=== PATIENT | male | born 1950 | race American Indian/Alaskan Native ===

== ENCOUNTER 2021-07-05 17:06 | Emergency (ER) | payer MEDICARE, OTHER ==
[2021-07-05] MEDS ORDERED: LORazepam 2 MG/ML VIAL ONE ×2 (17:32→19:45)
[2021-07-05] MEDS ORDERED: SODIUM CHLORIDE 0.9% 1000 ML 1,000 ML IV ONE (17:34)
[2021-07-05] MEDS ORDERED: LORazepam 2 MG/ML VIAL IV ONE (17:34)
--- NOTE | 2021-07-05 17:40 | Emergency Department Report ---
<YOLANDA BOUDREAUXFelipa - Last Filed: 07/05/21 23:12> ED Altered Mental Status HPI - General Chief Complaint: Altered Mental Status Stated Complaint: AMS Time Seen by Provider: 07/05/21 17:28 Source: EMS Mode of arrival: Stretcher Limitations: No Limitations - History of Present Illness Initial Comments: Patient is 70 years old male with history of alcohol and drug abuse. Patient brought to the emergency room via EMS from a local [place] [facility] area after patient was found to be confused and belligerent. EMS reported that patient was drinking alcohol. Upon arrival to the ER patient is confused agitated and refusing to cooperate. Patient physically restrained and given Ativan for chemical restraints. MD Complaint: altered mental status, confusion -: unknown Consistency of Symptoms: constant Context: alcohol abuse, drug abuse - Related Data Allergies Allergy/AdvReac Type Severity Reaction Status Date / Time No Known Allergies Allergy Verified 07/05/21 19:36 ED Review of Systems Comment: Unobtainable due to pts medical conditions ED Physical Exam - General Limitations: No Limitations General appearance: alert, in no apparent distress, appears intoxicated - Head Head exam: Present: atraumatic, normocephalic, normal inspection - Eye Eye exam: Present: normal appearance - ENT ENT exam: Present: normal exam, normal orophraynx, mucous membranes moist - Neck Neck exam: Present: normal inspection, full ROM. Absent: tenderness, meningismus - Respiratory Respiratory exam: Present: normal lung sounds bilaterally - Cardiovascular Cardiovascular Exam: Present: regular rate, normal rhythm, normal heart sounds - GI/Abdominal GI/Abdominal exam: Present: soft, normal bowel sounds. Absent: distended, tenderness, guarding, rebound, rigid, mass, bruit, pulsatile mass, hernia - Extremities Exam Extremities exam: Present: normal inspection, full ROM, normal capillary refill. Absent: tenderness - Back Exam Back exam: Present: normal inspection, full ROM. Absent: CVA tenderness (R), CVA tenderness (L) - Neurological Exam Neurological exam: Present: alert, altered, CN II-XII intact. Absent: motor sensory deficit - Psychiatric Psychiatric exam: Present: agitated - Skin Skin exam: Present: warm, intact, normal color - Lab Data Result diagrams: 07/05/21 18:05 07/05/21 18:05 - Radiology Data Radiology results: report reviewed - Medical Decision Making Patient is 70 years old male with history of alcohol and drug abuse. Patient brought to the emergency room via EMS from a local [place] [facility] area after patient was found to be confused and belligerent. EMS reported that patient was drinking alcohol. Upon arrival to the ER patient is confused agitated and ref using to cooperate. Patient physically restrained and given Ativan for chemical restraints. Patient agitation improved significantly after Ativan. Labs reviewed and is unremarkable except for slightly elevated lactic acid of 2.1. Alcohol level is 0.32. CT brain is negative for acute finding. Patient will be discharged home when patient is sober. ED Disposition Clinical Impression: Alcohol intoxication Qualifiers: Complication of substance-induced condition: with unspecified complication Qualified Code(s): F10.929 - Alcohol use, unspecified with intoxication, unspecified Disposition: 01 HOME / SELF CARE / HOMELESS Is pt being admited?: No Condition: Stable Instructions: Alcohol Intoxication Additional Instructions: Cut back on your alcohol drinking to help your overall health Increase your daily fluid to help your hydration Call and follow up with your doctor in the next 3-5 days for progress Please do not hesitate to call or return to ED if your symptoms worsen Referrals: IRAIS HELTON MD [Staff Physician] - 3-5 Days <AMARIS ORELLANA - Last Filed: 07/06/21 05:58> ED Review of Systems ROS: Stated complaint: AMS Other details as noted in HPI ED Course Vital Signs 07/05/21 07/05/21 07/05/21 17:16 17:30 17:46 Temperature 98 F Pulse Rate 90 Respiratory 18 Rate Blood Pressure 118/70 [Right] O2 Sat by Pulse 98 90 80 L Oximetry 07/05/21 07/05/21 07/05/21 18:02 18:17 18:32 Temperature Pulse Rate Respiratory Rate Blood Pressure [Right] O2 Sat by Pulse 86 81 L 82 L Oximetry 07/05/21 07/05/21 07/05/21 18:46 19:00 19:16 Temperature Pulse Rate Respiratory Rate Blood Pressure [Right] O2 Sat by Pulse 78 L 78 L 83 L Oximetry - Reevaluation(s) Reevaluation #1: 07/06/21 05:53 pt signed to me at shift change with alcohol intoxication. Pt woke up around 05:45 wanting something to eat and wanted to urinate. I help this patient with urinal and was able to urinate. He told me he was so drunk that he could not remember when they brought in here. He mentioned that he want to [facility] yesterday Monday and visit with his counselor. He blamed himself that he tried not to get drunk but he could not help it. He denies any other modifying or associated factors at this point. Pt will be fed and discharge to home. - Lab Data Result diagrams: 07/05/21 18:05 07/05/21 18:05 Lab Results 07/05/21 07/05/21 07/05/21 Range/Units 18:05 18:05 18:05 WBC 6.0 (4.5-11.0) K/mm3 RBC 3.94 (3.65-5.03) M/mm3 Hgb 13.3 (11.8-15.2) gm/dl Hct 40.5 (35.5-45.6) % MCV 103 H (84-94) fl MCH 34 H (28-32) pg MCHC 33 (32-34) % RDW 14.2 (13.2-15.2) % Plt Count 124 L (140-440) K/mm3 Lymph % (Auto) Automotive Artist Hartley % (Auto) Automotive Artist Eos % (Auto) Automotive Artist Baso % (Auto) Automotive Artist Lymph # (Auto) Automotive Artist Hartley # (Auto) Automotive Artist Eos # (Auto) Automotive Artist Baso # (Auto) Automotive Artist Seg Neutrophils % Automotive Artist Seg Neutrophils # Automotive Artist PT 20.3 H (12.2-14.9) Sec. INR 1.53 H (0.87-1.13) APTT 24.4 (24.2-36.6) Sec. Sodium 137 (137-145) mmol/L Potassium 4.1 (3.6-5.0) mmol/L Chloride 96.1 L (98-107) mmol/L Carbon Dioxide 26 (22-30) mmol/L Anion Gap 19 mmol/L BUN 19 (9-20) mg/dL Creatinine 0.9 (0.8-1.3) mg/dL Estimated GFR > 60 ml/min BUN/Creatinine Ratio 21 % Glucose 87 (75-100) mg/dL Lactic Acid (0.7-2.0) mmol/L Calcium 9.3 (8.4-10.2) mg/dL Total Bilirubin 0.60 (0.1-1.2) mg/dL Direct Bilirubin < 0.2 (0-0.2) mg/dL Indirect Bilirubin 0.4 mg/dL AST 42 H (5-40) units/L ALT 21 (7-56) units/L Alkaline Phosphatase 47 (35-129) units/L Ammonia (25-60) umol/L Total Creatine Kinase 83 (55-170) units/L Troponin T < 0.010 (0.00-0.029) ng/mL Total Protein 7.0 (6.3-8.2) g/dL Albumin 4.7 (3.9-5) g/dL Albumin/Globulin Ratio 2.0 % Salicylates (2.8-20.0) mg/dL Acetaminophen (10.0-30.0) ug/mL Plasma/Serum Alcohol (0-0.07) % 07/05/21 07/05/21 07/05/21 Range/Units 18:05 18:05 18:05 WBC (4.5-11.0) K/mm3 RBC (3.65-5.03) M/mm3 Hgb (11.8-15.2) gm/dl Hct (35.5-45.6) % MCV (84-94) fl MCH (28-32) pg MCHC (32-34) % RDW (13.2-15.2) % Plt Count (140-440) K/mm3 Lymph % (Auto) Hartley % (Auto) Eos % (Auto) Baso % (Auto) Lymph # (Auto) Hartley # (Auto) Eos # (Auto) Baso # (Auto) Seg Neutrophils % Seg Neutrophils # PT (12.2-14.9) Sec. INR (0.87-1.13) APTT (24.2-36.6) Sec. Sodium (137-145) mmol/L Potassium (3.6-5.0) mmol/L Chloride (98-107) mmol/L Carbon Dioxide (22-30) mmol/L Anion Gap mmol/L BUN (9-20) mg/dL Creatinine (0.8-1.3) mg/dL Estimated GFR ml/min BUN/Creatinine Ratio % Glucose (75-100) mg/dL Lactic Acid 2.40 H* (0.7-2.0) mmol/L Calcium (8.4-10.2) mg/dL Total Bilirubin (0.1-1.2) mg/dL Direct Bilirubin (0-0.2) mg/dL Indirect Bilirubin mg/dL AST (5-40) units/L ALT (7-56) units/L Alkaline Phosphatase (35-129) units/L Ammonia (25-60) umol/L Total Creatine Kinase (55-170) units/L Troponin T (0.00-0.029) ng/mL Total Protein (6.3-8.2) g/dL Albumin (3.9-5) g/dL Albumin/Globulin Ratio % Salicylates < 0.3 L (2.8-20.0) mg/dL Acetaminophen 5.0 L (10.0-30.0) ug/mL Plasma/Serum Alcohol (0-0.07) % 07/05/21 07/05/21 07/06/21 Range/Units 18:05 19:03 05:11 WBC (4.5-11.0) K/mm3 RBC (3.65-5.03) M/mm3 Hgb (11.8-15.2) gm/dl Hct (35.5-45.6) % MCV (84-94) fl MCH (28-32) pg MCHC (32-34) % RDW (13.2-15.2) % Plt Count (140-440) K/mm3 Lymph % (Auto) Hartley % (Auto) Eos % (Auto) Baso % (Auto) Lymph # (Auto) Hartley # (Auto) Eos # (Auto) Baso # (Auto) Seg Neutrophils % Seg Neutrophils # PT (12.2-14.9) Sec. INR (0.87-1.13) APTT (24.2-36.6) Sec. Sodium (137-145) mmol/L Potassium (3.6-5.0) mmol/L Chloride (98-107) mmol/L Carbon Dioxide (22-30) mmol/L Anion Gap mmol/L BUN (9-20) mg/dL Creatinine (0.8-1.3) mg/dL Estimated GFR ml/min BUN/Creatinine Ratio % Glucose (75-100) mg/dL Lactic Acid 2.60 H* (0.7-2.0) mmol/L Calcium (8.4-10.2) mg/dL Total Bilirubin (0.1-1.2) mg/dL Direct Bilirubin (0-0.2) mg/dL Indirect Bilirubin mg/dL AST (5-40) units/L ALT (7-56) units/L Alkaline Phosphatase (35-129) units/L Ammonia 26.0 (25-60) umol/L Total Creatine Kinase (55-170) units/L Troponin T (0.00-0.029) ng/mL Total Protein (6.3-8.2) g/dL Albumin (3.9-5) g/dL Albumin/Globulin Ratio % Salicylates (2.8-20.0) mg/dL Acetaminophen (10.0-30.0) ug/mL Plasma/Serum Alcohol 0.32 H (0-0.07) % 07/06/21 Range/Units 05:11 WBC (4.5-11.0) K/mm3 RBC (3.65-5.03) M/mm3 Hgb (11.8-15.2) gm/dl Hct (35.5-45.6) % MCV (84-94) fl MCH (28-32) pg MCHC (32-34) % RDW (13.2-15.2) % Plt Count (140-440) K/mm3 Lymph % (Auto) Hartley % (Auto) Eos % (Auto) Baso % (Auto) Lymph # (Auto) Hartley # (Auto) Eos # (Auto) Baso # (Auto) Seg Neutrophils % Seg Neutrophils # PT (12.2-14.9) Sec. INR (0.87-1.13) APTT (24.2-36.6) Sec. Sodium (137-145) mmol/L Potassium (3.6-5.0) mmol/L Chloride (98-107) mmol/L Carbon Dioxide (22-30) mmol/L Anion Gap mmol/L BUN (9-20) mg/dL Creatinine (0.8-1.3) mg/dL Estimated GFR ml/min BUN/Creatinine Ratio % Glucose (75-100) mg/dL Lactic Acid (0.7-2.0) mmol/L Calcium (8.4-10.2) mg/dL Total Bilirubin (0.1-1.2) mg/dL Direct Bilirubin (0-0.2) mg/dL Indirect Bilirubin mg/dL AST (5-40) units/L ALT (7-56) units/L Alkaline Phosphatase (35-129) units/L Ammonia (25-60) umol/L Total Creatine Kinase (55-170) units/L Troponin T (0.00-0.029) ng/mL Total Protein (6.3-8.2) g/dL Albumin (3.9-5) g/dL Albumin/Globulin Ratio % Salicylates (2.8-20.0) mg/dL Acetaminophen (10.0-30.0) ug/mL Plasma/Serum Alcohol 0.10 H (0-0.07) % Critical care attestation.: If time is entered above; I have spent that time in minutes in the direct care of this critically ill patient, excluding procedure time. ED Disposition Is pt being admited?: No Does the pt Need Aspirin: No Time of Disposition: 05:58
[2021-07-05 18:55] LABS: Alanine Aminotransferase 21 units/L (7-56); Albumin 4.7 g/dL (3.9-5); BUN/Creatinine Ratio 21; Blood Urea Nitrogen 19 mg/dL (9-20); Calcium 9.3 mg/dL (8.4-10.2); Hemolysis Index 45
[2021-07-05 18:57] LABS: Bilirubin,Direct < 0.2 mg/dL (0-0.2)
[2021-07-05 19:28] LABS: INR 1.53 (0.87-1.13)
[2021-07-05 19:29] LABS: Partial Thromboplastin Time 24.4 Sec. (24.2-36.6)
[2021-07-05 20:00] LABS: Hematocrit 40.5 % (35.5-45.6); Hemoglobin 13.3 gm/dl (11.8-15.2); Mean Corpuscular HGB Conc 33 % (32-34); Mean Corpuscular Volume 103 fl (84-94); Red Blood Count 3.94 M/mm3 (3.65-5.03); Red Cell Distribution Width 14.2 % (13.2-15.2)
[2021-07-05 20:02] LABS: Platelet Count 124 K/mm3 (140-440)
--- NOTE | 2021-07-05 22:20 | Cat Scan Report ---
CT HEAD WITHOUT CONTRAST INDICATION / CLINICAL INFORMATION: Altered Mental Status. TECHNIQUE: All CT scans at this location are performed using CT dose reduction for ALARA by means of automated exposure control. COMPARISON: None available. FINDINGS: BRAIN PARENCHYMA: No acute intracranial hemorrhage. No evidence of recent infarct. No mass effect or midline shift. There is generalized atrophy. Areas of decreased attenuation throughout the periventri cular white matter likely representing chronic microvascular ischemic changes. VENTRICULAR SYSTEM/EXTRA-AXIAL SPACES: There is mild enlargement of the ventricle secondary to atroph y. No acute ventricular abnormality. No extra-axial fluid collection. ORBITS: Normal as visualized. SKELETAL SYSTEM/SOFT TISSUES: Normal bones and soft tissues. PARANASAL SINUSES/MASTOID AIR CELLS: No significant abnormality. ADDITIONAL FINDINGS: Diffuse calcification is seen along the distal internal carotid arteries. IMPRESSION: 1. No acute intracranial abnormality. 2. Additional findings as above. Signer Name: Nik Shirley MD Signed: 07/05/2021 10:16 PM Workstation Name: [id number]
[2021-07-06 07:29] VITALS: BP 116/70
== END 2021-07-06 07:30 | disposition home or self-care (01) ==
LOC: ED 17:06
DX: F10.129 Alcohol abuse with intoxication, unspecified (principal)
CPT/HCPCS: 36415; 70450; 80048; 80076; 82140; 82550; 84484; 85025; 85610; 85730; 96374; 99284; J2060; 80320; G0480

== ENCOUNTER 2021-07-24 15:43 | Emergency (ER) | payer MEDICARE, OTHER ==
[2021-07-24 16:08] VITALS: BP 141/68
== END 2021-07-25 12:18 | disposition left against medical advice (07) ==
LOC: ED 15:43
DX: Z76.0 Encounter for issue of repeat prescription (principal); Z53.21 Procedure and treatment not carried out due to patient leaving prior to being seen by health care provider

== ENCOUNTER 2021-10-14 06:46 | Inpatient (IN) | payer OTHER ==
--- NOTE | 2021-10-14 07:49 | Emergency Department Report ---
ED Shortness of Breath HPI - General Chief Complaint: Dyspnea/Respdistress Stated Complaint: DIFFICULTY BREATHING Time Seen by Provider: 10/14/21 07:17 Source: EMS Mode of arrival: Stretcher Limitations: No Limitations - History of Present Illness Initial Comments: 71 yo M who present with sob that started this morning and progressively getting worse. Pt also told his bedside nurse that he took some cocaine this morning around 5:00 AM shortly before the symptoms started. He however denies any chest pain or palpitation. Blood pressure noted to be high as well. No other modifying or associated factors reported. MD Complaint: shortness of breath - Related Data Home Medications Medication Instructions Recorded Confirmed Last Taken No Known Home Medications [No 10/14/21 10/14/21 Unknown Reported Home Medications] Allergies Allergy/AdvReac Type Severity Reaction Status Date / Time No Known Allergies Allergy Verified 07/24/21 16:08 ED Review of Systems ROS: Stated complaint: DIFFICULTY BREATHING Other details as noted in HPI Comment: All other systems reviewed and negative Constitutional: weakness Respiratory: shortness of breath, SOB at rest ED Past Medical Hx - Past Medical History Previous Medical History?: Yes Additional medical history: HEROIN ABUSE - Surgical History Past Surgical History?: No - Social History Smoking Status: Never Smoker Substance Use Type: None - Medications Home Medications: Home Medications Medication Instructions Recorded Confirmed Last Taken Type No Known Home Medications [No 10/14/21 10/14/21 Unknown History Reported Home Medications] ED Physical Exam - General Limitations: No Limitations General appearance: alert, in no apparent distress - Head Head exam: Present: atraumatic, normal inspection - Eye Eye exam: Present: normal appearance Pupils: Present: normal accommodation - ENT ENT exam: Present: normal exam, normal orophraynx, mucous membranes dry - Neck Neck exam: Present: normal inspection, full ROM. Absent: tenderness - Respiratory Respiratory exam: Present: normal lung sounds bilaterally. Absent: respiratory distress, accessory muscle use - Cardiovascular Cardiovascular Exam: Present: regular rate, normal rhythm, normal heart sounds - GI/Abdominal GI/Abdominal exam: Present: soft, normal bowel sounds. Absent: distended, tenderness - Extremities Exam Extremities exam: Present: normal inspection, full ROM, normal capillary refill. Absent: tenderness, pedal edema - Back Exam Back exam: Absent: tenderness - Neurological Exam Neurological exam: Present: alert, oriented X3 - Psychiatric Psychiatric exam: Present: normal affect, normal mood - Skin Skin exam: Present: warm, normal color ED Course Vital Signs 10/14/21 10/14/21 10/14/21 07:23 07:30 07:45 Pulse Rate 83 81 Respiratory 17 27 H 26 H Rate Blood Pressure 207/111 193/104 Blood Pressure [Left] O2 Sat by Pulse 100 94 92 Oximetry 10/14/21 10/14/21 10/14/21 08:00 08:15 08:30 Pulse Rate 88 66 72 Respiratory 22 25 H 26 H Rate Blood Pressure 193/104 172/91 172/91 Blood Pressure [Left] O2 Sat by Pulse 89 94 92 Oximetry 10/14/21 10/14/21 10/14/21 08:45 09:00 09:15 Pulse Rate 70 69 69 Respiratory 24 25 H 22 Rate Blood Pressure 171/91 171/91 181/96 Blood Pressure [Left] O2 Sat by Pulse 88 95 94 Oximetry 10/14/21 10/14/21 10/14/21 09:30 10:35 10:45 Pulse Rate 78 77 93 H Respiratory 21 18 38 H Rate Blood Pressure 181/96 232/130 257/145 Blood Pressure 232/130 257/145 [Left] O2 Sat by Pulse 43 L 69 L Oximetry 10/14/21 10/14/21 10/14/21 10:54 11:08 11:10 Pulse Rate 76 82 89 Respiratory 18 16 Rate Blood Pressure 186/108 213/113 Blood Pressure 248/138 [Left] O2 Sat by Pulse 76 L 93 90 Oximetry 10/14/21 10/14/21 10/14/21 11:15 11:16 11:30 Pulse Rate 86 81 85 Respiratory 18 16 16 Rate Blood Pressure 188/108 215/126 Blood Pressure 218/128 [Left] O2 Sat by Pulse 88 97 100 Oximetry 10/14/21 10/14/21 10/14/21 11:46 11:50 12:00 Pulse Rate 89 81 90 Respiratory 18 20 Rate Blood Pressure 233/139 188/108 248/150 Blood Pressure [Left] O2 Sat by Pulse 100 100 99 Oximetry 10/14/21 10/14/21 10/14/21 12:16 12:30 12:46 Pulse Rate 82 82 80 Respiratory 21 28 H 20 Rate Blood Pressure 206/117 213/118 169/103 Blood Pressure [Left] O2 Sat by Pulse 99 99 100 Oximetry 10/14/21 10/14/21 10/14/21 13:00 13:16 13:30 Pulse Rate 80 78 67 Respiratory 18 20 21 Rate Blood Pressure 85/55 79/53 167/94 Blood Pressure [Left] O2 Sat by Pulse 100 100 100 Oximetry 10/14/21 10/14/21 10/14/21 13:46 14:00 14:16 Pulse Rate 64 66 66 Respiratory 19 19 19 Rate Blood Pressure 159/88 178/96 192/101 Blood Pressure [Left] O2 Sat by Pulse 100 97 93 Oximetry - Reevaluation(s) Reevaluation #1: 10/14/21 11:24 I was called to patient room that his shortness of breath in getting worse and needed reevaluation. I went in and noticed that patient have defecated by his be dside. His oxygen level was low 80% even though he was been given high flow oxygen at 10 ml/minutes. At this point decision made to go ahead and intubate this patient. Labs still pending at that time. Please see the procedure note for detail. - Consultations Consultation #1: 10/14/21 12:00 Dr Christianson consulted who agreed to admit patient for further evaluation and treatment. - Intubation Time Out Performed: Yes Sedative: Etomidate Mg Given: 20 Paralytic: Rocuronium Mg Given: 50 Laryngoscope: Yo Size: 4 Assist Device Used: other ET Tube Size: 7.5 Tube Secured Depth (cm): 22 Tube Secured Location: lips Tube Placement Confirmation: visualized tube passing t, equal breath sounds bilat, confirmation by capnometr Patient Tolerated Procedure: well Intubation Complications: none ED Medical Decision Making - Lab Data Result diagrams: 10/14/21 07:26 10/14/21 07:26 - EKG Data -: EKG Interpreted by Sc EKG shows normal: sinus rhythm Rate: normal - EKG Data 10/14/21 12:05 Noted with normal sinus rhythm at the rate of 67 bpm, with left ventricular hypertrophy and nonspecific T wave abnormality in this abnormal ECG. - Radiology Data FINDINGS: Support devices: None. Heart: Normal. Lungs/Pleura: There are diffuse bilateral pulmonary opacities. No significant effusion, no pneumothorax. Chronic posttraumatic deformity is seen at the left humerus. IMPRESSION: 1. Somewhat patchy diffuse bilateral pulmonary opacities. This could be seen in the setting of bilateral pneumonia or pulmonary edema. - Medical Decision Making Here with shortness of breath--even though this is likely as a result of cocaine that this patient is abusing but other differential diagnosis could not be limited to acute exacerbation of COPD, myocardiac infarction especially with cocaine abuse, pulmonary embolism, acute exacerbation of asthma, pneumothorax, pneumonia or Viral or Bacterial Upper/Lower respiratory tract infection or other systemic infection.--To rule out the above will go ahead and order EKG, cardiac enzyme including troponin, BNP, CKMB, chest x-ray, CBC, CMP, UA. Labs reviewed and noted with unremarkable wbc but the CXR noted with possible bilateral pneumonia -- will go ahead and add Cefeprime 2 g IVPB x 1 and consider admission. Also noted with hypoxemia with respiratory acidosis. --ABG shows pH 7.22 with Po2 71 and PCo2 64 and hCo3 26.2 with Ox 88.8 % on 100% FiO2-- Dr Christianson consulted for admission-- Critical Care Time: Yes (75) Critical care time in (mins) excluding proc time.: 75 Critical care attestation.: If time is entered above; I have spent that time in minutes in the direct care of this critically ill patient, excluding procedure time. Patient brought in with respiratory distress and diagnosed with possible bilateral pneumonia and intubated and due to high probability of clinically significant, life threatening deterioration, this patient required my highest level of preparedness to intervene emergently and I personally spent this critical care time directly and personally managing this patient. This critical care time included obtaining a history; examining this patient; pulse oximetry ; ordering and review of studies ; arranging urgent treatment with development of a management plan ; evaluation of patient's response to treatment ; frequent reassessment ; and, discussion with other providers. This critical care time was performed to assess and manage the high probability of imminent, life-threatening deterioration that could result in multiple organ damage if not done in a timely fashion. Critical Care Time: 75 ED Disposition Clinical Impression: Drug abuse, cocaine type, SOB (shortness of breath), Community acquired bilater al lower lobe pneumonia Disposition: ADMITTED INPATIENT Is pt being admited?: Yes Does the pt Need Aspirin: No Condition: Serious
--- NOTE | 2021-10-14 08:09 | XRay Report ---
CHEST 1 VIEW INDICATION: Dyspnea. COMPARISON: None. FINDINGS: Support devices: None. Heart: Normal. Lungs/Pleura: There are diffuse bilateral pulmonary opacities. No significant effusion, no pneumothor ax. Chronic posttraumatic deformity is seen at the left humerus. IMPRESSION: 1. Somewhat patchy diffuse bilateral pulmonary opacities. This could be seen in the setting of bilate ral pneumonia or pulmonary edema. Signer Name: Seth Sher MD Signed: 10/14/2021 8:05 AM Workstation Name: [email or web address]
[2021-10-14 08:13] LABS: Amphetamine Screen,Urine Negative; Benzodiazepines Screen,Urine Negative; Cannabinoid Screen,Urine Negative; Methadone Screen,Urine Negative; Opiate Screen,Urine Negative
[2021-10-14 08:19] LABS: Basophils % (Auto) 0.3 % (0.0-1.8); Eosinophils % (Auto) 0.7 % (0.0-4.3); Hematocrit 34.8 % (35.5-45.6); Hemoglobin 11.7 gm/dl (11.8-15.2); Lymphocytes # (Auto) 0.8 K/mm3 (1.2-5.4); Lymphocytes % (Auto) 13.1 % (13.4-35.0); Mean Corpuscular HGB Conc 34 % (32-34); Mean Corpuscular Volume 101 fl (84-94); Monocytes # (Auto) 0.4 K/mm3 (0.0-0.8); Monocytes % (Auto) 7.1 % (0.0-7.3); Platelet Count 160 K/mm3 (140-440); Red Blood Count 3.46 M/mm3 (3.65-5.03); Red Cell Distribution Width 14.1 % (13.2-15.2)
[2021-10-14 08:29] LABS: Cocaine Screen,Urine Positive
[2021-10-14 08:30] LABS: INR 0.99 (0.87-1.13)
[2021-10-14 08:36] LABS: Creatine Kinase MB 3.9 ng/mL (0.0-4.0)
[2021-10-14 08:38] LABS: Alanine Aminotransferase 11 units/L (7-56); Albumin 3.7 g/dL (3.9-5); BUN/Creatinine Ratio 22; Blood Urea Nitrogen 13 mg/dL (9-20); Hemolysis Index 9
[2021-10-14 08:48] LABS: Color,Urine Straw (Yellow)
[2021-10-14 09:21] LABS: WBC,Urine < 1.0 /HPF (0.0-6.0)
[2021-10-14] MEDS ORDERED: ETOMIDATE 20 MG/10 ML INJ IV ONE ×3 (10:28→11:18)
[2021-10-14] MEDS ORDERED: ROCURONIUM 50 MG/5 ML INJ IV ONE ×2 (10:29→11:17)
[2021-10-14 11:20] LABS: ABG Base Excess -2.7 mmol/L (-2.0-3.0); ABG HCO3 26.2 mmol/L (20.0-26.0); ABG Methemoglobin 0.5 % (0.0-1.5); ABG PCO2 64.3 mm Hg; ABG PH 7.227 pH Units (7.350-7.450); ABG PO2 71.3 mm Hg (80.0-90.0)
[2021-10-14] MEDS ORDERED: CEFEPIME/NS 2 GM/100 ML 2 GM/100 ML BAG IV ONE (11:35)
--- NOTE | 2021-10-14 11:49 | XRay Report ---
CHEST 1 VIEW 10/14/2021 10:39 AM INDICATION / CLINICAL INFORMATION: OG TUBE PLACEMENT. COMPARISON: Earlier today at 7:41 AM. FINDINGS: SUPPORT DEVICES: There is a new orogastric tube with the tip not seen, but the proximal sidehole is s everal centimeters below the gastroesophageal junction. HEART / MEDIASTINUM: Unchanged. LUNGS / PLEURA: Moderate, patchy parenchymal opacities in both mid to upper lung zones appear mildly increased. Patchy disease in the lower lung zones may be mildly improved on the right. No pleural eff usion. No pneumothorax. ADDITIONAL FINDINGS: No significant additional findings. IMPRESSION: 1. Orogastric tube coursing into the stomach with the tip not visualized, but the proximal sidehole i s below the gastroesophageal junction. 2. Changing appearance of moderate patchy parenchymal opacities in both lungs. Signer Name: Rick Aparicio MD Signed: 10/14/2021 11:44 AM Workstation Name: [id number]
[2021-10-14] MEDS ORDERED: IBUPROFEN 600 MG TAB PO PRN (12:01)
[2021-10-14] MEDS ORDERED: MORPHINE 2 MG/1 ML INJ IV PRN (12:01)
--- NOTE | 2021-10-14 12:31 | History and Physical Report ---
History of Present Illness Chief complaint: I cannot breathe History of present illness: 71 YO Male with Vascular Dementia, Cerebral Atherosclerosis, Cocaine Dependence presents to ED for evaluation. Patient is intubated and on ventilatory support at time of evaluation and is unable to write history. Patient history taken EMS staff, ED staff as well as the patient upon arrival. The patient was found to have shortness of breath shortly after cocaine ingestion at 0500 hrs. this morning. EMS was notified and upon arrival the patient was found to be in distress and subsequent transported to [facility] for further care and evaluation of the aforementioned symptoms. The patient was seen and evaluated in the emergency department. All lab and imaging studies reviewed. Patient found to have a pulse oximetry in the 70s which is consistent with acute hypoxemic respiratory failure. The patient was found to be unable to protect his airway and was intubated in the emergency department. The patient was also found to have a blood pressure of 218/128 mmHg which is consistent with hypertensive emergency. Patient initiated on Cardene drip. Chest x-ray revealed bilateral pneumonia. Patient admitted to ICU and initiated on pneumonia protocol. No further history is obtainable. No prior admission for review. No medication listed at time of admission for reconciliation. Advanced care planning conducted in ED. D-dimer ordered and is pending at time of admission. Past History Past Medical History: other (See HPI) Past Surgical History: No surgical history, Other (Reviewed) Social history: single, other (Cocaine dependence). denies: smoking, alcohol abuse Family history: no significant family history, other (Reviewed) Medications and Allergies Allergies Allergy/AdvReac Type Severity Reaction Status Date / Time No Known Allergies Allergy Verified 07/24/21 16:08 Active Meds: Active Medications Propofol (Diprivan 10 Mg/Ml) 1,000 mg in 100 mls @ 1.905 mls/hr IV TITR KATHY; Protocol Sodium Bicarbonate 50 meq/ (Sodium Chloride) 1,050 mls @ 100 mls/hr IV DIRECT KATHY Ibuprofen (Ibuprofen 600 Mg Tab) 600 mg PO Q6H PRN PRN Reason: Pain, Mild (1-3) Morphine Sulfate (Morphine 2 Mg/1 Ml Inj) 2 mg IV Q4H PRN PRN Reason: Pain, Moderate (4-6) Sodium Chloride (Sodium Chloride 0.9% 10 Ml Flush Syringe) 10 ml IV BID KATHY Sodium Chloride (Sodium Chloride 0.9% 10 Ml Flush Syringe) 10 ml IV PRN PRN PRN Reason: LINE FLUSH Review of Systems ROS unobtainable: due to endotracheal tube, due to mental status Exam - Constitutional Vitals: Temp Pulse Resp BP Pulse Ox 81 16 188/108 100 10/14/21 11:50 10/14/21 11:16 10/14/21 11:50 10/14/21 11:50 General appearance: Present: severe distress - EENT Eyes: Present: PERRL, miosis ENT: dentition normal - Neck Neck: Present: supple - Respiratory Respiratory effort: labored Respiratory: bilateral: diminished, rhonchi - Cardiovascular Rhythm: other (Tachycardia) Heart Sounds: Present: S1 & S2. Absent: rub, click - Extremities Extremities: pulses symmetrical, No edema Peripheral Pulses: within normal limits - Abdominal General gastrointestinal: Present: soft, non-tender, non-distended, normal bowel sounds Male genitourinary: Present: normal - Integumentary Integumentary: Present: dry, clammy, decreased turgor - Musculoskeletal Musculoskeletal: generalized weakness - Psychiatric Psychiatric: no appropriate mood/affect, no intact judgment & insight, no memory intact - Neurologic Neurologic: CNII-XII intact, no focal deficits, moves all extremities, no gait normal HEART Score - HEART Score Troponin: Troponin T < 0.010 ng/mL (0.00-0.029) 10/14/21 07:26 Results - Labs CBC & Chem 7: 10/14/21 07:26 10/14/21 07:26 Labs: Abnormal lab results 10/14/21 10/14/21 10/14/21 Range/Units 07:26 07:26 11:06 RBC 3.46 L (3.65-5.03) M/mm3 Hgb 11.7 L (11.8-15.2) gm/dl Hct 34.8 L (35.5-45.6) % MCV 101 H (84-94) fl MCH 34 H (28-32) pg Lymph % (Auto) 13.1 L (13.4-35.0) % Lymph # (Auto) 0.8 L (1.2-5.4) K/mm3 Seg Neutrophils % 78.8 H (40.0-70.0) % ABG pH 7.227 L (7.350-7.450) pH Units ABG pO2 71.3 L (80.0-90.0) mm Hg ABG HCO3 26.2 H (20.0-26.0) mmol/L ABG O2 Saturation 91.0 L (95.0-99.0) % ABG Base Excess -2.7 L (-2.0-3.0) mmol/L ABG Hemoglobin 13.3 L (14.0-18.0) gm/dl Oxyhemoglobin 88.8 L (95.0-99.0) % Sodium 136 L (137-145) mmol/L Creatinine 0.6 L (0.8-1.3) mg/dL CK-MB (CK-2) Rel Index 6.7 H (0-4) Albumin 3.7 L (3.9-5) g/dL Assessment and Plan - Patient Problems (1) Acute hypoxemic respiratory failure Current Visit: Yes Status: Acute Plan to address problem: Chest x-ray, supplemental oxygen, pulse oximetry, patient intubated and on ventilatory support. Wean vent as tolerated, sedation holiday, daily spontaneous breathing trial The high probability of a clinically significant, sudden or life threatening deterioration of the [cardiac, pulmonary, renal, neuro] system(s) required my full and direct attention, intervention and personal management. The aggregate critical care time was [95] minutes. This time is in addition to time spent performing reported procedures but includes the following: [x] Data Review and interpretation [x] Patient assessment and monitoring of vital signs [x] Documentation [x] Medication orders and management (2) Hypertensive emergency Current Visit: Yes Status: Acute Plan to address problem: Monitor blood pressure every shift, Cardene drip, titrate to maintain systolic blood pressure less than or equal to 155 mmHg. (3) Pneumonia Current Visit: Yes Status: Acute Plan to address problem: Chest x-ray, supplemental oxygen, pulse oximetry, nebulizer therapy, IV antibiotic therapy, blood culture. (4) Cocaine dependence Current Visit: Yes Status: Acute Qualifiers: Complication of substance-induced condition: with unspecified complication Plan to address problem: Supportive care, outpatient drug dependence follow-up, (5) DVT prophylaxis Current Visit: Yes Status: Acute Plan to address problem: SCD to bilateral lower extremities while in bed (6) Advance care planning Current Visit: Yes Status: Acute Plan to address problem: Disease education data, care plan discussed, diagnoses discussed, prognosis discussed, patient is full code, +30 minutes. (7) Preventative health care Current Visit: Yes Status: Acute Plan to address problem: Patient family counseled regarding abstinence from cocaine use, home safety precautions, outpatient follow-up with primary care physician for all age and risk factor appropriate screening test. +30 minutes.
--- NOTE | 2021-10-14 12:54 | Procedure Note ---
Date of procedure: 10/14/21 Pre-op diagnosis: Acute hypoxemic respiratory failure Post-op diagnosis: same Procedure: Right internal jugular vein triple-lumen catheter placed under ultrasound guidance After informed consent was obtained the patient was prepped and draped in the usual sterile fashion. A timeout was taken with the patient nurse at bedside to identify the correct patient, the correct procedure, and the correct operative site. Local anesthesia obtained with 1% lidocaine. The Seldinger technique was utilized to visualize the right internal jugular vein under ultrasound guidance. A seeker needle was advanced into the right internal jugular vein under ultrasound guidance without difficulty. A guidewire was then advanced into the right internal jugular vein without difficulty and the seeker needle subsequently removed. A scalpel was used to incise the skin at the insertion site. A dilator was then passed over the guidewire into the right internal jugular vein and subsequently removed. A preflush triple-lumen catheter was then advanced to the right internal jugular vein without difficulty and the guidewire removed. All 3 ports flush and drawl with ease. 3O silk suture was utilized to secure the triple-lumen catheter in place. A Biopatch was placed at the insertion site. A sterile dressing was then applied over the top of the triple-lumen catheter. Estimated blood loss minimal. Complications none. Postoperative chest x-ray reveals the triple-lumen catheter in expected position without pneumothorax. Anesthesia: local Surgeon: GABY MCGUIRE Estimated blood loss: minimal Pathology: none Condition: critical Disposition: ICU
[2021-10-14] MEDS ORDERED: SODIUM BICARBONATE 50 MEQ in SODIUM CHLORIDE 0.9% 1000 ML 1,000 ML IV SCH (13:00)
[2021-10-14] MEDS ORDERED: HYDROmorphone 0.5 MG/0.5 ML INJ IV PRN (13:00)
[2021-10-14] MEDS ORDERED: MIDAZOLAM 2 MG/2 ML INJ IV PRN (13:06)
[2021-10-14] MEDS ORDERED: SODIUM CHLORIDE 0.9% 1000 ML 1,000 ML ONE ×2 (13:09→20:41)
[2021-10-14] MEDS ORDERED: niCARdipine 50 MG in SODIUM CHLORIDE 0.9% 250ML 230 ML IV SCH (13:30)
[2021-10-14] MEDS ORDERED: MIDAZOLAM/NS Drip 100mg/100ml 100 MG/100 ML BAG IV SCH (13:30)
--- NOTE | 2021-10-14 13:46 | XRay Report ---
CHEST 1 VIEW 10/14/2021 12:35 PM INDICATION / CLINICAL INFORMATION: Central line placement. COMPARISON: Earlier today at 11:19 AM. FINDINGS: SUPPORT DEVICES: There is a new right jugular CVL with the tip overlying the proximal SVC. There is a n endotracheal tube with the tip 7.3 cm above the leila. The position of the orogastric tube has not changed. HEART / MEDIASTINUM: Unchanged. LUNGS / PLEURA: There are moderate patchy multifocal parenchymal opacities bilaterally with areas of improvement and worsening present. Disease in the right lower lung has increased. There are now minim al bilateral pleural effusions, larger on the right. No pneumothorax. ADDITIONAL FINDINGS: No significant additional findings. IMPRESSION: Right jugular CVL placement without complication. Signer Name: Rick Aparicio MD Signed: 10/14/2021 1:41 PM Workstation Name: [email or web address]
[2021-10-14] MEDS ORDERED: ALBUTEROL 2.5 MG/3 ML NEBU IH PRN (14:00)
--- NOTE | 2021-10-14 15:15 | Consultation ---
History of Present Illness Consult date: 10/14/21 Requesting physician: GABY MCGUIRE Reason for consult: other (Acute Hypoxemic Respiratory Failure) History of present illness: PULMONARY/CCM CONSULT NOTE (Full dictation # [id number]) Please see dictated notes for full details Past History Past Medical History: other (See HPI) Past Surgical History: No surgical history, Other (Reviewed) Social history: single, other (Cocaine dependence). denies: smoking, alcohol abuse Family history: no significant family history, other (Reviewed) Medications and Allergies Allergies Allergy/AdvReac Type Severity Reaction Status Date / Time No Known Allergies Allergy Verified 07/24/21 16:08 Home Medications Medication Instructions Recorded Confirmed Last Taken Type No Known Home Medications [No 10/14/21 10/14/21 Unknown History Reported Home Medications] Active Meds: Active Medications Acetaminophen (Acetaminophen 325 Mg Tab) 650 mg PO Q6H PRN PRN Reason: Pain MILD(1-3)/Fever >100.5/[place] Albuterol (Albuterol 2.5 Mg/3 Ml Nebu) 2.5 mg IH Q3HRT PRN PRN Reason: Shortness Of Breath Hydralazine HCl (Hydralazine 20 Mg/1 Ml Inj) 10 mg IV Q6HR PRN PRN Reason: Hypertension Hydromorphone HCl (Hydromorphone 0.5 Mg/0.5 Ml Inj) 0.5 mg IV Q23H PRN PRN Reason: Pain , Severe (7-10) Propofol (Diprivan 10 Mg/Ml) 1,000 mg in 100 mls @ 1.905 mls/hr IV TITR KATHY; Protocol Last Titration: 10/14/21 13:21 Dose: 0 mcg/kg/min, 0 mls/hr Sodium Bicarbonate 50 meq/ (Sodium Chloride) 1,050 mls @ 100 mls/hr IV DIRE CT KATHY Stop: 10/14/21 23:29 Nicardipine HCl 50 mg/ Sodium (Chloride) 250 mls @ 25 mls/hr IV TITR KATHY; Protocol Ceftriaxone Sodium (Rocephin/Ns 2 Gm/100 Ml) 2 gm in 100 mls @ 200 mls/hr IV Q24H KATHY; Protocol Azithromycin (Zithromax/Ns) 500 mg in 250 mls @ 250 mls/hr IV Q24H KATHY; Protocol MIDAZOLAM/NS Drip 100mg/100ml (Midazolam/Ns Drip 100mg/100ml) 100 mg in 100 mls @ 1 mls/hr IV TITR KATHY; Protocol Last Admin: 10/14/21 13:18 Dose: 1 mg/hr, 1 mls/hr Midazolam HCl (Midazolam 2 Mg/2 Ml Inj) 2 mg IV Q10MIN PRN PRN Reason: Sedation Morphine Sulfate (Morphine 2 Mg/1 Ml Inj) 2 mg IV Q4H PRN PRN Reason: Pain, Moderate (4-6) Oxycodone/Acetaminophen (Oxycodone /Acetaminophen 5-325mg Tab) 1 tab PO Q16H PRN PRN Reason: Pain, Moderate (4-6) Sodium Chloride (Sodium Chloride 0.9% 10 Ml Flush Syringe) 10 ml IV BID KATHY Sodium Chloride (Sodium Chloride 0.9% 10 Ml Flush Syringe) 10 ml IV PRN PRN PRN Reason: LINE FLUSH Physical Examination Vital signs: Vital Signs Resp Pulse Ox 17 100 10/14/21 07:23 10/14/21 07:23 Results - Laboratory Findings CBC and BMP: 10/14/21 07:26 10/14/21 07:26 ABG ABG pH 7.227 pH Units (7.350-7.450) L 10/14/21 11:06 ABG pCO2 64.3 mm Hg 10/14/21 11:06 ABG pO2 71.3 mm Hg (80.0-90.0) L 10/14/21 11:06 ABG O2 Saturation 91.0 % (95.0-99.0) L 10/14/21 11:06 PT/INR, D-dimer PT 14.2 Sec. (12.2-14.9) 10/14/21 07:26 INR 0.99 (0.87-1.13) 10/14/21 07:26 D-Dimer 1033.11 ng/mlDDU (0-234) H 10/14/21 07:06 Abnormal lab findings: Abnormal Labs 10/14/21 10/14/21 10/14/21 07:06 07:26 07:26 RBC 3.46 L Hgb 11.7 L Hct 34.8 L MCV 101 H MCH 34 H Lymph % (Auto) 13.1 L Lymph # (Auto) 0.8 L Seg Neutrophils % 78.8 H D-Dimer 1033.11 H ABG pH ABG pO2 ABG HCO3 ABG O2 Saturation ABG Base Excess ABG Hemoglobin Oxyhemoglobin Sodium 136 L Creatinine 0.6 L CK-MB (CK-2) Rel Index 6.7 H Albumin 3.7 L 10/14/21 11:06 RBC Hgb Hct MCV MCH Lymph % (Auto) Lymph # (Auto) Seg Neutrophils % D-Dimer ABG pH 7.227 L ABG pO2 71.3 L ABG HCO3 26.2 H ABG O2 Saturation 91.0 L ABG Base Excess -2.7 L ABG Hemoglobin 13.3 L Oxyhemoglobin 88.8 L Sodium Creatinine CK-MB (CK-2) Rel Index Albumin
[2021-10-14] MEDS ORDERED: fentaNYL 100 MCG/2 ML INJ IV PRN (15:47)
[2021-10-14] MEDS ORDERED: LIP THERAPY VASELINE TP PRN (15:47)
[2021-10-14] MEDS ORDERED: MINERAL OIL/PETROLATUM, WHITE OPHTH OINT 3.5 GM OU PRN (15:47)
[2021-10-14] MEDS: fentaNYL DRIP Premix 2,000 MCG/100 ML BAG IV SCH (15:57)
[2021-10-14] MEDS: AZITHROMYCIN/NS 500 MG/250 ML 500 MG/250 ML BAG IV SCH (16:57)
[2021-10-14] MEDS: hydrALAZINE 20 MG/1 ML INJ IV PRN (18:40)
[2021-10-14 18:48] LABS: ABG Base Excess -0.7 mmol/L (-2.0-3.0); ABG HCO3 24.1 mmol/L (20.0-26.0); ABG Methemoglobin 0.4 % (0.0-1.5); ABG PCO2 40.4 mm Hg; ABG PH 7.394 pH Units (7.350-7.450); ABG PO2 88.2 mm Hg (80.0-90.0)
--- NOTE | 2021-10-14 22:33 | XRay Report ---
ABDOMEN 1 VIEW INDICATION / CLINICAL INFORMATION: NGT placement. COMPARISON: One view of the chest performed earlier today. FINDINGS: TUBES / LINES: An NG tube terminates over the gastric body. BOWEL GAS PATTERN: There is mild gaseous distention of the small bowel and colon. FREE AIR / EXTRALUMINAL GAS: None seen. ADDITIONAL FINDINGS: Bilateral pulmonary opacities are again seen. IMPRESSION: Satisfactory positioning of the NG tube with a possible ileus. Signer Name: Nik Shirley MD Signed: 10/14/2021 10:29 PM Workstation Name: [id number]
[2021-10-15] MEDS: SENNOSIDES/DOCUSATE SODIUM 8.6/50 MG TAB FEEDTUBE SCH ×3 (00:47→21:53)
[2021-10-15] MEDS ORDERED: SODIUM CHLORIDE 0.9% 1000 ML 1,000 ML IV SCH (03:25)
[2021-10-15 05:52] LABS: Basophils % (Auto) 0.4 % (0.0-1.8); Eosinophils % (Auto) 0.4 % (0.0-4.3); Lymphocytes # (Auto) 0.9 K/mm3 (1.2-5.4); Lymphocytes % (Auto) 13.5 % (13.4-35.0); Mean Corpuscular HGB Conc 32 % (32-34); Mean Corpuscular Volume 103 fl (84-94); Monocytes # (Auto) 0.5 K/mm3 (0.0-0.8); Monocytes % (Auto) 7.3 % (0.0-7.3); Platelet Count 159 K/mm3 (140-440); Red Blood Count 3.31 M/mm3 (3.65-5.03); Red Cell Distribution Width 14.1 % (13.2-15.2)
[2021-10-15 05:56] LABS: BUN/Creatinine Ratio 13; Blood Urea Nitrogen 12 mg/dL (9-20); Calcium 8.6 mg/dL (8.4-10.2); Hemolysis Index 5
--- NOTE | 2021-10-15 06:44 | XRay Report ---
CHEST 1 VIEW 10/15/2021 5:38 AM INDICATION / CLINICAL INFORMATION: follow up respiratory failure. COMPARISON: None available. FINDINGS: SUPPORT DEVICES: ET tube is satisfactory position above the leila. NG tube extends within the stomac h HEART / MEDIASTINUM: No significant abnormality. LUNGS / PLEURA: Bilateral pulmonary opacities with dense opacity extending from right hilum, unchange d No pneumothorax. Signer Name: Farooq Escobar MD Signed: 10/15/2021 6:40 AM Workstation Name: [id number]
[2021-10-15] MEDS: FAMOTIDINE 20 MG/2 ML INJ IV SCH (09:45)
[2021-10-15] MEDS: cefTRIAXone/NS 2 GM/100 ML 2 GM/100 ML BAG IV SCH (09:45)
[2021-10-15] MEDS: HEPARIN 5,000 UNIT/1 ML VIAL SUB-Q SCH ×2 (09:45→21:52)
[2021-10-15] MEDS: diphenhydrAMINE 50 MG/ML VIAL IV PRN ×2 (10:22→16:26)
[2021-10-15] MEDS: fentaNYL DRIP Premix 2,000 MCG/100 ML BAG IV SCH ×2 (10:22→17:33)
--- NOTE | 2021-10-15 10:30 | Progress Note ---
Assessment and Plan Acute Hypoxemic Respiratory Failure Flash Pulmonary Edema Hypertensive Emergency Cocaine intoxication Possible Pneumonia Acute Encephalopathy - get CTA chest re: degree of hypoxemia, elevated d-dimer and to evaluate pulmonary parenchyma / mediastinum - reduced FiO2 to 40% and reduced set rate to 12/min - ABG after 30-60 minutes to assess ventilation - 12 lead EKG for QT evaluation - follow 2D ECHO - Wean off Propofol and increase Fentanyl - continue Daily SAT and SBT assessment as tolerated - continue to wean supplemental oxygen for target O2 sat's > 90% acutely - VAP bundle addressed - continue lung protective strategies - continue bronchodilators with pulmonary hygiene per RT - wean per pulmonary driven protocols otherwise - avoid nephrotoxins, renally dose all medications - continue to avoid benzodiazepine's, reduce the possibility of delirium - complete empiric CAP AB's - continue accuchecks with glycemic control per SSI (While critically ill target blood glucose of 140-180 mg/dL; avoid hypoglycemia) - prn analgesia per CPOT score - sedation prn for target RASS 0 to -1 - Maintenance of sleep-wake cycle, avoid delirium - continue enteral nutritional support at goal rate as tolerated - G.I. & VTE prophylaxis - PT/OT/ROM exercises - continue mobility protocols for pressure ulcer prophylaxis - Monitor hemodynamics closely - continue other care per attending / other consultants - discharge planning ongoing concurrently COVID SPECIFIC INTERVENTIONS - COVID-19 test result pending .... Re-evaluate in am & prn CONDITION: CRITICAL PROGNOSIS: GUARDED CODE STATUS: FULL CODE The high probability of a clinically significant, sudden or life-threatening deterioration of the [respiratory, cardiovascular, GI & neurologic] system(s) required my full and direct attention, intervention and personal management. The aggregate critical care time was [34] minutes without overlap. Time includes spent on; [x] Data Review and interpretation [x] Patient assessment and monitoring of vital signs [x] Documentation [x] Medication orders and management Subjective Date of service: 10/15/21 Principal diagnosis: AHRF; Pulm. Edema; HTNsive Emergency; Cocaine abuse; Poss. Pneumonia; AMS Interval history: Patient is seen today for: Acute Hypoxemic Respiratory Failure; Flash Pulmonary Edema; Hypertensive Emergency; Cocaine intoxication; Possible Pneumonia; Acute Encephalopathy Seen and examined at bedside; 24hour events reviewed; nursing and respiratory care staff consulted; no adverse overnight events reported to me; resting peacefully in bed; remains on MVS; FiO2 still at 80% but room to wean; significant ventilator dyssynchrony reported during SAT's; no emesis or overt aspiration; afebrile Objective Vital Signs - 12hr 10/14/21 10/14/21 10/14/21 22:30 22:37 22:45 Temperature Pulse Rate 97 H 97 H 98 H Pulse Rate [ From Monitor] Respiratory 12 12 21 Rate Blood Pressure 157/86 157/86 144/81 O2 Sat by Pulse Oximetry 10/14/21 10/14/21 10/14/21 23:00 23:15 23:30 Temperature Pulse Rate 96 H 98 H 99 H Pulse Rate [ From Monitor] Respiratory 19 25 H 25 H Rate Blood Pressure 137/78 130/75 110/61 O2 Sat by Pulse Oximetry 10/14/21 10/14/21 10/15/21 23:37 23:45 00:00 Temperature 98.7 F Pulse Rate 97 H 96 H 91 H Pulse Rate [ 78 From Monitor] Respiratory 15 26 H Rate Blood Pressure 137/78 110/66 161/84 O2 Sat by Pulse 97 100 Oximetry 10/15/21 10/15/21 10/15/21 00:15 00:30 00:45 Temperature Pulse Rate 90 91 H 92 H Pulse Rate [ From Monitor] Respiratory 26 H 19 19 Rate Blood Pressure 136/76 130/75 134/80 O2 Sat by Pulse Oximetry 10/15/21 10/15/21 10/15/21 01:01 01:15 01:30 Temperature Pulse Rate 89 89 88 Pulse Rate [ From Monitor] Respiratory 11 L 10 L 19 Rate Blood Pressure 183/93 148/86 160/93 O2 Sat by Pulse 100 Oximetry 10/15/21 10/15/21 10/15/21 01:45 02:00 02:15 Temperature Pulse Rate 86 91 H 88 Pulse Rate [ From Monitor] Respiratory 22 24 25 H Rate Blood Pressure 155/90 126/76 122/68 O2 Sat by Pulse 100 96 97 Oximetry 10/15/21 10/15/21 10/15/21 02:30 02:45 03:00 Temperature Pulse Rate 90 89 88 Pulse Rate [ From Monitor] Respiratory 22 25 H 19 Rate Blood Pressure 101/63 89/52 83/53 O2 Sat by Pulse 92 100 Oximetry 10/15/21 10/15/21 10/15/21 03:15 03:23 03:30 Temperature 98.6 F Pulse Rate 84 81 Pulse Rate [ From Monitor] Respiratory 14 26 H Rate Blood Pressure 106/64 127/76 O2 Sat by Pulse 99 94 Oximetry 10/15/21 10/15/21 10/15/21 03:45 04:00 04:15 Temperature Pulse Rate 80 79 81 Pulse Rate [ 78 From Monitor] Respiratory 25 H 12 9 L Rate Blood Pressure 133/78 135/77 140/80 O2 Sat by Pulse 100 94 Oximetry 10/15/21 10/15/21 10/15/21 04:30 04:45 05:00 Temperature Pulse Rate 78 77 78 Pulse Rate [ From Monitor] Respiratory 9 L 13 17 Rate Blood Pressure 143/79 149/80 145/85 O2 Sat by Pulse 95 100 100 Oximetry 10/15/21 10/15/21 10/15/21 05:05 05:15 05:30 Temperature Pulse Rate 78 79 78 Pulse Rate [ From Monitor] Respiratory 16 25 H Rate Blood Pressure 145/85 133/78 146/82 O2 Sat by Pulse 100 100 100 Oximetry 10/15/21 10/15/21 10/15/21 05:45 06:01 06:15 Temperature Pulse Rate 77 92 H 82 Pulse Rate [ From Monitor] Respiratory 25 H 21 25 H Rate Blood Pressure 150/84 164/101 109/68 O2 Sat by Pulse 100 100 100 Oximetry 10/15/21 10/15/21 10/15/21 06:30 06:45 07:00 Temperature Pulse Rate 81 77 76 Pulse Rate [ From Monitor] Respiratory 25 H 21 25 H Rate Blood Pressure 116/69 113/74 129/75 O2 Sat by Pulse 100 100 100 Oximetry 10/15/21 10/15/21 10/15/21 07:10 07:15 07:30 Temperature 98.2 F Pulse Rate 77 80 Pulse Rate [ From Monitor] Respiratory 25 H 25 H Rate Blood Pressure 135/79 114/68 O2 Sat by Pulse 99 Oximetry 10/15/21 10/15/21 10/15/21 07:45 08:00 08:15 Temperature 98.2 F Pulse Rate 81 81 76 Pulse Rate [ 79 From Monitor] Respiratory 25 H 25 H 25 H Rate Blood Pressure 107/66 107/69 122/75 O2 Sat by Pulse 100 100 Oximetry 10/15/21 10/15/21 10/15/21 08:30 08:33 08:45 Temperature Pulse Rate 80 75 74 Pulse Rate [ From Monitor] Respiratory 25 H 25 H Rate Blood Pressure 126/75 126/75 133/78 O2 Sat by Pulse 100 100 100 Oximetry 10/15/21 10/15/21 10/15/21 09:00 09:15 09:30 Temperature Pulse Rate 76 74 70 Pulse Rate [ From Monitor] Respiratory 25 H 21 19 Rate Blood Pressure 133/78 146/85 135/84 O2 Sat by Pulse 100 94 Oximetry 10/15/21 10/15/21 09:45 10:00 Temperature Pulse Rate 75 72 Pulse Rate [ From Monitor] Respiratory 25 H 25 H Rate Blood Pressure 148/78 152/83 O2 Sat by Pulse 100 100 Oximetry Constitutional: appears uncomfortable, other (elderly this male with mild ventilator dyssynchrony) Eyes: non-icteric ENT: oropharynx moist, other (ETT 24 cm SCARLETT) Neck: supple, no lymphadenopathy, no JVD Effort: mildly labored Ascultation: Bilateral: clear, diminished breath sounds, other (barrel chest) Percussion: Bilateral: not dull Cardiovascular: regular rate and rhythm Gastrointestinal: normoactive bowel sounds, soft, non-tender, non-distended Integumentary: normal Extremities: no cyanosis, no edema, pulses normal, no ischemia or petechiae Neurologic: non-focal exam (grossly), pupils equal and round, motor strength normal and Psychiatric: mood appropriate, affect normal CBC and BMP: 10/18/21 04:08 10/18/21 04:08 ABG, PT/INR, D-dimer: ABG ABG pH 7.394 pH Units (7.350-7.450) 10/14/21 18:25 ABG pCO2 40.4 mm Hg 10/14/21 18:25 ABG pO2 88.2 mm Hg (80.0-90.0) 10/14/21 18:25 ABG O2 Saturation 97.0 % (95.0-99.0) 10/14/21 18:25 PT/INR, D-dimer PT 14.2 Sec. (12.2-14.9) 10/14/21 07:26 INR 0.99 (0.87-1.13) 10/14/21 07:26 D-Dimer 1033.11 ng/mlDDU (0-234) H 10/14/21 07:06 Abnormal lab findings: Abnormal Labs 10/14/21 10/14/21 10/14/21 07:06 07:26 07:26 RBC 3.46 L Hgb 11.7 L Hct 34.8 L MCV 101 H MCH 34 H Lymph % (Auto) 13.1 L Lymph # (Auto) 0.8 L Seg Neutrophils % 78.8 H D-Dimer 1033.11 H ABG pH ABG pO2 ABG HCO3 ABG O2 Saturation ABG Base Excess ABG Hemoglobin Oxyhemoglobin Sodium 136 L Creatinine 0.6 L CK-MB (CK-2) Rel Index 6.7 H Albumin 3.7 L 10/14/21 10/14/21 10/15/21 11:06 18:25 04:00 RBC 3.31 L Hgb 11.0 L Hct 34.0 L MCV 103 H MCH 33 H Lymph % (Auto) Lymph # (Auto) 0.9 L Seg Neutrophils % 78.4 H D-Dimer ABG pH 7.227 L ABG pO2 71.3 L ABG HCO3 26.2 H ABG O2 Saturation 91.0 L ABG Base Excess -2.7 L ABG Hemoglobin 13.3 L 12.1 L Oxyhemoglobin 88.8 L Sodium Creatinine CK-MB (CK-2) Rel Index Albumin 10/15/21 04:00 RBC Hgb Hct MCV MCH Lymph % (Auto) Lymph # (Auto) Seg Neutrophils % D-Dimer ABG pH ABG pO2 ABG HCO3 ABG O2 Saturation ABG Base Excess ABG Hemoglobin Oxyhemoglobin Sodium 134 L Creatinine CK-MB (CK-2) Rel Index Albumin Chest x-ray: image reviewed (improved infiltrates; possible bullous lung di sease; possiblr Right apical / hilar mass) Allied health notes reviewed: nursing
--- NOTE | 2021-10-15 11:26 | Progress Note ---
<RYANN AUGUST - Last Filed: 10/15/21 18:56> Assessment and Plan Assessment and plan: This is a 71-year-old male with past medical history of vascular dementia, cerebral atherosclerosis, and cocaine abuse admitted for acute hypoxic respiratory failure requiring ventilatory support. Hospital Course to Date: 10/15: Intubated and sedated, follows commands intermittently. Off cardene gtt this am, VSS. This am ABG pending. Wean vent setting and sedation as tolerated, possible SAT/SBT in the am per CCM. Labs with elevated D-Dimer, COVID PCR pending. Given hypoxia will get a CTA chest and BLE doppler to r/o DVT/PE. VTE proph initiated. Will also get 2D echo to eval pulmonary pressors. Patient is hypoglycemic this am treated per hypoglycemic protocol, most likely due to NPO status. NGT initiated but not yet at goal, continue BG check Q6hrs and hypoglycemic protocol. LUE humerus fracture noted, LUE XR pending. Will also consult Ortho for further eval and treat. Assessment and Plan #Acute Hypoxic Respiratory Failure #Bilateral Pneumonia (CAP)- POA #COVID PUI - Presented with hypoxia, SPO2 in the 40s on RA - Patient admitted snorting Cocaine prior to admit - Intubated in the ED on 10/14 - COVID PCR pending - Imagings with bilateral opacities - Vent setting: PRVC-80%,8,25,450 - AM ABG noted - CCM consulted, appreciate recommendations - On empiric IV Abx- Azithro and Rocephin - Patient is afebrile, VSS - VAP bundle addressed - Aspiration precaution HOB above 30 - Daily SBT and SAT trials as tolerated - Daily ABG and CXR - Continue SPO2 monitoring for SPO2 goal above 92% - Panculture if patient is febrile or become hemodynamically unstable #Hypertensive Emergency - Presented with SBP in the 200s, s/p cardene gtt - Off cardene this am, BP stable - Continue blood pressure monitor per protocol - PRN Hydralazine to maintain SBP less than 160 - 2D echo pending #Acute Toxic Metabolic Encephalopathy #Cocaine Abuse - Patient admitted snorting Cocaine prior to admit - UDS + cocaine - Currently intubated and sedated, on propofol and fentanyl - Titrate sedation for RASS goal of 0 to -2 - Plan to wean off sedation for possible SAT/SBT in the am - PRN Analgesia for CPOT greater than 3 - Maintenance of sleep-wake cycle #Elevated D-Dimer - COVID PCR pending - CTA chest and BLE doppler pending - On Heparin SubQ - Continue to trend imflam. markers #Hypoglycemia - probably due to NPO status - OGT in place, enteral nutrition initiated - TF not yet at goal, continue BG check Q6hrs - Avoid hypoglycemia - Continue hypoglycemic protocol #Lt. Humerus Fracture - Mass noted on LUE, Humerus fracture noted on CXR - Will get LUE X-ray to confirm - Ortho consulted for further eval and recs #GI/DVT Prophylaxis - PPI- Pepcid - Heparin subQ - SCD to bilateral lower extremities while in bed The high probability of a clinically significant, sudden or life threatening deterioration of the [multiple] system(s) required my full and direct attention, intervention and personal management. The aggregate critical care time was [60] minutes. This time is in addition to time spent performing reported procedures but includes the following: [x] Data Review and interpretation [x] Patient assessment and monitoring of vital signs [x] Documentation [x] Medication orders and management Disposition Plan: ICU Total Time Spent with Patient (Minutes): 60 History Interval history: Patient seen and examined at the bedside. Intubated and sedated, easily arousable, follow commands intermittently and moves all extremities. Patient is SR on the monitor, off cardene this am, VSS. AUREA overnight Hospitalist Physical - Constitutional Vitals: Temp Pulse Resp BP Pulse Ox 98.2 F 72 25 H 152/83 100 10/15/21 08:00 10/15/21 10:00 10/15/21 10:00 10/15/21 10:00 10/15/21 10:00 General appearance: Present: no acute distress, other (Intubated and sedated) - EENT Eyes: Present: PERRL ENT: hearing intact - Neck Neck: Present: normal ROM - Respiratory Respiratory effort: normal Respiratory: bilateral: diminished - Cardiovascular Rhythm: regular Heart Sounds: Present: S1 & S2 - Extremities Extremities: no ischemia, pulses intact, pulses symmetrical, abnormal (Lt. Humerus Fracture) Peripheral Pulses: within normal limits - Abdominal General gastrointestinal: soft, non-distended, normal bowel sounds - Integumentary Integumentary: Present: clear, warm, dry - Psychiatric Psychiatric: other (Intubated and sedated) - Neurologic Neurologic: other (Intubated and sedated) - Allied Health Allied health notes reviewed: nursing, case management HEART Score - HEART Score Troponin: Troponin T < 0.010 ng/mL (0.00-0.029) 10/14/21 07:26 Results - Labs CBC & Chem 7: 10/15/21 04:00 10/15/21 04:00 Labs: Laboratory Last Values WBC 6.7 K/mm3 (4.5-11.0) 10/15/21 04:00 RBC 3.31 M/mm3 (3.65-5.03) L 10/15/21 04:00 Hgb 11.0 gm/dl (11.8-15.2) L 10/15/21 04:00 Hct 34.0 % (35.5-45.6) L 10/15/21 04:00 MCV 103 fl (84-94) H 10/15/21 04:00 MCH 33 pg (28-32) H 10/15/21 04:00 MCHC 32 % (32-34) 10/15/21 04:00 RDW 14.1 % (13.2-15.2) 10/15/21 04:00 Plt Count 159 K/mm3 (140-440) 10/15/21 04:00 Lymph % (Auto) 13.5 % (13.4-35.0) 10/15/21 04:00 [place] % (Auto) 7.3 % (0.0-7.3) 10/15/21 04:00 Eos % (Auto) 0.4 % (0.0-4.3) 10/15/21 04:00 Baso % (Auto) 0.4 % (0.0-1.8) 10/15/21 04:00 Lymph # (Auto) 0.9 K/mm3 (1.2-5.4) L 10/15/21 04:00 [place] # (Auto) 0.5 K/mm3 (0.0-0.8) 10/15/21 04:00 Eos # (Auto) 0.0 K/mm3 (0.0-0.4) 10/15/21 04:00 Baso # (Auto) 0.0 K/mm3 (0.0-0.1) 10/15/21 04:00 Seg Neutrophils % 78.4 % (40.0-70.0) H 10/15/21 04:00 Seg Neutrophils # 5.2 K/mm3 (1.8-7.7) 10/15/21 04:00 PT 14.2 Sec. (12.2-14.9) 10/14/21 07:26 INR 0.99 (0.87-1.13) 10/14/21 07:26 APTT 29.0 Sec. (24.2-36.6) 10/14/21 07:26 D-Dimer 1033.11 ng/mlDDU (0-234) H 10/14/21 07:06 ABG pH 7.394 pH Units (7.350-7.450) 10/14/21 18:25 ABG pCO2 40.4 mm Hg 10/14/21 18: ABG pO2 88.2 mm Hg (80.0-90.0) 10/14/21 18: ABG HCO3 24.1 mmol/L (20.0-26.0) 10/14/21 18:25 ABG O2 Saturation 97.0 % (95.0-99.0) 10/14/21 18:25 ABG O2 Content 16.3 (0.0-44) 10/14/21 18: ABG Base Excess -0.7 mmol/L (-2.0-3.0) 10/14/21 18: ABG Hemoglobin 12.1 gm/dl (14.0-18.0) L 10/14/21 18:25 ABG Carboxyhemoglobin 1.4 % (0.0-5.0) 10/14/21 18:25 ABG Methemoglobin 0.4 % (0.0-1.5) 10/14/21 18: Oxyhemoglobin 95.2 % (95.0-99.0) 10/14/21 18:25 FiO2 80 % 10/14/21 18:25 Sodium 134 mmol/L (137-145) L 10/15/21 04:00 Potassium 4.1 mmol/L (3.6-5.0) 10/15/21 04:00 Chloride 99.4 mmol/L (98-107) 10/15/21 04:00 Carbon Dioxide 26 mmol/L (22-30) 10/15/21 04:00 Anion Gap 13 mmol/L 10/15/21 04:00 BUN 12 mg/dL (9-20) 10/15/21 04:00 Creatinine 0.9 mg/dL (0.8-1.3) 10/15/21 04:00 Estimated GFR > 60 ml/min 10/15/21 04:00 BUN/Creatinine Ratio 13 % 10/15/21 04:00 Glucose 88 mg/dL (75-100) 10/15/21 04:00 Lactic Acid 1.50 mmol/L (0.7-2.0) 10/14/21 07:26 Calcium 8.6 mg/dL (8.4-10.2) 10/15/21 04:00 Total Bilirubin 0.20 mg/dL (0.1-1.2) 10/14/21 07:26 AST 19 units/L (5-40) 10/14/21 07:26 ALT 11 units/L (7-56) 10/14/21 07:26 Alkaline Phosphatase 47 units/L (35-129) 10/14/21 07:26 Total Creatine Kinase 58 units/L (55-170) 10/14/21 07:26 CK-MB (CK-2) 3.9 ng/mL (0.0-4.0) 10/14/21 07:26 CK-MB (CK-2) Rel Index 6.7 (0-4) H 10/14/21 07:26 Troponin T < 0.010 ng/mL (0.00-0.029) 10/14/21 07:26 C-Reactive Protein 1.20 mg/dL (0.00-1.30) 10/14/21 00:00 Total Protein 6.8 g/dL (6.3-8.2) 10/14/21 07:26 Albumin 3.7 g/dL (3.9-5) L 10/14/21 07:26 Albumin/Globulin Ratio 1.2 % 10/14/21 07:26 Procalcitonin 0.21 ng/mL (<0.15) 10/14/21 00:00 Urine Color Straw (Yellow) 10/14/21 07:03 Urine Turbidity Clear (Clear) 10/14/21 07:03 Specific [place] (Man) 1.015 (1.003-1.030) 10/14/21 07:03 Ur Protein (Man) 1+ mg/dL (Negative) 10/14/21 07:03 Ur Ketones (Man) Negative (Negative) 10/14/21 07:03 Urine Bilirubin (Man) Negative (Negative) 10/14/21 07:03 Urine WBC (Auto) < 1.0 /HPF (0.0-6.0) 10/14/21 07:03 Urine RBC (Auto) 4.0 /HPF (0.0-6.0) 10/14/21 07:03 U Epithel Cells (Auto) 1.0 /HPF (0-13.0) 10/14/21 07:03 Urine RBC (Manual) Negative (Negative) 10/14/21 07:03 Urine Opiates Screen Negative 10/14/21 07:03 Urine Methadone Screen Negative 10/14/21 07:03 Ur Barbiturates Screen Negative 10/14/21 07:03 Ur Phencyclidine Scrn Negative 10/14/21 07:03 Ur Amphetamines Screen Negative 10/14/21 07:03 U Benzodiazepines Scrn Negative 10/14/21 07:03 Urine Cocaine Screen Positive 10/14/21 07:03 U Marijuana (THC) Screen Negative 10/14/21 07:03 Drugs of Abuse Note Disclamer 10/14/21 07:03 Marquez/IV: Voiding Method Condom Catheter Active Medications - Current Medications Current Medications: Generic Name Dose Route Start Last Admin Trade Name Freq PRN Reason Stop Dose Admin Acetaminophen 650 mg 10/14/21 13:00 Acetaminophen 325 Mg Tab PO Q6H PRN Pain MILD(1-3)/Fever >100.5/[place] Albuterol 2.5 mg 10/14/21 14:00 Albuterol 2.5 Mg/3 Ml Nebu IH Q3HRT PRN Shortness Of Breath Diphenhydramine HCl 25 mg 10/15/21 10:00 10/15/21 10:22 Diphenhydramine 50 Mg/Ml Vial IV 25 mg Q6H PRN Administration Itching Famotidine 20 mg 10/15/21 10:00 10/15/21 09:45 Famotidine 20 Mg/2 Ml Inj IV 20 mg QDAY KATHY Administration Fentanyl 50 mcg 10/14/21 15:47 Fentanyl 100 Mcg/2 Ml Inj IV Q10MIN PRN ANALGESIA Heparin Sodium (Porcine) 5,000 unit 10/15/21 10:00 10/15/21 09:45 Heparin 5,000 Unit/1 Ml Vial SUB-Q 5,000 unit Q12HR KATHY Administration Hydralazine HCl 10 mg 10/14/21 13:00 10/14/21 18:40 Hydralazine 20 Mg/1 Ml Inj IV 10 mg Q6HR PRN Administration Hypertension Hydromorphone HCl 0.5 mg 10/14/21 13:00 Hydromorphone 0.5 Mg/0.5 Ml Inj IV Q23H PRN Pain , Severe (7-10) Hydrophilic Ointment 1 applic 10/14/21 15:47 Lip Therapy Vaseline TP Q2HR PRN Dry Lips Propofol 1,000 mg in 100 mls @ 1.905 mls/hr 10/14/21 12:00 10/15/21 10:37 Diprivan 10 Mg/Ml IV 35 mcg/kg/min TITR KATHY 13.336 mls/hr Titration Protocol 5 MCG/KG/MIN Nicardipine HCl 50 mg/ Sodium 250 mls @ 25 mls/hr 10/14/21 13:30 10/14/21 23:40 Chloride IV 0 mg/hr TITR KATHY 0 mls/hr Titration Protocol 5 MG/HR Ceftriaxone Sodium 2 gm in 100 mls @ 200 mls/hr 10/15/21 08:00 10/15/21 09:45 Rocephin/Ns 2 Gm/100 Ml IV 200 mls/hr Q24H KATHY Administration Protocol Azithromycin 500 mg in 250 mls @ 250 mls/hr 10/14/21 14:00 10/14/21 16:57 Zithromax/Ns IV 250 mls/hr Q24H KATHY Administration Protocol Fentanyl Citrate 2,000 mcg in 100 mls @ 3.175 mls/hr 10/14/21 16:00 10/15/21 10:37 Fentanyl Drip Premix IV 4 mcg/kg/hr TITR KATHY 12.701 mls/hr Titration Protocol 1 MCG/KG/HR Sodium Chloride 1,000 mls @ 4 mls/hr 10/15/21 03:25 Nacl 0.9% 1000 Ml IV DIRECT KATHY Morphine Sulfate 2 mg 10/14/21 12:01 Morphine 2 Mg/1 Ml Inj IV Q4H PRN Pain, Moderate (4-6) Multi-Ingred Cream/Lotion/Oil/Oint 1 applic 10/14/21 15:47 Mineral Oil/Petrolatum, White Ophth Oint 3.5 Gm OU Q4HR PRN Dry Eye(s) Oxycodone/Acetaminophen 1 tab 10/14/21 13:00 Oxycodone /Acetaminophen 5-325mg Tab PO Q16H PRN Pain, Moderate (4-6) Senna/Docusate Sodium 1 tab 10/14/21 22:00 10/15/21 09:45 Sennosides/Docusate Sodium 8.6/50 Mg Tab FEEDTUBE 1 tab BID KATHY Administration Sodium Chloride 10 ml 10/14/21 22:00 10/15/21 09:46 Sodium Chloride 0.9% 10 Ml Flush Syringe IV 10 ml BID KATHY Administration Sodium Chloride 10 ml 10/14/21 13:00 Sodium Chloride 0.9% 10 Ml Flush Syringe IV PRN PRN LINE FLUSH Nutrition/Malnutrition Assess - Dietary Evaluation Nutrition/Malnutrition Findings: Nutrition Notes Start: 10/15/21 0 9:41 Freq: Status: Active Protocol: Document 10/15/21 09:41 MARLEY (Rec: 10/15/21 10:00 MARLEY [id number]) Nutrition Notes Need for Assessment generated from: MD Order,polisher sand,MST Initial or Follow up Assessment Current Diagnosis Respiratory Failure Other Pertinent Diagnosis Hypertensive emergency, pneu, Vascular dementia, cerebral atherosclerosis Current Diet NPO Labs/Tests Na 134 Pertinent Medications Nicardipine gtt, Propofol at 11.431 ml/hr (provides 302 kcal), Senokot, NS at 4ml/hr Height 5 ft 6 in Weight 58.3 kg [place] Body Weight (kg) 64.54 BMI 20.7 Weight Status Underweight Subjective/Other Information RD consulted for TF; pt screened for malnutrition risk . Pt currently intubated. Burn Absent Trauma Absent Difficulty In Swallowing Skin Integrity/Comment No skin breakdown reported Minimum of two criteria No Reduced Software Clerk Strength Measurably Reduced (severe) #1 Nutrition Diagnosis Inadequate oral intake Etiology mech ventilation As Evidenced by Signs and Symptoms pt NPO Is patient on ventilator? Yes Is Patient Ambulatory and/or Out of Bed No REE-([facility]-confined to bed) 1531.212 Kcal/Kg value to use for calculation 30 Approximate Energy Requirements Using 1749 kcal/Kg Calculation Used for Recommendations Kcal/kg Additional Notes Pro needs 1.2-2g/k-117g/ day Fluid needs 1ml/kcal Nutrition Intervention Nutrition Support: Osmolite 1.5 at 50ml/hr with 150ml water flush q4h Kcal 1,800 Protein (gm) 75 Carbohydrates (gm) 244 Fat (gm) 59 Fluid (mL) 914 Fiber (gm) 0 Goal #1 TF tolerance Goal #2 TF to meet at least 75% energy and pro needs Anticipated Discharge Needs: None identified at this time Follow-Up By: 10/18/21 Additional Comments F/U: new TF, vent status, propofol <YOBANY BUCK - Last Filed: 10/16/21 07:38> Assessment and Plan Assessment and plan: I saw and evaluated the patient. I agree with the findings and the plan of care as documented in the Nurse Practitioner's~note, with the following corrections and additions. Hospitalist Physical - Constitutional Vitals: Temp Pulse Resp BP Pulse Ox 98.8 F 86 17 193/88 100 10/16/21 03:09 10/16/21 07:00 10/16/21 07:00 10/16/21 07:00 10/16/21 07:00 HEART Score - HEART Score Troponin: Troponin T < 0.010 ng/mL (0.00-0.029) 10/14/21 07:26 Results - Labs CBC & Chem 7: 10/16/21 04:00 10/16/21 05:03 Labs: Laboratory Last Values WBC 6.8 K/mm3 (4.5-11.0) 10/16/21 04:00 RBC 3.08 M/mm3 (3.65-5.03) L 10/16/21 04:00 Hgb 10.3 gm/dl (11.8-15.2) L 10/16/21 04:00 Hct 31.6 % (35.5-45.6) L 10/16/21 04:00 MCV 103 fl (84-94) H 10/16/21 04:00 MCH 33 pg (28-32) H 10/16/21 04:00 MCHC 32 % (32-34) 10/16/21 04:00 RDW 14.0 % (13.2-15.2) 10/16/21 04:00 Plt Count 136 K/mm3 (140-440) L 10/16/21 04:00 Lymph % (Auto) 13.5 % (13.4-35.0) 10/15/21 04:00 [place] % (Auto) 7.3 % (0.0-7.3) 10/15/21 04:00 Eos % (Auto) 0.4 % (0.0-4.3) 10/15/21 04:00 Baso % (Auto) 0.4 % (0.0-1.8) 10/15/21 04:00 Lymph # (Auto) 0.9 K/mm3 (1.2-5.4) L 10/15/21 04:00 [place] # (Auto) 0.5 K/mm3 (0.0-0.8) 10/15/21 04:00 Eos # (Auto) 0.0 K/mm3 (0.0-0.4) 10/15/21 04:00 Baso # (Auto) 0.0 K/mm3 (0.0-0.1) 10/15/21 04:00 Seg Neutrophils % 78.4 % (40.0-70.0) H 10/15/21 04:00 Seg Neutrophils # 5.2 K/mm3 (1.8-7.7) 10/15/21 04:00 PT 14.2 Sec. (12.2-14.9) 10/14/21 07:26 INR 0.99 (0.87-1.13) 10/14/21 07:26 APTT 29.0 Sec. (24.2-36.6) 10/14/21 07:26 D-Dimer 1033.11 ng/mlDDU (0-234) H 10/14/21 07:06 ABG pH 7.338 pH Units (7.350-7.450) L 10/16/21 04:55 ABG pCO2 53.8 mm Hg 10/16/21 04:55 ABG pO2 117.1 mm Hg (80.0-90.0) H 10/16/21 04:55 ABG HCO3 28.3 mmol/L (20.0-26.0) H 10/16/21 04:55 ABG O2 Saturation 98.0 % (95.0-99.0) 10/16/21 04:55 ABG O2 Content 14.0 (0.0-44) 10/16/21 04:55 ABG Base Excess 1.8 mmol/L (-2.0-3.0) 10/16/21 04:55 ABG Hemoglobin 10.2 gm/dl (14.0-18.0) L 10/16/21 04:55 ABG Carboxyhemoglobin 1.6 % (0.0-5.0) 10/16/21 04:55 ABG Methemoglobin 0.5 % (0.0-1.5) 10/16/21 04:55 Oxyhemoglobin 96.0 % (95.0-99.0) 10/16/21 04:55 FiO2 40 % 10/16/21 04:55 Sodium 139 mmol/L (137-145) 10/16/21 05:03 Potassium 4.3 mmol/L (3.6-5.0) 10/16/21 05:03 Chloride 102.7 mmol/L (98-107) 10/16/21 05:03 Carbon Dioxide 27 mmol/L (22-30) 10/16/21 05:03 Anion Gap 14 mmol/L 10/16/21 05:03 BUN 13 mg/dL (9-20) 10/16/21 05:03 Creatinine 0.9 mg/dL (0.8-1.3) 10/16/21 05:03 Estimated GFR > 60 ml/min 10/16/21 05:03 BUN/Creatinine Ratio 14 % 10/16/21 05:03 Glucose 121 mg/dL (75-100) H 10/16/21 05:03 POC Glucose 116 mg/dL (70-105) H 10/16/21 05:05 Lactic Acid 1.50 mmol/L (0.7-2.0) 10/14/21 07:26 Calcium 8.6 mg/dL (8.4-10.2) 10/16/21 05:03 Total Bilirubin 0.20 mg/dL (0.1-1.2) 10/14/21 07:26 AST 19 units/L (5-40) 10/14/21 07:26 ALT 11 units/L (7-56) 10/14/21 07:26 Alkaline Phosphatase 47 units/L (35-129) 10/14/21 07:26 Total Creatine Kinase 58 units/L (55-170) 10/14/21 07:26 CK-MB (CK-2) 3.9 ng/mL (0.0-4.0) 10/14/21 07: CK-MB (CK-2) Rel Index 6.7 (0-4) H 10/14/21 07: Troponin T < 0.010 ng/mL (0.00-0.029) 10/14/21 07: C-Reactive Protein 1.20 mg/dL (0.00-1.30) 10/14/21 00:00 Total Protein 6.8 g/dL (6.3-8.2) 10/14/21 07: Albumin 3.7 g/dL (3.9-5) L 10/14/21: Albumin/Globulin Ratio 1.2 % 10/14/21: Procalcitonin 0.21 ng/mL (<0.15) 10/14/21 00:00 Urine Color Straw (Yellow) 10/14/21 07:03 Urine Turbidity Clear (Clear) 10/14/21 07:03 Specific [place] (Man) 1.015 (1.003-1.030) 10/14/21 07:03 Ur Protein (Man) 1+ mg/dL (Negative) 10/14/21 07:03 Ur Ketones (Man) Negative (Negative) 10/14/21 07:03 Urine Bilirubin (Man) Negative (Negative) 10/14/21 07:03 Urine WBC (Auto) < 1.0 /HPF (0.0-6.0) 10/14/21 07:03 Urine RBC (Auto) 4.0 /HPF (0.0-6.0) 10/14/21 07:03 U Epithel Cells (Auto) 1.0 /HPF (0-13.0) 10/14/21 07:03 Urine RBC (Manual) Negative (Negative) 10/14/21 07:03 Urine Opiates Screen Negative 10/14/21 07:03 Urine Methadone Screen Negative 10/14/21 07:03 Ur Barbiturates Screen Negative 10/14/21 07:03 Ur Phencyclidine Scrn Negative 10/14/21 07:03 Ur Amphetamines Screen Negative 10/14/21 07:03 U Benzodiazepines Scrn Negative 10/14/21 07:03 Urine Cocaine Screen Positive 10/14/21 07:03 U Marijuana (THC) Screen Negative 10/14/21 07:03 Drugs of Abuse Note Disclamer 10/14/21 07:03 Coronavirus (PCR) Negative (Negative) 10/14/21 16:01 Microbiology: Microbiology 10/14/21 14:31 Tracheal Aspirate Sputum Culture - Preliminary Marquez/IV: Voiding Method Indwelling Catheter Active Medications - Current Medications Current Medications: Generic Name Dose Route Start Last Admin Trade Name Freq PRN Reason Stop Dose Admin Acetaminophen 650 mg 10/14/21 13:00 Acetaminophen 325 Mg Tab PO Q6H PRN Pain MILD(1-3)/Fever >100.5/[place] Albuterol 2.5 mg 10/14/21 14:00 Albuterol 2.5 Mg/3 Ml Nebu IH Q3HRT PRN Shortness Of Breath Diphenhydramine HCl 25 mg 10/15/21 10:00 10/15/21 16:26 Diphenhydramine 50 Mg/Ml Vial IV 25 mg Q6H PRN Administration Itching Famotidine 20 mg 10/15/21 10:00 10/15/21 09:45 Famotidine 20 Mg/2 Ml Inj IV 20 mg QDAY KATHY Administration Fentanyl 50 mcg 10/14/21 15:47 Fentanyl 100 Mcg/2 Ml Inj IV Q10MIN PRN ANALGESIA Heparin Sodium (Porcine) 5,000 unit 10/15/21 10:00 10/15/21 21:52 Heparin 5,000 Unit/1 Ml Vial SUB-Q 5,000 unit Q12HR KATHY Administration Hydralazine HCl 10 mg 10/14/21 13:00 10/14/21 18:40 Hydralazine 20 Mg/1 Ml Inj IV 10 mg Q6HR PRN Administration Hypertension Hydromorphone HCl 0.5 mg 10/14/21 13:00 Hydromorphone 0.5 Mg/0.5 Ml Inj IV Q23H PRN Pain , Severe (7-10) Hydrophilic Ointment 1 applic 10/14/21 15:47 Lip Therapy Vaseline TP Q2HR PRN Dry Lips Propofol 1,000 mg in 100 mls @ 1.905 mls/hr 10/14/21 12:00 10/15/21 17:28 Diprivan 10 Mg/Ml IV 0 mcg/kg/min TITR KATHY 0 mls/hr Titration Protocol 5 MCG/KG/MIN Nicardipine HCl 50 mg/ Sodium 250 mls @ 25 mls/hr 10/14/21 13:30 10/14/21 23:40 Chloride IV 0 mg/hr TITR KATHY 0 mls/hr Titration Protocol 5 MG/HR Ceftriaxone Sodium 2 gm in 100 mls @ 200 mls/hr 10/15/21 08:00 10/15/21 10:20 Rocephin/Ns 2 Gm/100 Ml IV Infused Q24H KATHY Infusion Protocol Azithromycin 500 mg in 250 mls @ 250 mls/hr 10/14/21 14:00 10/15/21 14:50 Zithromax/Ns IV Infused Q24H KATHY Infusion Protocol Fentanyl Citrate 2,000 mcg in 100 mls @ 3.175 mls/hr 10/14/21 16:00 10/16/21 07:35 Fentanyl Drip Premix IV 4 mcg/kg/hr TITR KATHY 12.701 mls/hr Titration Protocol 1 MCG/KG/HR Sodium Chloride 1,000 mls @ 4 mls/hr 10/15/21 03:25 Nacl 0.9% 1000 Ml IV DIRECT KATHY Morphine Sulfate 2 mg 10/14/21 12:01 Morphine 2 Mg/1 Ml Inj IV Q4H PRN Pain, Moderate (4-6) Multi-Ingred Cream/Lotion/Oil/Oint 1 applic 10/14/21 15:47 Mineral Oil/Petrolatum, White Ophth Oint 3.5 Gm OU Q4HR PRN Dry Eye(s) Oxycodone/Acetaminophen 1 tab 10/14/21 13:00 Oxycodone /Acetaminophen 5-325mg Tab PO Q16H PRN Pain, Moderate (4-6) Quetiapine Fumarate 100 mg 10/15/21 14:30 10/15/21 21:53 Quetiapine 100 Mg Tab PO 100 mg BID KATHY Administration Senna/Docusate Sodium 1 tab 10/14/21 22:00 10/15/21 21:53 Sennosides/Docusate Sodium 8.6/50 Mg Tab FEEDTUBE 1 tab BID KATHY Administration Sodium Chloride 10 ml 10/14/21 22:00 10/15/21 21:53 Sodium Chloride 0.9% 10 Ml Flush Syringe IV 10 ml BID KATHY Administration Sodium Chloride 10 ml 10/14/21 13:00 Sodium Chloride 0.9% 10 Ml Flush Syringe IV PRN PRN LINE FLUSH Nutrition/Malnutrition Assess - Dietary Evaluation Nutrition/Malnutrition Findings: Nutrition Notes Start: 10/15/21 09:41 Freq: Status: Active Protocol: Document 10/15/21 09:41 GABIOLESYA (Rec: 10/15/21 10:00 MARLEY [id number]) Nutrition Notes Need for Assessment generated from: MD Order,polisher sand,MST Initial or Follow up Assessment Current Diagnosis Respiratory Failure Other Pertinent Diagnosis Hypertensive emergency, pneu, Vascular dementia, cerebral atherosclerosis Current Diet NPO Labs/Tests Na 134 Pertinent Medications Nicardipine gtt, Propofol at 11.431 ml/hr (provides 302 kcal), Senokot, NS at 4ml/hr Height 5 ft 6 in Weight 58.3 kg [place] Body Weight (kg) 64.54 BMI 20.7 Weight Status Underweight Subjective/Other Information RD consulted for TF; pt screened for malnutrition risk . Pt currently intubated. Burn Absent Trauma Absent Difficulty In Swallowing Skin Integrity/Comment No skin breakdown reported Minimum of two criteria No Reduced Software Clerk Strength Measurably Reduced (severe) #1 Nutrition Diagnosis Inadequate oral intake [facility] As Evidenced by Signs and Symptoms pt NPO Is patient on ventilator? Yes Is Patient Ambulatory and/or Out of Bed No REE-([facility]-confined to bed) 1531.212 Kcal/Kg value to use for calculation 30 Approximate Energy Requirements Using 1749 kcal/Kg Calculation Used for Recommendations Kcal/kg Additional Notes Pro needs 1.2-2g/k-117g/ day Fluid needs 1ml/kcal Nutrition Intervention Nutrition Support: Osmolite 1.5 at 50ml/hr with 150ml water flush q4h Kcal 1,800 Protein (gm) 75 Carbohydrates (gm) 244 Fat (gm) 59 Fluid (mL) 914 Fiber (gm) 0 Goal #1 TF tolerance Goal #2 TF to meet at least 75% energy and pro needs Anticipated Discharge Needs: None identified at this time Follow-Up By: 10/18/21 Additional Comments F/U: new TF, vent status, propofol
[2021-10-15] MEDS ORDERED: DEXTROSE 50% IN WATER (25GM) 50 ML SYRINGE IV SCH (12:00)
[2021-10-15] MEDS ORDERED: DEXTROSE 50% IN WATER (25GM) 50 ML SYRINGE IV ONE ×2 (12:08→17:50)
[2021-10-15 12:53] LABS: ABG Base Excess 0.8 mmol/L (-2.0-3.0); ABG HCO3 27.7 mmol/L (20.0-26.0); ABG Methemoglobin 0.4 % (0.0-1.5); ABG Oxygen Saturation 96.8 % (95.0-99.0); ABG PCO2 56.2 mm Hg; ABG PH 7.311 pH Units (7.350-7.450); ABG PO2 91.2 mm Hg (80.0-90.0)
[2021-10-15] MEDS: AZITHROMYCIN/NS 500 MG/250 ML 500 MG/250 ML BAG IV SCH (13:40)
--- NOTE | 2021-10-15 13:48 | Consultation ---
DATE OF CONSULTATION: 10/14/2021 PULMONARY CRITICAL CARE CONSULT NOTE CONSULTING PHYSICIAN: Dr. Marlon Christianson. REASON FOR CONSULTATION: Acute hypoxemic respiratory failure, on mechanical ventilatory support. CHIEF COMPLAINT AND HISTORY OF PRESENT ILLNESS: As follows: The patient is a now 71-year-old male with a past medical history significant amongst other things for vascular dementia with a history of cocaine abuse, who presented to the Emergency Room. According to the Emergency Medical Services, the patient developed shortness of breath that started today this morning of presentation. He had told his bedside nurse that he took some cocaine this morning around 5:00 a.m. before his symptoms started. He denied any chest pain or palpitations. Emergency Medical Services on getting to the house found him indeed short of breath. He was hypoxemic with O2 sats in the 70s. In the Emergency Room, he was found to be unable to protect his airways and was intubated. His blood pressure went as high as 218/128 and a Cardene drip was ordered. A chest x-ray revealed bilateral pulmonary infiltrates and we are asked to assist with management. When I stopped by to see him, he was resting in bed. He was on mechanical ventilatory support, assist control, PRVC, AC, tidal volume 500, rate of 18 and PEEP of 6 on 100% FiO2. He was overbreathing the set rate on the mechanical ventilator. He was moving all extremities, but not really following my commands. He had apparently been started on a propofol drip earlier, but his blood pressure dropped, so that was stopped. He remains on a Versed drip at 4 mg/hour at the time I saw him. I do not have any history of vomiting or overt aspiration. The above is as much of the history of presentation as I have. His tobacco use/abuse history is unknown. That really is as much of the history of presentation as I have. PAST MEDICAL HISTORY: Vascular dementia, history of cocaine dependence. PAST SURGICAL HISTORY: Unknown. He does have an area in the left upper arm in the biceps region where there might have been some surgery on a broken bone. MEDICATIONS: He was on at the time I stopped by to see him, according to the medication administration record included the following: Tylenol 650 mg p.o. q. 6 hours p.r.n. mild pain or fevers, albuterol 2.5 mg nebulized q. 3 hours p.r.n. shortness of breath, Zithromax 500 mg IV daily, Rocephin 2 grams IV daily, hydralazine 10 mg IV q. 6 hours p.r.n. elevated blood pressures, Dilaudid 0.5 mg IV q. 23 hours p.r.n. severe pain, Versed drip as mentioned was going at 4 mg/hour, morphine sulfate 2 mg IV q. 4 hours p.r.n. moderate pain. Nicardipine drip had been ordered, but has not been started. Percocet 5/325 one tablet p.o. q. 16 hours p.r.n. moderate ____, propofol drip was also ordered. He is on sodium bicarbonate drip 50 mEq per liter of normal saline at 100 per hour ordered for 1 bag. He received cefepime 2 grams IV in the ER. ALLERGIES: No known drug allergies. DIET: Thin, cachectic, chronically ill-looking gentleman, acute weight loss or gain history is unknown. FAMILY AND SOCIAL HISTORY: Apparently lives in the community. Reported history of cocaine abuse. Alcohol or illicit drug use or abuse history is unknown. FAMILY HISTORY: Otherwise unknown. REVIEW OF SYSTEMS: Unobtainable secondary to the patient's medical and mental condition. Since he has been in the Emergency Room, no gross hematochezia or melena, no gross hematuria, no hematemesis, no hemoptysis. He was complaining severely of trouble breathing at presentation, was moving all extremities according to the nursing staff. No witnessed seizures. Review of systems otherwise unobtainable or as in body of the history above. PHYSICAL EXAMINATION: VITAL SIGNS: At presentation per RN, the temperature was 98.4 degrees Fahrenheit, pulse of 83, respiratory rate as high as 27, blood pressure 207/111, O2 sats were 94% at the time, inspired oxygen concentration was not recorded. GENERAL: He is an elderly, chronically ill looking male, normocephalic, atraumatic, on the mechanical ventilator with mildly increased respiratory effort at rest. HEAD, EYES, EARS, NOSE AND THROAT: Anicteric. No conjunctival erythema. Oropharynx was dry. NECK: No gross jugular venous distention, no thyromegaly. Grossly, there were no palpable lymph nodes in the supraclavicular or submandibular lymph node chains. He did have some temporal wasting. LUNGS: Auscultation of both lung sparks significant for diminished bilateral breath sounds, prolonged respiratory phase, bibasilar predominant inspiratory rales, no wheezing. He had a right internal jugular central line in place without significant bleeding at the stoma. HEART: Sounds 1 and 2 are heard at the time of my evaluation, regular rate and rhythm without overt rubs or murmurs. ABDOMEN: Soft, flat, bowel sounds are positive, nontender, no palpable hepatosplenomegaly. EXTREMITIES: Without overt digital clubbing or cyanosis, no pedal edema. Pedal pulses are 2+ bilaterally. He does have a nonhealed fracture on the left upper extremity. No obvious erythema or tenderness around it. NEUROLOGIC: Pupils equal, round, about 1-2 mm, reactive to light, sluggishly. Extraocular muscle movements appeared intact. He had spontaneous movements to his extremities. He was not following prompts. SKIN: Poor turgor in the areas I examined without overt cellulitis or rash. Please see the wound care nurses' notes for full description of his skin. PSYCHIATRIC: Mood and affect could not be assessed. He was intermittently agitated. LABORATORY DATA: From my review are as follows: White cell count 6000, hemoglobin 11.7, hematocrit 34.8, platelet count was 160, D-dimer 1033. Arterial blood gas showed a pH of 7.23, pCO2 of 64, pO2 of 71 that was on 100% FiO2 earlier today. Serum sodium 136, potassium 4.0, chloride was 100, bicarbonate 26, BUN 13, creatinine 0.6, glucose 100. Lactic acid level within normal limits. AST, liver function test within normal limits. Troponin within normal limits. Urinalysis, less than 1 white cell, leukocyte esterase and nitrites were not recorded. Urine drug screen was presumptive positive for cocaine. Coronavirus PCR test has been ordered and is pending. Chest x-ray at presentation showed gross cardiomegaly and large right main pulmonary artery trunk suggesting pulmonary hypertension, bilateral increased interstitial infiltrates with hilar predominance, all consistent with pulmonary edema. KUB shows a feeding tube with the tip in the stomach. Post-intubation chest x-ray shows the ET tube tip in good position, right central line tip in the distal SVC. Persistent bilateral pulmonary infiltrates. I cannot rule out small bilateral pleural effusions. Borderline cardiomegaly. The aorta is uncoiled. He has a nonhealed fracture of the left humerus. ASSESSMENT: 1. Acute hypoxemic respiratory failure, presumably secondary to flash pulmonary edema. 2. Flash pulmonary edema secondary to hypertensive emergency. 3. Hypertensive emergency secondary to cocaine intoxication. 4. Cocaine intoxication. 5. History of vascular dementia. 6. Anemia that is macrocytic. 7. Acute hypercapnic respiratory failure. 8. Elevated serum BNP. 9. Likely or possible congestive heart failure exacerbation. PLAN: I am going to go ahead and stop the IV fluids that he is on at this point. We will wean oxygen to keep sats greater than or equal to about 90%. Aspiration precautions will be maintained. It is appropriate that we treat him for community-acquired pneumonia empirically, but also for possible coronavirus infection. I am bothered by the fact that his pO2 was only 71 on 100% FiO2. It is unclear if that was done on the mechanical ventilator. I will be increasing the set rate to 25 per minute and reduce the tidal volume to 450 and try and see if I can blow down the CO2 some and then repeat the arterial blood gas in about an hour or two. Ventilator-associated pneumonia bundle has been introduced. Vasopressors will be Cardene drip at this time. We will avoid beta blockers for now. Cardiology evaluation may be appropriate. I will hold on diuresis at this time. CVP is to be measured. He is going to be placed on GI prophylaxis with Pepcid as well as DVT prophylaxis with Lovenox. Flu and pneumonia vaccination will be addressed per protocol. Thank you very much for the consult. We will follow along and make further recommendations as picture progresses/becomes clearer. He is critically ill on life-sustaining interventions including mechanical ventilatory support at very high risk of . At this time, I spent about 35-40 minutes of critical care time without overlap and excluding any procedural time that may be necessary. TID: [id number] RECEIPT: [id number] ROSETTA/ROBIN/KIRILL
--- NOTE | 2021-10-15 13:58 | XRay Report ---
XR humerus 1V LT INDICATION: Possible Fracture COMPARISON: None. 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 Signer Name: Audie Harden MD Signed: 10/15/2021 1:53 PM Workstation Name: [facility]
[2021-10-15] MEDS ORDERED: QUEtiapine 25 MG TAB PO SCH ×2 (14:00→14:14)
[2021-10-15] MEDS: QUEtiapine 100 MG TAB PO SCH ×2 (14:35→21:53)
--- NOTE | 2021-10-15 16:20 | Vascular Lab Report ---
DUPLEX DOPPLER LOWER EXTREMITY VEINS, BILATERAL INDICATION / CLINICAL INFORMATION: R/o DVT. TECHNIQUE: Duplex doppler imaging was performed through the veins of both lower extremities using velia ous compression and other maneuvers. COMPARISON: None available. FINDINGS: RIGHT COMMON FEMORAL VEIN: Negative. RIGHT FEMORAL VEIN: Negative. RIGHT POPLITEAL VEIN: Negative. RIGHT CALF VEINS: Negative. LEFT COMMON FEMORAL VEIN: Negative. LEFT FEMORAL VEIN: Negative. LEFT POPLITEAL VEIN: Negative. LEFT CALF VEINS: Negative. ADDITIONAL FINDINGS: None. IMPRESSION: 1. No sonographic evidence for DVT in either lower extremity. Scribed by: Radha Saucedo RDMS, GLENNY, GIFTY Scribed: 10/15/2021 10:57 AM I have reviewed the images, agree with this report, and edited this report as needed. Signer Name: Audie Harden MD Signed: 10/15/2021 4:16 PM Workstation Name: [id number]
--- NOTE | 2021-10-15 22:16 | Electrocardiograph Report ---
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
[2021-10-16] MEDS: fentaNYL DRIP Premix 2,000 MCG/100 ML BAG IV SCH ×2 (02:11→12:38)
[2021-10-16 05:08] LABS: Hematocrit 31.6 % (35.5-45.6); Hemoglobin 10.3 gm/dl (11.8-15.2); Mean Corpuscular HGB Conc 32 % (32-34); Mean Corpuscular Volume 103 fl (84-94); Platelet Count 136 K/mm3 (140-440); Red Blood Count 3.08 M/mm3 (3.65-5.03)
[2021-10-16 05:21] LABS: ABG Base Excess 1.8 mmol/L (-2.0-3.0); ABG HCO3 28.3 mmol/L (20.0-26.0); ABG Methemoglobin 0.5 % (0.0-1.5); ABG PCO2 53.8 mm Hg; ABG PH 7.338 pH Units (7.350-7.450); ABG PO2 117.1 mm Hg (80.0-90.0)
[2021-10-16 05:32] LABS: BUN/Creatinine Ratio 14; Blood Urea Nitrogen 13 mg/dL (9-20); Calcium 8.6 mg/dL (8.4-10.2); Hemolysis Index 5
[2021-10-16] MEDS: hydrALAZINE 20 MG/1 ML INJ IV PRN (08:46)
[2021-10-16] MEDS: FAMOTIDINE 20 MG/2 ML INJ IV SCH (09:16)
[2021-10-16] MEDS: cefTRIAXone/NS 2 GM/100 ML 2 GM/100 ML BAG IV SCH (09:16)
[2021-10-16] MEDS: HEPARIN 5,000 UNIT/1 ML VIAL SUB-Q SCH ×2 (09:16→21:22)
[2021-10-16] MEDS: SENNOSIDES/DOCUSATE SODIUM 8.6/50 MG TAB FEEDTUBE SCH ×2 (09:17→21:24)
[2021-10-16] MEDS: QUEtiapine 100 MG TAB PO SCH ×2 (09:17→21:22)
--- NOTE | 2021-10-16 09:28 | XRay Report ---
CHEST 1 VIEW 10/16/2021 8:19 AM INDICATION / CLINICAL INFORMATION: follow up respiratory failure. COMPARISON: 10/15/2021 FINDINGS: SUPPORT DEVICES: Unchanged. HEART / MEDIASTINUM: Stable. LUNGS / PLEURA: Lungs remain hyperexpanded with similar opacities in the right midlung.. No pneumotho rax. ADDITIONAL FINDINGS: Chronic nonunited left humeral shaft fracture. IMPRESSION: 1. No significant change. Signer Name: Matty Watkins MD Signed: 10/16/2021 9:24 AM Workstation Name: [email or web address]
[2021-10-16] MEDS ORDERED: diphenhydrAMINE 50 MG/ML VIAL IV ONE (10:00)
--- NOTE | 2021-10-16 11:01 | Progress Note ---
Assessment and Plan Acute Hypoxemic Respiratory Failure on MVS Flash Pulmonary Edema Hypertensive Emergency Cocaine intoxication Acute Encephalopathy LVEF 45% and c/f Takotsubo syndrome SBT today with plans to liberate from MVS if he tolerates it and meets weaning criteria Stop Fentnayl infusion, currently on rate of 4 Disconitnue Marquez catheter and RIJ CVL -Titrate supplemental oxygen to keep SpO2 90-92% - continue Daily SAT and SBT assessment as tolerated - VAP bundle addressed, aspiration precautions HOB >40 - continue lung protective strategies - continue bronchodilators with pulmonary hygiene per RT -ABG, CXR as clinically indicated - avoid nephrotoxins, renally dose all medications - continue to avoid benzodiazepines, reduce the possibility of delirium -Trend temperature curve and WCC, complete 5 day therapy of Ceftriaxone and Azithromycin for possible CAP - continue accuchecks with glycemic control per SSI (While critically ill target blood glucose of 140-180 mg/dL; avoid hypoglycemia) - prn analgesia per CPOT score - sedation prn for target RASS 0 to -1 - Maintenance of sleep-wake cycle, avoid delirium - continue enteral nutritional support at goal rate as tolerated - Stress ulcer -Famotidine - VTE prophylaxis-Heparin -Needs better blood pressure control- has been off Cardene infusion, add amlodipine to therapy - continue mobility per protocols for pressure ulcer prevention - Monitor hemodynamics closely -Substance abuse counselling when he is liberated from MVS - continue other care per attending / other consultants - discharge planning ongoing concurrently CONDITION: CRITICAL PROGNOSIS: GUARDED CODE STATUS: FULL CODE The high probability of a clinically significant, sudden or life-threatening deterioration of the [respiratory, cardiovascular, GI and neurologic] system(s) required my full and direct attention, intervention and personal management. The aggregate critical care time was [34] minutes without overlap. Time includes spent on; [x] Data Review and interpretation [x] Patient assessment and monitoring of vital signs [x] Documentation [x] Medication orders and management Subjective Date of service: 10/16/21 Principal diagnosis: AHRF; Pulm. Edema; HTNsive Emergency; Cocaine abuse; Poss. Pneumonia; AMS Interval history: Patient is seen today for: Acute Hypoxemic Respiratory Failure; Flash Pulmonary Edema; Hypertensive Emergency; Cocaine intoxication; Possible Pneumonia; Acute Encephalopathy Seen and examined at bedside; 24hour events reviewed; nursing and respiratory care staff consulted; no adverse overnight events reported to me; resting peacefully in bed; remains on MVS, high grade intermittent fevers, patient is hemodynamicaly stable, no leukocytosis. 2D echo reviewed, LVEF 45% and c/f Takotsubo syndrome, Objective Vital Signs - 12hr 10/16/21 10/16/21 10/16/21 00:00 01:00 02:00 Temperature 98.8 F Pulse Rate 95 H 87 89 Pulse Rate [ 84 From Monitor] Respiratory 15 15 16 Rate Blood Pressure 146/79 151/75 139/70 O2 Sat by Pulse 100 100 100 Oximetry 10/16/21 10/16/21 10/16/21 03:00 03:09 04:00 Temperature 98.8 F Pulse Rate 85 81 Pulse Rate [ 88 From Monitor] Respiratory 16 16 Rate Blood Pressure 138/72 155/71 O2 Sat by Pulse 98 100 Oximetry 10/16/21 10/16/21 10/16/21 05:00 06:00 07:00 Temperature Pulse Rate 93 H 87 86 Pulse Rate [ From Monitor] Respiratory 15 15 17 Rate Blood Pressure 155/71 168/81 193/88 O2 Sat by Pulse 100 100 100 Oximetry 10/16/21 10/16/21 10/16/21 07:16 07:30 07:35 Temperature 99.6 F Pulse Rate 86 84 Pulse Rate [ From Monitor] Respiratory 16 9 L Rate Blood Pressure 186/85 180/82 O2 Sat by Pulse 100 100 Oximetry 10/16/21 10/16/21 10/16/21 07:46 08:00 08:16 Temperature Pulse Rate 100 H 92 H 113 H Pulse Rate [ 83 From Monitor] Respiratory 16 15 26 H Rate Blood Pressure 180/82 183/89 183/89 O2 Sat by Pulse 100 100 100 Oximetry 10/16/21 10/16/21 10/16/21 08:30 08:46 09:00 Temperature Pulse Rate 83 90 100 H Pulse Rate [ From Monitor] Respiratory 11 L 15 15 Rate Blood Pressure 181/116 181/116 202/74 O2 Sat by Pulse 100 100 100 Oximetry 10/16/21 10/16/21 10/16/21 09:16 09:30 09:46 Temperature Pulse Rate 106 H 116 H 118 H Pulse Rate [ From Monitor] Respiratory 18 23 14 Rate Blood Pressure 202/74 191/92 191/92 O2 Sat by Pulse 100 100 100 Oximetry 10/16/21 10/16/21 10:00 10:16 Temperature Pulse Rate 116 H 119 H Pulse Rate [ From Monitor] Respiratory 12 10 L Rate Blood Pressure 186/74 186/74 O2 Sat by Pulse 100 100 Oximetry Constitutional: no acute distress, asleep, other (wakes up when stimulated) Eyes: non-icteric ENT: oropharynx moist, other (ETT 24 cm SCARLETT) Neck: supple, no lymphadenopathy, no JVD, other (RIJ CVL) Effort: normal Ascultation: Bilateral: clear, diminished breath sounds, other (barrel chest) Percussion: Bilateral: not dull Cardiovascular: regular rate and rhythm, other (S1,S2) Gastrointestinal: normoactive bowel sounds, soft, non-tender, non-distended, other (Marquez catheter) Integumentary: normal Extremities: no cyanosis, no edema, pulses normal, no ischemia or petechiae Neurologic: non-focal exam (grossly), pupils equal and round Psychiatric: other (sedated) CBC and BMP: 10/17/21 04:35 10/17/21 04:35 ABG, PT/INR, D-dimer: ABG ABG pH 7.338 pH Units (7.350-7.450) L 10/16/21 04:55 ABG pCO2 53.8 mm Hg 10/16/21 04:55 ABG pO2 117.1 mm Hg (80.0-90.0) H 10/16/21 04:55 ABG O2 Saturation 98.0 % (95.0-99.0) 10/16/21 04:55 PT/INR, D-dimer PT 14.2 Sec. (12.2-14.9) 10/14/21 07:26 INR 0.99 (0.87-1.13) 10/14/21 07:26 D-Dimer 1033.11 ng/mlDDU (0-234) H 10/14/21 07:06 Abnormal lab findings: Abnormal Labs 10/14/21 10/14/21 10/14/21 07:06 07:26 07:26 RBC 3.46 L Hgb 11.7 L Hct 34.8 L MCV 101 H MCH 34 H Plt Count Lymph % (Auto) 13.1 L Lymph # (Auto) 0.8 L Seg Neutrophils % 78.8 H D-Dimer 1033.11 H ABG pH ABG pO2 ABG HCO3 ABG O2 Saturation ABG Base Excess ABG Hemoglobin Oxyhemoglobin Sodium 136 L Creatinine 0.6 L Glucose POC Glucose CK-MB (CK-2) Rel Index 6.7 H Albumin 3.7 L 10/14/21 10/14/21 10/15/21 11:06 18:25 04:00 RBC 3.31 L Hgb 11.0 L Hct 34.0 L MCV 103 H MCH 33 H Plt Count Lymph % (Auto) Lymph # (Auto) 0.9 L Seg Neutrophils % 78.4 H D-Dimer ABG pH 7.227 L ABG pO2 71.3 L ABG HCO3 26.2 H ABG O2 Saturation 91.0 L ABG Base Excess -2.7 L ABG Hemoglobin 13.3 L 12.1 L Oxyhemoglobin 88.8 L Sodium Creatinine Glucose POC Glucose CK-MB (CK-2) Rel Index Albumin 10/15/21 10/15/21 10/15/21 04:00 12:03 12:04 RBC Hgb Hct MCV MCH Plt Count Lymph % (Auto) Lymph # (Auto) Seg Neutrophils % D-Dimer ABG pH ABG pO2 ABG HCO3 ABG O2 Saturation ABG Base Excess ABG Hemoglobin Oxyhemoglobin Sodium 134 L Creatinine Glucose POC Glucose 45 L 42 L CK-MB (CK-2) Rel Index Albumin 10/15/21 10/15/21 10/15/21 12:20 12:43 23:54 RBC Hgb Hct MCV MCH Plt Count Lymph % (Auto) Lymph # (Auto) Seg Neutrophils % D-Dimer ABG pH 7.311 L ABG pO2 91.2 H ABG HCO3 27.7 H ABG O2 Saturation ABG Base Excess ABG Hemoglobin 10.5 L Oxyhemoglobin Sodium Creatinine Glucose POC Glucose 161 H 122 H CK-MB (CK-2) Rel Index Albumin 10/16/21 10/16/21 10/16/21 04:00 04:55 05:03 RBC 3.08 L Hgb 10.3 L Hct 31.6 L MCV 103 H MCH 33 H Plt Count 136 L Lymph % (Auto) Lymph # (Auto) Seg Neutrophils % D-Dimer ABG pH 7.338 L ABG pO2 117.1 H ABG HCO3 28.3 H ABG O2 Saturation ABG Base Excess ABG Hemoglobin 10.2 L Oxyhemoglobin Sodium Creatinine Glucose 121 H POC Glucose CK-MB (CK-2) Rel Index Albumin 10/16/21 05:05 RBC Hgb Hct MCV MCH Plt Count Lymph % (Auto) Lymph # (Auto) Seg Neutrophils % D-Dimer ABG pH ABG pO2 ABG HCO3 ABG O2 Saturation ABG Base Excess ABG Hemoglobin Oxyhemoglobin Sodium Creatinine Glucose POC Glucose 116 H CK-MB (CK-2) Rel Index Albumin Chest x-ray: image reviewed Allied health notes reviewed: RT
--- NOTE | 2021-10-16 11:28 | Progress Note ---
<RYANN AUGUST - Last Filed: 10/16/21 16:57> Assessment and Plan Assessment and plan: This is a 71-year-old male with past medical history of vascular dementia, cerebral atherosclerosis, and cocaine abuse admitted for acute hypoxic respiratory failure requiring ventilatory support. Hospital Course to Date: 10/15: Intubated and sedated, follows commands intermittently. Off cardene gtt this am, VSS. This am ABG pending. Wean vent setting and sedation as tolerated, possible SAT/SBT in the am per [facility]. Labs with elevated D-Dimer, COVID PCR pending. Given hypoxia will get a CTA chest and BLE doppler to r/o DVT/PE. VTE proph initiated. Will also get 2D echo to eval pulmonary pressors. Patient is hypoglycemic this am treated per hypoglycemic protocol, most likely due to NPO status. NGT initiated but not yet at goal, continue BG check Q6hrs and hypoglycemic protocol. LUE humerus fracture noted, LUE XR pending. Will also consult Ortho for further eval and treat. 10/16: Remains stable on the vent, on low dose sedation. Tolerating PSV trial this am. Per [facility], plan is to wean to extubate. Patient spike a Temp today, patient is hemodynamicaly stable, with no leukocytosis. Orders placed for blood cultures, will hold off on IV abx for now. 2D echo reviewed, LVEF 45% and c/f Takotsubo syndrome, cardiology consulted. CTA chest pending, unable to get in contact with patient's NOK. Case management is following for further assistance in locating patient's family. Assessment and Plan #Acute Hypoxic Respiratory Failure #Bilateral Pneumonia (CAP)- POA #COVID PUI - Presented with hypoxia, SPO2 in the 40s on RA - Patient admitted snorting Cocaine prior to admit - Intubated in the ED on 10/14 - COVID PCR pending - Imagings with bilateral opacities - Vent setting: PRVC-80%,8,25,450 - AM ABG noted - CCM consulted, appreciate recommendations - On empiric IV Abx- Azithro and Rocephin - Patient is afebrile, VSS - VAP bundle addressed - Aspiration precaution HOB above 30 - Daily SBT and SAT trials as tolerated - Daily ABG and CXR - Continue SPO2 monitoring for SPO2 goal above 92% - Panculture if patient is febrile or become hemodynamically unstable #Hypertensive Emergency #Systolic CHF with reduced EF #Takotsubo Cardiomyopathy - Presented with SBP in the 200s, s/p cardene gtt - Off cardene this am, BP stable - Continue blood pressure monitor per protocol - PRN Hydralazine to maintain SBP less than 160 - 2D echo reviewed, LVEF 45% and c/f Takotsubo syndrome - Cardiology consulted #Acute Toxic Metabolic Encephalopathy #Cocaine Abuse - Patient admitted snorting Cocaine prior to admit - UDS + cocaine - Currently intubated and sedated, on propofol and fentanyl - Titrate sedation for RASS goal of 0 to -2 - Plan to wean off sedation for possible SAT/SBT in the am - PRN Analgesia for CPOT greater than 3 - Maintenance of sleep-wake cycle #Elevated D-Dimer - COVID PCR negative - CTA chest and BLE doppler negative DVT - On Heparin SubQ - Continue to trend imflam. markers #Hypoglycemia - probably due to NPO status - OGT in place, enteral nutrition initiated - TF not yet at goal, continue BG check Q6hrs - Avoid hypoglycemia - Continue hypoglycemic protocol #Lt. Humerus Fracture - Mass noted on LUE, Humerus fracture noted on CXR - Will get LUE X-ray to confirm - Ortho consulted for further eval and recs #GI/DVT Prophylaxis - PPI- Pepcid - Heparin subQ - SCD to bilateral lower extremities while in bed The high probability of a clinically significant, sudden or life threatening deterioration of the [multiple] system(s) required my full and direct attention, intervention and personal management. The aggregate critical care time was [60] minutes. This time is in addition to time spent performing reported procedures but includes the following: [x] Data Review and interpretation [x] Patient assessment and monitoring of vital signs [x] Documentation [x] Medication orders and management Disposition Plan: ICU Total Time Spent with Patient (Minutes): 60 History Interval history: Patient seen and examined at the bedside. Intubated and sedated, easily arousable, follow commands and moves all extremities. Patient is SR on the monitor, Febrile- TMAX 101.6, VSS. [facility] overnight Hospitalist Physical - Physical exam Narrative exam: General appearance: Present: no acute distress, other (Intubated and sedated) - EENT Eyes: Present: PERRL ENT: hearing intact - Neck Neck: Present: normal ROM - Respiratory Respiratory effort: normal Respiratory: bilateral: diminished - Cardiovascular Rhythm: regular Heart Sounds: Present: S1 & S2 - Extremities Extremities: no ischemia, pulses intact, pulses symmetrical, abnormal (Lt. Humerus Fracture) Peripheral Pulses: within normal limits - Abdominal General gastrointestinal: soft, non-distended, normal bowel sounds - Integumentary Integumentary: Present: clear, warm, dry - Psychiatric Psychiatric: other (Intubated and sedated, following commands) - Neurologic Neurologic: other (Intubated and sedated, following commands) - Allied Health Allied health notes reviewed: nursing, case management - Constitutional Vitals: Temp Pulse Resp BP Pulse Ox 99.6 F 120 H 11 L 195/81 100 10/16/21 07:35 10/16/21 11:00 10/16/21 11:00 10/16/21 11:00 10/16/21 11:00 HEART Score - HEART Score Troponin: Troponin T < 0.010 ng/mL (0.00-0.029) 10/14/21 07:26 Results - Labs CBC & Chem 7: 10/16/21 04:00 10/16/21 05:03 Labs: Laboratory Last Values WBC 6.8 K/mm3 (4.5-11.0) 10/16/21 04:00 RBC 3.08 M/mm3 (3.65-5.03) L 10/16/21 04:00 Hgb 10.3 gm/dl (11.8-15.2) L 10/16/21 04:00 Hct 31.6 % (35.5-45.6) L 10/16/21 04:00 MCV 103 fl (84-94) H 10/16/21 04:00 MCH 33 pg (28-32) H 10/16/21 04:00 MCHC 32 % (32-34) 10/16/21 04:00 RDW 14.0 % (13.2-15.2) 10/16/21 04:00 Plt Count 136 K/mm3 (140-440) L 10/16/21 04:00 Lymph % (Auto) 13.5 % (13.4-35.0) 10/15/21 04:[address] [place] % (Auto) 7.3 % (0.0-7.3) 10/15/21 04:00 Eos % (Auto) 0.4 % (0.0-4.3) 10/15/21 04:00 Baso % (Auto) 0.4 % (0.0-1.8) 10/15/21 04:00 Lymph # (Auto) 0.9 K/mm3 (1.2-5.4) L 10/15/21 04:00 [place] # (Auto) 0.5 K/mm3 (0.0-0.8) 10/15/21 04:00 Eos # (Auto) 0.0 K/mm3 (0.0-0.4) 10/15/21 04:00 Baso # (Auto) 0.0 K/mm3 (0.0-0.1) 10/15/21 04:00 Seg Neutrophils % 78.4 % (40.0-70.0) H 10/15/21 04:00 Seg Neutrophils # 5.2 K/mm3 (1.8-7.7) 10/15/21 04:00 PT 14.2 Sec. (12.2-14.9) 10/14/21 07:26 INR 0.99 (0.87-1.13) 10/14/21 07:26 APTT 29.0 Sec. (24.2-36.6) 10/14/21 07:26 D-Dimer 1033.11 ng/mlDDU (0-234) H 10/14/21 07:06 ABG pH 7.338 pH Units (7.350-7.450) L 10/16/21 04:55 ABG pCO2 53.8 mm Hg 10/16/21 04:55 ABG pO2 117.1 mm Hg (80.0-90.0) H 10/16/21 04:55 ABG HCO3 28.3 mmol/L (20.0-26.0) H 10/16/21 04:55 ABG O2 Saturation 98.0 % (95.0-99.0) 10/16/21 04:55 ABG O2 Content 14.0 (0.0-44) 10/16/21 04:55 ABG Base Excess 1.8 mmol/L (-2.0-3.0) 10/16/21 04:55 ABG Hemoglobin 10.2 gm/dl (14.0-18.0) L 10/16/21 04:55 ABG Carboxyhemoglobin 1.6 % (0.0-5.0) 10/16/21 04:55 ABG Methemoglobin 0.5 % (0.0-1.5) 10/16/21 04:55 Oxyhemoglobin 96.0 % (95.0-99.0) 10/16/21 04:55 FiO2 40 % 10/16/21 04:55 Sodium 139 mmol/L (137-145) 10/16/21 05:03 Potassium 4.3 mmol/L (3.6-5.0) 10/16/21 05:03 Chloride 102.7 mmol/L (98-107) 10/16/21 05:03 Carbon Dioxide 27 mmol/L (22-30) 10/16/21 05:03 Anion Gap 14 mmol/L 10/16/21 05:03 BUN 13 mg/dL (9-20) 10/16/21 05:03 Creatinine 0.9 mg/dL (0.8-1.3) 10/16/21 05:03 Estimated GFR > 60 ml/min 10/16/21 05:03 BUN/Creatinine Ratio 14 % 10/16/21 05:03 Glucose 121 mg/dL (75-100) H 10/16/21 05:03 POC Glucose 116 mg/dL (70-105) H 10/16/21 05:05 Lactic Acid 1.50 mmol/L (0.7-2.0) 10/14/21 07:26 Calcium 8.6 mg/dL (8.4-10.2) 10/16/21 05:03 Total Bilirubin 0.20 mg/dL (0.1-1.2) 10/14/21 07:26 AST 19 units/L (5-40) 10/14/21 07:26 ALT 11 units/L (7-56) 10/14/21 07:26 Alkaline Phosphatase 47 units/L (35-129) 10/14/21 07:26 Total Creatine Kinase 58 units/L (55-170) 10/14/21 07:26 CK-MB (CK-2) 3.9 ng/mL (0.0-4.0) 10/14/21 07:26 CK-MB (CK-2) Rel Index 6.7 (0-4) H 10/14/21 07: Troponin T < 0.010 ng/mL (0.00-0.029) 10/14/21 07: C-Reactive Protein 1.20 mg/dL (0.00-1.30) 10/14/21 00:00 Total Protein 6.8 g/dL (6.3-8.2) 10/14/21 07: Albumin 3.7 g/dL (3.9-5) L 10/14/21: Albumin/Globulin Ratio 1.2 % 10/14/21 07: Procalcitonin 0.21 ng/mL (<0.15) 10/14/21 00:00 Urine Color Straw (Yellow) 10/14/21 07:03 Urine Turbidity Clear (Clear) 10/14/21 07:03 Specific [place] (Man) 1.015 (1.003-1.030) 10/14/21 07:03 Ur Protein (Man) 1+ mg/dL (Negative) 10/14/21 07:03 Ur Ketones (Man) Negative (Negative) 10/14/21 07:03 Urine Bilirubin (Man) Negative (Negative) 10/14/21 07:03 Urine WBC (Auto) < 1.0 /HPF (0.0-6.0) 10/14/21 07:03 Urine RBC (Auto) 4.0 /HPF (0.0-6.0) 10/14/21 07:03 U Epithel Cells (Auto) 1.0 /HPF (0-13.0) 10/14/21 07:03 Urine RBC (Manual) Negative (Negative) 10/14/21 07:03 Urine Opiates Screen Negative 10/14/21 07:03 Urine Methadone Screen Negative 10/14/21 07:03 Ur Barbiturates Screen Negative 10/14/21 07:03 Ur Phencyclidine Scrn Negative 10/14/21 07:03 Ur Amphetamines Screen Negative 10/14/21 07:03 U Benzodiazepines Scrn Negative 10/14/21 07:03 Urine Cocaine Screen Positive 10/14/21 07:03 U Marijuana (THC) Screen Negative 10/14/21 07:03 Drugs of Abuse Note Disclamer 10/14/21 07:03 Coronavirus (PCR) Negative (Negative) 10/14/21 16:01 Microbiology: Microbiology 10/14/21 14:31 Tracheal Aspirate Sputum Culture - Preliminary Marquez/IV: Voiding Method Indwelling Catheter Active Medications - Current Medications Current Medications: Generic Name Dose Route Start Last Admin Trade Name Freq PRN Reason Stop Dose Admin Acetaminophen 650 mg 10/14/21 13:00 Acetaminophen 325 Mg Tab PO Q6H PRN Pain MILD(1-3)/Fever >100.5/[place] Albuterol 2.5 mg 10/14/21 14:00 Albuterol 2.5 Mg/3 Ml Nebu IH Q3HRT PRN Shortness Of Breath Diphenhydramine HCl 25 mg 10/15/21 10:00 10/15/21 16:26 Diphenhydramine 50 Mg/Ml Vial IV 25 mg Q6H PRN Administration Itching Docusate Sodium 100 mg 10/16/21 12:00 Docusate Sodium 100 Mg/10 Ml Oral Liqd PO 10/17/21 10:01 BID KATHY Famotidine 20 mg 10/15/21 10:00 10/16/21 09:16 Famotidine 20 Mg/2 Ml Inj IV 20 mg QDAY KATHY Administration Fentanyl 50 mcg 10/14/21 15:47 Fentanyl 100 Mcg/2 Ml Inj IV Q10MIN PRN ANALGESIA Heparin Sodium (Porcine) 5,000 unit 10/15/21 10:00 10/16/21 09:16 Heparin 5,000 Unit/1 Ml Vial SUB-Q 5,000 unit Q12HR KATHY Administration Hydralazine HCl 10 mg 10/14/21 13:00 10/16/21 08:46 Hydralazine 20 Mg/1 Ml Inj IV 10 mg Q6HR PRN Administration Hypertension Hydromorphone HCl 0.5 mg 10/14/21 13:00 Hydromorphone 0.5 Mg/0.5 Ml Inj IV Q23H PRN Pain , Severe (7-10) Hydrophilic Ointment 1 applic 10/14/21 15:47 Lip Therapy Vaseline TP Q2HR PRN Dry Lips Propofol 1,000 mg in 100 mls @ 1.905 mls/hr 10/14/21 12:00 10/15/21 17:28 Diprivan 10 Mg/Ml IV 0 mcg/kg/min TITR KATHY 0 mls/hr Titration Protocol 5 MCG/KG/MIN Ceftriaxone Sodium 2 gm in 100 mls @ 200 mls/hr 10/15/21 08:00 10/16/21 10:02 Rocephin/Ns 2 Gm/100 Ml IV Infused Q24H KATHY Infusion Protocol Azithromycin 500 mg in 250 mls @ 250 mls/hr 10/14/21 14:00 10/15/21 14:50 Zithromax/Ns IV Infused Q24H KATHY Infusion Protocol Fentanyl Citrate 2,000 mcg in 100 mls @ 3.175 mls/hr 10/14/21 16:00 10/16/21 10:58 Fentanyl Drip Premix IV 2 mcg/kg/hr TITR KATHY 6.35 mls/hr Titration Protocol 1 MCG/KG/HR Sodium Chloride 1,000 mls @ 4 mls/hr 10/15/21 03:25 Nacl 0.9% 1000 Ml IV DIRECT KATHY Morphine Sulfate 2 mg 10/14/21 12:01 10/16/21 09:34 Morphine 2 Mg/1 Ml Inj IV 2 mg Q4H PRN Administration Pain, Moderate (4-6) Multi-Ingred Cream/Lotion/Oil/Oint 1 applic 10/14/21 15:47 Mineral Oil/Petrolatum, White Ophth Oint 3.5 Gm OU Q4HR PRN Dry Eye(s) Oxycodone/Acetaminophen 1 tab 10/14/21 13:00 Oxycodone /Acetaminophen 5-325mg Tab PO Q16H PRN Pain, Moderate (4-6) Quetiapine Fumarate 100 mg 10/15/21 14:30 10/16/21 09:17 Quetiapine 100 Mg Tab PO 100 mg BID KATHY Administration Senna/Docusate Sodium 1 tab 10/14/21 22:00 10/16/21 09:17 Sennosides/Docusate Sodium 8.6/50 Mg Tab FEEDTUBE 1 tab BID KATHY Administration Sodium Chloride 10 ml 10/14/21 22:00 10/16/21 09:17 Sodium Chloride 0.9% 10 Ml Flush Syringe IV 10 ml BID KATHY Administration Sodium Chloride 10 ml 10/14/21 13:00 Sodium Chloride 0.9% 10 Ml Flush Syringe IV PRN PRN LINE FLUSH Nutrition/Malnutrition Assess - Dietary Evaluation Nutrition/Malnutrition Findings: Nutrition Notes Start: 10/15/21 09:41 Freq: Status: Active Protocol: Document 10/15/21 09:41 MARLEY (Rec: 10/15/21 10:00 [email or web address] [id number]) Nutrition Notes Need for Assessment generated from: MD Order,stoker mechanic,MST Initial or Follow up Assessment Current Diagnosis Respiratory Failure Other Pertinent Diagnosis Hypertensive emergency, pneu, Vascular dementia, cerebral atherosclerosis Current Diet NPO Labs/Tests Na 134 Pertinent Medications Nicardipine gtt, Propofol at 11.431 ml/hr (provides 302 kcal), Senokot, NS at 4ml/hr Height 5 ft 6 in Weight 58.3 kg [place] Body Weight (kg) 64.54 BMI 20.7 Weight Status Underweight Subjective/Other Information RD consulted for TF; pt screened for malnutrition risk . Pt currently intubated. Burn Absent Trauma Absent Difficulty In Swallowing Skin Integrity/Comment No skin breakdown reported Minimum of two criteria No Reduced [employer] Strength Measurably Reduced (severe) #1 Nutrition Diagnosis Inadequate oral intake Etiology [facility] ventilation As Evidenced by Signs and Symptoms pt NPO Is patient on ventilator? Yes Is Patient Ambulatory and/or Out of Bed No REE-([facility]-confined to bed) 1531.212 Kcal/Kg value to use for calculation 30 Approximate Energy Requirements Using 1749 kcal/Kg Calculation Used for Recommendations Kcal/kg Additional Notes Pro needs 1.2-2g/k-117g/ day Fluid needs 1ml/kcal Nutrition Intervention Nutrition Support: Osmolite 1.5 at 50ml/hr with 150ml water flush q4h Kcal 1,800 Protein (gm) 75 Carbohydrates (gm) 244 Fat (gm) 59 Fluid (mL) 914 Fiber (gm) 0 Goal #1 TF tolerance Goal #2 TF to meet at least 75% energy and pro needs Anticipated Discharge Needs: None identified at this time Follow-Up By: 10/18/21 Additional Comments F/U: new TF, vent status, propofol <YOBANY BUCK - Last Filed: 10/17/21 07:21> Assessment and Plan Assessment and plan: I saw and evaluated the patient. I agree with the findings and the plan of care as documented in the Nurse Practitioner's~note, with the following corrections and additions. Hospitalist Physical - Constitutional Vitals: Temp Pulse Resp BP Pulse Ox 98.4 F 99 H 13 152/63 100 10/17/21 07:20 10/17/21 07:15 10/17/21 07:15 10/17/21 07:15 10/17/21 07:15 HEART Score - HEART Score Troponin: Troponin T < 0.010 ng/mL (0.00-0.029) 10/14/21 07:26 Results - Labs CBC & Chem 7: 10/17/21 04:35 10/17/21 04:35 Labs: Laboratory Last Values WBC 7.0 K/mm3 (4.5-11.0) 10/17/21 04:35 RBC 2.97 M/mm3 (3.65-5.03) L 10/17/21 04:35 Hgb 9.9 gm/dl (11.8-15.2) L 10/17/21 04:35 Hct 30.3 % (35.5-45.6) L 10/17/21 04:35 MCV 102 fl (84-94) H 10/17/21 04:35 MCH 33 pg (28-32) H 10/17/21 04:35 MCHC 33 % (32-34) 10/17/21 04:35 RDW 14.2 % (13.2-15.2) 10/17/21 04:35 Plt Count 156 K/mm3 (140-440) 10/17/21 04:35 Lymph % (Auto) 13.5 % (13.4-35.0) 10/15/21 04:00 [place] % (Auto) 7.3 % (0.0-7.3) 10/15/21 04:00 Eos % (Auto) 0.4 % (0.0-4.3) 10/15/21 04:00 Baso % (Auto) 0.4 % (0.0-1.8) 10/15/21 04:00 Lymph # (Auto) 0.9 K/mm3 (1.2-5.4) L 10/15/21 04:00 [place] # (Auto) 0.5 K/mm3 (0.0-0.8) 10/15/21 04:00 Eos # (Auto) 0.0 K/mm3 (0.0-0.4) 10/15/21 04:00 Baso # (Auto) 0.0 K/mm3 (0.0-0.1) 10/15/21 04:00 Seg Neutrophils % 78.4 % (40.0-70.0) H 10/15/21 04:00 Seg Neutrophils # 5.2 K/mm3 (1.8-7.7) 10/15/21 04:00 PT 14.2 Sec. (12.2-14.9) 10/14/21 07:26 INR 0.99 (0.87-1.13) 10/14/21 07:26 APTT 29.0 Sec. (24.2-36.6) 10/14/21 07:26 D-Dimer 1033.11 ng/mlDDU (0-234) H 10/14/21 07:06 ABG pH 7.400 pH Units (7.350-7.450) 10/17/21 05:30 ABG pCO2 46.3 mm Hg 10/17/21 05:30 ABG pO2 65.5 mm Hg (80.0-90.0) L 10/17/21 05:30 ABG HCO3 28.0 mmol/L (20.0-26.0) H 10/17/21 05:30 ABG O2 Saturation 94.0 % (95.0-99.0) L 10/17/21 05:30 ABG O2 Content 12.6 (0.0-44) 10/17/21 05:30 ABG Base Excess 2.8 mmol/L (-2.0-3.0) 10/17/21 05:30 ABG Hemoglobin 9.7 gm/dl (14.0-18.0) L 10/17/21 05:30 ABG Carboxyhemoglobin 1.6 % (0.0-5.0) 10/17/21 05:30 ABG Methemoglobin 0.4 % (0.0-1.5) 10/17/21 05:30 Oxyhemoglobin 92.1 % (95.0-99.0) L 10/17/21 05:30 FiO2 30 % 10/17/21 05:30 Sodium 135 mmol/L (137-145) L 10/17/21 04:35 Potassium 3.9 mmol/L (3.6-5.0) 10/17/21 04:35 Chloride 97.3 mmol/L (98-107) L 10/17/21 04:35 Carbon Dioxide 27 mmol/L (22-30) 10/17/21 04:35 Anion Gap 15 mmol/L 10/17/21 04:35 BUN 15 mg/dL (9-20) 10/17/21 04:35 Creatinine 0.8 mg/dL (0.8-1.3) 10/17/21 04:35 Estimated GFR > 60 ml/min 10/17/21 04:35 BUN/Creatinine Ratio 19 % 10/17/21 04:35 Glucose 146 mg/dL (75-100) H 10/17/21 04:35 POC Glucose 154 mg/dL (70-105) H 10/16/21 23:30 Lactic Acid 1.50 mmol/L (0.7-2.0) 10/14/21 07:26 Calcium 8.9 mg/dL (8.4-10.2) 10/17/21 04:35 Phosphorus 3.50 mg/dL (2.5-4.5) 10/17/21 04:35 Magnesium 1.80 mg/dL (1.7-2.3) 10/17/21 04:35 Total Bilirubin 0.20 mg/dL (0.1-1.2) 10/14/21 07:26 AST 19 units/L (5-40) 10/14/21 07:26 ALT 11 units/L (7-56) 10/14/21 07:26 Alkaline Phosphatase 47 units/L (35-129) 10/14/21 07:26 Total Creatine Kinase 58 units/L (55-170) 10/14/21 07:26 CK-MB (CK-2) 3.9 ng/mL (0.0-4.0) 10/14/21 07:26 CK-MB (CK-2) Rel Index 6.7 (0-4) H 10/14/21 07:26 Troponin T < 0.010 ng/mL (0.00-0.029) 10/14/21 07:26 C-Reactive Protein 1.20 mg/dL (0.00-1.30) 10/14/21 00:00 Total Protein 6.8 g/dL (6.3-8.2) 10/14/21 07:26 Albumin 3.7 g/dL (3.9-5) L 10/14/21 07:26 Albumin/Globulin Ratio 1.2 % 10/14/21 07:26 Procalcitonin 0.21 ng/mL (<0.15) 10/14/21 00:00 Urine Color Straw (Yellow) 10/14/21 07:03 Urine Turbidity Clear (Clear) 10/14/21 07:03 Specific [place] (Man) 1.015 (1.003-1.030) 10/14/21 07:03 Ur Protein (Man) 1+ mg/dL (Negative) 10/14/21 07:03 Ur Ketones (Man) Negative (Negative) 10/14/21 07:03 Urine Bilirubin (Man) Negative (Negative) 10/14/21 07:03 Urine WBC (Auto) < 1.0 /HPF (0.0-6.0) 10/14/21 07:03 Urine RBC (Auto) 4.0 /HPF (0.0-6.0) 10/14/21 07:03 U Epithel Cells (Auto) 1.0 /HPF (0-13.0) 10/14/21 07:03 Urine RBC (Manual) Negative (Negative) 10/14/21 07:03 Urine Opiates Screen Negative 10/14/21 07:03 Urine Methadone Screen Negative 10/14/21 07:03 Ur Barbiturates Screen Negative 10/14/21 07:03 Ur Phencyclidine Scrn Negative 10/14/21 07:03 Ur Amphetamines Screen Negative 10/14/21 07:03 U Benzodiazepines Scrn Negative 10/14/21 07:03 Urine Cocaine Screen Positive 10/14/21 07:03 U Marijuana (THC) Screen Negative 10/14/21 07:03 Drugs of Abuse Note Disclamer 10/14/21 07:03 Coronavirus (PCR) Negative (Negative) 10/14/21 16:01 Microbiology: Microbiology 10/16/21 16:43 Peripheral/Venous Blood Culture - Preliminary Culture in Progress 10/16/21 16:43 Peripheral/Venous Blood Culture - Preliminary Culture in Progress Marquez/IV: Voiding Method Indwelling Catheter Active Medications - Current Medications Current Medications: Generic Name Dose Route Start Last Admin Trade Name Freq PRN Reason Stop Dose Admin Acetaminophen 650 mg 10/14/21 13:00 10/16/21 12:45 Acetaminophen 325 Mg Tab PO 650 mg Q6H PRN Administration Pain MILD(1-3)/Fever >100.5/[place] Albuterol 2.5 mg 08/18/22 14:00 Albuterol 2.5 Mg/3 Ml Nebu IH Q3HRT PRN Shortness Of Breath Amlodipine Besylate 5 mg 10/16/21 14:00 10/16/21 13:18 Amlodipine 5 Mg Tab PO 5 mg QDAY KATHY Administration Diphenhydramine HCl 25 mg 10/15/21 10:00 10/15/21 16:26 Diphenhydramine 50 Mg/Ml Vial IV 25 mg Q6H PRN Administration Itching Docusate Sodium 100 mg 10/16/21 12:00 10/16/21 21:23 Docusate Sodium 100 Mg/10 Ml Oral Liqd PO 10/17/21 10:01 100 mg BID KATHY Administration Famotidine 20 mg 10/15/21 10:00 10/16/21 09:16 Famotidine 20 Mg/2 Ml Inj IV 20 mg QDAY KATHY Administration Fentanyl 50 mcg 10/14/21 15:47 Fentanyl 100 Mcg/2 Ml Inj IV Q10MIN PRN ANALGESIA Heparin Sodium (Porcine) 5,000 unit 10/15/21 10:00 10/16/21 21:22 Heparin 5,000 Unit/1 Ml Vial SUB-Q 5,000 unit Q12HR KATHY Administration Hydralazine HCl 10 mg 10/16/21 14:00 10/16/21 13:17 Hydralazine 20 Mg/1 Ml Inj IV 10 mg ONCE KATHY Administration Hydralazine HCl 50 mg 10/16/21 16:00 10/17/21 05:52 Hydralazine 25 Mg Tab PO 50 mg Q8HR KATHY Administration Hydralazine HCl 10 mg 10/16/21 15:43 10/17/21 02:51 Hydralazine 20 Mg/1 Ml Inj IV 10 mg Q4HR PRN Administration Hypertension Hydromorphone HCl 0.5 mg 10/14/21 13:00 Hydromorphone 0.5 Mg/0.5 Ml Inj IV Q23H PRN Pain , Severe (7-10) Hydrophilic Ointment 1 applic 10/14/21 15:47 Lip Therapy Vaseline TP Q2HR PRN Dry Lips Ceftriaxone Sodium 2 gm in 100 mls @ 200 mls/hr 10/15/21 08:00 10/16/21 10:02 Rocephin/Ns 2 Gm/100 Ml IV Infused Q24H KATHY Infusion Protocol Azithromycin 500 mg in 250 mls @ 250 mls/hr 10/14/21 14:00 10/16/21 14:30 Zithromax/Ns IV Infused Q24H KATHY Infusion Protocol Fentanyl Citrate 2,000 mcg in 100 mls @ 3.175 mls/hr 10/14/21 16:00 10/16/21 12:55 Fentanyl Drip Premix IV 1 mcg/kg/hr TITR KATHY 3.175 mls/hr Titration Protocol 1 MCG/KG/HR Sodium Chloride 1,000 mls @ 4 mls/hr 10/15/21 03:25 Nacl 0.9% 1000 Ml IV DIRECT KATHY Nicardipine HCl 50 mg/ Sodium 250 mls @ 25 mls/hr 10/16/21 16:00 10/17/21 07:02 Chloride IV 0 mg/hr TITR KATHY 0 mls/hr Titration Protocol 5 MG/HR Morphine Sulfate 2 mg 10/14/21 12:01 10/16/21 09:34 Morphine 2 Mg/1 Ml Inj IV 2 mg Q4H PRN Administration Pain, Moderate (4-6) Multi-Ingred Cream/Lotion/Oil/Oint 1 applic 10/14/21 15:47 Mineral Oil/Petrolatum, White Ophth Oint 3.5 Gm OU Q4HR PRN Dry Eye(s) Oxycodone/Acetaminophen 1 tab 10/14/21 13:00 Oxycodone /Acetaminophen 5-325mg Tab PO Q16H PRN Pain, Moderate (4-6) Quetiapine Fumarate 100 mg 10/15/21 14:30 10/16/21 21:22 Quetiapine 100 Mg Tab PO 100 mg BID KATHY Administration Senna/Docusate Sodium 1 tab 10/14/21 22:00 10/16/21 21:24 Sennosides/Docusate Sodium 8.6/50 Mg Tab FEEDTUBE 1 tab BID KATHY Administration Sodium Chloride 10 ml 10/14/21 22:00 10/16/21 21:24 Sodium Chloride 0.9% 10 Ml Flush Syringe IV 10 ml BID KATHY Administration Sodium Chloride 10 ml 10/14/21 13:00 Sodium Chloride 0.9% 10 Ml Flush Syringe IV PRN PRN LINE FLUSH Nutrition/Malnutrition Assess - Dietary Evaluation Nutrition/Malnutrition Findings: Nutrition Notes Start: 10/15/21 09:41 Freq: Status: Active Protocol: Document 10/15/21 09:41 MARLEY (Rec: 10/15/21 10:00 MARLEY [id number]) Nutrition Notes Need for Assessment generated from: MD Order,stoker mechanic,MST Initial or Follow up Assessment Current Diagnosis Respiratory Failure Other Pertinent Diagnosis Hypertensive emergency, pneu, Vascular dementia, cerebral atherosclerosis Current Diet NPO Labs/Tests Na 134 Pertinent Medications Nicardipine gtt, Propofol at 11.431 ml/hr (provides 302 kcal), Senokot, NS at 4ml/hr Height 5 ft 6 in Weight 58.3 kg [place] Body Weight (kg) 64.54 BMI 20.7 Weight Status Underweight Subjective/Other Information RD consulted for TF; pt screened for malnutrition risk . Pt currently intubated. Burn Absent Trauma Absent Difficulty In Swallowing Skin Integrity/Comment No skin breakdown reported Minimum of two criteria No Reduced [employer] Strength Measurably Reduced (severe) #1 Nutrition Diagnosis Inadequate oral intake [facility] As Evidenced by Signs and Symptoms pt NPO Is patient on ventilator? Yes Is Patient Ambulatory and/or Out of Bed No REE-([facility]-confined to bed) 1531.212 Kcal/Kg value to use for calculation 30 Approximate Energy Requirements Using 1749 kcal/Kg Calculation Used for Recommendations Kcal/kg Additional Notes Pro needs 1.2-2g/k-117g/ day Fluid needs 1ml/kcal Nutrition Intervention Nutrition Support: Osmolite 1.5 at 50ml/hr with 150ml water flush q4h Kcal 1,800 Protein (gm) 75 Carbohydrates (gm) 244 Fat (gm) 59 Fluid (mL) 914 Fiber (gm) 0 Goal #1 TF tolerance Goal #2 TF to meet at least 75% energy and pro needs Anticipated Discharge Needs: None identified at this time Follow-Up By: 10/18/21 Additional Comments F/U: new TF, vent status, propofol
[2021-10-16] MEDS: DOCUSATE SODIUM 100 MG/10 ML ORAL LIQD PO SCH ×2 (12:38→21:23)
[2021-10-16] MEDS: ACETAMINOPHEN 325 MG TAB PO PRN (12:45)
[2021-10-16] MEDS: AZITHROMYCIN/NS 500 MG/250 ML 500 MG/250 ML BAG IV SCH (13:16)
[2021-10-16] MEDS: hydrALAZINE 20 MG/1 ML INJ IV SCH (13:17)
[2021-10-16] MEDS: amLODIPine 5 MG TAB PO SCH (13:18)
[2021-10-16] MEDS: hydrALAZINE 25 MG TAB PO SCH ×2 (16:02→21:22)
[2021-10-16] MEDS: niCARdipine 50 MG in SODIUM CHLORIDE 0.9% 250ML 230 ML IV SCH ×2 (16:25→20:59)
[2021-10-17] MEDS: hydrALAZINE 20 MG/1 ML INJ IV PRN ×3 (02:51→20:00)
--- NOTE | 2021-10-17 03:11 | XRay Report ---
CHEST 1 VIEW INDICATION / CLINICAL INFORMATION: follow up respiratory failure. COMPARISON: Chest x-ray 10/16/2021 FINDINGS: SUPPORT DEVICES: Stable, satisfactory device positioning. HEART / MEDIASTINUM: Heart size is within normal limits. Mediastinal contour demonstrates no signific ant abnormality. LUNGS / PLEURA: Bilateral lung opacities demonstrate no significant interval change. BONES: Displaced fracture left humeral diaphysis unchanged. Left rib deformities unchanged. ADDITIONAL FINDINGS: No significant additional findings. IMPRESSION: 1. No adverse interval change in the chest. Signer Name: Kenji Gamez II, MD Signed: 10/17/2021 3:06 AM Workstation Name: [id number]
[2021-10-17 05:09] LABS: Hematocrit 30.3 % (35.5-45.6); Hemoglobin 9.9 gm/dl (11.8-15.2); Mean Corpuscular HGB Conc 33 % (32-34); Mean Corpuscular Volume 102 fl (84-94); Platelet Count 156 K/mm3 (140-440); Red Blood Count 2.97 M/mm3 (3.65-5.03); Red Cell Distribution Width 14.2 % (13.2-15.2)
[2021-10-17] MEDS: hydrALAZINE 25 MG TAB PO SCH ×3 (05:52→21:27)
[2021-10-17 05:59] LABS: ABG Base Excess 2.8 mmol/L (-2.0-3.0); ABG Methemoglobin 0.4 % (0.0-1.5); ABG PCO2 46.3 mm Hg; ABG PH 7.4 pH Units (7.350-7.450); ABG PO2 65.5 mm Hg (80.0-90.0)
[2021-10-17 06:09] LABS: BUN/Creatinine Ratio 19; Blood Urea Nitrogen 15 mg/dL (9-20); Calcium 8.9 mg/dL (8.4-10.2); Hemolysis Index 2
[2021-10-17] MEDS: amLODIPine 5 MG TAB PO SCH (09:24)
[2021-10-17] MEDS: DOCUSATE SODIUM 100 MG/10 ML ORAL LIQD PO SCH (09:24)
[2021-10-17] MEDS: cefTRIAXone/NS 2 GM/100 ML 2 GM/100 ML BAG IV SCH (09:24)
[2021-10-17] MEDS: SENNOSIDES/DOCUSATE SODIUM 8.6/50 MG TAB FEEDTUBE SCH ×2 (09:25→21:17)
[2021-10-17] MEDS: QUEtiapine 100 MG TAB PO SCH ×2 (09:25→21:27)
[2021-10-17] MEDS: HEPARIN 5,000 UNIT/1 ML VIAL SUB-Q SCH ×2 (09:25→21:27)
[2021-10-17] MEDS: FAMOTIDINE 20 MG/2 ML INJ IV SCH (09:25)
--- NOTE | 2021-10-17 09:54 | Progress Note ---
<RYANN AUGUST - Last Filed: 10/17/21 16:11> Assessment and Plan Assessment and plan: This is a 71-year-old male with past medical history of vascular dementia, cerebral atherosclerosis, and cocaine abuse admitted for acute hypoxic respiratory failure requiring ventilatory support. Hospital Course to Date: 10/15: Intubated and sedated, follows commands intermittently. Off cardene gtt this am, VSS. This am ABG pending. Wean vent setting and sedation as tolerated, possible SAT/SBT in the am per CCM. Labs with elevated D-Dimer, COVID PCR pending. Given hypoxia will get a CTA chest and BLE doppler to r/o DVT/PE. VTE proph initiated. Will also get 2D echo to eval pulmonary pressors. Patient is hypoglycemic this am treated per hypoglycemic protocol, most likely due to NPO status. NGT initiated but not yet at goal, continue BG check Q6hrs and hypoglycemic protocol. LUE humerus fracture noted, LUE XR pending. Will also consult Ortho for further eval and treat. 10/16: Remains stable on the vent, on low dose sedation. Tolerating PSV trial this am. Per CCM, plan is to wean to extubate. Patient spike a Temp today, patient is hemodynamicaly stable, with no leukocytosis. Orders placed for blood cultures, will hold off on IV abx for now. 2D echo reviewed, LVEF 45% and c/f Takotsubo syndrome, cardiology consulted. CTA chest pending, unable to get in contact with patient's NOK. Case management is following for further assistance in locating patient's family. 10/17: Stable on the vent, off sedations. Tolerating PSV trial for possible extubation today. This am ABG reviewed, patient with some hypoxia but compensating. Still can't get in contact with patient's NOK at this time, will order V/Q scan to r/o PE. Continue VTE proph. Hypertensive overnight and requ ired cardene gtt. Cardene is off this am, still mildly hypertensive. PO antihypertensive adjusted. Still with low grade fevers, but no leukocytosis, Blood cultures pending. continue current IV Abx for now. Assessment and Plan #Acute Hypoxic Respiratory Failure #Bilateral Pneumonia (CAP)- POA #COVID PUI - Presented with hypoxia, SPO2 in the 40s on RA - Patient admitted snorting Cocaine prior to admit - Intubated in the ED on 10/14 - COVID PCR pending - Imagings with bilateral opacities - Vent setting: PRVC-80%,8,25,450 - AM ABG noted - CCM consulted, appreciate recommendations - Still with low grade fevers, no leukocytosis - On empiric IV Abx- Azithro and Rocephin - VAP bundle addressed - Aspiration precaution HOB above 30 - Daily SBT and SAT trials as tolerated - Daily ABG and CXR - Continue SPO2 monitoring for SPO2 goal above 92% - Panculture if patient is febrile or become hemodynamically unstable #Hypertensive Emergency #Systolic CHF with reduced EF #Takotsubo Cardiomyopathy - Presented with SBP in the 200s, s/p cardene gtt - Off cardene this am, BP stable - Continue blood pressure monitor per protocol - PRN Hydralazine to maintain SBP less than 160 - 2D echo reviewed, LVEF 45% and c/f Takotsubo syndrome - Cardiology consulted #Acute Toxic Metabolic Encephalopathy #Cocaine Abuse - Patient admitted snorting Cocaine prior to admit - UDS + cocaine - Intubate, off sedation, following simple commands - Continue Seroquel BID - Plan to wean off sedation for possible SAT/SBT in the am - PRN Analgesia for CPOT greater than 3 - Maintenance of sleep-wake cycle #Elevated D-Dimer - COVID PCR negative - CTA chest and BLE doppler negative DVT - On Heparin SubQ - Continue to trend imflam. markers #Hypoglycemia-resolved - probably due to NPO status - OGT in place, enteral nutrition initiated - continue BG check Q6hrs - Avoid hypoglycemia - Continue hypoglycemic protocol #Lt. Humerus Fracture - Mass noted on LUE, Humerus fracture noted on CXR - Will get LUE X-ray to confirm - Ortho consulted for further eval and recs #GI/DVT Prophylaxis - PPI- Pepcid - Heparin subQ - SCD to bilateral lower extremities while in bed The high probability of a clinically significant, sudden or life threatening deterioration of the [multiple] system(s) required my full and direct attention, intervention and personal management. The aggregate critical care time was [60] minutes. This time is in addition to time spent performing reported procedures but includes the following: [x] Data Review and interpretation [x] Patient assessment and monitoring of vital signs [x] Documentation [x] Medication orders and management Disposition Plan: ICU Total Time Spent with Patient (Minutes): 60 History Interval history: Patient seen and examined at the bedside. Remains stable on the vent, off sedations, following commands. Tolerating PSV trial this am. Remains with low grade fevers, VSS. Cardene gtt resumed overnight due to hypertension, Cardene off this am. [facility] overnight Hospitalist Physical - Physical exam Narrative exam: General appearance: Present: no acute distress, other (Intubated ) - EENT Eyes: Present: PERRL ENT: hearing intact - Neck Neck: Present: normal ROM - Respiratory Respiratory effort: normal Respiratory: bilateral: diminished - Cardiovascular Rhythm: regular Heart Sounds: Present: S1 & S2 - Extremities Extremities: no ischemia, pulses intact, pulses symmetrical, abnormal (Lt. Humerus Fracture) Peripheral Pulses: within normal limits - Abdominal General gastrointestinal: soft, non-distended, normal bowel sounds - Integumentary Integumentary: Present: clear, warm, dry - Psychiatric Psychiatric: Calm and appropriate, cooperative, other (Intubated, off sedations, following commands) - Neurologic Neurologic: Move all extremities, other (Intubated, off sedations, following commands) - Allied Health Allied health notes reviewed: nursing, case management - Constitutional Vitals: Temp Pulse Resp BP Pulse Ox 98.4 F 113 H 13 198/83 100 10/17/21 07:20 10/17/21 09:25 10/17/21 07:15 10/17/21 09:25 10/17/21 08:21 HEART Score - HEART Score Troponin: Troponin T < 0.010 ng/mL (0.00-0.029) 10/14/21 07:26 Results - Labs CBC & Chem 7: 10/17/21 04:35 10/17/21 04:35 Labs: Laboratory Last Values WBC 7.0 K/mm3 (4.5-11.0) 10/17/21 04:35 RBC 2.97 M/mm3 (3.65-5.03) L 10/17/21 04:35 Hgb 9.9 gm/dl (11.8-15.2) L 10/17/21 04:35 Hct 30.3 % (35.5-45.6) L 10/17/21 04:35 MCV 102 fl (84-94) H 10/17/21 04:35 MCH 33 pg (28-32) H 10/17/21 04:35 MCHC 33 % (32-34) 10/17/21 04:35 RDW 14.2 % (13.2-15.2) 10/17/21 04:35 Plt Count 156 K/mm3 (140-440) 10/17/21 04:35 Lymph % (Auto) 13.5 % (13.4-35.0) 10/15/21 04:00 Wirt % (Auto) 7.3 % (0.0-7.3) 10/15/21 04:00 Eos % (Auto) 0.4 % (0.0-4.3) 10/15/21 04:00 Baso % (Auto) 0.4 % (0.0-1.8) 10/15/21 04:00 Lymph # (Auto) 0.9 K/mm3 (1.2-5.4) L 10/15/21 04:00 Wirt # (Auto) 0.5 K/mm3 (0.0-0.8) 10/15/21 04:00 Eos # (Auto) 0.0 K/mm3 (0.0-0.4) 10/15/21 04:00 Baso # (Auto) 0.0 K/mm3 (0.0-0.1) 10/15/21 04:00 Seg Neutrophils % 78.4 % (40.0-70.0) H 10/15/21 04:00 Seg Neutrophils # 5.2 K/mm3 (1.8-7.7) 10/15/21 04:00 PT 14.2 Sec. (12.2-14.9) 10/14/21 07:26 INR 0.99 (0.87-1.13) 10/14/21 07:26 APTT 29.0 Sec. (24.2-36.6) 10/14/21 07:26 D-Dimer 1033.11 ng/mlDDU (0-234) H 10/14/21 07:06 ABG pH 7.400 pH Units (7.350-7.450) 10/17/21 05:30 ABG pCO2 46.3 mm Hg 10/17/21 05:30 ABG pO2 65.5 mm Hg (80.0-90.0) L 10/17/21 05:30 ABG HCO3 28.0 mmol/L (20.0-26.0) H 10/17/21 05:30 ABG O2 Saturation 94.0 % (95.0-99.0) L 10/17/21 05:30 ABG O2 Content 12.6 (0.0-44) 10/17/21 05:30 ABG Base Excess 2.8 mmol/L (-2.0-3.0) 10/17/21 05:30 ABG Hemoglobin 9.7 gm/dl (14.0-18.0) L 10/17/21 05:30 ABG Carboxyhemoglobin 1.6 % (0.0-5.0) 10/17/21 05:30 ABG Methemoglobin 0.4 % (0.0-1.5) 10/17/21 05:30 Oxyhemoglobin 92.1 % (95.0-99.0) L 10/17/21 05:30 FiO2 30 % 10/17/21 05:30 Sodium 135 mmol/L (137-145) L 10/17/21 04:35 Potassium 3.9 mmol/L (3.6-5.0) 10/17/21 04:35 Chloride 97.3 mmol/L (98-107) L 10/17/21 04:35 Carbon Dioxide 27 mmol/L (22-30) 10/17/21 04:35 Anion Gap 15 mmol/L 10/17/21 04:35 BUN 15 mg/dL (9-20) 10/17/21 04:35 Creatinine 0.8 mg/dL (0.8-1.3) 10/17/21 04:35 Estimated GFR > 60 ml/min 10/17/21 04:35 BUN/Creatinine Ratio 19 % 10/17/21 04:35 Glucose 146 mg/dL (75-100) H 10/17/21 04:35 POC Glucose 166 mg/dL (70-105) H 10/17/21 05:43 Lactic Acid 1.50 mmol/L (0.7-2.0) 10/14/21 07:26 Calcium 8.9 mg/dL (8.4-10.2) 10/17/21 04:35 Phosphorus 3.50 mg/dL (2.5-4.5) 10/17/21 04:35 Magnesium 1.80 mg/dL (1.7-2.3) 10/17/21 04:35 Total Bilirubin 0.20 mg/dL (0.1-1.2) 10/14/21 07:26 AST 19 units/L (5-40) 10/14/21 07:26 ALT 11 units/L (7-56) 10/14/21 07:26 Alkaline Phosphatase 47 units/L (35-129) 10/14/21 07:26 Total Creatine Kinase 58 units/L (55-170) 10/14/21 07:26 CK-MB (CK-2) 3.9 ng/mL (0.0-4.0) 10/14/21 07: CK-MB (CK-2) Rel Index 6.7 (0-4) H 10/14/21 07:26 Troponin T < 0.010 ng/mL (0.00-0.029) 10/14/21 07: C-Reactive Protein 1.20 mg/dL (0.00-1.30) 10/14/21 00:00 Total Protein 6.8 g/dL (6.3-8.2) 10/14/21 07: Albumin 3.7 g/dL (3.9-5) L 10/14/21: Albumin/Globulin Ratio 1.2 % 10/14/21 07: Procalcitonin 0.21 ng/mL (<0.15) 10/14/21 00:00 Urine Color Straw (Yellow) 10/14/21 07:03 Urine Turbidity Clear (Clear) 10/14/21 07:03 Specific [place] (Man) 1.015 (1.003-1.030) 10/14/21 07:03 Ur Protein (Man) 1+ mg/dL (Negative) 10/14/21 07:03 Ur Ketones (Man) Negative (Negative) 10/14/21 07:03 Urine Bilirubin (Man) Negative (Negative) 10/14/21 07:03 Urine WBC (Auto) < 1.0 /HPF (0.0-6.0) 10/14/21 07:03 Urine RBC (Auto) 4.0 /HPF (0.0-6.0) 10/14/21 07:03 U Epithel Cells (Auto) 1.0 /HPF (0-13.0) 10/14/21 07:03 Urine RBC (Manual) Negative (Negative) 10/14/21 07:03 Urine Opiates Screen Negative 10/14/21 07:03 Urine Methadone Screen Negative 10/14/21 07:03 Ur Barbiturates Screen Negative 10/14/21 07:03 Ur Phencyclidine Scrn Negative 10/14/21 07:03 Ur Amphetamines Screen Negative 10/14/21 07:03 U Benzodiazepines Scrn Negative 10/14/21 07:03 Urine Cocaine Screen Positive 10/14/21 07:03 U Marijuana (THC) Screen Negative 10/14/21 07:03 Drugs of Abuse Note Disclamer 10/14/21 07:03 Coronavirus (PCR) Negative (Negative) 10/14/21 16:01 Microbiology: Microbiology 10/16/21 16:43 Peripheral/Venous Blood Culture - Preliminary Culture in Progress 10/16/21 16:43 Peripheral/Venous Blood Culture - Preliminary Culture in Progress Marquez/IV: Voiding Method Indwelling Catheter Active Medications - Current Medications Current Medications: Generic Name Dose Route Start Last Admin Trade Name Freq PRN Reason Stop Dose Admin Acetaminophen 650 mg 10/14/21 13:00 10/16/21 12:45 Acetaminophen 325 Mg Tab PO 650 mg Q6H PRN Administration Pain MILD(1-3)/Fever >100.5/[place] Albuterol 2.5 mg 10/14/21 14:00 Albuterol 2.5 Mg/3 Ml Nebu IH Q3HRT PRN Shortness Of Breath Amlodipine Besylate 5 mg 10/16/21 14:00 10/17/21 09:24 Amlodipine 5 Mg Tab PO 5 mg QDAY KATHY Administration Diphenhydramine HCl 25 mg 10/15/21 10:00 10/15/21 16:26 Diphenhydramine 50 Mg/Ml Vial IV 25 mg Q6H PRN Administration Itching Docusate Sodium 100 mg 10/16/21 12:00 10/17/21 09:24 Docusate Sodium 100 Mg/10 Ml Oral Liqd PO 10/17/21 10:01 Not Given BID KATHY Famotidine 20 mg 10/15/21 10:00 10/17/21 09:25 Famotidine 20 Mg/2 Ml Inj IV 20 mg QDAY KATHY Administration Fentanyl 50 mcg 10/14/21 15:47 Fentanyl 100 Mcg/2 Ml Inj IV Q10MIN PRN ANALGESIA Heparin Sodium (Porcine) 5,000 unit 10/15/21 10:00 10/17/21 09:25 Heparin 5,000 Unit/1 Ml Vial SUB-Q 5,000 unit Q12HR KATHY Administration Hydralazine HCl 10 mg 10/16/21 14:00 10/16/21 13:17 Hydralazine 20 Mg/1 Ml Inj IV 10 mg ONCE KATHY Administration Hydralazine HCl 10 mg 10/16/21 15:43 10/17/21 09:25 Hydralazine 20 Mg/1 Ml Inj IV 10 mg Q4HR PRN Administration Hypertension Hydralazine HCl 75 mg 10/17/21 14:00 Hydralazine 25 Mg Tab PO Q8HR KATHY Hydromorphone HCl 0.5 mg 10/14/21 13:00 Hydromorphone 0.5 Mg/0.5 Ml Inj IV Q23H PRN Pain , Severe (7-10) Hydrophilic Ointment 1 applic 10/14/21 15:47 Lip Therapy Vaseline TP Q2HR PRN Dry Lips Ceftriaxone Sodium 2 gm in 100 mls @ 200 mls/hr 10/15/21 08:00 10/17/21 09:24 Rocephin/Ns 2 Gm/100 Ml IV 10/20/21 07:59 200 mls/hr Q24H KATHY Administration Protocol Azithromycin 500 mg in 250 mls @ 250 mls/hr 10/14/21 14:00 10/16/21 14:30 Zithromax/Ns IV 10/19/21 13:59 Infused Q24H KATHY Infusion Protocol Fentanyl Citrate 2,000 mcg in 100 mls @ 3.175 mls/hr 10/14/21 16:00 10/17/21 08:27 Fentanyl Drip Premix IV 0 mcg/kg/hr TITR KATHY 0 mls/hr Titration Protocol 1 MCG/KG/HR Sodium Chloride 1,000 mls @ 4 mls/hr 10/15/21 03:25 Nacl 0.9% 1000 Ml IV DIRECT KATHY Nicardipine HCl 50 mg/ Sodium 250 mls @ 25 mls/hr 10/16/21 16:00 10/17/21 07:02 Chloride IV 0 mg/hr TITR KATHY 0 mls/hr Titration Protocol 5 MG/HR Morphine Sulfate 2 mg 10/14/21 12:01 10/16/21 09:34 Morphine 2 Mg/1 Ml Inj IV 2 mg Q4H PRN Administration Pain, Moderate (4-6) Multi-Ingred Cream/Lotion/Oil/Oint 1 applic 10/14/21 15:47 Mineral Oil/Petrolatum, White Ophth Oint 3.5 Gm OU Q4HR PRN Dry Eye(s) Oxycodone/Acetaminophen 1 tab 10/14/21 13:00 Oxycodone /Acetaminophen 5-325mg Tab PO Q16H PRN Pain, Moderate (4-6) Quetiapine Fumarate 100 mg 10/15/21 14:30 10/17/21 09:25 Quetiapine 100 Mg Tab PO 100 mg BID KATHY Administration Senna/Docusate Sodium 1 tab 10/14/21 22:00 10/17/21 09:25 Sennosides/Docusate Sodium 8.6/50 Mg Tab FEEDTUBE Not Given BID KATHY Sodium Chloride 10 ml 10/14/21 22:00 10/17/21 09:25 Sodium Chloride 0.9% 10 Ml Flush Syringe IV 10 ml BID KATHY Administration Sodium Chloride 10 ml 10/14/21 13:00 Sodium Chloride 0.9% 10 Ml Flush Syringe IV PRN PRN LINE FLUSH Nutrition/Malnutrition Assess - Dietary Evaluation Nutrition/Malnutrition Findings: Nutrition Notes Start: 10/15/21 09:41 Freq: Status: Active Protocol: Document 10/15/21 09:41 MARLEY (Rec: 10/15/21 10:00 NVOLESYA [id number]) Nutrition Notes Need for Assessment generated from: 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 Pt currently intubated. Burn Absent Trauma Absent Difficulty In Swallowing Skin Integrity/Comment No skin breakdown reported Minimum of two criteria No Reduced [employer] Strength Measurably Reduced (severe) #1 Nutrition Diagnosis Inadequate oral intake Etiology [facility] ventilation As Evidenced by Signs and Symptoms pt NPO Is patient on ventilator? Yes Is Patient Ambulatory and/or Out of Bed No [facility] 1531.212 Kcal/Kg value to use for calculation 30 Approximate Energy Requirements Using 1749 kcal/Kg Calculation Used for Recommendations Kcal/kg Additional Notes Pro needs 1.2-2g/k-117g/ day Fluid needs 1ml/kcal Nutrition Intervention Nutrition Support: Osmolite 1.5 at 50ml/hr with 150ml water flush q4h Kcal 1,800 Protein (gm) 75 Carbohydrates (gm) 244 Fat (gm) 59 Fluid (mL) 914 Fiber (gm) 0 Goal #1 TF tolerance Goal #2 TF to meet at least 75% energy and pro needs Anticipated Discharge Needs: None identified at this time Follow-Up By: 10/18/21 Additional Comments F/U: new TF, vent status, propofol <YOBANY BUCK E - Last Filed: 10/17/21 21:16> Assessment and Plan Assessment and plan: I saw and evaluated the patient. I agree with the findings and the plan of care as documented in the Nurse Practitioner's~note, with the following corrections and additions. Hospitalist Physical - Constitutional Vitals: Temp Pulse Resp BP Pulse Ox 99.2 F 114 H 18 178/84 100 10/17/21 20:04 10/17/21 20:04 10/17/21 20:00 10/17/21 20:00 10/17/21 20:00 HEART Score - HEART Score Troponin: Troponin T < 0.010 ng/mL (0.00-0.029) 10/14/21 07:26 Results - Labs CBC & Chem 7: 10/17/21 04:35 10/17/21 04:35 Labs: Laboratory Last Values WBC 7.0 K/mm3 (4.5-11.0) 10/17/21 04:35 RBC 2.97 M/mm3 (3.65-5.03) L 10/17/21 04:35 Hgb 9.9 gm/dl (11.8-15.2) L 10/17/21 04:35 Hct 30.3 % (35.5-45.6) L 10/17/21 04:35 MCV 102 fl (84-94) H 10/17/21 04:35 MCH 33 pg (28-32) H 10/17/21 04:35 MCHC 33 % (32-34) 10/17/21 04:35 RDW 14.2 % (13.2-15.2) 10/17/21 04:35 Plt Count 156 K/mm3 (140-440) 10/17/21 04:35 Lymph % (Auto) 13.5 % (13.4-35.0) 10/15/21 04:00 Wirt % (Auto) 7.3 % (0.0-7.3) 10/15/21 04:00 Eos % (Auto) 0.4 % (0.0-4.3) 10/15/21 04:00 Baso % (Auto) 0.4 % (0.0-1.8) 10/15/21 04:00 Lymph # (Auto) 0.9 K/mm3 (1.2-5.4) L 10/15/21 04:00 Wirt # (Auto) 0.5 K/mm3 (0.0-0.8) 10/15/21 04:00 Eos # (Auto) 0.0 K/mm3 (0.0-0.4) 10/15/21 04:00 Baso # (Auto) 0.0 K/mm3 (0.0-0.1) 10/15/21 04:00 Seg Neutrophils % 78.4 % (40.0-70.0) H 10/15/21 04:00 Seg Neutrophils # 5.2 K/mm3 (1.8-7.7) 10/15/21 04:00 PT 14.2 Sec. (12.2-14.9) 10/14/21 07:26 INR 0.99 (0.87-1.13) 10/14/21 07:26 APTT 29.0 Sec. (24.2-36.6) 10/14/21 07:26 D-Dimer 1033.11 ng/mlDDU (0-234) H 10/14/21 07:06 ABG pH 7.400 pH Units (7.350-7.450) 10/17/21 05:30 ABG pCO2 46.3 mm Hg 10/17/21 05:30 ABG pO2 65.5 mm Hg (80.0-90.0) L 10/17/21 05:30 ABG HCO3 28.0 mmol/L (20.0-26.0) H 10/17/21 05:30 ABG O2 Saturation 94.0 % (95.0-99.0) L 10/17/21 05:30 ABG O2 Content 12.6 (0.0-44) 10/17/21 05:30 ABG Base Excess 2.8 mmol/L (-2.0-3.0) 10/17/21 05:30 ABG Hemoglobin 9.7 gm/dl (14.0-18.0) L 10/17/21 05:30 ABG Carboxyhemoglobin 1.6 % (0.0-5.0) 10/17/21 05:30 ABG Methemoglobin 0.4 % (0.0-1.5) 10/17/21 05:30 Oxyhemoglobin 92.1 % (95.0-99.0) L 10/17/21 05:30 FiO2 30 % 10/17/21 05:30 Sodium 135 mmol/L (137-145) L 10/17/21 04:35 Potassium 3.9 mmol/L (3.6-5.0) 10/17/21 04:35 Chloride 97.3 mmol/L (98-107) L 10/17/21 04:35 Carbon Dioxide 27 mmol/L (22-30) 10/17/21 04:35 Anion Gap 15 mmol/L 10/17/21 04:35 BUN 15 mg/dL (9-20) 10/17/21 04:35 Creatinine 0.8 mg/dL (0.8-1.3) 10/17/21 04:35 Estimated GFR > 60 ml/min 10/17/21 04:35 BUN/Creatinine Ratio 19 % 10/17/21 04:35 Glucose 146 mg/dL (75-100) H 10/17/21 04:35 POC Glucose 111 mg/dL (70-105) H 10/17/21 11:18 Lactic Acid 1.50 mmol/L (0.7-2.0) 10/14/21 07:26 Calcium 8.9 mg/dL (8.4-10.2) 10/17/21 04:35 Phosphorus 3.50 mg/dL (2.5-4.5) 10/17/21 04:35 Magnesium 1.80 mg/dL (1.7-2.3) 10/17/21 04:35 Total Bilirubin 0.20 mg/dL (0.1-1.2) 10/14/21 07:26 AST 19 units/L (5-40) 10/14/21 07:26 ALT 11 units/L (7-56) 10/14/21 07:26 Alkaline Phosphatase 47 units/L (35-129) 10/14/21 07:26 Total Creatine Kinase 58 units/L (55-170) 10/14/21 07:26 CK-MB (CK-2) 3.9 ng/mL (0.0-4.0) 10/14/21 07: CK-MB (CK-2) Rel Index 6.7 (0-4) H 10/14/21 07:26 Troponin T < 0.010 ng/mL (0.00-0.029) 10/14/21 07:26 C-Reactive Protein 1.20 mg/dL (0.00-1.30) 10/14/21 00:00 Total Protein 6.8 g/dL (6.3-8.2) 10/14/21 07:26 Albumin 3.7 g/dL (3.9-5) L 10/14/21 07:26 Albumin/Globulin Ratio 1.2 % 10/14/21 07:26 Procalcitonin 0.21 ng/mL (<0.15) 10/14/21 00:00 Urine Color Straw (Yellow) 10/14/21 07:03 Urine Turbidity Clear (Clear) 10/14/21 07:03 Specific [place] (Man) 1.015 (1.003-1.030) 10/14/21 07:03 Ur Protein (Man) 1+ mg/dL (Negative) 10/14/21 07:03 Ur Ketones (Man) Negative (Negative) 10/14/21 07:03 Urine Bilirubin (Man) Negative (Negative) 10/14/21 07:03 Urine WBC (Auto) < 1.0 /HPF (0.0-6.0) 10/14/21 07:03 Urine RBC (Auto) 4.0 /HPF (0.0-6.0) 10/14/21 07:03 U Epithel Cells (Auto) 1.0 /HPF (0-13.0) 10/14/21 07:03 Urine RBC (Manual) Negative (Negative) 10/14/21 07:03 Urine Opiates Screen Negative 10/14/21 07:03 Urine Methadone Screen Negative 10/14/21 07:03 Ur Barbiturates Screen Negative 10/14/21 07:03 Ur Phencyclidine Scrn Negative 10/14/21 07:03 Ur Amphetamines Screen Negative 10/14/21 07:03 U Benzodiazepines Scrn Negative 10/14/21 07:03 Urine Cocaine Screen Positive 10/14/21 07:03 U Marijuana (THC) Screen Negative 10/14/21 07:03 Drugs of Abuse Note Disclamer 10/14/21 07:03 Coronavirus (PCR) Negative (Negative) 10/14/21 16:01 Microbiology: Microbiology 10/14/21 14:31 Tracheal Aspirate Sputum Culture - Preliminary 10/16/21 16:43 Peripheral/Venous Blood Culture - Preliminary Culture in Progress 10/16/21 16:43 Peripheral/Venous Blood Culture - Preliminary Culture in Progress Marquez/IV: Voiding Method Condom Catheter Active Medications - Current Medications Current Medications: Generic Name Dose Route Start Last Admin Trade Name Freq PRN Reason Stop Dose Admin Acetaminophen 650 mg 10/14/21 13:00 10/16/21 12:45 Acetaminophen 325 Mg Tab PO 650 mg Q6H PRN Administration Pain MILD(1-3)/Fever >100.5/[place] Albuterol 2.5 mg 10/14/21 14:00 Albuterol 2.5 Mg/3 Ml Nebu IH Q3HRT PRN Shortness Of Breath Amlodipine Besylate 10 mg 10/17/21 16:11 Amlodipine 5 Mg Tab PO QDAY KATHY Diphenhydramine HCl 25 mg 10/15/21 10:00 10/15/21 16:26 Diphenhydramine 50 Mg/Ml Vial IV 25 mg Q6H PRN Administration Itching Famotidine 20 mg 10/15/21 10:00 10/17/21 09:25 Famotidine 20 Mg/2 Ml Inj IV 20 mg QDAY KATHY Administration Fentanyl 50 mcg 10/14/21 15:47 Fentanyl 100 Mcg/2 Ml Inj IV Q10MIN PRN ANALGESIA Heparin Sodium (Porcine) 5,000 unit 10/15/21 10:00 10/17/21 09:25 Heparin 5,000 Unit/1 Ml Vial SUB-Q 5,000 unit Q12HR KATHY Administration Hydralazine HCl 10 mg 10/16/21 14:00 10/17/21 19:08 Hydralazine 20 Mg/1 Ml Inj IV 10 mg ONCE KATHY Administration Hydralazine HCl 10 mg 10/16/21 15:43 10/17/21 20:00 Hydralazine 20 Mg/1 Ml Inj IV 10 mg Q4HR PRN Administration Hypertension Hydralazine HCl 75 mg 10/17/21 14:00 10/17/21 13:42 Hydralazine 25 Mg Tab PO 75 mg Q8HR KATHY Administration Hydromorphone HCl 0.5 mg 10/14/21 13:00 Hydromorphone 0.5 Mg/0.5 Ml Inj IV Q23H PRN Pain , Severe (7-10) Hydrophilic Ointment 1 applic 10/14/21 15:47 Lip Therapy Vaseline TP Q2HR PRN Dry Lips Ceftriaxone Sodium 2 gm in 100 mls @ 200 mls/hr 10/15/21 08:00 10/17/21 09:24 Rocephin/Ns 2 Gm/100 Ml IV 10/20/21 07:59 200 mls/hr Q24H KATHY Administration Protocol Azithromycin 500 mg in 250 mls @ 250 mls/hr 10/14/21 14:00 10/17/21 14:45 Zithromax/Ns IV 10/19/21 13:59 250 mls/hr Q24H KATHY Administration Protocol Fentanyl Citrate 2,000 mcg in 100 mls @ 3.175 mls/hr 10/14/21 16:00 10/17/21 08:27 Fentanyl Drip Premix IV 0 mcg/kg/hr TITR KATHY 0 mls/hr Titration Protocol 1 MCG/KG/HR Sodium Chloride 1,000 mls @ 4 mls/hr 10/15/21 03:25 Nacl 0.9% 1000 Ml IV DIRECT KATHY Nicardipine HCl 50 mg/ Sodium 250 mls @ 25 mls/hr 10/16/21 16:00 10/17/21 07:02 Chloride IV 0 mg/hr TITR KATHY 0 mls/hr Titration Protocol 5 MG/HR Morphine Sulfate 2 mg 10/14/21 12:01 10/16/21 09:34 Morphine 2 Mg/1 Ml Inj IV 2 mg Q4H PRN Administration Pain, Moderate (4-6) Multi-Ingred Cream/Lotion/Oil/Oint 1 applic 10/14/21 15:47 Mineral Oil/Petrolatum, White Ophth Oint 3.5 Gm OU Q4HR PRN Dry Eye(s) Oxycodone/Acetaminophen 1 tab 10/14/21 13:00 Oxycodone /Acetaminophen 5-325mg Tab PO Q16H PRN Pain, Moderate (4-6) Quetiapine Fumarate 100 mg 10/15/21 14:30 10/17/21 09:25 Quetiapine 100 Mg Tab PO 100 mg BID KATHY Administration Senna/Docusate Sodium 1 tab 10/14/21 22:00 10/17/21 09:25 Sennosides/Docusate Sodium 8.6/50 Mg Tab FEEDTUBE Not Given BID KATHY Sodium Chloride 10 ml 10/14/21 22:00 10/17/21 09:25 Sodium Chloride 0.9% 10 Ml Flush Syringe IV 10 ml BID KATHY Administration Sodium Chloride 10 ml 10/14/21 13:00 Sodium Chloride 0.9% 10 Ml Flush Syringe IV PRN PRN LINE FLUSH Nutrition/Malnutrition Assess - Dietary Evaluation Nutrition/Malnutrition Findings: Nutrition Notes Start: 10/15/21 09:41 Freq: Status: Active Protocol: Document 10/15/21 09:41 [facility] (Rec: 10/15/21 10:00 [facility] [id number]) Nutrition Notes Need for Assessment generated from: 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 Pt currently intubated. 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 Yes Is Patient Ambulatory and/or Out of Bed No REE-([facility]-confined to bed) 1531.212 Kcal/Kg value to use for calculation 30 Approximate Energy Requirements Using 1749 kcal/Kg Calculation Used for Recommendations Kcal/kg Additional Notes Pro needs 1.2-2g/k-117g/ day Fluid needs 1ml/kcal Nutrition Intervention Nutrition Support: Osmolite 1.5 at 50ml/hr with 150ml water flush q4h Kcal 1,800 Protein (gm) 75 Carbohydrates (gm) 244 Fat (gm) 59 Fluid (mL) 914 Fiber (gm) 0 Goal #1 TF tolerance Goal #2 TF to meet at least 75% energy and pro needs Anticipated Discharge Needs: None identified at this time Follow-Up By: 10/18/21 Additional Comments F/U: new TF, vent status, propofol
--- NOTE | 2021-10-17 10:29 | Consultation ---
History of Present Illness Consult date: 10/17/21 Consult reason: other (Abnormal echocardiogram) History of present illness: 71 YO Male with Vascular Dementia, Cerebral Atherosclerosis, Cocaine Dependence presents shortness of breath shortly after cocaine ingestion. Upon arrival, EMS found the patient to be in distress and subsequent transported to [facility] for further care and evaluation. Patient found to have a pulse oximetry in the 70s which is consistent with acute hypoxemic respiratory failure. The patient was found to be unable to protect his airway and was intubated in the emergency department. The patient was also found to have a blood pressure of 218/128 mmHg which is consistent with hypertensive emergency. Chest x-ray revealed bilateral pneumonia. Patient admitted to ICU and initiated on pneumonia protocol. No further history is obtainable. Cardiology was consulted due to an echo report stating that patient have reversed Takotsubo with mildly reduced left ventricular ejection fraction. Past History Past Medical History: other (See HPI) Past Surgical History: No surgical history, Other (Reviewed) Social history: single, other (Cocaine dependence). denies: smoking, alcohol abuse Family history: no significant family history, other (Reviewed) Medications and Allergies Allergies Allergy/AdvReac Type Severity Reaction Status Date / Time No Known Allergies Allergy Verified 07/24/21 16:08 Home Medications Medication Instructions Recorded Confirmed Last Taken Type No Known Home Medications [No 10/14/21 10/14/21 Unknown History Reported Home Medications] Active Meds: Active Medications Acetaminophen (Acetaminophen 325 Mg Tab) 650 mg PO Q6H PRN PRN Reason: Pain MILD(1-3)/Fever >100.5/[place] Last Admin: 10/16/21 12:45 Dose: 650 mg Albuterol (Albuterol 2.5 Mg/3 Ml Nebu) 2.5 mg IH Q3HRT PRN PRN Reason: Shortness Of Breath Amlodipine Besylate (Amlodipine 5 Mg Tab) 5 mg PO QDAY [facility] Last Admin: 10/17/21 09:24 Dose: 5 mg Diphenhydramine HCl (Diphenhydramine 50 Mg/Ml Vial) 25 mg IV Q6H PRN PRN Reason: Itching Last Admin: 10/15/21 16:26 Dose: 25 mg Famotidine (Famotidine 20 Mg/2 Ml Inj) 20 mg IV QDAY [facility] Last Admin: 10/17/21 09:25 Dose: 20 mg Fentanyl (Fentanyl 100 Mcg/2 Ml Inj) 50 mcg IV Q10MIN PRN PRN Reason: ANALGESIA Heparin Sodium (Porcine) (Heparin 5,000 Unit/1 Ml Vial) 5,000 unit SUB-Q Q12HR KATHY Last Admin: 10/17/21 09:25 Dose: 5,000 unit Hydralazine HCl (Hydralazine 20 Mg/1 Ml Inj) 10 mg IV ONCE KATHY Last Admin: 10/16/21 13:17 Dose: 10 mg Hydralazine HCl (Hydralazine 20 Mg/1 Ml Inj) 10 mg IV Q4HR PRN PRN Reason: Hypertension Last Admin: 10/17/21 09:25 Dose: 10 mg Hydralazine HCl (Hydralazine 25 Mg Tab) 75 mg PO Q8HR KATHY Hydromorphone HCl (Hydromorphone 0.5 Mg/0.5 Ml Inj) 0.5 mg IV Q23H PRN PRN Reason: Pain , Severe (7-10) Hydrophilic Ointment (Lip Therapy Vaseline) 1 applic TP Q2HR PRN PRN Reason: Dry Lips Ceftriaxone Sodium (Rocephin/Ns 2 Gm/100 Ml) 2 gm in 100 mls @ 200 mls/hr IV Q24H KATHY; Protocol Stop: 10/20/21 07:59 Last Admin: 10/17/21 09:24 Dose: 200 mls/hr Azithromycin (Zithromax/Ns) 500 mg in 250 mls @ 250 mls/hr IV Q24H KATHY; Protocol Stop: 10/19/21 13:59 Last Infusion: 10/16/21 14:30 Dose: Infused Fentanyl Citrate (Fentanyl Drip Premix) 2,000 mcg in 100 mls @ 3.175 mls/hr IV TITR KATHY; Protocol Last Titration: 10/17/21 08:27 Dose: 0 mcg/kg/hr, 0 mls/hr Sodium Chloride (Nacl 0.9% 1000 Ml) 1,000 mls @ 4 mls/hr IV DIRECT KATHY Nicardipine HCl 50 mg/ Sodium (Chloride) 250 mls @ 25 mls/hr IV TITR KATHY; Protocol Last Titration: 10/17/21 07:02 Dose: 0 mg/hr, 0 mls/hr Morphine Sulfate (Morphine 2 Mg/1 Ml Inj) 2 mg IV Q4H PRN PRN Reason: Pain, Moderate (4-6) Last Admin: 10/16/21 09:34 Dose: 2 mg Multi-Ingred Cream/Lotion/Oil/Oint (Mineral Oil/Petrolatum, White Ophth Oint 3.5 Gm) 1 applic OU Q4HR PRN PRN Reason: Dry Eye(s) Oxycodone/Acetaminophen (Oxycodone /Acetaminophen 5-325mg Tab) 1 tab PO Q16H PRN PRN Reason: Pain, Moderate (4-6) Quetiapine Fumarate (Quetiapine 100 Mg Tab) 100 mg PO BID [facility] Last Admin: 10/17/21 09:25 Dose: 100 mg Senna/Docusate Sodium (Sennosides/Docusate Sodium 8.6/50 Mg Tab) 1 tab FEEDTUBE BID [facility] Last Admin: 10/17/21 09:25 Dose: Not Given Sodium Chloride (Sodium Chloride 0.9% 10 Ml Flush Syringe) 10 ml IV BID [facility] Last Admin: 10/17/21 09:25 Dose: 10 ml Sodium Chloride (Sodium Chloride 0.9% 10 Ml Flush Syringe) 10 ml IV PRN PRN PRN Reason: LINE FLUSH Review of Systems ROS unobtainable: due to endotracheal tube Physical Examination Vital Signs Resp Pulse Ox 17 100 10/14/21 07:23 10/14/21 07:23 General appearance: no acute distress Neck: Positive: neck supple Cardiac: Positive: Reg Rate and Rhythm Lungs: Positive: Ventilated Respirations Abdomen: Positive: Soft Extremities: Absent: edema Results 10/17/21 04:35 10/17/21 04:35 CBC 10/17/21 Range/Units 04:35 WBC 7.0 (4.5-11.0) K/mm3 RBC 2.97 L (3.65-5.03) M/mm3 Hgb 9.9 L (11.8-15.2) gm/dl Hct 30.3 L (35.5-45.6) % Plt Count 156 (140-440) K/mm3 Comprehensive Metabolic Panel 10/17/21 Range/Units 04:35 Sodium 135 L (137-145) mmol/L Potassium 3.9 (3.6-5.0) mmol/L Chloride 97.3 L (98-107) mmol/L Carbon Dioxide 27 (22-30) mmol/L BUN 15 (9-20) mg/dL Creatinine 0.8 (0.8-1.3) mg/dL Glucose 146 H (75-100) mg/dL Calcium 8.9 (8.4-10.2) mg/dL - EKG Interpretation EKG: sinus rhythm EKG interpretations - Telemetry EKG Rhythm: Sinus Rhythm Assessment and Plan Abnormal echocardiogram Acute hypoxic respiratory failure Hypertensive emergency Cocaine abuse Echocardiogram reviewed. I did not appreciate evidence of a reverse Takotsubo finding. There is moderate concentric left ventricular hypertrophy with mild global left ventricular hypokinesis. Recommendations: No further inpatient cardiac work-up is needed. Continue supportive care per ICU team.
--- NOTE | 2021-10-17 13:45 | Progress Note ---
Assessment and Plan Acute Hypoxemic Respiratory Failure on MVS Flash Pulmonary Edema Hypertensive Emergency Cocaine intoxication Acute Encephalopathy LVEF 45% and c/f Takotsubo syndrome SBT today with plans to liberate from MVS if he tolerates it and meets weaning criteria Tolerating PS 8/8. Get weaning parameters, NIF and RSBI- if acceptable will libe rate Discontinue Marquez catheter and RIJ CVL Bedside swallow evaluation post extubation Blood pressure control remains sub-optimal, will reassess once he is liberated from MVS -Titrate supplemental oxygen to keep SpO2 90-92% - continue Daily SAT and SBT assessment as tolerated - VAP bundle addressed, aspiration precautions HOB >40 - continue lung protective strategies - continue bronchodilators with pulmonary hygiene per RT -ABG, CXR as clinically indicated - avoid nephrotoxins, renally dose all medications - continue to avoid benzodiazepines, reduce the possibility of delirium -Trend temperature curve and WCC, complete 5 day therapy of Ceftriaxone and Azithromycin for possible CAP - continue accuchecks with glycemic control per SSI (While critically ill target blood glucose of 140-180 mg/dL; avoid hypoglycemia) - prn analgesia per CPOT score - sedation prn for target RASS 0 to -1 - Maintenance of sleep-wake cycle, avoid delirium - continue enteral nutritional support at goal rate as tolerated - Stress ulcer -Famotidine - VTE prophylaxis-Heparin -Needs better blood pressure control- has been off Cardene infusion, add amlodipine to therapy - continue mobility per protocols for pressure ulcer prevention - Monitor hemodynamics closely -Substance abuse counselling when he is liberated from MVS - continue other care per attending / other consultants - discharge planning ongoing concurrently CONDITION: CRITICAL PROGNOSIS: GUARDED CODE STATUS: FULL CODE The high probability of a clinically significant, sudden or life-threatening deterioration of the [respiratory, cardiovascular, GI and neurologic] system(s) required my full and direct attention, intervention and personal management. The aggregate critical care time was [34] minutes without overlap. Time includes spent on; [x] Data Review and interpretation [x] Patient assessment and monitoring of vital signs [x] Documentation [x] Medication orders and management Subjective Date of service: 10/17/21 Principal diagnosis: AHRF; Pulm. Edema; HTNsive Emergency; Cocaine abuse; Poss. Pneumonia; AMS Interval history: Patient is seen today for: Acute Hypoxemic Respiratory Failure; Flash Pulmonary Edema; Hypertensive Emergency; Cocaine intoxication; Possible Pneumonia; Acute Encephalopathy Seen and examined at bedside; 24hour events reviewed; nursing and respiratory care staff consulted; no adverse overnight events reported to me; resting peacefully in bed; remains on MVS, no fevers, patient is hemodynamically stable, denies any chest pain, no shortness of breath, no fevers, no chills. No nausea or vomiting. Off fentanyl infusion and is calm Objective Vital Signs - 12hr 10/17/21 10/17/21 10/17/21 01:49 02:00 02:15 Temperature Pulse Rate 106 H 100 H 101 H Pulse Rate [ From Monitor] Pulse Rate [ 101 H None] Respiratory 18 17 16 Rate Blood Pressure 161/69 161/69 165/74 O2 Sat by Pulse 100 100 100 Oximetry 10/17/21 10/17/21 10/17/21 02:30 02:45 02:51 Temperature Pulse Rate 101 H 103 H 105 H Pulse Rate [ From Monitor] Pulse Rate [ None] Respiratory 14 18 Rate Blood Pressure 165/74 180/75 180/75 O2 Sat by Pulse 100 100 Oximetry 10/17/21 10/17/21 10/17/21 03:00 03:15 03:30 Temperature Pulse Rate 101 H 107 H 110 H Pulse Rate [ From Monitor] Pulse Rate [ 101 H None] Respiratory 16 15 16 Rate Blood Pressure 180/75 172/74 172/74 O2 Sat by Pulse 100 100 100 Oximetry 10/17/21 10/17/21 10/17/21 03:45 04:00 04:15 Temperature 98.8 F Pulse Rate 106 H 106 H 104 H Pulse Rate [ 104 H From Monitor] Pulse Rate [ 123 H None] Respiratory 15 15 15 Rate Blood Pressure 176/70 176/70 184/75 O2 Sat by Pulse 100 100 100 Oximetry 10/17/21 10/17/21 10/17/21 04:30 04:45 05:00 Temperature Pulse Rate 107 H 106 H 109 H Pulse Rate [ From Monitor] Pulse Rate [ 111 H None] Respiratory 16 15 16 Rate Blood Pressure 184/75 176/72 176/72 O2 Sat by Pulse 100 100 100 Oximetry 10/17/21 10/17/21 10/17/21 05:15 05:30 05:45 Temperature Pulse Rate 104 H 113 H 104 H Pulse Rate [ From Monitor] Pulse Rate [ None] Respiratory 15 20 15 Rate Blood Pressure 174/67 174/67 175/69 O2 Sat by Pulse 100 100 100 Oximetry 10/17/21 10/17/21 10/17/21 05:52 06:00 06:15 Temperature Pulse Rate 102 H 101 H 102 H Pulse Rate [ From Monitor] Pulse Rate [ 103 H None] Respiratory 15 16 Rate Blood Pressure 175/69 164/68 165/65 O2 Sat by Pulse 100 100 Oximetry 10/17/21 10/17/21 10/17/21 06:30 06:45 07:00 Temperature Pulse Rate 106 H 108 H 102 H Pulse Rate [ From Monitor] Pulse Rate [ None] Respiratory 17 17 14 Rate Blood Pressure 149/68 166/71 163/70 O2 Sat by Pulse 100 100 100 Oximetry 10/17/21 10/17/21 10/17/21 07:15 07:20 07:30 Temperature 98.4 F Pulse Rate 99 H 96 H Pulse Rate [ From Monitor] Pulse Rate [ None] Respiratory 13 16 Rate Blood Pressure 152/63 149/61 O2 Sat by Pulse 100 100 Oximetry 10/17/21 10/17/21 10/17/21 07:45 08:00 08:15 Temperature 98.4 F Pulse Rate 97 H 108 H 101 H Pulse Rate [ 108 H From Monitor] Pulse Rate [ None] Respiratory 16 18 15 Rate Blood Pressure 157/67 167/69 177/76 O2 Sat by Pulse 100 100 100 Oximetry 10/17/21 10/17/21 10/17/21 08:21 08:30 08:45 Temperature Pulse Rate 110 H 113 H 108 H Pulse Rate [ From Monitor] Pulse Rate [ None] Respiratory 22 19 Rate Blood Pressure 177/76 182/68 182/75 O2 Sat by Pulse 100 100 100 Oximetry 10/17/21 10/17/21 10/17/21 09:00 09:15 09:24 Temperature Pulse Rate 107 H 107 H Pulse Rate [ From Monitor] Pulse Rate [ None] Respiratory 18 18 Rate Blood Pressure 177/77 198/83 198/83 O2 Sat by Pulse 100 100 Oximetry 10/17/21 10/17/21 10/17/21 09:25 09:30 09:45 Temperature Pulse Rate 113 H 108 H 116 H Pulse Rate [ From Monitor] Pulse Rate [ None] Respiratory 18 18 Rate Blood Pressure 198/83 167/61 159/61 O2 Sat by Pulse 100 100 Oximetry 10/17/21 10/17/21 10/17/21 10:00 10:15 10:30 Temperature Pulse Rate 120 H 116 H 117 H Pulse Rate [ From Monitor] Pulse Rate [ None] Respiratory 24 19 22 Rate Blood Pressure 157/64 132/65 148/69 O2 Sat by Pulse 100 100 98 Oximetry 10/17/21 10/17/21 10/17/21 10:45 11:00 11:15 Temperature Pulse Rate 115 H 114 H 112 H Pulse Rate [ From Monitor] Pulse Rate [ None] Respiratory 20 18 20 Rate Blood Pressure 158/72 164/75 163/71 O2 Sat by Pulse 100 100 100 Oximetry 10/17/21 10/17/21 10/17/21 11:30 11:38 11:45 Temperature 98.1 F Pulse Rate 115 H 118 H Pulse Rate [ From Monitor] Pulse Rate [ None] Respiratory 20 21 Rate Blood Pressure 160/79 183/82 O2 Sat by Pulse 100 100 Oximetry 10/17/21 10/17/21 12:00 12:37 Temperature Pulse Rate 110 H Pulse Rate [ 113 H From Monitor] Pulse Rate [ None] Respiratory 14 Rate Blood Pressure 181/76 O2 Sat by Pulse 99 99 Oximetry Constitutional: no acute distress, alert Eyes: non-icteric ENT: oropharynx moist, other (ETT 24 cm SCARLETT) Neck: supple, no lymphadenopathy, no JVD, other (RIJ CVL) Effort: normal Ascultation: Bilateral: clear, diminished breath sounds, other (barrel chest) Percussion: Bilateral: not dull Cardiovascular: regular rate and rhythm, other (S1,S2) Gastrointestinal: normoactive bowel sounds, soft, non-tender, non-distended, ot her (Marquez catheter) Integumentary: normal Extremities: no cyanosis, no edema, pulses normal, no ischemia or petechiae Neurologic: normal mental status, non-focal exam (grossly), pupils equal and round, motor strength normal and Psychiatric: mood appropriate, affect normal CBC and BMP: 10/17/21 04:35 10/17/21 04:35 ABG, PT/INR, D-dimer: ABG ABG pH 7.400 pH Units (7.350-7.450) 10/17/21 05:30 ABG pCO2 46.3 mm Hg 10/17/21 05:30 ABG pO2 65.5 mm Hg (80.0-90.0) L 10/17/21 05:30 ABG O2 Saturation 94.0 % (95.0-99.0) L 10/17/21 05:30 PT/INR, D-dimer PT 14.2 Sec. (12.2-14.9) 10/14/21 07:26 INR 0.99 (0.87-1.13) 10/14/21 07:26 D-Dimer 1033.11 ng/mlDDU (0-234) H 10/14/21 07:06 Abnormal lab findings: Abnormal Labs 10/14/21 10/14/21 10/14/21 07:06 07:26 07:26 RBC 3.46 L Hgb 11.7 L Hct 34.8 L MCV 101 H MCH 34 H Plt Count Lymph % (Auto) 13.1 L Lymph # (Auto) 0.8 L Seg Neutrophils % 78.8 H D-Dimer 1033.11 H ABG pH ABG pO2 ABG HCO3 ABG O2 Saturation ABG Base Excess ABG Hemoglobin Oxyhemoglobin Sodium 136 L Chloride Creatinine 0.6 L Glucose POC Glucose CK-MB (CK-2) Rel Index 6.7 H Albumin 3.7 L 10/14/21 10/14/21 10/15/21 11:06 18:25 04:00 RBC 3.31 L Hgb 11.0 L Hct 34.0 L MCV 103 H MCH 33 H Plt Count Lymph % (Auto) Lymph # (Auto) 0.9 L Seg Neutrophils % 78.4 H D-Dimer ABG pH 7.227 L ABG pO2 71.3 L ABG HCO3 26.2 H ABG O2 Saturation 91.0 L ABG Base Excess -2.7 L ABG Hemoglobin 13.3 L 12.1 L Oxyhemoglobin 88.8 L Sodium Chloride Creatinine Glucose POC Glucose CK-MB (CK-2) Rel Index Albumin 10/15/21 10/15/21 10/15/21 04:00 12:03 12:04 RBC Hgb Hct MCV MCH Plt Count Lymph % (Auto) Lymph # (Auto) Seg Neutrophils % D-Dimer ABG pH ABG pO2 ABG HCO3 ABG O2 Saturation ABG Base Excess ABG Hemoglobin Oxyhemoglobin Sodium 134 L Chloride Creatinine Glucose POC Glucose 45 L 42 L CK-MB (CK-2) Rel Index Albumin 10/15/21 10/15/2122 12:20 12:43 23:54 RBC Hgb Hct MCV MCH Plt Count Lymph % (Auto) Lymph # (Auto) Seg Neutrophils % D-Dimer ABG pH 7.311 L ABG pO2 91.2 H ABG HCO3 27.7 H ABG O2 Saturation ABG Base Excess ABG Hemoglobin 10.5 L Oxyhemoglobin Sodium Chloride Creatinine Glucose POC Glucose 161 H 122 H CK-MB (CK-2) Rel Index Albumin 10/16/21 10/16/21 10/16/21 04:00 04:55 05:03 RBC 3.08 L Hgb 10.3 L Hct 31.6 L MCV 103 H MCH 33 H Plt Count 136 L Lymph % (Auto) Lymph # (Auto) Seg Neutrophils % D-Dimer ABG pH 7.338 L ABG pO2 117.1 H ABG HCO3 28.3 H ABG O2 Saturation ABG Base Excess ABG Hemoglobin 10.2 L Oxyhemoglobin Sodium Chloride Creatinine Glucose 121 H POC Glucose CK-MB (CK-2) Rel Index Albumin 10/16/21 10/16/21 10/16/21 05:05 11:45 23:30 RBC Hgb Hct MCV MCH Plt Count Lymph % (Auto) Lymph # (Auto) Seg Neutrophils % D-Dimer ABG pH ABG pO2 ABG HCO3 ABG O2 Saturation ABG Base Excess ABG Hemoglobin Oxyhemoglobin Sodium Chloride Creatinine Glucose POC Glucose 116 H 110 H 154 H CK-MB (CK-2) Rel Index Albumin 10/17/21 10/17/21 10/17/21 04:35 04:35 05:30 RBC 2.97 L Hgb 9.9 L Hct 30.3 L MCV 102 H MCH 33 H Plt Count Lymph % (Auto) Lymph # (Auto) Seg Neutrophils % D-Dimer ABG pH ABG pO2 65.5 L ABG HCO3 28.0 H ABG O2 Saturation 94.0 L ABG Base Excess ABG Hemoglobin 9.7 L Oxyhemoglobin 92.1 L Sodium 135 L Chloride 97.3 L Creatinine Glucose 146 H POC Glucose CK-MB (CK-2) Rel Index Albumin 10/17/21 05:43 RBC Hgb Hct MCV MCH Plt Count Lymph % (Auto) Lymph # (Auto) Seg Neutrophils % D-Dimer ABG pH ABG pO2 ABG HCO3 ABG O2 Saturation ABG Base Excess ABG Hemoglobin Oxyhemoglobin Sodium Chloride Creatinine Glucose POC Glucose 166 H CK-MB (CK-2) Rel Index Albumin Chest x-ray: image reviewed Allied health notes reviewed: RT
[2021-10-17] MEDS: AZITHROMYCIN/NS 500 MG/250 ML 500 MG/250 ML BAG IV SCH (14:45)
--- NOTE | 2021-10-17 15:11 | Nuclear Medicine Report ---
NUCLEAR MEDICINE PERFUSION LUNG SCAN INDICATION / CLINICAL INFORMATION: Hypoxia, R/o PE. TECHNIQUE: 5.1 mCi of Tc-99m MAA were given by IV. COMPARISON: Chest radiograph dated 10/17/2021. FINDINGS: PERFUSION: No significant perfusion defects. ADDITIONAL FINDINGS: None. IMPRESSION: 1. Low probability for pulmonary embolism. Signer Name: Matty Watkins MD Signed: 10/17/2021 3:07 PM Workstation Name: [id number]
[2021-10-17] MEDS ORDERED: amLODIPine 5 MG TAB PO SCH (16:11)
[2021-10-17] MEDS: hydrALAZINE 20 MG/1 ML INJ IV SCH (19:08)
[2021-10-18 04:55] LABS: Hematocrit 31.1 % (35.5-45.6); Hemoglobin 10.1 gm/dl (11.8-15.2); Mean Corpuscular HGB Conc 33 % (32-34); Mean Corpuscular Volume 102 fl (84-94); Platelet Count 182 K/mm3 (140-440); Red Blood Count 3.05 M/mm3 (3.65-5.03); Red Cell Distribution Width 14.2 % (13.2-15.2)
[2021-10-18] MEDS: hydrALAZINE 25 MG TAB PO SCH ×3 (05:04→21:01)
[2021-10-18 05:30] LABS: Alanine Aminotransferase 22 units/L (7-56); Albumin 2.8 g/dL (3.9-5); Blood Urea Nitrogen 13 mg/dL (9-20); Calcium 8.8 mg/dL (8.4-10.2); Hemolysis Index 11
[2021-10-18] MEDS ORDERED: POTASSIUM CHLORIDE ER 20 MEQ TAB PO ONE (05:45)
[2021-10-18 05:48] LABS: BUN/Creatinine Ratio 19
[2021-10-18] MEDS: hydrALAZINE 20 MG/1 ML INJ IV PRN (06:27)
[2021-10-18] MEDS: cefTRIAXone/NS 2 GM/100 ML 2 GM/100 ML BAG IV SCH (08:35)
[2021-10-18] MEDS ORDERED: VALSARTAN 160MG TAB PO SCH (10:00)
[2021-10-18] MEDS: HEPARIN 5,000 UNIT/1 ML VIAL SUB-Q SCH ×2 (10:18→21:01)
[2021-10-18] MEDS: QUEtiapine 100 MG TAB PO SCH ×2 (10:18→21:02)
[2021-10-18] MEDS: FAMOTIDINE 20 MG/2 ML INJ IV SCH (10:18)
[2021-10-18] MEDS: SENNOSIDES/DOCUSATE SODIUM 8.6/50 MG TAB FEEDTUBE SCH (10:26)
--- NOTE | 2021-10-18 11:33 | Progress Note ---
Assessment and Plan Acute Hypoxemic Respiratory Failure Flash Pulmonary Edema Hypertensive Emergency Cocaine intoxication Possible Pneumonia [place]ubo cardiomyopathy Combined heart failure Mild Pulmonary HTN Acute Encephalopathy - advance diet per [facility] team - VQ scan low prob for P.E. - continue to wean supplemental oxygen for target O2 sat's > 90% acutely - aspiration precautions - wean per pulmonary driven protocols otherwise - avoid nephrotoxins, renally dose all medications - continue to avoid benzodiazepine's, reduce the possibility of delirium - complete empiric CAP AB's - continue accuchecks with glycemic control per SSI for target blood glucose of < 180 mg/dL; avoid hypoglycemia - prn analgesia per pain score - Maintenance of sleep-wake cycle, avoid delirium - G.I. & VTE prophylaxis - PT/OT/ROM exercises - continue mobility protocols for pressure ulcer prophylaxis - Monitor hemodynamics closely - continue other care per attending / other consultants - outpatient pulmonary clinic evaluation - tobacco and cocaine abstinence strongly counseled - discharge planning ongoing concurrently COVID SPECIFIC INTERVENTIONS - COVID-19 test result negative .... Re-evaluate in am & prn ..... ok to transfer to medical floor Subjective Date of service: 10/18/21 Principal diagnosis: AHRF; Pulm. Edema; HTNsive Emergency; Cocaine abuse; Poss. Pneumonia; AMS Interval history: Patient is seen today for: Acute Hypoxemic Respiratory Failure; Flash Pulmonary Edema; Hypertensive Emergency; Cocaine intoxication; Possible Pneumonia; Acute Encephalopathy Seen and examined at bedside; 24hour events reviewed; nursing and respiratory care staff consulted; no adverse overnight events reported to me; resting peacefully in bed; extubated and doing very well; denies N/V/F/C; denies chest pains or SOB Objective Vital Signs - 12hr 10/17/21 10/18/21 10/18/21 23:45 00:00 00:12 Temperature 99 F Pulse Rate 108 H 113 H 113 H Pulse Rate [ From Monitor] Respiratory 27 H 27 H Rate Blood Pressure 155/74 137/59 O2 Sat by Pulse 99 100 Oximetry 10/18/21 10/18/21 10/18/21 00:15 00:30 00:45 Temperature Pulse Rate 112 H 110 H 107 H Pulse Rate [ From Monitor] Respiratory 26 H 26 H 25 H Rate Blood Pressure 147/60 142/60 152/65 O2 Sat by Pulse 100 100 99 Oximetry 10/18/21 10/18/21 10/18/21 01:01 01:15 01:30 Temperature Pulse Rate 102 H 92 H 108 H Pulse Rate [ From Monitor] Respiratory 19 17 20 Rate Blood Pressure 167/72 161/64 151/64 O2 Sat by Pulse 99 100 100 Oximetry 10/18/21 10/18/21 10/18/21 01:45 02:00 02:15 Temperature Pulse Rate 107 H 105 H 106 H Pulse Rate [ From Monitor] Respiratory 17 14 17 Rate Blood Pressure 158/65 156/70 160/70 O2 Sat by Pulse 99 99 99 Oximetry 10/18/21 10/18/21 10/18/21 02:31 02:45 03:00 Temperature Pulse Rate 106 H 107 H 107 H Pulse Rate [ From Monitor] Respiratory 25 H 20 17 Rate Blood Pressure 160/70 160/70 155/90 O2 Sat by Pulse 96 95 100 Oximetry 10/18/21 10/18/21 10/18/21 03:15 03:30 03:31 Temperature Pulse Rate 103 H 102 H 101 H Pulse Rate [ From Monitor] Respiratory 24 19 Rate Blood Pressure 155/90 155/90 O2 Sat by Pulse 100 99 Oximetry 10/18/21 10/18/21 10/18/21 03:33 03:45 04:01 Temperature 98.8 F Pulse Rate 100 H 101 H Pulse Rate [ From Monitor] Respiratory 29 H 26 H Rate Blood Pressure 155/90 181/82 O2 Sat by Pulse 99 100 Oximetry 10/18/21 10/18/21 10/18/21 04:15 04:31 04:45 Temperature Pulse Rate 101 H 98 H 97 H Pulse Rate [ From Monitor] Respiratory 21 28 H 24 Rate Blood Pressure 181/82 181/82 181/82 O2 Sat by Pulse 98 98 98 Oximetry 10/18/21 10/18/21 10/18/21 05:00 05:15 05:30 Temperature Pulse Rate 97 H 101 H 99 H Pulse Rate [ From Monitor] Respiratory 17 29 H 27 H Rate Blood Pressure 171/93 171/93 171/93 O2 Sat by Pulse 99 99 99 Oximetry 10/18/21 10/18/21 10/18/21 05:45 06:01 06:15 Temperature Pulse Rate 99 H 102 H 101 H Pulse Rate [ From Monitor] Respiratory 28 H 22 29 H Rate Blood Pressure 171/93 171/93 O2 Sat by Pulse 99 99 98 Oximetry 10/18/21 10/18/21 10/18/21 06:31 06:45 07:00 Temperature Pulse Rate 106 H 106 H 104 H Pulse Rate [ From Monitor] Respiratory 26 H 31 H 23 Rate Blood Pressure 217/88 217/88 217/82 O2 Sat by Pulse 99 98 97 Oximetry 10/18/21 10/18/21 10/18/21 07:15 07:16 07:31 Temperature 98.3 F Pulse Rate 103 H 104 H Pulse Rate [ From Monitor] Respiratory 31 H 22 Rate Blood Pressure 217/82 220/89 O2 Sat by Pulse 99 99 Oximetry 10/18/21 10/18/21 10/18/21 07:45 08:00 08:15 Temperature Pulse Rate 102 H 101 H 105 H Pulse Rate [ 101 H From Monitor] Respiratory 15 25 H 25 H Rate Blood Pressure 220/89 185/72 185/72 O2 Sat by Pulse 100 100 100 Oximetry 10/18/21 10/18/21 10/18/21 08:31 08:34 08:45 Temperature Pulse Rate 104 H 105 H 86 Pulse Rate [ From Monitor] Respiratory 29 H 22 Rate Blood Pressure 185/72 185/72 154/64 O2 Sat by Pulse 100 96 Oximetry 10/18/21 10/18/21 10/18/21 09:00 09:15 10:19 Temperature Pulse Rate 86 84 95 H Pulse Rate [ From Monitor] Respiratory 21 27 H Rate Blood Pressure 178/81 178/81 185/79 O2 Sat by Pulse 97 99 Oximetry 10/18/21 10:20 Temperature Pulse Rate 93 H Pulse Rate [ From Monitor] Respiratory Rate Blood Pressure 185/79 O2 Sat by Pulse Oximetry Constitutional: no acute distress Eyes: non-icteric ENT: oropharynx moist Neck: supple, no lymphadenopathy, no JVD Effort: normal Ascultation: Bilateral: clear, diminished breath sounds, other (barrel chest) Percussion: Bilateral: not dull Cardiovascular: regular rate and rhythm Gastrointestinal: normoactive bowel sounds, soft, non-tender, non-distended Integumentary: normal Extremities: no cyanosis, no edema, pulses normal, no ischemia or petechiae Neurologic: normal mental status, non-focal exam (grossly), pupils equal and round, motor strength normal and Psychiatric: mood appropriate, affect normal CBC and BMP: 10/18/21 04:08 10/18/21 04:08 ABG, PT/INR, D-dimer: ABG ABG pH 7.400 pH Units (7.350-7.450) 10/17/21 05:30 ABG pCO2 46.3 mm Hg 10/17/21 05:30 ABG pO2 65.5 mm Hg (80.0-90.0) L 10/17/21 05:30 ABG O2 Saturation 94.0 % (95.0-99.0) L 10/17/21 05:30 PT/INR, D-dimer PT 14.2 Sec. (12.2-14.9) 10/14/21 07:26 INR 0.99 (0.87-1.13) 10/14/21 07:26 D-Dimer 1033.11 ng/mlDDU (0-234) H 10/14/21 07:06 Abnormal lab findings: Abnormal Labs 10/14/21 10/14/21 10/14/21 07:06 07:26 07:26 RBC 3.46 L Hgb 11.7 L Hct 34.8 L MCV 101 H MCH 34 H Plt Count Lymph % (Auto) 13.1 L Lymph # (Auto) 0.8 L Seg Neutrophils % 78.8 H D-Dimer 1033.11 H ABG pH ABG pO2 ABG HCO3 ABG O2 Saturation ABG Base Excess ABG Hemoglobin Oxyhemoglobin Sodium 136 L Potassium Chloride Creatinine 0.6 L Glucose POC Glucose CK-MB (CK-2) Rel Index 6.7 H Total Protein Albumin 3.7 L 10/14/21 10/14/21 10/15/21 11:06 18:25 04:00 RBC 3.31 L Hgb 11.0 L Hct 34.0 L MCV 103 H MCH 33 H Plt Count Lymph % (Auto) Lymph # (Auto) 0.9 L Seg Neutrophils % 78.4 H D-Dimer ABG pH 7.227 L ABG pO2 71.3 L ABG HCO3 26.2 H ABG O2 Saturation 91.0 L ABG Base Excess -2.7 L ABG Hemoglobin 13.3 L 12.1 L Oxyhemoglobin 88.8 L Sodium Potassium Chloride Creatinine Glucose POC Glucose CK-MB (CK-2) Rel Index Total Protein Albumin 10/15/21 10/15/21 10/15/21 04:00 12:03 12:04 RBC Hgb Hct MCV MCH Plt Count Lymph % (Auto) Lymph # (Auto) Seg Neutrophils % D-Dimer ABG pH ABG pO2 ABG HCO3 ABG O2 Saturation ABG Base Excess ABG Hemoglobin Oxyhemoglobin Sodium 134 L Potassium Chloride Creatinine Glucose POC Glucose 45 L 42 L CK-MB (CK-2) Rel Index Total Protein Albumin 10/15/21 10/15/21 10/15/21 12:20 12:43 23:54 RBC Hgb Hct MCV MCH Plt Count Lymph % (Auto) Lymph # (Auto) Seg Neutrophils % D-Dimer ABG pH 7.311 L ABG pO2 91.2 H ABG HCO3 27.7 H ABG O2 Saturation ABG Base Excess ABG Hemoglobin 10.5 L Oxyhemoglobin Sodium Potassium Chloride Creatinine Glucose POC Glucose 161 H 122 H CK-MB (CK-2) Rel Index Total Protein Albumin 10/16/21 10/16/21 10/16/21 04:00 04:55 05:03 RBC 3.08 L Hgb 10.3 L Hct 31.6 L MCV 103 H MCH 33 H Plt Count 136 L Lymph % (Auto) Lymph # (Auto) Seg Neutrophils % D-Dimer ABG pH 7.338 L ABG pO2 117.1 H ABG HCO3 28.3 H ABG O2 Saturation ABG Base Excess ABG Hemoglobin 10.2 L Oxyhemoglobin Sodium Potassium Chloride Creatinine Glucose 121 H POC Glucose CK-MB (CK-2) Rel Index Total Protein Albumin 10/16/21 10/16/21 10/16/21 05:05 11:45 23:30 RBC Hgb Hct MCV MCH Plt Count Lymph % (Auto) Lymph # (Auto) Seg Neutrophils % D-Dimer ABG pH ABG pO2 ABG HCO3 ABG O2 Saturation ABG Base Excess ABG Hemoglobin Oxyhemoglobin Sodium Potassium Chloride Creatinine Glucose POC Glucose 116 H 110 H 154 H CK-MB (CK-2) Rel Index Total Protein Albumin 10/17/21 10/17/21 10/17/21 04:35 04:35 05:30 RBC 2.97 L Hgb 9.9 L Hct 30.3 L MCV 102 H MCH 33 H Plt Count Lymph % (Auto) Lymph # (Auto) Seg Neutrophils % D-Dimer ABG pH ABG pO2 65.5 L ABG HCO3 28.0 H ABG O2 Saturation 94.0 L ABG Base Excess ABG Hemoglobin 9.7 L Oxyhemoglobin 92.1 L Sodium 135 L Potassium Chloride 97.3 L Creatinine Glucose 146 H POC Glucose CK-MB (CK-2) Rel Index Total Protein Albumin 10/17/21 10/17/21 10/18/21 05:43 11:18 04:08 RBC 3.05 L Hgb 10.1 L Hct 31.1 L MCV 102 H MCH 33 H Plt Count Lymph % (Auto) Lymph # (Auto) Seg Neutrophils % D-Dimer ABG pH ABG pO2 ABG HCO3 ABG O2 Saturation ABG Base Excess ABG Hemoglobin Oxyhemoglobin Sodium Potassium Chloride Creatinine Glucose POC Glucose 166 H 111 H CK-MB (CK-2) Rel Index Total Protein Albumin 10/18/21 04:08 RBC Hgb Hct MCV MCH Plt Count Lymph % (Auto) Lymph # (Auto) Seg Neutrophils % D-Dimer ABG pH ABG pO2 ABG HCO3 ABG O2 Saturation ABG Base Excess ABG Hemoglobin Oxyhemoglobin Sodium Potassium 3.2 L Chloride Creatinine 0.7 L Glucose 112 H POC Glucose CK-MB (CK-2) Rel Index Total Protein 5.9 L Albumin 2.8 L Allied health notes reviewed: nursing
[2021-10-18] MEDS ORDERED: POTASSIUM CHLORIDE ER 20 MEQ TAB PO SCH (12:00)
[2021-10-18] MEDS: AZITHROMYCIN/NS 500 MG/250 ML 500 MG/250 ML BAG IV SCH (13:40)
--- NOTE | 2021-10-18 16:49 | Progress Note ---
<COSME DIAZ - Last Filed: 10/18/21 16:45> Assessment and Plan Assessment and plan: This is a 71-year-old female with vascular dementia, cerebral sclerosis, cocaine abuse admitted with acute hypoxic respiratory failure and hypertensive emergency Neuro: Acute encephalopathy, cocaine abuse, h/o cerebral atherosclerosis, vascular dementia -Reorientation as needed -Maintain sleep-wake cycle -As needed analgesia -Seroquel twice daily -UDS positive for cocaine -Substance abuse cessation strongly encouraged Cardiac: s/p hypertensive emergency, Takotsubo cardiomyopathy, h/o chronic systolic heart failure -Cardiology consulted, appreciate recommendations -Presented with blood pressure of 218/128 -S/p Cardene drip -Antihypertensive regimen: Valsartan, hydralazine, amlodipine -Blood pressure monitoring per protocol -Echocardiogram showed LVEF 45%, findings consistent with Takotsubo syndrome -Per cards: Echocardiogram reviewed, no appreciated evidence of reverse Takotsubo finding, moderate concentric LVH, mild left ventricular hypokinesis -No further work-up needed Respiratory: Acute hypoxemic respiratory failure, flash pulmonary edema -[facility] consulted, appreciate recommendations -Intubated on 10/14 in the ED and extubated on 10/17 -Pulmonary hygiene -SPO2 monitor per protocol -Supplemental oxygen as needed GI: Moderate protein calorie malnutrition -24 hours -348 mL -PPI -Cardiac diet -BR: Senokot S : Hypokalemia -Monitor intake and output -Renally dose medications -Avoid nephrotoxic medications -Repeat potassium -Trend BMP ID: Bilateral pneumonia -Infectious disease consulted, appreciate recommendation -Antibiotic therapy with azithromycin and Rocephin -f/u blood culture -Monitor WBC and temperature curve Endo: NAD -Avoid hypoglycemia Heme: Elevated D-dimer -D-dimer 1033 -CTA chest without PE -Bilateral lower extremity Doppler results negative for DVT -Trend CBC -Transfuse hemoglobin less than 7 -SCDs to BLE while in bed MS: Chronic left humerus fracture -Chronic left humerus fracture noted on left upper extremity x-ray -Ortho consulted, appreciate recommendations -Sling -PT/OT consulted, appreciate recommendations The high probability of a clinically significant, sudden or life threatening deterioration of the [multiple] system(s) required my full and direct attention, intervention and personal management. The aggregate critical care time was [60] minutes. This time is in addition to time spent performing reported procedures but includes the following: [x] Data Review and interpretation [x] Patient assessment and monitoring of vital signs [x] Documentation [x] Medication orders and management Disposition Plan: transfer to tele Total Time Spent with Patient (Minutes): 60 History Interval history: This is a 71-year-old male with vascular dementia, cerebral atherosclerosis, cocaine dependence who presented to emergency department on 10/14 via EMS. On EMS arrival patient was found to have shortness of breath shortly after cocaine ingestion at 0500 on 10/14 and patient was transported to [facility] for further evaluation. In the emergency department patient was found to have SPO2 of 70%, and unable to protect his airway and he was intubated. Patient's blood pressure is also 218/128 and he was started on a Cardene drip, CXR reviewed bi lateral pneumonia. Patient was admitted to the hospitalist service to the ICU with hypertensive emergency, pneumonia with consults to cardiology and [facility]. Hospital Course to Date: 10/15: Intubated and sedated, follows commands intermittently. Off cardene gtt this am, VSS. This am ABG pending. Wean vent setting and sedation as tolerated, possible SAT/SBT in the am per CCM. Labs with elevated D-Dimer, COVID PCR pending. Given hypoxia will get a CTA chest and BLE doppler to r/o DVT/PE. VTE proph initiated. Will also get 2D echo to eval pulmonary pressors. Patient is hypoglycemic this am treated per hypoglycemic protocol, most likely due to NPO status. NGT initiated but not yet at goal, continue BG check Q6hrs and hypoglycemic protocol. LUE humerus fracture noted, LUE XR pending. Will also consult Ortho for further eval and treat. 10/16: Remains stable on the vent, on low dose sedation. Tolerating PSV trial this am. Per CCM, plan is to wean to extubate. Patient spike a Temp today, patient is hemodynamicaly stable, with no leukocytosis. Orders placed for blood cultures, will hold off on IV abx for now. 2D echo reviewed, LVEF 45% and c/f Takotsubo syndrome, cardiology consulted. CTA chest pending, unable to get in contact with patient's NOK. Case management is following for further assistance in locating patient's family. 10/17: Stable on the vent, off sedations. Tolerating PSV trial for possible extubation today. This am ABG reviewed, patient with some hypoxia but compensating. Still can't get in contact with patient's NOK at this time, will order V/Q scan to r/o PE. Continue VTE proph. Hypertensive overnight and required cardene gtt. Cardene is off this am, still mildly hypertensive. PO antihypertensive adjusted. Still with low grade fevers, but no leukocytosis, Blood cultures pending. continue current IV Abx for now. 10/18: Patient was extubated yesterday and is currently on nasal cannula to room air. Patient antihypertensive regimen increased and started on as needed labetalol for hypertension which is better controlled now. Patient will be transferred to the telemetry floor. Hospitalist Physical - Constitutional Vitals: Temp Pulse Resp BP Pulse Ox 97.7 F 105 H 26 H 132/56 85 10/18/21 16:00 10/18/21 15:01 10/18/21 15:01 10/18/21 15:01 10/18/21 15:01 General appearance: Present: no acute distress - EENT Eyes: Present: PERRL, EOM intact ENT: hearing intact, poor dentition - Neck Neck: Present: normal ROM - Respiratory Respiratory effort: normal Respiratory: bilateral: CTA - Cardiovascular Rhythm: regular Heart Sounds: Present: S1 & S2. Absent: systolic murmur, diastolic murmur - Extremities Extremities: no ischemia, pulses intact, pulses symmetrical, No edema, normal temperature, normal color Peripheral Pulses: within normal limits - Abdominal General gastrointestinal: soft, non-tender, non-distended, normal bowel sounds - Integumentary Integumentary: Present: warm, dry - Psychiatric Psychiatric: cooperative - Neurologic Neurologic: CNII-XII intact, no focal deficits, no moves all extremities (limited movement with LUE) - Allied Health Allied health notes reviewed: nursing, social work HEART Score - HEART Score Troponin: Troponin T < 0.010 ng/mL (0.00-0.029) 10/14/21 07:26 Results - Labs CBC & Chem 7: 10/18/21 04:08 10/18/21 04:08 Labs: Laboratory Last Values WBC 5.1 K/mm3 (4.5-11.0) 10/18/21 04:08 RBC 3.05 M/mm3 (3.65-5.03) L 10/18/21 04:08 Hgb 10.1 gm/dl (11.8-15.2) L 10/18/21 04:08 Hct 31.1 % (35.5-45.6) L 10/18/21 04:08 MCV 102 fl (84-94) H 10/18/21 04:08 MCH 33 pg (28-32) H 10/18/21 04:08 MCHC 33 % (32-34) 10/18/21 04:08 RDW 14.2 % (13.2-15.2) 10/18/21 04:08 Plt Count 182 K/mm3 (140-440) 10/18/21 04:08 Lymph % (Auto) 13.5 % (13.4-35.0) 10/15/21 04:00 [place] % (Auto) 7.3 % (0.0-7.3) 10/15/21 04:00 Eos % (Auto) 0.4 % (0.0-4.3) 10/15/21 04:00 Baso % (Auto) 0.4 % (0.0-1.8) 10/15/21 04:00 Lymph # (Auto) 0.9 K/mm3 (1.2-5.4) L 10/15/21 04:00 [place] # (Auto) 0.5 K/mm3 (0.0-0.8) 10/15/21 04:00 Eos # (Auto) 0.0 K/mm3 (0.0-0.4) 10/15/21 04:00 Baso # (Auto) 0.0 K/mm3 (0.0-0.1) 10/15/21 04:00 Seg Neutrophils % 78.4 % (40.0-70.0) H 10/15/21 04:00 Seg Neutrophils # 5.2 K/mm3 (1.8-7.7) 10/15/21 04:00 PT 14.2 Sec. (12.2-14.9) 10/14/21 07:26 INR 0.99 (0.87-1.13) 10/14/21 07:26 APTT 29.0 Sec. (24.2-36.6) 10/14/21 07:26 D-Dimer 1033.11 ng/mlDDU (0-234) H 10/14/21 07:06 ABG pH 7.400 pH Units (7.350-7.450) 10/17/21 05:30 ABG pCO2 46.3 mm Hg 10/17/21 05:30 ABG pO2 65.5 mm Hg (80.0-90.0) L 10/17/21 05:30 ABG HCO3 28.0 mmol/L (20.0-26.0) H 10/17/21 05:30 ABG O2 Saturation 94.0 % (95.0-99.0) L 10/17/21 05:30 ABG O2 Content 12.6 (0.0-44) 10/17/21 05:30 ABG Base Excess 2.8 mmol/L (-2.0-3.0) 10/17/21 05:30 ABG Hemoglobin 9.7 gm/dl (14.0-18.0) L 10/17/21 05:30 ABG Carboxyhemoglobin 1.6 % (0.0-5.0) 10/17/21 05:30 ABG Methemoglobin 0.4 % (0.0-1.5) 10/17/21 05:30 Oxyhemoglobin 92.1 % (95.0-99.0) L 10/17/21 05:30 FiO2 30 % 10/17/21 05:30 Sodium 139 mmol/L (137-145) 10/18/21 04:08 Potassium 3.2 mmol/L (3.6-5.0) L 10/18/21 04:08 Chloride 99.6 mmol/L (98-107) 10/18/21 04:08 Carbon Dioxide 24 mmol/L (22-30) 10/18/21 04:08 Anion Gap 19 mmol/L 10/18/21 04:08 BUN 13 mg/dL (9-20) 10/18/21 04:08 Creatinine 0.7 mg/dL (0.8-1.3) L 10/18/21 04:08 Estimated GFR > 60 ml/min 10/18/21 04:08 BUN/Creatinine Ratio 19 % 10/18/21 04:08 Glucose 112 mg/dL (75-100) H 10/18/21 04:08 POC Glucose 104 mg/dL (70-105) 10/17/21 17:24 Lactic Acid 1.50 mmol/L (0.7-2.0) 10/14/21 07:26 Calcium 8.8 mg/dL (8.4-10.2) 10/18/21 04:08 Phosphorus 3.50 mg/dL (2.5-4.5) 10/18/21 04:08 Magnesium 1.70 mg/dL (1.7-2.3) 10/18/21 04:08 Total Bilirubin 0.40 mg/dL (0.1-1.2) 10/18/21 04:08 AST 31 units/L (5-40) 10/18/21 04:08 ALT 22 units/L (7-56) 10/18/21 04:08 Alkaline Phosphatase 48 units/L (35-129) 10/18/21 04:08 Total Creatine Kinase 58 units/L (55-170) 10/14/21 07:26 CK-MB (CK-2) 3.9 ng/mL (0.0-4.0) 10/14/21 07:26 CK-MB (CK-2) Rel Index 6.7 (0-4) H 10/14/21 07:26 Troponin T < 0.010 ng/mL (0.00-0.029) 10/14/21 07:26 C-Reactive Protein 1.20 mg/dL (0.00-1.30) 10/14/21 00:00 Total Protein 5.9 g/dL (6.3-8.2) L 10/18/21 04:08 Albumin 2.8 g/dL (3.9-5) L 10/18/21 04:08 Albumin/Globulin Ratio 0.9 % 10/18/21 04:08 Procalcitonin 0.21 ng/mL (<0.15) 10/14/21 00:00 Urine Color Straw (Yellow) 10/14/21 07:03 Urine Turbidity Clear (Clear) 10/14/21 07:03 Specific [place] (Man) 1.015 (1.003-1.030) 10/14/21 07:03 Ur Protein (Man) 1+ mg/dL (Negative) 10/14/21 07:03 Ur Ketones (Man) Negative (Negative) 10/14/21 07:03 Urine Bilirubin (Man) Negative (Negative) 10/14/21 07:03 Urine WBC (Auto) < 1.0 /HPF (0.0-6.0) 10/14/21 07:03 Urine RBC (Auto) 4.0 /HPF (0.0-6.0) 10/14/21 07:03 U Epithel Cells (Auto) 1.0 /HPF (0-13.0) 10/14/21 07:03 Urine RBC (Manual) Negative (Negative) 10/14/21 07:03 Urine Opiates Screen Negative 10/14/21 07:03 Urine Methadone Screen Negative 10/14/21 07:03 Ur Barbiturates Screen Negative 10/14/21 07:03 Ur Phencyclidine Scrn Negative 10/14/21 07:03 Ur Amphetamines Screen Negative 10/14/21 07:03 U Benzodiazepines Scrn Negative 10/14/21 07:03 Urine Cocaine Screen Positive 10/14/21 07:03 U Marijuana (THC) Screen Negative 10/14/21 07:03 Drugs of Abuse Note Disclamer 10/14/21 07:03 Coronavirus (PCR) Negative (Negative) 10/14/21 16:01 Microbiology: Microbiology 10/14/21 14:31 Tracheal Aspirate Sputum Culture - Final 10/16/21 16:43 Peripheral/Venous Blood Culture - Preliminary NO GROWTH AFTER 24 HOURS 10/16/21 16:43 Peripheral/Venous Blood Culture - Preliminary NO GROWTH AFTER 24 HOURS Marquez/IV: Voiding Method Condom Catheter Active Medications - Current Medications Current Medications: Generic Name Dose Route Start Last Admin Trade Name Freq PRN Reason Stop Dose Admin Acetaminophen 650 mg 10/14/21 13:00 10/16/21 12:45 Acetaminophen 325 Mg Tab PO 650 mg Q6H PRN Administration Pain MILD(1-3)/Fever >100.5/[place] Albuterol 2.5 mg 10/14/21 14:00 Albuterol 2.5 Mg/3 Ml Nebu IH Q3HRT PRN Shortness Of Breath Amlodipine Besylate 10 mg 10/19/21 10:00 Amlodipine 10 Mg Tab PO DAILY KATHY Diphenhydramine HCl 25 mg 10/15/21 10:00 10/15/21 16:26 Diphenhydramine 50 Mg/Ml Vial IV 25 mg Q6H PRN Administration Itching Famotidine 20 mg 10/19/21 10:00 Famotidine 20 Mg Tab PO DAILY [facility] Heparin Sodium (Porcine) 5,000 unit 10/15/21 10:00 10/18/21 10:18 Heparin 5,000 Unit/1 Ml Vial SUB-Q 5,000 unit Q12HR [facility] Administration Hydralazine HCl 10 mg 10/16/21 15:43 10/18/21 06:27 Hydralazine 20 Mg/1 Ml Inj IV 10 mg Q4HR PRN Administration Hypertension Hydralazine HCl 75 mg 10/17/21 14:00 10/18/21 13:45 Hydralazine 25 Mg Tab PO 75 mg Q8HR [facility] Administration Hydromorphone HCl 0.5 mg 10/14/21 13:00 Hydromorphone 0.5 Mg/0.5 Ml Inj IV Q23H PRN Pain , Severe (7-10) Hydrophilic Ointment 1 applic 10/14/21 15:47 Lip Therapy Vaseline TP Q2HR PRN Dry Lips Ceftriaxone Sodium 2 gm in 100 mls @ 200 mls/hr 10/15/21 08:00 10/18/21 09:05 Rocephin/Ns 2 Gm/100 Ml IV 10/19/21 08:29 Infused Q24H [facility] Infusion Protocol Sodium Chloride 1,000 mls @ 4 mls/hr 10/15/21 03:25 Nacl 0.9% 1000 Ml IV DIRECT KATHY Labetalol HCl 10 mg 10/18/21 08:11 10/18/21 08:34 Labetalol 20 Mg/4 Ml Inj IV 10 mg Q4HR PRN Administration Hypertension Morphine Sulfate 2 mg 10/14/21 12:01 10/16/21 09:34 Morphine 2 Mg/1 Ml Inj IV 2 mg Q4H PRN Administration Pain, Moderate (4-6) Multi-Ingred Cream/Lotion/Oil/Oint 1 applic 10/14/21 15:47 Mineral Oil/Petrolatum, White Ophth Oint 3.5 Gm OU Q4HR PRN Dry Eye(s) Oxycodone/Acetaminophen 1 tab 10/14/21 13:00 Oxycodone /Acetaminophen 5-325mg Tab PO Q16H PRN Pain, Moderate (4-6) Quetiapine Fumarate 100 mg 10/15/21 14:30 10/18/21 10:18 Quetiapine 100 Mg Tab PO 100 mg BID KATHY Administration Senna/Docusate Sodium 1 tab 10/18/21 22:00 Sennosides/Docusate Sodium 8.6/50 Mg Tab PO BID KATHY Sodium Chloride 10 ml 10/14/21 22:00 10/18/21 10:20 Sodium Chloride 0.9% 10 Ml Flush Syringe IV 10 ml BID KATHY Administration Sodium Chloride 10 ml 10/14/21 13:00 Sodium Chloride 0.9% 10 Ml Flush Syringe IV PRN PRN LINE FLUSH Valsartan 160 mg 10/18/21 10:00 10/18/21 10:20 Valsartan 160mg Tab PO 160 mg DAILY KATHY Administration Nutrition/Malnutrition Assess - Dietary Evaluation Nutrition/Malnutrition Findings: Nutrition Notes Start: 10/15/21 09:41 Freq: Status: Active Protocol: Document 10/18/21 10:09 ITA (Rec: 10/18/21 10:49 ITA [email or web address]) Nutrition Notes Initial or Follow up Reassessment Current Diagnosis Hypertension Other Pertinent Diagnosis Substance Abuse, Metabolic Encephalopathy, CAP, HFrEF, L- UE Fracture, ... Current Diet TF-Osmolite 1.5 Johnathan @ 50 ml/hr (since L 10/15). Labs/Tests 10/18: K 3.2, Crea 0.7, Glu 112. Pertinent Medications 10/18: Nutritionally unremarkable. 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 No body weight change reported in 3 days. Weight Status Appropriate Subjective/Other Information RD consult for TF tolerance/ continuation assessment. TF continues as prescribed, no further information available at the time. I recommend discontinue TF today and advance to PO Diet. Pt is on Room Air, O2 saturation @ 100%, according to Physical Assessment History notes. Pt continues presenting diarrhea, according to Physical Assessment History notes. Pt has missing teeth, according to Physical Assessment History notes. Pt passed bedside swallow assessment for medications on 10/17, according to RN notes. Pt extubated on 10/17, well tolerated, according to RN notes. Percent of energy/protein needs met: Prescribed TF-Osmolite 1.5 Johnathan @ 50 ml/hr provides for energy/protein needs (1,800 Kcal/75 g) during LOS, 110% Kcal; 107% AA. Prescribed Cardiac Diet provides for energy/protein needs (2,230 Kcal/85 g) during LOS. Burn Absent Trauma Absent GI Symptoms Diarrhea Food Allergy No Skin Integrity/Comment Assessment WNL. Current % PO Other Minimum of two criteria No Fluid Accumulation N/A Reduced Medication Tech Strength N/A (non-severe) Protein-Calorie Malnutrition N\A #1 Nutrition Diagnosis Inadequate oral intake Comments: Pt passed bedside swallow assessment for medications on 10/17, according to RN notes. Pt extubated on 10/17, well tolerated, according to RN notes. Diagnosis Progress(for reassessment Improved documentation) Is patient on ventilator? No Is Patient Ambulatory and/or Out of Bed No REE-([facility]-confined to bed) 1531.212 Kcal/Kg value to use for calculation 28 Approximate Energy Requirements Using 1632 kcal/Kg Calculation Used for Recommendations Kcal/kg Additional Notes Protein: 1-1.2 g/Kg ABW; 58-70 g/day. Fluids: 1 ml/Kcal, or as per MD. Nutrition Intervention Change Diet Order: I recommend discontinue TF today and advance to PO Cardiac Diet. Nutrition Support: Continue TF-Osmolite 1.5 Johnathan @ 50 ml/hr. Flush: 150 ml water Q 4 hr, or as per MD. Kcal 1,800 Protein (gm) 75 Carbohydrates (gm) 244 Fat (gm) 59 Fluid (mL) 914 Fiber (gm) 0 % RDI: 110% Kcal; 107% AA. Goal #1 Provide at least 75% of energy /protein needs through Enteral Feeding during LOS. Goal #2 Adjust the dietary intervention to better serve Pt's needs and clinical conditions during LOS. Follow-Up By: 10/25/21 Additional Comments Continue monitoring TF tolerance and BM. When pertinent, start monitoring food tolerance, %PO intake of meals, and BM. <YOBANY BUCK - Last Filed: 10/18/21 19:12> Assessment and Plan Assessment and plan: I saw and evaluated the patient. I agree with the findings and the plan of care as documented in the Nurse Practitioner's~note, with the following corrections and additions. Hospitalist Physical - Constitutional Vitals: Temp Pulse Resp BP Pulse Ox 97.7 F 93 H 30 H 154/68 100 10/18/21 16:00 10/18/21 19:09 10/18/21 19:00 10/18/21 19:00 10/18/21 19:10 HEART Score - HEART Score Troponin: Troponin T < 0.010 ng/mL (0.00-0.029) 10/14/21 07:26 Results - Labs CBC & Chem 7: 10/18/21 04:08 10/18/21 04:08 Labs: Laboratory Last Values WBC 5.1 K/mm3 (4.5-11.0) 10/18/21 04:08 RBC 3.05 M/mm3 (3.65-5.03) L 10/18/21 04:08 Hgb 10.1 gm/dl (11.8-15.2) L 10/18/21 04:08 Hct 31.1 % (35.5-45.6) L 10/18/21 04:08 MCV 102 fl (84-94) H 10/18/21 04:08 MCH 33 pg (28-32) H 10/18/21 04:08 MCHC 33 % (32-34) 10/18/21 04:08 RDW 14.2 % (13.2-15.2) 10/18/21 04:08 Plt Count 182 K/mm3 (140-440) 10/18/21 04:08 Lymph % (Auto) 13.5 % (13.4-35.0) 10/15/21 04:00 [place] % (Auto) 7.3 % (0.0-7.3) 10/15/21 04:00 Eos % (Auto) 0.4 % (0.0-4.3) 10/15/21 04:00 Baso % (Auto) 0.4 % (0.0-1.8) 10/15/21 04:00 Lymph # (Auto) 0.9 K/mm3 (1.2-5.4) L 10/15/21 04:00 [place] # (Auto) 0.5 K/mm3 (0.0-0.8) 10/15/21 04:00 Eos # (Auto) 0.0 K/mm3 (0.0-0.4) 10/15/21 04:00 Baso # (Auto) 0.0 K/mm3 (0.0-0.1) 10/15/21 04:00 Seg Neutrophils % 78.4 % (40.0-70.0) H 10/15/21 04:00 Seg Neutrophils # 5.2 K/mm3 (1.8-7.7) 10/15/21 04:00 PT 14.2 Sec. (12.2-14.9) 10/14/21 07:26 INR 0.99 (0.87-1.13) 10/14/21 07:26 APTT 29.0 Sec. (24.2-36.6) 10/14/21 07:26 D-Dimer 1033.11 ng/mlDDU (0-234) H 10/14/21 07:06 ABG pH 7.400 pH Units (7.350-7.450) 10/17/21 05:30 ABG pCO2 46.3 mm Hg 10/17/21 05:30 ABG pO2 65.5 mm Hg (80.0-90.0) L 10/17/21 05:30 ABG HCO3 28.0 mmol/L (20.0-26.0) H 10/17/21 05:30 ABG O2 Saturation 94.0 % (95.0-99.0) L 10/17/21 05:30 ABG O2 Content 12.6 (0.0-44) 10/17/21 05:30 ABG Base Excess 2.8 mmol/L (-2.0-3.0) 10/17/21 05:30 ABG Hemoglobin 9.7 gm/dl (14.0-18.0) L 10/17/21 05:30 ABG Carboxyhemoglobin 1.6 % (0.0-5.0) 10/17/21 05:30 ABG Methemoglobin 0.4 % (0.0-1.5) 10/17/21 05:30 Oxyhemoglobin 92.1 % (95.0-99.0) L 10/17/21 05:30 FiO2 30 % 10/17/21 05:30 Sodium 139 mmol/L (137-145) 10/18/21 04:08 Potassium 3.2 mmol/L (3.6-5.0) L 10/18/21 04:08 Chloride 99.6 mmol/L (98-107) 10/18/21 04:08 Carbon Dioxide 24 mmol/L (22-30) 10/18/21 04:08 Anion Gap 19 mmol/L 10/18/21 04:08 BUN 13 mg/dL (9-20) 10/18/21 04:08 Creatinine 0.7 mg/dL (0.8-1.3) L 10/18/21 04:08 Estimated GFR > 60 ml/min 10/18/21 04:08 BUN/Creatinine Ratio 19 % 10/18/21 04:08 Glucose 112 mg/dL (75-100) H 10/18/21 04:08 POC Glucose 139 mg/dL (70-105) H 10/18/21 16:16 Lactic Acid 1.50 mmol/L (0.7-2.0) 10/14/21 07:26 Calcium 8.8 mg/dL (8.4-10.2) 10/18/21 04:08 Phosphorus 3.50 mg/dL (2.5-4.5) 10/18/21 04:08 Magnesium 1.70 mg/dL (1.7-2.3) 10/18/21 04:08 Total Bilirubin 0.40 mg/dL (0.1-1.2) 10/18/21 04:08 AST 31 units/L (5-40) 10/18/21 04:08 ALT 22 units/L (7-56) 10/18/21 04:08 Alkaline Phosphatase 48 units/L (35-129) 10/18/21 04:08 Total Creatine Kinase 58 units/L (55-170) 10/14/21 07:26 CK-MB (CK-2) 3.9 ng/mL (0.0-4.0) 10/14/21 07:26 CK-MB (CK-2) Rel Index 6.7 (0-4) H 10/14/21 07:26 Troponin T < 0.010 ng/mL (0.00-0.029) 10/14/21 07:26 C-Reactive Protein 1.20 mg/dL (0.00-1.30) 10/14/21 00:00 Total Protein 5.9 g/dL (6.3-8.2) L 10/18/21 04:08 Albumin 2.8 g/dL (3.9-5) L 10/18/21 04:08 Albumin/Globulin Ratio 0.9 % 10/18/21 04:08 Procalcitonin 0.21 ng/mL (<0.15) 10/14/21 00:00 Urine Color Straw (Yellow) 10/14/21 07:03 Urine Turbidity Clear (Clear) 10/14/21 07:03 Specific [place] (Man) 1.015 (1.003-1.030) 10/14/21 07:03 Ur Protein (Man) 1+ mg/dL (Negative) 10/14/21 07:03 Ur Ketones (Man) Negative (Negative) 10/14/21 07:03 Urine Bilirubin (Man) Negative (Negative) 10/14/21 07:03 Urine WBC (Auto) < 1.0 /HPF (0.0-6.0) 10/14/21 07:03 Urine RBC (Auto) 4.0 /HPF (0.0-6.0) 10/14/21 07:03 U Epithel Cells (Auto) 1.0 /HPF (0-13.0) 10/14/21 07:03 Urine RBC (Manual) Negative (Negative) 10/14/21 07:03 Urine Opiates Screen Negative 10/14/21 07:03 Urine Methadone Screen Negative 10/14/21 07:03 Ur Barbiturates Screen Negative 10/14/21 07:03 Ur Phencyclidine Scrn Negative 10/14/21 07:03 Ur Amphetamines Screen Negative 10/14/21 07:03 U Benzodiazepines Scrn Negative 10/14/21 07:03 Urine Cocaine Screen Positive 10/14/21 07:03 U Marijuana (THC) Screen Negative 10/14/21 07:03 Drugs of Abuse Note Disclamer 10/14/21 07:03 Coronavirus (PCR) Negative (Negative) 10/14/21 16:01 Microbiology: Microbiology 10/14/21 14:31 Tracheal Aspirate Sputum Culture - Final 10/16/21 16:43 Peripheral/Venous Blood Culture - Preliminary NO GROWTH AFTER 24 HOURS 10/16/21 16:43 Peripheral/Venous Blood Culture - Preliminary NO GROWTH AFTER 24 HOURS Marquez/IV: Voiding Method Condom Catheter Active Medications - Current Medications Current Medications: Generic Name Dose Route Start Last Admin Trade Name Freq PRN Reason Stop Dose Admin Acetaminophen 650 mg 10/14/21 13:00 10/16/21 12:45 Acetaminophen 325 Mg Tab PO 650 mg Q6H PRN Administration Pain MILD(1-3)/Fever >100.5/[place] Albuterol 2.5 mg 10/14/21 14:00 Albuterol 2.5 Mg/3 Ml Nebu IH Q3HRT PRN Shortness Of Breath Amlodipine Besylate 10 mg 10/19/21 10:00 Amlodipine 10 Mg Tab PO DAILY KATHY Diphenhydramine HCl 25 mg 10/15/21 10:00 10/15/21 16:26 Diphenhydramine 50 Mg/Ml Vial IV 25 mg Q6H PRN Administration Itching Famotidine 20 mg 10/19/21 10:00 Famotidine 20 Mg Tab PO DAILY KATHY Heparin Sodium (Porcine) 5,000 unit 10/15/21 10:00 10/18/21 10:18 Heparin 5,000 Unit/1 Ml Vial SUB-Q 5,000 unit Q12HR KATHY Administration Hydralazine HCl 10 mg 10/16/21 15:43 10/18/21 06:27 Hydralazine 20 Mg/1 Ml Inj IV 10 mg Q4HR PRN Administration Hypertension Hydralazine HCl 75 mg 10/17/21 14:00 10/18/21 13:45 Hydralazine 25 Mg Tab PO 75 mg Q8HR KATHY Administration Hydromorphone HCl 0.5 mg 10/14/21 13:00 Hydromorphone 0.5 Mg/0.5 Ml Inj IV Q23H PRN Pain , Severe (7-10) Hydrophilic Ointment 1 applic 10/14/21 15:47 Lip Therapy Vaseline TP Q2HR PRN Dry Lips Ceftriaxone Sodium 2 gm in 100 mls @ 200 mls/hr 10/15/21 08:00 10/18/21 09:05 Rocephin/Ns 2 Gm/100 Ml IV 10/19/21 08:29 Infused Q24H [facility] Infusion Protocol Sodium Chloride 1,000 mls @ 4 mls/hr 10/15/21 03:25 Nacl 0.9% 1000 Ml IV DIRECT KATHY Labetalol HCl 10 mg 10/18/21 08:11 10/18/21 08:34 Labetalol 20 Mg/4 Ml Inj IV 10 mg Q4HR PRN Administration Hypertension Morphine Sulfate 2 mg 10/14/21 12:01 10/16/21 09:34 Morphine 2 Mg/1 Ml Inj IV 2 mg Q4H PRN Administration Pain, Moderate (4-6) Multi-Ingred Cream/Lotion/Oil/Oint 1 applic 10/14/21 15:47 Mineral Oil/Petrolatum, White Ophth Oint 3.5 Gm OU Q4HR PRN Dry Eye(s) Oxycodone/Acetaminophen 1 tab 10/14/21 13:00 Oxycodone /Acetaminophen 5-325mg Tab PO Q16H PRN Pain, Moderate (4-6) Quetiapine Fumarate 100 mg 10/15/21 14:30 10/18/21 10:18 Quetiapine 100 Mg Tab PO 100 mg BID KATHY Administration Senna/Docusate Sodium 1 tab 10/18/21 22:00 Sennosides/Docusate Sodium 8.6/50 Mg Tab PO BID KATHY Sodium Chloride 10 ml 10/14/21 22:00 10/18/21 10:20 Sodium Chloride 0.9% 10 Ml Flush Syringe IV 10 ml BID KATHY Administration Sodium Chloride 10 ml 10/14/21 13:00 Sodium Chloride 0.9% 10 Ml Flush Syringe IV PRN PRN LINE FLUSH Valsartan 160 mg 10/18/21 10:00 10/18/21 10:20 Valsartan 160mg Tab PO 160 mg DAILY KATHY Administration Nutrition/Malnutrition Assess - Dietary Evaluation Nutrition/Malnutrition Findings: Nutrition Notes Start: 10/15/21 09:41 Freq: Status: Active Protocol: Document 10/18/21 10:09 ITA (Rec: 10/18/21 10:49 ITA [id number]) Nutrition Notes Initial or Follow up Reassessment Current Diagnosis Hypertension Other Pertinent Diagnosis Substance Abuse, Metabolic Encephalopathy, CAP, HFrEF, L- UE Fracture, ... Current Diet TF-Osmolite 1.5 Johnathan @ 50 ml/hr (since L 10/15). Labs/Tests 10/18: K 3.2, Crea 0.7, Glu 112. Pertinent Medications 10/18: Nutritionally unremarkable. 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 No body weight change reported in 3 days. Weight Status Appropriate Subjective/Other Information RD consult for TF tolerance/ continuation assessment. TF continues as prescribed, no further information available at the time. I recommend discontinue TF today and advance to PO Diet. Pt is on Room Air, O2 saturation @ 100%, according to Physical Assessment History notes. Pt continues presenting diarrhea, according to Physical Assessment History notes. Pt has missing teeth, according to Physical Assessment History notes. Pt passed bedside swallow assessment for medications on 10/17, according to RN notes. Pt extubated on 10/17, well tolerated, according to RN notes. Percent of energy/protein needs met: Prescribed TF-Osmolite 1.5 Johnathan @ 50 ml/hr provides for energy/protein needs (1,800 Kcal/75 g) during LOS, 110% Kcal; 107% AA. Prescribed Cardiac Diet provides for energy/protein needs (2,230 Kcal/85 g) during LOS. Burn Absent Trauma Absent GI Symptoms Diarrhea Food Allergy No Skin Integrity/Comment Assessment WNL. Current % PO Other Minimum of two criteria No Fluid Accumulation N/A Reduced Medication Tech Strength N/A (non-severe) Protein-Calorie Malnutrition N\A #1 Nutrition Diagnosis Inadequate oral intake Comments: Pt passed bedside swallow assessment for medications on 10/17, according to RN notes. Pt extubated on 10/17, well tolerated, according to RN notes. Diagnosis Progress(for reassessment Improved documentation) Is patient on ventilator? No Is Patient Ambulatory and/or Out of Bed No REE-([facility]-confined to bed) 1531.212 Kcal/Kg value to use for calculation 28 Approximate Energy Requirements Using 1632 kcal/Kg Calculation Used for Recommendations Kcal/kg Additional Notes Protein: 1-1.2 g/Kg ABW; 58-70 g/day. Fluids: 1 ml/Kcal, or as per MD. Nutrition Intervention Change Diet Order: I recommend discontinue TF today and advance to PO Cardiac Diet. Nutrition Support: Continue TF-Osmolite 1.5 Johnathan @ 50 ml/hr. Flush: 150 ml water Q 4 hr, or as per MD. Kcal 1,800 Protein (gm) 75 Carbohydrates (gm) 244 Fat (gm) 59 Fluid (mL) 914 Fiber (gm) 0 % RDI: 110% Kcal; 107% AA. Goal #1 Provide at least 75% of energy /protein needs through Enteral Feeding during LOS. Goal #2 Adjust the dietary intervention to better serve Pt's needs and clinical conditions during LOS. Follow-Up By: 10/25/21 Additional Comments Continue monitoring TF tolerance and BM. When pertinent, start monitoring food tolerance, %PO intake of meals, and BM.
[2021-10-18] MEDS: SENNOSIDES/DOCUSATE SODIUM 8.6/50 MG TAB PO SCH (21:02)
[2021-10-18] MEDS: ACETAMINOPHEN 325 MG TAB PO PRN (22:34)
[2021-10-19] MEDS: hydrALAZINE 20 MG/1 ML INJ IV PRN (02:08)
[2021-10-19] MEDS: hydrALAZINE 25 MG TAB PO SCH (05:21)
[2021-10-19 06:00] LABS: Blood Urea Nitrogen 17 mg/dL (9-20); Calcium 8.9 mg/dL (8.4-10.2); Hemolysis Index 19
[2021-10-19 06:04] LABS: BUN/Creatinine Ratio 24
[2021-10-19 06:05] LABS: Hematocrit 37.7 % (35.5-45.6); Hemoglobin 12.1 gm/dl (11.8-15.2); Mean Corpuscular HGB Conc 32 % (32-34); Mean Corpuscular Volume 104 fl (84-94); Platelet Count 194 K/mm3 (140-440); Red Blood Count 3.64 M/mm3 (3.65-5.03); Red Cell Distribution Width 14.7 % (13.2-15.2)
[2021-10-19] MEDS: cefTRIAXone/NS 2 GM/100 ML 2 GM/100 ML BAG IV SCH (08:15)
[2021-10-19] MEDS: QUEtiapine 100 MG TAB PO SCH ×2 (09:49→21:14)
[2021-10-19] MEDS: FAMOTIDINE 20 MG TAB PO SCH (09:49)
[2021-10-19] MEDS: HEPARIN 5,000 UNIT/1 ML VIAL SUB-Q SCH ×2 (09:50→21:13)
[2021-10-19] MEDS ORDERED: amLODIPine 10 MG TAB PO SCH (10:00)
[2021-10-19] MEDS ORDERED: VALSARTAN 160MG TAB PO SCH (10:00)
--- NOTE | 2021-10-19 13:12 | Progress Note ---
Assessment and Plan Acute Hypoxemic Respiratory Failure Flash Pulmonary Edema Hypertensive Emergency Cocaine intoxication Possible Pneumonia Takotsubo cardiomyopathy Combined heart failure Mild Pulmonary HTN Acute Encephalopathy - awaiting transfer - continue care as below - advance diet per [employer] team - VQ scan low prob for P.E. - continue to wean supplemental oxygen for target O2 sat's > 90% acutely - aspiration precautions - wean per pulmonary driven protocols otherwise - avoid nephrotoxins, renally dose all medications - continue to avoid benzodiazepine's, reduce the possibility of delirium - complete empiric CAP AB's - continue accuchecks with glycemic control per SSI for target blood glucose of < 180 mg/dL; avoid hypoglycemia - prn analgesia per pain score - Maintenance of sleep-wake cycle, avoid delirium - G.I. & VTE prophylaxis - PT/OT/ROM exercises - continue mobility protocols for pressure ulcer prophylaxis - Monitor hemodynamics closely - continue other care per attending / other consultants - outpatient pulmonary clinic evaluation - tobacco and cocaine abstinence strongly counseled - discharge planning ongoing concurrently COVID SPECIFIC INTERVENTIONS - COVID-19 test result negative .... Re-evaluate in am & prn Subjective Date of service: 10/19/21 Principal diagnosis: AHRF; Pulm. Edema; HTNsive Emergency; Cocaine abuse; Poss. Pneumonia; AMS Interval history: Patient is seen today for: Acute Hypoxemic Respiratory Failure; Flash Pulmonary Edema; Hypertensive Emergency; Cocaine intoxication; Possible Pneumonia; Acute Encephalopathy Seen and examined at bedside; 24hour events reviewed; nursing and respiratory care staff consulted; no adverse overnight events reported to me; resting peacefully in bed; doing better; denies N/V/F/C Objective Vital Signs - 12hr 10/19/21 10/19/21 10/19/21 01:00 01:15 01:31 Temperature Pulse Rate 94 H 93 H 93 H Pulse Rate [ From Monitor] Respiratory 26 H 29 H 24 Rate Blood Pressure 190/89 190/89 190/89 O2 Sat by Pulse 100 99 99 Oximetry 10/19/21 10/19/21 10/19/21 01:45 02:00 02:15 Temperature Pulse Rate 93 H 92 H 91 H Pulse Rate [ From Monitor] Respiratory 29 H 24 21 Rate Blood Pressure 190/89 190/80 190/80 O2 Sat by Pulse 100 99 99 Oximetry 10/19/21 10/19/21 10/19/21 02:31 02:45 03:00 Temperature Pulse Rate 79 83 89 Pulse Rate [ From Monitor] Respiratory 28 H 21 25 H Rate Blood Pressure 190/80 190/80 176/67 O2 Sat by Pulse 98 99 96 Oximetry 10/19/21 10/19/21 10/19/21 03:15 03:31 03:36 Temperature 98.9 F Pulse Rate 85 90 84 Pulse Rate [ From Monitor] Respiratory 25 H 17 Rate Blood Pressure 176/67 176/67 O2 Sat by Pulse 98 100 Oximetry 10/19/21 10/19/21 10/19/21 03:37 03:45 04:00 Temperature Pulse Rate 80 97 H Pulse Rate [ From Monitor] Respiratory 21 31 H Rate Blood Pressure 176/67 158/89 O2 Sat by Pulse 100 99 98 Oximetry 10/19/21 10/19/21 10/19/21 04:15 04:31 04:45 Temperature Pulse Rate 89 97 H 95 H Pulse Rate [ From Monitor] Respiratory 32 H 27 H 30 H Rate Blood Pressure 158/89 158/89 158/89 O2 Sat by Pulse 99 97 100 Oximetry 10/19/21 10/19/21 10/19/21 05:00 05:16 05:30 Temperature Pulse Rate 94 H 94 H 93 H Pulse Rate [ From Monitor] Respiratory 31 H 28 H 34 H Rate Blood Pressure 176/83 176/83 O2 Sat by Pulse 96 100 98 Oximetry 10/19/21 10/19/21 10/19/21 05:46 06:00 06:16 Temperature Pulse Rate 90 89 91 H Pulse Rate [ From Monitor] Respiratory 29 H 30 H 30 H Rate Blood Pressure 176/83 193/81 193/81 O2 Sat by Pulse 99 95 99 Oximetry 10/19/21 10/19/21 10/19/21 06:30 06:46 07:00 Temperature Pulse Rate 92 H 104 H 97 H Pulse Rate [ From Monitor] Respiratory 31 H 33 H 34 H Rate Blood Pressure 193/81 193/81 193/81 O2 Sat by Pulse 99 98 97 Oximetry 10/19/21 10/19/21 10/19/21 07:10 07:16 07:30 Temperature 98.1 F Pulse Rate 93 H 80 81 Pulse Rate [ From Monitor] Respiratory 30 H 26 H Rate Blood Pressure 206/95 206/95 171/77 O2 Sat by Pulse 98 99 Oximetry 10/19/21 10/19/21 10/19/21 07:46 07:51 07:53 Temperature Pulse Rate 85 96 H Pulse Rate [ 96 H From Monitor] Respiratory 26 H 14 Rate Blood Pressure 171/77 O2 Sat by Pulse 100 Oximetry 10/19/21 10/19/21 10/19/21 08:00 08:16 08:30 Temperature Pulse Rate 82 84 84 Pulse Rate [ From Monitor] Respiratory 30 H 32 H 28 H Rate Blood Pressure 176/69 176/69 176/69 O2 Sat by Pulse 100 98 Oximetry 10/19/21 10/19/21 10/19/21 08:46 09:00 09:16 Temperature Pulse Rate 82 85 90 Pulse Rate [ From Monitor] Respiratory 32 H 29 H 35 H Rate Blood Pressure 176/69 176/69 176/69 O2 Sat by Pulse 97 98 98 Oximetry 10/19/21 10/19/21 10/19/21 09:30 09:46 09:50 Temperature Pulse Rate 90 85 85 Pulse Rate [ From Monitor] Respiratory 32 H 29 H Rate Blood Pressure 191/74 191/74 191/74 O2 Sat by Pulse 99 98 Oximetry 10/19/21 10/19/21 10/19/21 10:00 10:16 10:30 Temperature Pulse Rate 94 H 85 87 Pulse Rate [ From Monitor] Respiratory 23 31 H 29 H Rate Blood Pressure 187/80 187/80 167/71 O2 Sat by Pulse 98 98 97 Oximetry 10/19/21 10/19/21 10/19/21 10:46 11:00 11:38 Temperature 98.4 F Pulse Rate 90 97 H Pulse Rate [ From Monitor] Respiratory 28 H 25 H Rate Blood Pressure 167/71 176/79 O2 Sat by Pulse 98 98 Oximetry Constitutional: no acute distress Eyes: non-icteric ENT: oropharynx moist Neck: supple, no lymphadenopathy, no JVD Effort: normal Ascultation: Bilateral: clear, diminished breath sounds, other (barrel chest) Percussion: Bilateral: not dull Cardiovascular: regular rate and rhythm Gastrointestinal: normoactive bowel sounds, soft, non-tender, non-distended Integumentary: normal Extremities: no cyanosis, no edema, pulses normal, no ischemia or petechiae Neurologic: normal mental status, non-focal exam (grossly), pupils equal and round, motor strength normal and Psychiatric: mood appropriate, affect normal CBC and BMP: 10/19/21 04:41 10/19/21 04:41 ABG, PT/INR, D-dimer: ABG ABG pH 7.400 pH Units (7.350-7.450) 10/17/21 05:30 ABG pCO2 46.3 mm Hg 10/17/21 05:30 ABG pO2 65.5 mm Hg (80.0-90.0) L 10/17/21 05:30 ABG O2 Saturation 94.0 % (95.0-99.0) L 10/17/21 05:30 PT/INR, D-dimer PT 14.2 Sec. (12.2-14.9) 10/14/21 07:26 INR 0.99 (0.87-1.13) 10/14/21 07:26 D-Dimer 1033.11 ng/mlDDU (0-234) H 10/14/21 07:06 Abnormal lab findings: Abnormal Labs 10/14/21 10/14/21 10/14/21 07:06 07:26 07:26 RBC 3.46 L Hgb 11.7 L Hct 34.8 L MCV 101 H MCH 34 H Plt Count Lymph % (Auto) 13.1 L Lymph # (Auto) 0.8 L Seg Neutrophils % 78.8 H D-Dimer 1033.11 H ABG pH ABG pO2 ABG HCO3 ABG O2 Saturation ABG Base Excess ABG Hemoglobin Oxyhemoglobin Sodium 136 L Potassium Chloride Creatinine 0.6 L Glucose POC Glucose CK-MB (CK-2) Rel Index 6.7 H Total Protein Albumin 3.7 L 10/14/21 10/14/21 10/15/21 11:06 18:25 04:00 RBC 3.31 L Hgb 11.0 L Hct 34.0 L MCV 103 H MCH 33 H Plt Count Lymph % (Auto) Lymph # (Auto) 0.9 L Seg Neutrophils % 78.4 H D-Dimer ABG pH 7.227 L ABG pO2 71.3 L ABG HCO3 26.2 H ABG O2 Saturation 91.0 L ABG Base Excess -2.7 L ABG Hemoglobin 13.3 L 12.1 L Oxyhemoglobin 88.8 L Sodium Potassium Chloride Creatinine Glucose POC Glucose CK-MB (CK-2) Rel Index Total Protein Albumin 10/15/21 10/15/21 10/15/21 04:00 12:03 12:04 RBC Hgb Hct MCV MCH Plt Count Lymph % (Auto) Lymph # (Auto) Seg Neutrophils % D-Dimer ABG pH ABG pO2 ABG HCO3 ABG O2 Saturation ABG Base Excess ABG Hemoglobin Oxyhemoglobin Sodium 134 L Potassium Chloride Creatinine Glucose POC Glucose 45 L 42 L CK-MB (CK-2) Rel Index Total Protein Albumin 10/15/21 10/15/21 10/15/21 12:20 12:43 23:54 RBC Hgb Hct MCV MCH Plt Count Lymph % (Auto) Lymph # (Auto) Seg Neutrophils % D-Dimer ABG pH 7.311 L ABG pO2 91.2 H ABG HCO3 27.7 H ABG O2 Saturation ABG Base Excess ABG Hemoglobin 10.5 L Oxyhemoglobin Sodium Potassium Chloride Creatinine Glucose POC Glucose 161 H 122 H CK-MB (CK-2) Rel Index Total Protein Albumin 10/16/21 10/16/21 10/16/21 04:00 04:55 05:03 RBC 3.08 L Hgb 10.3 L Hct 31.6 L MCV 103 H MCH 33 H Plt Count 136 L Lymph % (Auto) Lymph # (Auto) Seg Neutrophils % D-Dimer ABG pH 7.338 L ABG pO2 117.1 H ABG HCO3 28.3 H ABG O2 Saturation ABG Base Excess ABG Hemoglobin 10.2 L Oxyhemoglobin Sodium Potassium Chloride Creatinine Glucose 121 H POC Glucose CK-MB (CK-2) Rel Index Total Protein Albumin 10/16/21 10/16/21 10/16/21 05:05 11:45 23:30 RBC Hgb Hct MCV MCH Plt Count Lymph % (Auto) Lymph # (Auto) Seg Neutrophils % D-Dimer ABG pH ABG pO2 ABG HCO3 ABG O2 Saturation ABG Base Excess ABG Hemoglobin Oxyhemoglobin Sodium Potassium Chloride Creatinine Glucose POC Glucose 116 H 110 H 154 H CK-MB (CK-2) Rel Index Total Protein Albumin 10/17/21 10/17/21 10/17/21 04:35 04:35 05:30 RBC 2.97 L Hgb 9.9 L Hct 30.3 L MCV 102 H MCH 33 H Plt Count Lymph % (Auto) Lymph # (Auto) Seg Neutrophils % D-Dimer ABG pH ABG pO2 65.5 L ABG HCO3 28.0 H ABG O2 Saturation 94.0 L ABG Base Excess ABG Hemoglobin 9.7 L Oxyhemoglobin 92.1 L Sodium 135 L Potassium Chloride 97.3 L Creatinine Glucose 146 H POC Glucose CK-MB (CK-2) Rel Index Total Protein Albumin 10/17/21 10/17/21 10/18/21 05:43 11:18 04:08 RBC 3.05 L Hgb 10.1 L Hct 31.1 L MCV 102 H MCH 33 H Plt Count Lymph % (Auto) Lymph # (Auto) Seg Neutrophils % D-Dimer ABG pH ABG pO2 ABG HCO3 ABG O2 Saturation ABG Base Excess ABG Hemoglobin Oxyhemoglobin Sodium Potassium Chloride Creatinine Glucose POC Glucose 166 H 111 H CK-MB (CK-2) Rel Index Total Protein Albumin 10/18/21 10/18/21 10/18/21 04:08 11:34 16:16 RBC Hgb Hct MCV MCH Plt Count Lymph % (Auto) Lymph # (Auto) Seg Neutrophils % D-Dimer ABG pH ABG pO2 ABG HCO3 ABG O2 Saturation ABG Base Excess ABG Hemoglobin Oxyhemoglobin Sodium Potassium 3.2 L Chloride Creatinine 0.7 L Glucose 112 H POC Glucose 161 H 139 H CK-MB (CK-2) Rel Index Total Protein 5.9 L Albumin 2.8 L 10/19/21 10/19/21 04:41 04:41 RBC 3.64 L Hgb Hct MCV 104 H MCH 33 H Plt Count Lymph % (Auto) Lymph # (Auto) Seg Neutrophils % D-Dimer ABG pH ABG pO2 ABG HCO3 ABG O2 Saturation ABG Base Excess ABG Hemoglobin Oxyhemoglobin Sodium Potassium Chloride Creatinine 0.7 L Glucose POC Glucose CK-MB (CK-2) Rel Index Total Protein Albumin Allied health notes reviewed: nursing
--- NOTE | 2021-10-19 13:36 | Electrocardiograph Report ---
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
--- NOTE | 2021-10-19 13:37 | Electrocardiograph Report ---
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
[2021-10-19] MEDS: hydrALAZINE 100 MG TAB PO SCH ×2 (14:24→21:13)
[2021-10-19] MEDS: SENNOSIDES/DOCUSATE SODIUM 8.6/50 MG TAB PO SCH ×2 (14:44→21:14)
--- NOTE | 2021-10-19 14:56 | Progress Note ---
Assessment and Plan Assessment and plan: This is a 71-year-old female with vascular dementia, cerebral sclerosis, cocaine abuse admitted with acute hypoxic respiratory failure and hypertensive emergency Neuro: Acute encephalopathy, cocaine abuse, h/o cerebral atherosclerosis, vascular dementia -Reorientation as needed -Maintain sleep-wake cycle -As needed analgesia -Seroquel twice daily -UDS positive for cocaine -Substance abuse cessation strongly encouraged Cardiac: s/p hypertensive emergency, Takotsubo (ruled out), cardiomyopathy , h/o chronic systolic heart failure -Cardiology consulted, appreciate recommendations -Presented with blood pressure of 218/128 -S/p Cardene drip -Antihypertensive regimen: Valsartan, hydralazine, amlodipine -Blood pressure monitoring per protocol -Echocardiogram showed LVEF 45%, findings consistent with Takotsubo syndrome -Per cards: Echocardiogram reviewed, no appreciated evidence of reverse Takotsubo finding, moderate concentric LVH, mild left ventricular hypokinesis -No further work-up needed Respiratory: Acute hypoxemic respiratory failure, flash pulmonary edema -[facility] consulted, appreciate recommendations -Intubated on 10/14 in the ED and extubated on 10/17 -Pulmonary hygiene -SPO2 monitor per protocol -Supplemental oxygen as needed GI: Moderate protein calorie malnutrition -24 hours -365 mL -PPI -Cardiac diet -BR: Senokot S : NAD -Monitor intake and output -Renally dose medications -Avoid nephrotoxic medications -Repeat potassium -Trend BMP ID: Bilateral pneumonia -Infectious disease consulted, appreciate recommendation -Antibiotic therapy with azithromycin and Rocephin -f/u blood culture -Monitor WBC and temperature curve Endo: NAD -Avoid hypoglycemia Heme: Elevated D-dimer -D-dimer 1033 -V/Q scan with low probability of PE -Bilateral lower extremity Doppler negative for DVT -Trend CBC -Transfuse hemoglobin less than 7 -SCDs to BLE while in bed MS: Chronic left humerus fracture -Chronic left humerus fracture noted on left upper extremity x-ray -Ortho consulted, appreciate recommendations -Sling -PT/OT consulted, appreciate recommendations The high probability of a clinically significant, sudden or life threatening deterioration of the [multiple] system(s) required my full and direct attention, intervention and personal management. The aggregate critical care time was [60] minutes. This time is in addition to time spent performing reported procedures but includes the following: [x] Data Review and interpretation [x] Patient assessment and monitoring of vital signs [x] Documentation [x] Medication orders and management Disposition Plan: transfer to tele Total Time Spent with Patient (Minutes): 60 History Interval history: This is a 71-year-old male with vascular dementia, cerebral atherosclerosis, cocaine dependence who presented to emergency department on 10/14 via EMS. On EMS arrival patient was found to have shortness of breath shortly after cocaine ingestion at 0500 on 10/14 and patient was transported to [facility] for further evaluation. In the emergency department patient was found to have SPO2 of 70%, and unable to protect his airway and he was intubated. Patient's blood pressure is also 218/128 and he was started on a Cardene drip, CXR reviewed bilateral pneumonia. Patient was admitted to the hospitalist service to the ICU with hypertensive emergency, pneumonia with consults to cardiology and CCM. Hospital Course to Date: 10/15: Intubated and sedated, follows commands intermittently. Off cardene gtt this am, VSS. This am ABG pending. Wean vent setting and sedation as tolerated, possible SAT/SBT in the am per CCM. Labs with elevated D-Dimer, COVID PCR pending. Given hypoxia will get a CTA chest and BLE doppler to r/o DVT/PE. VTE proph initiated. Will also get 2D echo to eval pulmonary pressors. Patient is hypoglycemic this am treated per hypoglycemic protocol, most likely due to NPO status. NGT initiated but not yet at goal, continue BG check Q6hrs and hypoglycemic protocol. LUE humerus fracture noted, LUE XR pending. Will also consult Ortho for further eval and treat. 10/16: Remains stable on the vent, on low dose sedation. Tolerating PSV trial this am. Per CCM, plan is to wean to extubate. Patient spike a Temp today, patient is hemodynamicaly stable, with no leukocytosis. Orders placed for blood cultures, will hold off on IV abx for now. 2D echo reviewed, LVEF 45% and c/f Takotsubo syndrome, cardiology consulted. CTA chest pending, unable to get in contact with patient's NOK. Case management is following for further assistance in locating patient's family. 10/17: Stable on the vent, off sedations. Tolerating PSV trial for possible extubation today. This am ABG reviewed, patient with some hypoxia but compensating. Still can't get in contact with patient's NOK at this time, will order V/Q scan to r/o PE. Continue VTE proph. Hypertensive overnight and required cardene gtt. Cardene is off this am, still mildly hypertensive. PO antihypertensive adjusted. Still with low grade fevers, but no leukocytosis, Blood cultures pending. continue current IV Abx for now. 10/18: Patient was extubated yesterday and is currently on nasal cannula to room air. Patient antihypertensive regimen increased and started on as needed labetalol for hypertension which is better controlled now. Patient will be transferred to the telemetry floor. 10/19: Antihypertensive medicine adjusted. Awaiting tele bed. No acute events overnight. Hospitalist Physical - Constitutional Vitals: Temp Pulse Resp BP Pulse Ox 98.4 F 101 H 31 H 139/60 98 10/19/21 11:38 10/19/21 13:00 10/19/21 13:00 10/19/21 13:00 10/19/21 13:00 General appearance: Present: no acute distress - EENT Eyes: Present: PERRL, EOM intact ENT: hearing intact, poor dentition - Neck Neck: Present: normal ROM - Respiratory Respiratory effort: normal Respiratory: bilateral: CTA - Cardiovascular Rhythm: regular Heart Sounds: Present: S1 & S2. Absent: systolic murmur, diastolic murmur - Extremities Extremities: no ischemia, pulses intact, pulses symmetrical, No edema, normal temperature, normal color Peripheral Pulses: within normal limits - Abdominal General gastrointestinal: soft, non-tender, non-distended, normal bowel sounds - Integumentary Integumentary: Present: warm, dry - Psychiatric Psychiatric: appropriate mood/affect, cooperative - Neurologic Neurologic: CNII-XII intact, no focal deficits, moves all extremities - Allied Health Allied health notes reviewed: nursing, social work HEART Score - HEART Score Troponin: Troponin T < 0.010 ng/mL (0.00-0.029) 10/14/21 07:26 Results - Labs CBC & Chem 7: 10/19/21 04:41 10/19/21 04:41 Labs: Laboratory Last Values WBC 4.6 K/mm3 (4.5-11.0) 10/19/21 04:41 RBC 3.64 M/mm3 (3.65-5.03) L 10/19/21 04:41 Hgb 12.1 gm/dl (11.8-15.2) 10/19/21 04:41 Hct 37.7 % (35.5-45.6) D 10/19/21 04:41 MCV 104 fl (84-94) H 10/19/21 04:41 MCH 33 pg (28-32) H 10/19/21 04:41 MCHC 32 % (32-34) 10/19/21 04:41 RDW 14.7 % (13.2-15.2) 10/19/21 04:41 Plt Count 194 K/mm3 (140-440) 10/19/21 04:41 Lymph % (Auto) 13.5 % (13.4-35.0) 10/15/21 04:00 [place] % (Auto) 7.3 % (0.0-7.3) 10/15/21 04:00 Eos % (Auto) 0.4 % (0.0-4.3) 10/15/21 04:00 Baso % (Auto) 0.4 % (0.0-1.8) 10/15/21 04:00 Lymph # (Auto) 0.9 K/mm3 (1.2-5.4) L 10/15/21 04:00 [place] # (Auto) 0.5 K/mm3 (0.0-0.8) 10/15/21 04:00 Eos # (Auto) 0.0 K/mm3 (0.0-0.4) 10/15/21 04:00 Baso # (Auto) 0.0 K/mm3 (0.0-0.1) 10/15/21 04:00 Seg Neutrophils % 78.4 % (40.0-70.0) H 10/15/21 04:00 Seg Neutrophils # 5.2 K/mm3 (1.8-7.7) 10/15/21 04:00 PT 14.2 Sec. (12.2-14.9) 10/14/21 07:26 INR 0.99 (0.87-1.13) 10/14/21 07:26 APTT 29.0 Sec. (24.2-36.6) 10/14/21 07:26 D-Dimer 1033.11 ng/mlDDU (0-234) H 10/14/21 07:06 ABG pH 7.400 pH Units (7.350-7.450) 10/17/21 05:30 ABG pCO2 46.3 mm Hg 10/17/21 05:30 ABG pO2 65.5 mm Hg (80.0-90.0) L 10/17/21 05:30 ABG HCO3 28.0 mmol/L (20.0-26.0) H 10/17/21 05:30 ABG O2 Saturation 94.0 % (95.0-99.0) L 10/17/21 05:30 ABG O2 Content 12.6 (0.0-44) 10/17/21 05:30 ABG Base Excess 2.8 mmol/L (-2.0-3.0) 10/17/21 05:30 ABG Hemoglobin 9.7 gm/dl (14.0-18.0) L 10/17/21 05:30 ABG Carboxyhemoglobin 1.6 % (0.0-5.0) 10/17/21 05:30 ABG Methemoglobin 0.4 % (0.0-1.5) 10/17/21 05:30 Oxyhemoglobin 92.1 % (95.0-99.0) L 10/17/21 05:30 FiO2 30 % 10/17/21 05:30 Sodium 139 mmol/L (137-145) 10/19/21 04:41 Potassium 3.8 mmol/L (3.6-5.0) 10/19/21 04:41 Chloride 103.9 mmol/L (98-107) 10/19/21 04:41 Carbon Dioxide 23 mmol/L (22-30) 10/19/21 04:41 Anion Gap 16 mmol/L 10/19/21 04:41 BUN 17 mg/dL (9-20) 10/19/21 04:41 Creatinine 0.7 mg/dL (0.8-1.3) L 10/19/21 04:41 Estimated GFR > 60 ml/min 10/19/21 04:41 BUN/Creatinine Ratio 24 % 10/19/21 04:41 Glucose 94 mg/dL (75-100) 10/19/21 04:41 POC Glucose 139 mg/dL (70-105) H 10/18/21 16:16 Lactic Acid 1.50 mmol/L (0.7-2.0) 10/14/21 07:26 Calcium 8.9 mg/dL (8.4-10.2) 10/19/21 04:41 Phosphorus 3.50 mg/dL (2.5-4.5) 10/18/21 04:08 Magnesium 1.70 mg/dL (1.7-2.3) 10/18/21 04:08 Total Bilirubin 0.40 mg/dL (0.1-1.2) 10/18/21 04:08 AST 31 units/L (5-40) 10/18/21 04:08 ALT 22 units/L (7-56) 10/18/21 04:08 Alkaline Phosphatase 48 units/L (35-129) 10/18/21 04:08 Total Creatine Kinase 58 units/L (55-170) 10/14/21 07:26 CK-MB (CK-2) 3.9 ng/mL (0.0-4.0) 10/14/21 07: CK-MB (CK-2) Rel Index 6.7 (0-4) H 10/14/21 07:26 Troponin T < 0.010 ng/mL (0.00-0.029) 10/14/21 07:26 C-Reactive Protein 1.20 mg/dL (0.00-1.30) 10/14/21 00:00 Total Protein 5.9 g/dL (6.3-8.2) L 10/18/21 04:08 Albumin 2.8 g/dL (3.9-5) L 10/18/21 04:08 Albumin/Globulin Ratio 0.9 % 10/18/21 04:08 Procalcitonin 0.21 ng/mL (<0.15) 10/14/21 00:00 Urine Color Straw (Yellow) 10/14/21 07:03 Urine Turbidity Clear (Clear) 10/14/21 07:03 Specific [place] (Man) 1.015 (1.003-1.030) 10/14/21 07:03 Ur Protein (Man) 1+ mg/dL (Negative) 10/14/21 07:03 Ur Ketones (Man) Negative (Negative) 10/14/21 07:03 Urine Bilirubin (Man) Negative (Negative) 10/14/21 07:03 Urine WBC (Auto) < 1.0 /HPF (0.0-6.0) 10/14/21 07:03 Urine RBC (Auto) 4.0 /HPF (0.0-6.0) 10/14/21 07:03 U Epithel Cells (Auto) 1.0 /HPF (0-13.0) 10/14/21 07:03 Urine RBC (Manual) Negative (Negative) 10/14/21 07:03 Urine Opiates Screen Negative 10/14/21 07:03 Urine Methadone Screen Negative 10/14/21 07:03 Ur Barbiturates Screen Negative 10/14/21 07:03 Ur Phencyclidine Scrn Negative 10/14/21 07:03 Ur Amphetamines Screen Negative 10/14/21 07:03 U Benzodiazepines Scrn Negative 10/14/21 07:03 Urine Cocaine Screen Positive 10/14/21 07:03 U Marijuana (THC) Screen Negative 10/14/21 07:03 Drugs of Abuse Note Disclamer 10/14/21 07:03 Coronavirus (PCR) Negative (Negative) 10/14/21 16:01 Microbiology: Microbiology 10/16/21 16:43 Peripheral/Venous Blood Culture - Preliminary NO GROWTH AFTER 48 HOURS 10/16/21 16:43 Peripheral/Venous Blood Culture - Preliminary NO GROWTH AFTER 48 HOURS 10/14/21 14:31 Tracheal Aspirate Sputum Culture - Final Marquez/IV: Voiding Method Condom Catheter Active Medications - Current Medications Current Medications: Generic Name Dose Route Start Last Admin Trade Name Freq PRN Reason Stop Dose Admin Acetaminophen 650 mg 10/14/21 13:00 10/18/21 22:34 Acetaminophen 325 Mg Tab PO 650 mg Q6H PRN Administration Pain MILD(1-3)/Fever >100.5/[place] Albuterol 2.5 mg 10/14/21 14:00 Albuterol 2.5 Mg/3 Ml Nebu IH Q3HRT PRN Shortness Of Breath Amlodipine Besylate 10 mg 10/19/21 10:00 10/19/21 09:50 Amlodipine 10 Mg Tab PO 10 mg DAILY KATHY Administration Diphenhydramine HCl 25 mg 10/15/21 10:00 10/15/21 16:26 Diphenhydramine 50 Mg/Ml Vial IV 25 mg Q6H PRN Administration Itching Famotidine 20 mg 10/19/21 10:00 10/19/21 09:49 Famotidine 20 Mg Tab PO 20 mg DAILY KATHY Administration Heparin Sodium (Porcine) 5,000 unit 10/15/21 10:00 10/19/21 09:50 Heparin 5,000 Unit/1 Ml Vial SUB-Q 5,000 unit Q12HR KATHY Administration Hydralazine HCl 10 mg 10/16/21 15:43 10/19/21 02:08 Hydralazine 20 Mg/1 Ml Inj IV 10 mg Q4HR PRN Administration Hypertension Hydralazine HCl 100 mg 10/19/21 14:00 10/19/21 14:24 Hydralazine 100 Mg Tab PO 100 mg TID KATHY Administration Hydromorphone HCl 0.5 mg 10/14/21 13:00 Hydromorphone 0.5 Mg/0.5 Ml Inj IV Q23H PRN Pain , Severe (7-10) Hydrophilic Ointment 1 applic 10/14/21 15:47 Lip Therapy Vaseline TP Q2HR PRN Dry Lips Labetalol HCl 10 mg 10/18/21 08:11 10/19/21 07:10 Labetalol 20 Mg/4 Ml Inj IV 10 mg Q4HR PRN Administration Hypertension Morphine Sulfate 2 mg 10/14/21 12:01 10/16/21 09:34 Morphine 2 Mg/1 Ml Inj IV 2 mg Q4H PRN Administration Pain, Moderate (4-6) Multi-Ingred Cream/Lotion/Oil/Oint 1 applic 10/14/21 15:47 Mineral Oil/Petrolatum, White Ophth Oint 3.5 Gm OU Q4HR PRN Dry Eye(s) Oxycodone/Acetaminophen 1 tab 10/14/21 13:00 Oxycodone /Acetaminophen 5-325mg Tab PO Q16H PRN Pain, Moderate (4-6) Quetiapine Fumarate 100 mg 10/15/21 14:30 10/19/21 09:49 Quetiapine 100 Mg Tab PO 100 mg BID KATHY Administration Senna/Docusate Sodium 1 tab 10/18/21 22:00 10/19/21 14:44 Sennosides/Docusate Sodium 8.6/50 Mg Tab PO Not Given BID KATHY Sodium Chloride 10 ml 10/14/21 22:00 10/19/21 09:52 Sodium Chloride 0.9% 10 Ml Flush Syringe IV 10 ml BID KATHY Administration Sodium Chloride 10 ml 10/14/21 13:00 Sodium Chloride 0.9% 10 Ml Flush Syringe IV PRN PRN LINE FLUSH Valsartan 160 mg 10/19/21 15:00 Valsartan 160mg Tab PO QDAY KATHY Nutrition/Malnutrition Assess - Dietary Evaluation Nutrition/Malnutrition Findings: Nutrition Notes Start: 10/15/21 09:41 Freq: Status: Active Protocol: Document 10/18/21 10:09 ITA (Rec: 10/18/21 10:49 ITA [id number]) Nutrition Notes Initial or Follow up Reassessment Current Diagnosis Hypertension Other Pertinent Diagnosis Substance Abuse, Metabolic Encephalopathy, CAP, HFrEF, L- UE Fracture, ... Current Diet TF-Osmolite 1.5 Johnathan @ 50 ml/hr (since L 10/15). Labs/Tests 10/18: K 3.2, Crea 0.7, Glu 112. Pertinent Medications 10/18: Nutritionally unremarkable. Height 5 ft 6 in Weight 58.3 kg [place] Body Weight (kg) 64.54 BMI 20.7 Intake Prior to Admission Good Weight change and time frame Pt states being unsure if loss body weight [employer]. No body weight change reported in 3 days. Weight Status Appropriate Subjective/Other Information RD consult for TF tolerance/ continuation assessment. TF continues as prescribed, no further information available at the time. I recommend discontinue TF today and advance to PO Diet. Pt is on Room Air, O2 saturation @ 100%, according to Physical Assessment History notes. Pt continues presenting diarrhea, according to Physical Assessment History notes. Pt has missing teeth, according to Physical Assessment History notes. Pt passed bedside swallow assessment for medications on 10/17, according to RN notes. Pt extubated on 10/17, well tolerated, according to RN notes. Percent of energy/protein needs met: Prescribed TF-Osmolite 1.5 Johnathan @ 50 ml/hr provides for energy/protein needs (1,800 Kcal/75 g) during LOS, 110% Kcal; 107% AA. Prescribed Cardiac Diet provides for energy/protein needs (2,230 Kcal/85 g) during LOS. Burn Absent Trauma Absent GI Symptoms Diarrhea Food Allergy No Skin Integrity/Comment Assessment WNL. Current % PO Other Minimum of two criteria No Fluid Accumulation N/A Reduced Housekeeper Strength N/A (non-severe) Protein-Calorie Malnutrition N\A #1 Nutrition Diagnosis Inadequate oral intake Comments: Pt passed bedside swallow assessment for medications on 10/17, according to RN notes. Pt extubated on 10/17, well tolerated, according to RN notes. Diagnosis Progress(for reassessment Improved documentation) Is patient on ventilator? No Is Patient Ambulatory and/or Out of Bed No REE-(Louisa-St. Jeor-confined to bed) 1531.212 Kcal/Kg value to use for calculation 28 Approximate Energy Requirements Using 1632 kcal/Kg Calculation Used for Recommendations Kcal/kg Additional Notes Protein: 1-1.2 g/Kg ABW; 58-70 g/day. Fluids: 1 ml/Kcal, or as per MD. Nutrition Intervention Change Diet Order: I recommend discontinue TF today and advance to PO Cardiac Diet. Nutrition Support: Continue TF-Osmolite 1.5 Johnathan @ 50 ml/hr. Flush: 150 ml water Q 4 hr, or as per MD. Kcal 1,800 Protein (gm) 75 Carbohydrates (gm) 244 Fat (gm) 59 Fluid (mL) 914 Fiber (gm) 0 % RDI: 110% Kcal; 107% AA. Goal #1 Provide at least 75% of energy /protein needs through Enteral Feeding during LOS. Goal #2 Adjust the dietary intervention to better serve Pt's needs and clinical conditions during LOS. Follow-Up By: 10/25/21 Additional Comments Continue monitoring TF tolerance and BM. When pertinent, start monitoring food tolerance, %PO intake of meals, and BM.
[2021-10-19] MEDS: VALSARTAN 160MG TAB PO SCH (16:34)
[2021-10-20] MEDS: hydrALAZINE 20 MG/1 ML INJ IV PRN (06:33)
[2021-10-20] MEDS: oxyCODONE /ACETAMINOPHEN 5-325MG TAB PO PRN ×2 (06:46→21:33)
--- NOTE | 2021-10-20 08:18 | Discharge Summary ---
Providers - Providers Date of Admission: 10/14/21 12:02 Date of discharge: 10/20/21 Attending physician: JASON NGUYỄN MD 10/14/21 15:47 Consult to Dietitian/Nutrition [CONS] Routine Physician Instructions: Reason For Exam: Reason for Consult: Write/Manage Tube Feeding 10/14/21 15:52 Consult to Physician [CONS] Routine Comment: Consulting Provider: NEYMAR CALDERÓN Physician Instructions: Reason For Exam: respiratory failure 10/15/21 14:31 Consult to Physician [CONS] Routine Comment: Consulting Provider: LAURA AGUILERA Physician Instructions: Reason For Exam: Lt. humerus Fracture 10/16/21 08:41 Consult to Physician [CONS] Routine Comment: called answ. serv./kendrick Consulting Provider: PEREZ ARCE Physician Instructions: Reason For Exam: Takotsubo Cardiomyopathy/CHF 10/17/21 15:16 Occupational Therapy Evaluate and Treat [CONS] Routine Comment: Reason For Exam: Debility Physical Therapy Evaluation and Treat [CONS] Routine Comment: Reason For Exam: Debility Hospitalization Reason for admission: short of breath Condition: Serious Hospital course: History Interval history: This is a 71-year-old male with vascular dementia, cerebral atherosclerosis, cocaine dependence who presented to emergency department on 10/14 via EMS. On EMS arrival patient was found to have shortness of breath shortly after cocaine ingestion at 0500 on 10/14 and patient was transported to [facility] for further evaluation. In the emergency department patient was found to have SPO2 of 70%, and unable to protect his airway and he was intubated. Patient's blood pressure is also 218/128 and he was started on a Cardene drip, CXR reviewed bilateral pneumonia. Patient was admitted to the hospitalist service to the ICU with hypertensive emergency, pneumonia with consults to cardiology and CCM. Hospital Course to Date: 10/15: Intubated and sedated, follows commands intermittently. Off cardene gtt this am, VSS. This am ABG pending. Wean vent setting and sedation as tolerated, possible SAT/SBT in the am per CCM. Labs with elevated D-Dimer, COVID PCR pending. Given hypoxia will get a CTA chest and BLE doppler to r/o DVT/PE. VTE proph initiated. Will also get 2D echo to eval pulmonary pressors. Patient is hypoglycemic this am treated per hypoglycemic protocol, most likely due to NPO status. NGT initiated but not yet at goal, continue BG check Q6hrs and hypoglycemic protocol. LUE humerus fracture noted, LUE XR pending. Will also consult Ortho for further eval and treat. 10/16: Remains stable on the vent, on low dose sedation. Tolerating PSV trial this am. Per CCM, plan is to wean to extubate. Patient spike a Temp today, patient is hemodynamicaly stable, with no leukocytosis. Orders placed for blood cultures, will hold off on IV abx for now. 2D echo reviewed, LVEF 45% and c/f Takotsubo syndrome, cardiology consulted. CTA chest pending, unable to get in contact with patient's NOK. Case management is following for further assistance in locating patient's family. 10/17: Stable on the vent, off sedations. Tolerating PSV trial for possible extubation today. This am ABG reviewed, patient with some hypoxia but compensating. Still can't get in contact with patient's NOK at this time, will order V/Q scan to r/o PE. Continue VTE proph. Hypertensive overnight and required cardene gtt. Cardene is off this am, still mildly hypertensive. PO antihypertensive adjusted. Still with low grade fevers, but no leukocytosis, Blood cultures pending. continue current IV Abx for now. 10/18: Patient was extubated yesterday and is currently on nasal cannula to room air. Patient antihypertensive regimen increased and started on as needed lab etalol for hypertension which is better controlled now. Patient will be transferred to the telemetry floor. 10/19: Antihypertensive medicine adjusted. Awaiting tele bed. No acute events overnight. This is a 71-year-old female with vascular dementia, cerebral sclerosis, cocaine abuse admitted with acute hypoxic respiratory failure and hypertensive emergency 10/20: Can be discharge home on chlorthalidone, procardia xl, hydralazine, valsartan. Advised to check blood pressure regularly. Advised to avoid cocaine ingestion. Patient will be discharge with instructions to follow up with OP cardiology and OP primary care physician. Neuro: Acute encephalopathy, cocaine abuse, h/o cerebral atherosclerosis, vascular dementia -Reorientation as needed -Maintain sleep-wake cycle -As needed analgesia -Seroquel twice daily -UDS positive for cocaine -Substance abuse cessation strongly encouraged Cardiac: s/p hypertensive emergency, Takotsubo (ruled out), cardiomyopathy , h/o chronic systolic heart failure -Cardiology consulted, appreciate recommendations -Presented with blood pressure of 218/128 -S/p Cardene drip -Antihypertensive regimen: Valsartan, hydralazine, amlodipine -Blood pressure monitoring per protocol -Echocardiogram showed LVEF 45%, findings consistent with Takotsubo syndrome -Per cards: Echocardiogram reviewed, no appreciated evidence of reverse Takotsubo finding, moderate concentric LVH, mild left ventricular hypokinesis -No further work-up needed Respiratory: Acute hypoxemic respiratory failure, flash pulmonary edema -[facility] consulted, appreciate recommendations -Intubated on 10/14 in the ED and extubated on 10/17 -Pulmonary hygiene -SPO2 monitor per protocol -Supplemental oxygen as needed GI: Moderate protein calorie malnutrition -24 hours -365 mL -PPI -Cardiac diet -BR: Senokot S : NAD -Monitor intake and output -Renally dose medications -Avoid nephrotoxic medications -Repeat potassium -Trend BMP ID: Bilateral pneumonia -Infectious disease consulted, appreciate recommendation -Antibiotic therapy with azithromycin and Rocephin -f/u blood culture -Monitor WBC and temperature curve Endo: NAD -Avoid hypoglycemia Heme: Elevated D-dimer -D-dimer 1033 -V/Q scan with low probability of PE -Bilateral lower extremity Doppler negative for DVT -Trend CBC -Transfuse hemoglobin less than 7 -SCDs to BLE while in bed MS: Chronic left humerus fracture -Chronic left humerus fracture noted on left upper extremity x-ray -Ortho consulted, appreciate recommendations -Sling -PT/OT consulted, appreciate recommendations The high probability of a clinically significant, sudden or life threatening deterioration of the [multiple] system(s) required my full and direct attention, intervention and personal management. The aggregate critical care time was [60] minutes. This time is in addition to time spent performing reported procedures but includes the following: [x] Data Review and interpretation [x] Patient assessment and monitoring of vital signs [x] Documentation [x] Medication orders and management Disposition Plan: transfer to tele Total Time Spent with Patient (Minutes): 60 Disposition: HOME / SELF CARE / HOMELESS Final Discharge Diagnosis (Prints w/discharge instructions): Hypertensive emergency Time spent for discharge: 35 Core Measure Documentation - Palliative Care Palliative Care/ Comfort Measures: Not Applicable - Core Measures Any of the following diagnoses?: none Exam - Physical Exam Narrative exam: Physical Exam: VITAL SIGNS: Reviewed. GENERAL: The patient appears normally developed, Vital signs as documented. HEAD: No signs of head trauma. EYES: Pupils are equal. Extraocular motions intact. EARS: Hearing grossly intact. MOUTH: Oropharynx is normal. NECK: No adenopathy, no JVD. CHEST: Chest with clear breath sounds bilaterally. No wheezes, rales, or rhonchi. CARDIAC: Regular rate and rhythm. S1 and S2, without murmurs, gallops, or rubs. VASCULAR: No Edema. Peripheral pulses normal and equal in all extremities. ABDOMEN: Soft, non tender and non distended. No rebound or guarding, and no masses palpated. Bowel Sounds normal. MUSCULOSKELETAL: Good range of motion of all major joints. Extremities without clubbing, cyanosis or edema. NEUROLOGIC EXAM: Alert and oriented x 4. no focal sensory or strength deficits. PSYCHIATRIC: Mood normal. SKIN: detail exam as documented in skin assessment - Constitutional Vitals: Temp Pulse Resp BP Pulse Ox 98.3 F 87 20 171/78 95 10/20/21 04:28 10/20/21 04:28 10/20/21 06:46 10/20/21 04:28 10/20/21 04:28 Plan Follow up with: [facility] [Other] - 3-5 Days Prescriptions: hydrALAZINE [Apresoline TAB] 100 mg PO TID 90 Days #270 tab Valsartan [Diovan] 160 mg PO QDAY 90 Days #90 tablet NIFEdipine XL [Procardia Xl] 60 mg PO QDAY 90 Days #90 tablet Chlorthalidone [Thalitone] 25 mg PO QDAY 90 Days #90 tablet
[2021-10-20] MEDS ORDERED: cloNIDine 0.2 MG TAB PO PRN (09:00)
[2021-10-20] MEDS: hydrALAZINE 100 MG TAB PO SCH ×3 (09:10→21:33)
[2021-10-20] MEDS: CHLORTHALIDONE 25 MG TAB PO SCH (11:48)
[2021-10-20] MEDS: VALSARTAN 160MG TAB PO SCH (11:55)
[2021-10-20] MEDS: HEPARIN 5,000 UNIT/1 ML VIAL SUB-Q SCH ×2 (11:56→21:33)
[2021-10-20] MEDS: FAMOTIDINE 20 MG TAB PO SCH (11:56)
[2021-10-20] MEDS: QUEtiapine 100 MG TAB PO SCH ×2 (11:56→21:33)
[2021-10-20] MEDS: NIFEdipine XL 60 MG TAB PO SCH (11:57)
[2021-10-20] MEDS: SENNOSIDES/DOCUSATE SODIUM 8.6/50 MG TAB PO SCH ×2 (11:58→21:33)
--- NOTE | 2021-10-20 13:58 | Progress Note ---
Assessment and Plan - Patient Problems (1) Uncontrolled hypertension Current Visit: Yes Status: Acute Plan to address problem: The patient was admitted several days ago with shortness of breath, uncontrolled hypertension, and bilateral interstitial pulmonary opacities with a working diagnosis of bilateral pneumonia. A CTA of the chest was recommended by pulmonary, but apparently not completed. His symptoms and chest x-ray findings have improved since admission. Cardiology consultation was requested for a questionable, nonspecific finding on echocardiogram. The echo on further review shows left ventricular systolic ejection fraction at the lower limits of normal, with mild to moderate concentric left ventricle hypertrophy. No further cardiac intervention has been recommended, but normal I reviewed the patient's systolic blood pressure has remained persistently elevated in the 180s. I will add Procardia XL 60 mg daily to antihypertensive regimen. Subjective Date of service: 10/20/21 Principal diagnosis: AHRF; Pulm. Edema; HTNsive Emergency; Cocaine abuse; Poss. Pneumonia; AMS Interval history: The patient was admitted several days ago with shortness of breath, uncontrolled hypertension, and bilateral interstitial pulmonary opacities with a working diagnosis of bilateral pneumonia. A CTA of the chest was recommended by pulmonary, but apparently not completed. His symptoms and chest x-ray findings have improved since admission. Cardiology consultation was requested for a questionable, nonspecific finding on echocardiogram. The echo on further review shows left ventricular systolic ejection fraction at the lower limits of normal, with mild to moderate concentric left ventricle hypertrophy. No further cardiac intervention has been recommended, but normal I reviewed the patient's systolic blood pressure has remained persistently elevated in the 180s. Objective Vital Signs Temp Pulse Pulse Resp BP Pulse Ox 10/20/21 11:25 97.8 F 98 H 17 182/77 97 10/20/21 08:22 98.5 F 16 186/93 10/20/21 06:46 20 10/20/21 04:28 98.3 F 87 18 171/78 95 10/20/21 00:54 97.4 F L 97 H 20 173/75 99 10/20/21 00:30 98 H 29 H 152/71 99 10/20/21 00:16 101 H 30 H 155/69 100 10/20/21 00:00 102 H 30 H 163/79 100 10/19/21 23:46 105 H 34 H 138/49 100 10/19/21 23:30 108 H 31 H 155/69 96 10/19/21 23:28 113 H 36 H 137/64 98 10/19/21 23:16 106 H 31 H 137/64 100 10/19/21 23:08 99 F 10/19/21 23:05 114 H 30 H 138/49 99 10/19/21 23:03 100 10/19/21 23:00 108 H 27 H 138/49 97 10/19/21 22:46 109 H 31 H 137/64 100 10/19/21 22:30 111 H 29 H 137/64 96 10/19/21 22:16 114 H 35 H 161/76 96 10/19/21 22:00 104 H 29 H 160/71 98 10/19/21 21:46 97 H 26 H 161/76 98 10/19/21 21:30 93 H 34 H 161/76 96 10/19/21 21:16 96 H 20 170/78 98 10/19/21 21:00 95 H 31 H 170/78 99 10/19/21 20:46 98 H 32 H 175/81 98 10/19/21 20:30 92 H 31 H 175/81 98 10/19/21 20:16 97 H 32 H 162/70 99 10/19/21 20:00 99.4 F 97 H 31 H 162/70 96 10/19/21 19:46 96 H 31 H 160/67 100 10/19/21 19:30 96 H 29 H 160/67 96 10/19/21 19:16 97 H 25 H 165/64 99 10/19/21 19:12 100 10/19/21 19:00 107 H 33 H 156/66 99 10/19/21 18:46 99 H 35 H 156/66 100 10/19/21 18:30 97 H 36 H 156/66 97 10/19/21 18:16 99 H 30 H 146/59 100 10/19/21 18:00 99 H 34 H 146/59 98 10/19/21 17:46 99 H 33 H 156/63 100 10/19/21 17:30 98 H 32 H 156/63 99 10/19/21 17:16 106 H 36 H 181/84 99 10/19/21 17:00 109 H 36 H 181/84 99 10/19/21 16:46 104 H 34 H 164/76 99 10/19/21 16:34 103 H 164/76 10/19/21 16:30 104 H 26 H 151/65 97 10/19/21 16:16 97 H 26 H 151/65 99 10/19/21 16:00 98.9 F 104 H 105 H 28 H 148/67 100 10/19/21 15:46 99 H 30 H 148/67 99 10/19/21 15:30 98 H 30 H 148/67 95 10/19/21 15:16 99 H 30 H 152/68 98 10/19/21 15:00 101 H 28 H 152/68 96 10/19/21 14:46 98 H 30 H 168/80 100 10/19/21 14:30 96 H 29 H 168/80 99 10/19/21 14:16 96 H 29 H 149/71 100 10/19/21 14:00 98 H 28 H 149/71 99 - Physical Examination General: No Apparent Distress HEENT: Positive: PERRL Neck: Positive: neck supple Cardiac: Positive: Reg Rate and Rhythm Lungs: Positive: Decreased Breath Sounds Neuro: Positive: Grossly Intact Abdomen: Positive: Soft Skin: Positive: Clear Extremities: Absent: edema - Allied health notes Allied health notes reviewed: nursing
--- NOTE | 2021-10-20 14:04 | Progress Note ---
Assessment and Plan 71 YO Male with Vascular Dementia, Cerebral Atherosclerosis, Cocaine Dependence presents to ED for evaluation. Patient is intubated and on ventilatory support . Patient history obtained EMS staff, ED staff reports. The patient was found to have shortness of breath shortly after cocaine ingestion at 0500 hrs. morning of the admission day.. EMS was notified and upon arrival the patient was found to be in distress and subsequent transported to [facility] for further care and evaluation of the aforementioned symptoms. Patient found to have a O2 saturation running in the 70s which is consistent with acute hypoxemic respiratory failure. The patient was found to be unable to protect his airway and was intubated in the emergency department. The patient was also found to have a blood pressure of 218/128 mmHg which is consistent with hypertensive emergency. Patient initiated on Cardene drip. Chest x-ray revealed bilateral pneumonia. Patient admitted to ICU and initiated on pneumonia protocol. Patient has history of smoking 1 pack x 60 years. Geni told has history of alcohol abuse. He has history of cocaine abuse for long time. 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 Patient not . Has two children. No known drug allergies. Patient weaned from the ventilator and extubated him and transferred him to telemetry. Patient weak , resting on room air. O2 saturation running 97%. Complaining shortness of breath, and chest pain. Denied cough. Patient afebrile , No Leukocytosis, Blood pressure 182/77, Pulse 98, respirations 17. Chest xray done 10/17/21 reported Bilateral lung opacities demonstrate no significant interval change. Displaced fracture left humeral diaphysis unchanged. Left rib deformities unchanged. Patient presently on S/C Heparin, Famotidine. Recommend albuterol/atrovent aerosol treatments q 6 hours. Patient was treated with cefepime and Azithromycin for her pneumonia. I spent critical care time of 40 minutes in obtaining history, review the chart, examine the patient, review chest xray and lab results, talking to nursing and respiratory staff and work up plan of treatment in this critically ill patient. - Patient Problems (1) Acute hypoxemic respiratory failure Current Visit: Yes Status: Acute Plan to address problem: Patient intubated and extubated. Patient presently on room air, O2 saturation running 97%. Continue S/C Heparin Continue Famotidine Recommend albuterol/atrovent aerosol treatments q 6 hours. Recommend 2 litres O2 via nasal canula. ABGs on room air. (2) Cocaine dependence Current Visit: Yes Status: Acute Qualifiers: Complication of substance-induced condition: with unspecified complication Plan to address problem: Management as per primary care. Recommend psychiatry consultation. (3) Community acquired bilateral lower lobe pneumonia Current Visit: Yes Status: Acute Plan to address problem: Patient was treated with cefepime and Zithromax. Patient afebrile. No leukocytosis. (4) Hypertensive emergency Current Visit: Yes Status: Acute Plan to address problem: Patient is on Nifedipine, Labetelol and Hydralagine. Management as per primary care. (5) Chest pain Current Visit: Yes Status: Acute Plan to address problem: Management as per cardiology. Subjective Date of service: 10/20/21 Principal diagnosis: AHRF; Pulm. Edema; HTNsive Emergency; Cocaine abuse; Poss. Pneumonia; AMS Interval history: 71 YO Male with Vascular Dementia, Cerebral Atherosclerosis, Cocaine Dependence presents to ED for evaluation. Patient is intubated and on ventilatory support . Patient history obtained EMS staff, ED staff reports. The patient was found to have shortness of breath shortly after cocaine ingestion at 0500 hrs. morning of the admission day.. EMS was notified and upon arrival the patient was found to be in distress and subsequent transported to [facility] for further care and evaluation of the aforementioned symptoms. Patient found to have a O2 saturation running in the 70s which is consistent with acute hypoxemic respiratory failure. The patient was found to be unable to protect his airway and was intubated in the emergency department. The patient was also found to have a blood pressure of 218/128 mmHg which is consistent with hypertensive emergency. Patient initiated on Cardene drip. Chest x-ray revealed bilateral pneumonia. Patient admitted to ICU and initiated on pneumonia protocol. Patient has history of smoking 1 pack x 60 years. Healso told has history of alcohol abuse. He has history of cocaine abuse for long time. 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 Patient not . Has two children. No known drug allergies. Patient weaned from the ventilator and extubated him and transferred him to telemetry. Patient weak , resting on room air. O2 saturation running 97%. Complaining shortness of breath, and chest pain. Denied cough. Patient afebrile , No Leukocytosis, Blood pressure 182/77, Pulse 98, respirations 17. Chest xray done 10/17/21 reported Bilateral lung opacities demonstrate no significant interval change. Displaced fracture left humeral diaphysis unchanged. Left rib deformities unchanged. Patient presently on S/C Heparin, Famotidine. Recommend albuterol/atrovent aerosol treatments q 6 hours. Patient was treated with cefepime and Azithromycin for her pneumonia. Objective Vital Signs - 12hr 10/20/21 10/20/21 10/20/21 04:28 06:46 08: Temperature 98.3 F 98.5 F Pulse Rate 87 Respiratory 18 20 16 Rate Blood Pressure 171/78 186/93 O2 Sat by Pulse 95 Oximetry 10/20/21 11:25 Temperature 97.8 F Pulse Rate 98 H Respiratory 17 Rate Blood Pressure 182/77 O2 Sat by Pulse 97 Oximetry Constitutional: no acute distress Eyes: non-icteric ENT: oropharynx moist Neck: supple, no lymphadenopathy, no JVD Effort: normal Ascultation: Bilateral: diminished breath sounds, other (barrel chest) Percussion: Bilateral: not dull Cardiovascular: regular rate and rhythm Gastrointestinal: normoactive bowel sounds, soft, non-tender, non-distended Integumentary: normal Extremities: no cyanosis, no edema, pulses normal, no ischemia or petechiae Neurologic: normal mental status, non-focal exam (grossly), pupils equal and ro und, motor strength normal and Psychiatric: mood appropriate, affect normal CBC and BMP: 10/19/21 04:41 10/19/21 04:41 ABG, PT/INR, D-dimer: ABG ABG pH 7.400 pH Units (7.350-7.450) 10/17/21 05:30 ABG pCO2 46.3 mm Hg 10/17/21 05:30 ABG pO2 65.5 mm Hg (80.0-90.0) L 10/17/21 05:30 ABG O2 Saturation 94.0 % (95.0-99.0) L 10/17/21 05:30 PT/INR, D-dimer PT 14.2 Sec. (12.2-14.9) 10/14/21 07:26 INR 0.99 (0.87-1.13) 10/14/21 07:26 D-Dimer 1033.11 ng/mlDDU (0-234) H 10/14/21 07:06 Abnormal lab findings: Abnormal Labs 10/14/21 10/14/21 10/14/21 07:06 07:26 07:26 RBC 3.46 L Hgb 11.7 L Hct 34.8 L MCV 101 H MCH 34 H Plt Count Lymph % (Auto) 13.1 L Lymph # (Auto) 0.8 L Seg Neutrophils % 78.8 H D-Dimer 1033.11 H ABG pH ABG pO2 ABG HCO3 ABG O2 Saturation ABG Base Excess ABG Hemoglobin Oxyhemoglobin Sodium 136 L Potassium Chloride Creatinine 0.6 L Glucose POC Glucose CK-MB (CK-2) Rel Index 6.7 H Total Protein Albumin 3.7 L 10/14/21 10/14/21 10/15/21 11:06 18:25 04:00 RBC 3.31 L Hgb 11.0 L Hct 34.0 L MCV 103 H MCH 33 H Plt Count Lymph % (Auto) Lymph # (Auto) 0.9 L Seg Neutrophils % 78.4 H D-Dimer ABG pH 7.227 L ABG pO2 71.3 L ABG HCO3 26.2 H ABG O2 Saturation 91.0 L ABG Base Excess -2.7 L ABG Hemoglobin 13.3 L 12.1 L Oxyhemoglobin 88.8 L Sodium Potassium Chloride Creatinine Glucose POC Glucose CK-MB (CK-2) Rel Index Total Protein Albumin 10/15/21 10/15/21 10/15/21 04:00 12:03 12:04 RBC Hgb Hct MCV MCH Plt Count Lymph % (Auto) Lymph # (Auto) Seg Neutrophils % D-Dimer ABG pH ABG pO2 ABG HCO3 ABG O2 Saturation ABG Base Excess ABG Hemoglobin Oxyhemoglobin Sodium 134 L Potassium Chloride Creatinine Glucose POC Glucose 45 L 42 L CK-MB (CK-2) Rel Index Total Protein Albumin 10/15/21 10/15/21 10/15/21 12:20 12:43 23:54 RBC Hgb Hct MCV MCH Plt Count Lymph % (Auto) Lymph # (Auto) Seg Neutrophils % D-Dimer ABG pH 7.311 L ABG pO2 91.2 H ABG HCO3 27.7 H ABG O2 Saturation ABG Base Excess ABG Hemoglobin 10.5 L Oxyhemoglobin Sodium Potassium Chloride Creatinine Glucose POC Glucose 161 H 122 H CK-MB (CK-2) Rel Index Total Protein Albumin 10/16/21 10/16/21 10/16/21 04:00 04:55 05:03 RBC 3.08 L Hgb 10.3 L Hct 31.6 L MCV 103 H MCH 33 H Plt Count 136 L Lymph % (Auto) Lymph # (Auto) Seg Neutrophils % D-Dimer ABG pH 7.338 L ABG pO2 117.1 H ABG HCO3 28.3 H ABG O2 Saturation ABG Base Excess ABG Hemoglobin 10.2 L Oxyhemoglobin Sodium Potassium Chloride Creatinine Glucose 121 H POC Glucose CK-MB (CK-2) Rel Index Total Protein Albumin 10/16/21 10/16/21 10/16/21 05:05 11:45 23:30 RBC Hgb Hct MCV MCH Plt Count Lymph % (Auto) Lymph # (Auto) Seg Neutrophils % D-Dimer ABG pH ABG pO2 ABG HCO3 ABG O2 Saturation ABG Base Excess ABG Hemoglobin Oxyhemoglobin Sodium Potassium Chloride Creatinine Glucose POC Glucose 116 H 110 H 154 H CK-MB (CK-2) Rel Index Total Protein Albumin 10/17/21 10/17/21 10/17/21 04:35 04:35 05:30 RBC 2.97 L Hgb 9.9 L Hct 30.3 L MCV 102 H MCH 33 H Plt Count Lymph % (Auto) Lymph # (Auto) Seg Neutrophils % D-Dimer ABG pH ABG pO2 65.5 L ABG HCO3 28.0 H ABG O2 Saturation 94.0 L ABG Base Excess ABG Hemoglobin 9.7 L Oxyhemoglobin 92.1 L Sodium 135 L Potassium Chloride 97.3 L Creatinine Glucose 146 H POC Glucose CK-MB (CK-2) Rel Index Total Protein Albumin 10/17/21 10/17/21 10/18/21 05:43 11:18 04:08 RBC 3.05 L Hgb 10.1 L Hct 31.1 L MCV 102 H MCH 33 H Plt Count Lymph % (Auto) Lymph # (Auto) Seg Neutrophils % D-Dimer ABG pH ABG pO2 ABG HCO3 ABG O2 Saturation ABG Base Excess ABG Hemoglobin Oxyhemoglobin Sodium Potassium Chloride Creatinine Glucose POC Glucose 166 H 111 H CK-MB (CK-2) Rel Index Total Protein Albumin 10/18/21 10/18/21 10/18/21 04:08 11:34 16:16 RBC Hgb Hct MCV MCH Plt Count Lymph % (Auto) Lymph # (Auto) Seg Neutrophils % D-Dimer ABG pH ABG pO2 ABG HCO3 ABG O2 Saturation ABG Base Excess ABG Hemoglobin Oxyhemoglobin Sodium Potassium 3.2 L Chloride Creatinine 0.7 L Glucose 112 H POC Glucose 161 H 139 H CK-MB (CK-2) Rel Index Total Protein 5.9 L Albumin 2.8 L 10/19/21 10/19/21 04:41 04:41 RBC 3.64 L Hgb Hct MCV 104 H MCH 33 H Plt Count Lymph % (Auto) Lymph # (Auto) Seg Neutrophils % D-Dimer ABG pH ABG pO2 ABG HCO3 ABG O2 Saturation ABG Base Excess ABG Hemoglobin Oxyhemoglobin Sodium Potassium Chloride Creatinine 0.7 L Glucose POC Glucose CK-MB (CK-2) Rel Index Total Protein Albumin Chest x-ray: report reviewed, image reviewed Additional Studies: CHEST 1 VIEW 10/17/21 INDICATION / CLINICAL INFORMATION: follow up respiratory failure. COMPARISON: Chest x-ray 10/16/2021 FINDINGS: SUPPORT DEVICES: Stable, satisfactory device positioning. HEART / MEDIASTINUM: Heart size is within normal limits. Mediastinal contour demonstrates no significant abnormality. LUNGS / PLEURA: Bilateral lung opacities demonstrate no significant interval change. BONES: Displaced fracture left humeral diaphysis unchanged. Left rib deformities unchanged. ADDITIONAL FINDINGS: No significant additional findings. IMPRESSION: 1. No adverse interval change in the chest. Allied health notes reviewed: nursing
--- NOTE | 2021-10-21 08:30 | Progress Note ---
Assessment and Plan Assessment and plan: Interval history: This is a 71-year-old male with vascular dementia, cerebral atherosclerosis, cocaine dependence who presented to emergency department on 10/14 via EMS. On EMS arrival patient was found to have shortness of breath shortly after cocaine ingestion at 0500 on 10/14 and patient was transported to [facility] for further evaluation. In the emergency department patient was found to have SPO2 of 70%, and unable to protect his airway and he was intubated. Patient's blood pressure is also 218/128 and he was started on a Cardene drip, CXR reviewed bilateral pneumonia. Patient was admitted to the hospitalist service to the ICU with hypertensive emergency, pneumonia with consults to cardiology and CCM. Hospital Course to Date: 10/15: Intubated and sedated, follows commands intermittently. Off cardene gtt this am, VSS. This am ABG pending. Wean vent setting and sedation as tolerated, possible SAT/SBT in the am per CCM. Labs with elevated D-Dimer, COVID PCR pending. Given hypoxia will get a CTA chest and BLE doppler to r/o DVT/PE. VTE proph initiated. Will also get 2D echo to eval pulmonary pressors. Patient is hypoglycemic this am treated per hypoglycemic protocol, most likely due to NPO status. NGT initiated but not yet at goal, continue BG check Q6hrs and hypoglycemic protocol. LUE humerus fracture noted, LUE XR pending. Will also consult Ortho for further eval and treat. 10/16: Remains stable on the vent, on low dose sedation. Tolerating PSV trial this am. Per CCM, plan is to wean to extubate. Patient spike a Temp today, patient is hemodynamicaly stable, with no leukocytosis. Orders placed for blood cultures, will hold off on IV abx for now. 2D echo reviewed, LVEF 45% and c/f Takotsubo syndrome, cardiology consulted. CTA chest pending, unable to get in contact with patient's NOK. Case management is following for further assistance in locating patient's family. 10/17: Stable on the vent, off sedations. Tolerating PSV trial for possible extubation today. This am ABG reviewed, patient with some hypoxia but comp ensating. Still can't get in contact with patient's NOK at this time, will order V/Q scan to r/o PE. Continue VTE proph. Hypertensive overnight and required cardene gtt. Cardene is off this am, still mildly hypertensive. PO antihypertensive adjusted. Still with low grade fevers, but no leukocytosis, Blood cultures pending. continue current IV Abx for now. 10/18: Patient was extubated yesterday and is currently on nasal cannula to room air. Patient antihypertensive regimen increased and started on as needed labetalol for hypertension which is better controlled now. Patient will be transferred to the telemetry floor. 10/19: Antihypertensive medicine adjusted. Awaiting tele bed. No acute events overnight. This is a 71-year-old female with vascular dementia, cerebral sclerosis, cocaine abuse admitted with acute hypoxic respiratory failure and hypertensive emergency 10/20: Can be discharge home on chlorthalidone, procardia xl, hydralazine, valsartan. Advised to check blood pressure regularly. Advised to avoid cocaine ingestion. Patient will be discharge with instructions to follow up with OP cardiology and OP primary care physician. 10/21: Awaiting placement to SNF. Medically clear for discharge otherwise. Neuro: Acute encephalopathy, cocaine abuse, h/o cerebral atherosclerosis, vascular dementia -Reorientation as needed -Maintain sleep-wake cycle -As needed analgesia -Seroquel twice daily -UDS positive for cocaine -Substance abuse cessation strongly encouraged Cardiac: s/p hypertensive emergency, Takotsubo (ruled out), cardiomyopathy , h/o chronic systolic heart failure -Cardiology consulted, appreciate recommendations -Presented with blood pressure of 218/128 -S/p Cardene drip -Antihypertensive regimen: Valsartan, hydralazine, amlodipine -Blood pressure monitoring per protocol -Echocardiogram showed LVEF 45%, findings consistent with Takotsubo syndrome -Per cards: Echocardiogram reviewed, no appreciated evidence of reverse Takotsubo finding, moderate concentric LVH, mild left ventricular hypokinesis -No further work-up needed Respiratory: Acute hypoxemic respiratory failure, flash pulmonary edema -[facility] consulted, appreciate recommendations -Intubated on 10/14 in the ED and extubated on 10/17 -Pulmonary hygiene -SPO2 monitor per protocol -Supplemental oxygen as needed GI: Moderate protein calorie malnutrition -24 hours -365 mL -PPI -Cardiac diet -BR: Senokot S : NAD -Monitor intake and output -Renally dose medications -Avoid nephrotoxic medications -Repeat potassium -Trend BMP ID: Bilateral pneumonia -Infectious disease consulted, appreciate recommendation -Antibiotic therapy with azithromycin and Rocephin -f/u blood culture -Monitor WBC and temperature curve Endo: NAD -Avoid hypoglycemia Heme: Elevated D-dimer -D-dimer 1033 -V/Q scan with low probability of PE -Bilateral lower extremity Doppler negative for DVT -Trend CBC -Transfuse hemoglobin less than 7 -SCDs to BLE while in bed MS: Chronic left humerus fracture -Chronic left humerus fracture noted on left upper extremity x-ray -Ortho consulted, appreciate recommendations -Sling -PT/OT consulted, appreciate recommendations History Interval history: No acute complaints this morning. Hospitalist Physical - Physical exam Narrative exam: Physical Exam: VITAL SIGNS: Reviewed. GENERAL: The patient appears normally developed, Vital signs as documented. HEAD: No signs of head trauma. EYES: Pupils are equal. Extraocular motions intact. EARS: Hearing grossly intact. MOUTH: Oropharynx is normal. NECK: No adenopathy, no JVD. CHEST: Chest with clear breath sounds bilaterally. No wheezes, rales, or rhonchi. CARDIAC: Regular rate and rhythm. S1 and S2, without murmurs, gallops, or rubs. VASCULAR: No Edema. Peripheral pulses normal and equal in all extremities. ABDOMEN: Soft, non tender and non distended. No rebound or guarding, and no masses palpated. Bowel Sounds normal. MUSCULOSKELETAL: Good range of motion of all major joints. Extremities without clubbing, cyanosis or edema. NEUROLOGIC EXAM: Alert and oriented x 4. no focal sensory or strength deficits. PSYCHIATRIC: Mood normal. SKIN: detail exam as documented in skin assessment - Constitutional Vitals: Temp Pulse Resp BP Pulse Ox 97.6 F 93 H 18 134/71 97 10/21/21 07:47 10/21/21 07:47 10/21/21 07:47 10/21/21 07:47 10/21/21 07:47 General appearance: Present: no acute distress HEART Score - HEART Score Troponin: Troponin T < 0.010 ng/mL (0.00-0.029) 10/14/21 07:26 Results - Labs CBC & Chem 7: 10/19/21 04:41 10/19/21 04:41 Labs: Laboratory Last Values WBC 4.6 K/mm3 (4.5-11.0) 10/19/21 04:41 RBC 3.64 M/mm3 (3.65-5.03) L 10/19/21 04:41 Hgb 12.1 gm/dl (11.8-15.2) 10/19/21 04:41 Hct 37.7 % (35.5-45.6) D 10/19/21 04:41 MCV 104 fl (84-94) H 10/19/21 04:41 MCH 33 pg (28-32) H 10/19/21 04:41 MCHC 32 % (32-34) 10/19/21 04:41 RDW 14.7 % (13.2-15.2) 10/19/21 04:41 Plt Count 194 K/mm3 (140-440) 10/19/21 04:41 Lymph % (Auto) 13.5 % (13.4-35.0) 10/15/21 04:00 [place] % (Auto) 7.3 % (0.0-7.3) 10/15/21 04:00 Eos % (Auto) 0.4 % (0.0-4.3) 10/15/21 04:00 Baso % (Auto) 0.4 % (0.0-1.8) 10/15/21 04:00 Lymph # (Auto) 0.9 K/mm3 (1.2-5.4) L 10/15/21 04:00 [place] # (Auto) 0.5 K/mm3 (0.0-0.8) 10/15/21 04:00 Eos # (Auto) 0.0 K/mm3 (0.0-0.4) 10/15/21 04:00 Baso # (Auto) 0.0 K/mm3 (0.0-0.1) 10/15/21 04:00 Seg Neutrophils % 78.4 % (40.0-70.0) H 10/15/21 04:00 Seg Neutrophils # 5.2 K/mm3 (1.8-7.7) 10/15/21 04:00 PT 14.2 Sec. (12.2-14.9) 10/14/21 07:26 INR 0.99 (0.87-1.13) 10/14/21 07:26 APTT 29.0 Sec. (24.2-36.6) 10/14/21 07:26 D-Dimer 1033.11 ng/mlDDU (0-234) H 10/14/21 07:06 ABG pH 7.400 pH Units (7.350-7.450) 10/17/21 05:30 ABG pCO2 46.3 mm Hg 10/17/21 05:30 ABG pO2 65.5 mm Hg (80.0-90.0) L 10/17/21 05:30 ABG HCO3 28.0 mmol/L (20.0-26.0) H 10/17/21 05:30 ABG O2 Saturation 94.0 % (95.0-99.0) L 10/17/21 05:30 ABG O2 Content 12.6 (0.0-44) 10/17/21 05:30 ABG Base Excess 2.8 mmol/L (-2.0-3.0) 10/17/21 05:30 ABG Hemoglobin 9.7 gm/dl (14.0-18.0) L 10/17/21 05:30 ABG Carboxyhemoglobin 1.6 % (0.0-5.0) 10/17/21 05:30 ABG Methemoglobin 0.4 % (0.0-1.5) 10/17/21 05:30 Oxyhemoglobin 92.1 % (95.0-99.0) L 10/17/21 05:30 FiO2 30 % 10/17/21 05:30 Sodium 139 mmol/L (137-145) 10/19/21 04:41 Potassium 3.8 mmol/L (3.6-5.0) 10/19/21 04:41 Chloride 103.9 mmol/L (98-107) 10/19/21 04:41 Carbon Dioxide 23 mmol/L (22-30) 10/19/21 04:41 Anion Gap 16 mmol/L 10/19/21 04:41 BUN 17 mg/dL (9-20) 10/19/21 04:41 Creatinine 0.7 mg/dL (0.8-1.3) L 10/19/21 04:41 Estimated GFR > 60 ml/min 10/19/21 04:41 BUN/Creatinine Ratio 24 % 10/19/21 04:41 Glucose 94 mg/dL (75-100) 10/19/21 04:41 POC Glucose 146 mg/dL (70-105) H 10/20/21 21:10 Lactic Acid 1.50 mmol/L (0.7-2.0) 10/14/21 07:26 Calcium 8.9 mg/dL (8.4-10.2) 10/19/21 04:41 Phosphorus 3.50 mg/dL (2.5-4.5) 10/18/21 04:08 Magnesium 1.70 mg/dL (1.7-2.3) 10/18/21 04:08 Total Bilirubin 0.40 mg/dL (0.1-1.2) 10/18/21 04:08 AST 31 units/L (5-40) 10/18/21 04:08 ALT 22 units/L (7-56) 10/18/21 04:08 Alkaline Phosphatase 48 units/L (35-129) 10/18/21 04:08 Total Creatine Kinase 58 units/L (55-170) 10/14/21 07:26 CK-MB (CK-2) 3.9 ng/mL (0.0-4.0) 10/14/21 07:26 CK-MB (CK-2) Rel Index 6.7 (0-4) H 10/14/21 07:26 Troponin T < 0.010 ng/mL (0.00-0.029) 10/14/21 07:26 C-Reactive Protein 1.20 mg/dL (0.00-1.30) 10/14/21 00:00 Total Protein 5.9 g/dL (6.3-8.2) L 10/18/21 04:08 Albumin 2.8 g/dL (3.9-5) L 10/18/21 04:08 Albumin/Globulin Ratio 0.9 % 10/18/21 04:08 Procalcitonin 0.21 ng/mL (<0.15) 10/14/21 00:00 Urine Color Straw (Yellow) 10/14/21 07:03 Urine Turbidity Clear (Clear) 10/14/21 07:03 Specific [place] (Man) 1.015 (1.003-1.030) 10/14/21 07:03 Ur Protein (Man) 1+ mg/dL (Negative) 10/14/21 07:03 Ur Ketones (Man) Negative (Negative) 10/14/21 07:03 Urine Bilirubin (Man) Negative (Negative) 10/14/21 07:03 Urine WBC (Auto) < 1.0 /HPF (0.0-6.0) 10/14/21 07:03 Urine RBC (Auto) 4.0 /HPF (0.0-6.0) 10/14/21 07:03 U Epithel Cells (Auto) 1.0 /HPF (0-13.0) 10/14/21 07:03 Urine RBC (Manual) Negative (Negative) 10/14/21 07:03 Urine Opiates Screen Negative 10/14/21 07:03 Urine Methadone Screen Negative 10/14/21 07:03 Ur Barbiturates Screen Negative 10/14/21 07:03 Ur Phencyclidine Scrn Negative 10/14/21 07:03 Ur Amphetamines Screen Negative 10/14/21 07:03 U Benzodiazepines Scrn Negative 10/14/21 07:03 Urine Cocaine Screen Positive 10/14/21 07:03 U Marijuana (THC) Screen Negative 10/14/21 07:03 Drugs of Abuse Note Disclamer 10/14/21 07:03 Coronavirus (PCR) Negative (Negative) 10/14/21 16:01 Microbiology: Microbiology 10/16/21 16:43 Peripheral/Venous Blood Culture - Preliminary NO GROWTH AFTER 4 DAYS 10/16/21 16:43 Peripheral/Venous Blood Culture - Preliminary NO GROWTH AFTER 4 DAYS Marquez/IV: Voiding Method Urinal Active Medications - Current Medications Current Medications: Generic Name Dose Route Start Last Admin Trade Name Freq PRN Reason Stop Dose Admin Acetaminophen 650 mg 10/14/21 13:00 10/18/21 22:34 Acetaminophen 325 Mg Tab PO 650 mg Q6H PRN Administration Pain MILD(1-3)/Fever >100.5/[place] Albuterol 2.5 mg 10/14/21 14:00 Albuterol 2.5 Mg/3 Ml Nebu IH Q3HRT PRN Shortness Of Breath Chlorthalidone 25 mg 10/20/21 10:00 10/20/21 11:48 Chlorthalidone 25 Mg Tab PO 25 mg QDAY KATHY Administration Clonidine HCl 0.2 mg 10/20/21 09:00 10/20/21 14:20 Clonidine 0.2 Mg Tab PO 0.2 mg Q4H PRN Administration sbp> 160 Diphenhydramine HCl 25 mg 10/15/21 10:00 10/15/21 16:26 Diphenhydramine 50 Mg/Ml Vial IV 25 mg Q6H PRN Administration Itching Famotidine 20 mg 10/19/21 10:00 10/20/21 11:56 Famotidine 20 Mg Tab PO 20 mg DAILY KATHY Administration Heparin Sodium (Porcine) 5,000 unit 10/15/21 10:00 10/20/21 21:33 Heparin 5,000 Unit/1 Ml Vial SUB-Q 5,000 unit Q12HR KATHY Administration Hydralazine HCl 10 mg 10/16/21 15:43 10/20/21 06:33 Hydralazine 20 Mg/1 Ml Inj IV 10 mg Q4HR PRN Administration Hypertension Hydralazine HCl 100 mg 10/19/21 14:00 10/20/21 21:33 Hydralazine 100 Mg Tab PO 100 mg TID KATHY Administration Hydrophilic Ointment 1 applic 10/14/21 15:47 Lip Therapy Vaseline TP Q2HR PRN Dry Lips Labetalol HCl 10 mg 10/18/21 08:11 10/19/21 07:10 Labetalol 20 Mg/4 Ml Inj IV 10 mg Q4HR PRN Administration Hypertension Morphine Sulfate 2 mg 10/14/21 12:01 10/16/21 09:34 Morphine 2 Mg/1 Ml Inj IV 2 mg Q4H PRN Administration Pain, Moderate (4-6) Multi-Ingred Cream/Lotion/Oil/Oint 1 applic 10/14/21 15:47 Mineral Oil/Petrolatum, White Ophth Oint 3.5 Gm OU Q4HR PRN Dry Eye(s) Nifedipine 60 mg 10/20/21 10:00 10/20/21 11:57 Nifedipine Xl 60 Mg Tab PO 60 mg QDAY KATHY Administration Oxycodone/Acetaminophen 1 tab 10/14/21 13:00 10/20/21 21:33 Oxycodone /Acetaminophen 5-325mg Tab PO 1 tab Q16H PRN Administration Pain, Moderate (4-6) Quetiapine Fumarate 100 mg 10/15/21 14:30 10/20/21 21:33 Quetiapine 100 Mg Tab PO 100 mg BID KATHY Administration Senna/Docusate Sodium 1 tab 10/18/21 22:00 10/20/21 21:33 Sennosides/Docusate Sodium 8.6/50 Mg Tab PO 1 tab BID KATHY Administration Sodium Chloride 10 ml 10/14/21 22:00 10/20/21 22:00 Sodium Chloride 0.9% 10 Ml Flush Syringe IV 10 ml BID KATHY Administration Sodium Chloride 10 ml 10/14/21 13:00 Sodium Chloride 0.9% 10 Ml Flush Syringe IV PRN PRN LINE FLUSH Valsartan 160 mg 10/19/21 15:00 10/20/21 11:55 Valsartan 160mg Tab PO 160 mg QDAY KATHY Administration Nutrition/Malnutrition Assess - Dietary Evaluation Nutrition/Malnutrition Findings: Nutrition Notes Start: 10/15/21 09:41 Freq: Status: Active Protocol: Document 10/18/21 10:09 ITA (Rec: 10/18/21 10:49 ITA [id number]) Nutrition Notes Initial or Follow up Reassessment Current Diagnosis Hypertension Other Pertinent Diagnosis Substance Abuse, Metabolic Encephalopathy, CAP, HFrEF, L- UE Fracture, ... Current Diet TF-Osmolite 1.5 Johnathan @ 50 ml/hr (since L 10/15). Labs/Tests 10/18: K 3.2, Crea 0.7, Glu 112. Pertinent Medications 10/18: Nutritionally unremarkable. 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 No body weight change reported in 3 days. Weight Status Appropriate Subjective/Other Information RD consult for TF tolerance/ continuation assessment. TF continues as prescribed, no further information available at the time. I recommend discontinue TF today and advance to PO Diet. Pt is on Room Air, O2 saturation @ 100%, according to Physical Assessment History notes. Pt continues presenting diarrhea, according to Physical Assessment History notes. Pt has missing teeth, according to Physical Assessment History notes. Pt passed bedside swallow assessment for medications on 10/17, according to RN notes. Pt extubated on 10/17, well tolerated, according to RN notes. Percent of energy/protein needs met: Prescribed TF-Osmolite 1.5 Johnathan @ 50 ml/hr provides for energy/protein needs (1,800 Kcal/75 g) during LOS, 110% Kcal; 107% AA. Prescribed Cardiac Diet provides for energy/protein needs (2,230 Kcal/85 g) during LOS. Burn Absent Trauma Absent GI Symptoms Diarrhea Food Allergy No Skin Integrity/Comment Assessment WNL. 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 Pt extubated on 10/17, well tolerated, according to RN notes. Diagnosis Progress(for reassessment Improved documentation) Is patient on ventilator? No Is Patient Ambulatory and/or Out of Bed No REE-([place]-confined to bed) 1531.212 Kcal/Kg value to use for calculation 28 Approximate Energy Requirements Using 1632 kcal/Kg Calculation Used for Recommendations Kcal/kg Additional Notes Protein: 1-1.2 g/Kg ABW; 58-70 g/day. Fluids: 1 ml/Kcal, or as per MD. Nutrition Intervention Change Diet Order: I recommend discontinue TF today and advance to PO Cardiac Diet. Nutrition Support: Continue TF-Osmolite 1.5 Johnathan @ 50 ml/hr. Flush: 150 ml water Q 4 hr, or as per MD. Kcal 1,800 Protein (gm) 75 Carbohydrates (gm) 244 Fat (gm) 59 Fluid (mL) 914 Fiber (gm) 0 % RDI: 110% Kcal; 107% AA. Goal #1 Provide at least 75% of energy /protein needs through Enteral Feeding during LOS. Goal #2 Adjust the dietary intervention to better serve Pt's needs and clinical conditions during LOS. Follow-Up By: 10/25/21 Additional Comments Continue monitoring TF tolerance and BM. When pertinent, start monitoring food tolerance, %PO intake of meals, and BM.
[2021-10-21] MEDS: hydrALAZINE 100 MG TAB PO SCH ×3 (10:41→21:57)
[2021-10-21 11:24] LABS: ABG Base Excess 1.4 mmol/L (-2.0-3.0); ABG HCO3 24.7 mmol/L (20.0-26.0); ABG Methemoglobin 0.4 % (0.0-1.5); ABG Oxygen Saturation 95.1 % (95.0-99.0); ABG PCO2 34.3 mm Hg; ABG PH 7.475 pH Units (7.350-7.450); ABG PO2 67.7 mm Hg (80.0-90.0)
[2021-10-21] MEDS: VALSARTAN 160MG TAB PO SCH (12:39)
[2021-10-21] MEDS: NIFEdipine XL 60 MG TAB PO SCH (12:39)
[2021-10-21] MEDS: QUEtiapine 100 MG TAB PO SCH ×2 (12:39→21:57)
[2021-10-21] MEDS: CHLORTHALIDONE 25 MG TAB PO SCH (12:39)
[2021-10-21] MEDS: HEPARIN 5,000 UNIT/1 ML VIAL SUB-Q SCH ×2 (12:40→21:59)
[2021-10-21] MEDS: SENNOSIDES/DOCUSATE SODIUM 8.6/50 MG TAB PO SCH ×2 (12:40→22:00)
[2021-10-21] MEDS: FAMOTIDINE 20 MG TAB PO SCH (12:40)
--- NOTE | 2021-10-21 13:10 | Progress Note ---
Assessment and Plan 71 YO Male with Vascular Dementia, Cerebral Atherosclerosis, Cocaine Dependence presents to ED for evaluation. Patient is intubated and on ventilatory support . Patient history obtained EMS staff, ED staff reports. The patient was found to have shortness of breath shortly after cocaine ingestion at 0500 hrs. morning of the admission day.. EMS was notified and upon arrival the patient was found to be in distress and subsequent transported to [facility] for further care and evaluation of the aforementioned symptoms. Patient found to have a O2 saturation running in the 70s which is consistent with acute hypoxemic respiratory failure. The patient was found to be unable to protect his airway and was intubated in the emergency department. The patient was also found to have a blood pressure of 218/128 mmHg which is consistent with hypertensive emergency. Patient initiated on Cardene drip. Chest x-ray revealed bilateral pneumonia. Patient admitted to ICU and initiated on pneumonia protocol. Patient has history of smoking 1 pack x 60 years. Geni told has history of alcohol abuse. He has history of cocaine abuse for long time. 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 Patient not . Has two children. No known drug allergies. Patient weaned from the ventilator and extubated him and transferred him to telemetry. Patient weak , on 2 litres O2. O2 saturation running 99%. Still Complaining shortness of breath, and chest pain at times. Denied cough. ABG on room air ABG pH 7.475 pH Units (7.350-7.450) H 10/21/21 10:38 ABG pCO2 34.3 mm Hg 10/21/21 10:38 ABG pO2 67.7 mm Hg (80.0-90.0) L 10/21/21 10:38 ABG O2 Saturation 95.1 % (95.0-99.0) 10/21/21 10:38 Patient running low grade temp at times. , No Leukocytosis, Blood pressure 129/61, Pulse 88, respirations 18. Chest xray done 10/17/21 reported Bilateral lung opacities demonstrate no significant interval change. Displaced fracture left humeral diaphysis unchanged. Left rib deformities unchanged. Patient presently on S/C Heparin, Famotidine. Recommend albuterol/atrovent aerosol treatments q 6 hours. Patient was treated with cefepime and Azithromycin for her pneumonia. - Patient Problems (1) Acute hypoxemic respiratory failure Current Visit: Yes Status: Acute Plan to address problem: Patient intubated and extubated. O2 2 litres via nasal canula. Continue S/C Heparin Continue Famotidine Recommend albuterol/atrovent aerosol treatments q 6 hours. (2) Cocaine dependence Current Visit: Yes Status: Acute Qualifiers: Complication of substance-induced condition: with unspecified complication Plan to address problem: Management as per primary care. Recommend psychiatry consultation. (3) Community acquired bilateral lower lobe pneumonia Current Visit: Yes Status: Acute Plan to address problem: Patient was treated with cefepime and Zithromax. Patient afebrile. No leukocytosis. (4) Hypertensive emergency Current Visit: Yes Status: Acute Plan to address problem: Patient is on Nifedipine, Labetelol and Hydralagine. Management as per primary care. (5) Chest pain Current Visit: Yes Status: Acute Plan to address problem: Management as per cardiology. Subjective Date of service: 10/21/21 Principal diagnosis: AHRF; Pulm. Edema; HTNsive Emergency; Cocaine abuse; Poss. Pneumonia; AMS Interval history: 71 YO Male with Vascular Dementia, Cerebral Atherosclerosis, Cocaine Dependence presents to ED for evaluation. Patient is intubated and on ventilatory support . Patient history obtained EMS staff, ED staff reports. The patient was found to have shortness of breath shortly after cocaine ingestion at 0500 hrs. mor maite of the admission day.. EMS was notified and upon arrival the patient was found to be in distress and subsequent transported to [facility] for further care and evaluation of the aforementioned symptoms. Patient found to have a O2 saturation running in the 70s which is consistent with acute hypoxemic respiratory failure. The patient was found to be unable to protect his airway and was intubated in the emergency department. The patient was also found to have a blood pressure of 218/128 mmHg which is consistent with hypertensive emergency. Patient initiated on Cardene drip. Chest x-ray revealed bilateral pneumonia. Patient admitted to ICU and initiated on pneumonia protocol. Patient has history of smoking 1 pack x 60 years. Healso told has history of alcohol abuse. He has history of cocaine abuse for long time. 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 Patient not . Has two children. No known drug allergies. Patient weaned from the ventilator and extubated him and transferred him to telemetry. Patient weak , on 2 litres O2. O2 saturation running 99%. Still Complaining shortness of breath, and chest pain at times. Denied cough. ABG on room air. ABG pH 7.475 pH Units (7.350-7.450) H 10/21/21 10:38 ABG pCO2 34.3 mm Hg 10/21/21 10:38 ABG pO2 67.7 mm Hg (80.0-90.0) L 10/21/21 10:38 ABG O2 Saturation 95.1 % (95.0-99.0) 10/21/21 10:38 Patient running low grade temp at times. , No Leukocytosis, Blood pressure 129/61, Pulse 88, respirations 18. Chest xray done 10/17/21 reported Bilateral lung opacities demonstrate no significant interval change. Displaced fracture left humeral diaphysis unchanged. Left rib deformities unchanged. Patient presently on S/C Heparin, Famotidine. Recommend albuterol/atrovent aerosol treatments q 6 hours. Patient was treated with cefepime and Azithromycin for her pneumonia. Objective Vital Signs - 12hr 10/21/21 10/21/21 10/21/21 01:30 03:34 07:47 Temperature 98.6 F 97.6 F Pulse Rate 89 87 93 H Respiratory 17 18 Rate Blood Pressure 123/60 134/71 O2 Sat by Pulse 95 97 Oximetry 10/21/21 11:54 Temperature 99.2 F Pulse Rate 88 Respiratory 18 Rate Blood Pressure 129/61 O2 Sat by Pulse 99 Oximetry Constitutional: alert, appears uncomfortable Eyes: non-icteric ENT: oropharynx moist Neck: supple, no lymphadenopathy, no JVD Effort: normal Ascultation: Bilateral: diminished breath sounds, other (barrel chest) Percussion: Bilateral: not dull Cardiovascular: regular rate and rhythm Gastrointestinal: normoactive bowel sounds, soft, non-tender, non-distended Integumentary: normal Extremities: no cyanosis, no edema, pulses normal, no ischemia or petechiae Neurologic: normal mental status, non-focal exam (grossly), pupils equal and round, motor strength normal and Psychiatric: anxious CBC and BMP: 10/19/21 04:41 10/19/21 04:41 ABG, PT/INR, D-dimer: ABG ABG pH 7.475 pH Units (7.350-7.450) H 10/21/21 10:38 ABG pCO2 34.3 mm Hg 10/21/21 10:38 ABG pO2 67.7 mm Hg (80.0-90.0) L 10/21/21 10:38 ABG O2 Saturation 95.1 % (95.0-99.0) 10/21/21 10:38 PT/INR, D-dimer PT 14.2 Sec. (12.2-14.9) 10/14/21 07:26 INR 0.99 (0.87-1.13) 10/14/21 07:26 D-Dimer 1033.11 ng/mlDDU (0-234) H 10/14/21 07:06 Abnormal lab findings: Abnormal Labs 10/14/21 10/14/21 10/14/21 07:06 07:26 07:26 RBC 3.46 L Hgb 11.7 L Hct 34.8 L MCV 101 H MCH 34 H Plt Count Lymph % (Auto) 13.1 L Lymph # (Auto) 0.8 L Seg Neutrophils % 78.8 H D-Dimer 1033.11 H ABG pH ABG pO2 ABG HCO3 ABG O2 Saturation ABG Base Excess ABG Hemoglobin Oxyhemoglobin Sodium 136 L Potassium Chloride Creatinine 0.6 L Glucose POC Glucose CK-MB (CK-2) Rel Index 6.7 H Total Protein Albumin 3.7 L 10/14/21 10/14/21 10/15/21 11:06 18:25 04:00 RBC 3.31 L Hgb 11.0 L Hct 34.0 L MCV 103 H MCH 33 H Plt Count Lymph % (Auto) Lymph # (Auto) 0.9 L Seg Neutrophils % 78.4 H D-Dimer ABG pH 7.227 L ABG pO2 71.3 L ABG HCO3 26.2 H ABG O2 Saturation 91.0 L ABG Base Excess -2.7 L ABG Hemoglobin 13.3 L 12.1 L Oxyhemoglobin 88.8 L Sodium Potassium Chloride Creatinine Glucose POC Glucose CK-MB (CK-2) Rel Index Total Protein Albumin 10/15/21 10/15/21 10/15/21 04:00 12:03 12:04 RBC Hgb Hct MCV MCH Plt Count Lymph % (Auto) Lymph # (Auto) Seg Neutrophils % D-Dimer ABG pH ABG pO2 ABG HCO3 ABG O2 Saturation ABG Base Excess ABG Hemoglobin Oxyhemoglobin Sodium 134 L Potassium Chloride Creatinine Glucose POC Glucose 45 L 42 L CK-MB (CK-2) Rel Index Total Protein Albumin 10/15/21 10/15/21 10/15/21 12:20 12:43 23:54 RBC Hgb Hct MCV MCH Plt Count Lymph % (Auto) Lymph # (Auto) Seg Neutrophils % D-Dimer ABG pH 7.311 L ABG pO2 91.2 H ABG HCO3 27.7 H ABG O2 Saturation ABG Base Excess ABG Hemoglobin 10.5 L Oxyhemoglobin Sodium Potassium Chloride Creatinine Glucose POC Glucose 161 H 122 H CK-MB (CK-2) Rel Index Total Protein Albumin 10/16/21 10/16/21 10/16/21 04:00 04:55 05:03 RBC 3.08 L Hgb 10.3 L Hct 31.6 L MCV 103 H MCH 33 H Plt Count 136 L Lymph % (Auto) Lymph # (Auto) Seg Neutrophils % D-Dimer ABG pH 7.338 L ABG pO2 117.1 H ABG HCO3 28.3 H ABG O2 Saturation ABG Base Excess ABG Hemoglobin 10.2 L Oxyhemoglobin Sodium Potassium Chloride Creatinine Glucose 121 H POC Glucose CK-MB (CK-2) Rel Index Total Protein Albumin 10/16/21 10/16/21 10/16/21 05:05 11:45 23:30 RBC Hgb Hct MCV MCH Plt Count Lymph % (Auto) Lymph # (Auto) Seg Neutrophils % D-Dimer ABG pH ABG pO2 ABG HCO3 ABG O2 Saturation ABG Base Excess ABG Hemoglobin Oxyhemoglobin Sodium Potassium Chloride Creatinine Glucose POC Glucose 116 H 110 H 154 H CK-MB (CK-2) Rel Index Total Protein Albumin 10/17/21 10/17/21 10/17/21 04:35 04:35 05:30 RBC 2.97 L Hgb 9.9 L Hct 30.3 L MCV 102 H MCH 33 H Plt Count Lymph % (Auto) Lymph # (Auto) Seg Neutrophils % D-Dimer ABG pH ABG pO2 65.5 L ABG HCO3 28.0 H ABG O2 Saturation 94.0 L ABG Base Excess ABG Hemoglobin 9.7 L Oxyhemoglobin 92.1 L Sodium 135 L Potassium Chloride 97.3 L Creatinine Glucose 146 H POC Glucose CK-MB (CK-2) Rel Index Total Protein Albumin 10/17/21 10/17/21 10/18/21 05:43 11:18 04:08 RBC 3.05 L Hgb 10.1 L Hct 31.1 L MCV 102 H MCH 33 H Plt Count Lymph % (Auto) Lymph # (Auto) Seg Neutrophils % D-Dimer ABG pH ABG pO2 ABG HCO3 ABG O2 Saturation ABG Base Excess ABG Hemoglobin Oxyhemoglobin Sodium Potassium Chloride Creatinine Glucose POC Glucose 166 H 111 H CK-MB (CK-2) Rel Index Total Protein Albumin 10/18/21 10/18/21 10/18/21 04:08 11:34 16:16 RBC Hgb Hct MCV MCH Plt Count Lymph % (Auto) Lymph # (Auto) Seg Neutrophils % D-Dimer ABG pH ABG pO2 ABG HCO3 ABG O2 Saturation ABG Base Excess ABG Hemoglobin Oxyhemoglobin Sodium Potassium 3.2 L Chloride Creatinine 0.7 L Glucose 112 H POC Glucose 161 H 139 H CK-MB (CK-2) Rel Index Total Protein 5.9 L Albumin 2.8 L 10/19/21 10/19/21 10/20/21 04:41 04:41 21:10 RBC 3.64 L Hgb Hct MCV 104 H MCH 33 H Plt Count Lymph % (Auto) Lymph # (Auto) Seg Neutrophils % D-Dimer ABG pH ABG pO2 ABG HCO3 ABG O2 Saturation ABG Base Excess ABG Hemoglobin Oxyhemoglobin Sodium Potassium Chloride Creatinine 0.7 L Glucose POC Glucose 146 H CK-MB (CK-2) Rel Index Total Protein Albumin 10/21/21 10:38 RBC Hgb Hct MCV MCH Plt Count Lymph % (Auto) Lymph # (Auto) Seg Neutrophils % D-Dimer ABG pH 7.475 H ABG pO2 67.7 L ABG HCO3 ABG O2 Saturation ABG Base Excess ABG Hemoglobin 10.2 L Oxyhemoglobin 93.2 L Sodium Potassium Chloride Creatinine Glucose POC Glucose CK-MB (CK-2) Rel Index Total Protein Albumin Allied health notes reviewed: nursing
--- NOTE | 2021-10-21 13:30 | Progress Note ---
Assessment and Plan - Patient Problems (1) Uncontrolled hypertension Current Visit: Yes Status: Deleted Plan to address problem: The patient was admitted several days ago with shortness of breath, uncontrolled hypertension, and bilateral interstitial pulmonary opacities with a working diagnosis of bilateral pneumonia. A CTA of the chest was recommended by pulmonary, but apparently not completed. His symptoms and chest x-ray findings have improved since admission. Cardiology consultation was requested for a questionable, nonspecific finding on echocardiogram. The echo on further review shows left ventricular systolic ejection fraction at the lower limits of normal, with mild to moderate concentric left ventricle hypertrophy. No further cardiac intervention has been recommended, but normal I reviewed the patient's systolic blood pressure had remained persistently elevated in the 180s. Blood pressure is now 120s systolic on addition of Procardia XL 60 mg daily. Subjective Date of service: 10/21/21 Principal diagnosis: AHRF; Pulm. Edema; HTNsive Emergency; Cocaine abuse; Poss. Pneumonia; AMS Interval history: The patient is comfortable, no new cardiac events reported. His blood pressure is now well controlled, consistently 120s systolic since the addition of Procardia XL yesterday. Objective Vital Signs Temp Pulse Resp Resp BP Pulse Ox 10/21/21 13:22 100 10/21/21 11:54 99.2 F 88 18 129/61 99 10/21/21 07:47 97.6 F 93 H 18 134/71 97 10/21/21 03:34 98.6 F 87 17 123/60 95 10/21/21 01:30 89 10/21/21 00:18 98.1 F 92 H 18 134/60 96 10/20/21 22:24 98 10/20/21 22:00 17 10/20/21 21:33 17 10/20/21 20:55 91 H 10/20/21 19:50 98.4 F 97 H 18 129/68 96 10/20/21 14:20 161/83 - Physical Examination General: No Apparent Distress HEENT: Positive: PERRL Neck: Positive: neck supple Cardiac: Positive: Reg Rate and Rhythm Lungs: Positive: Decreased Breath Sounds Neuro: Positive: Grossly Intact Abdomen: Positive: Soft Skin: Positive: Clear Extremities: Absent: edema - Allied health notes Allied health notes reviewed: nursing
[2021-10-21] MEDS: oxyCODONE /ACETAMINOPHEN 5-325MG TAB PO PRN (21:57)
--- NOTE | 2021-10-22 09:09 | Progress Note ---
Assessment and Plan - Patient Problems (1) Uncontrolled hypertension Current Visit: Yes Status: Deleted Plan to address problem: The patient was admitted several days ago with shortness of breath, uncontrolled hypertension, and bilateral interstitial pulmonary opacities with a working diagnosis of bilateral pneumonia. A CTA of the chest was recommended by pulmonary, but apparently not completed. His symptoms and chest x-ray findings have improved since admission. Cardiology consultation was requested for a questionable, nonspecific finding on echocardiogram. The echo on further review shows left ventricular systolic ejection fraction at the lower limits of normal, with mild to moderate concentric left ventricle hypertrophy. No further cardiac intervention has been recommended. Subjective Date of service: 10/22/21 Principal diagnosis: AHRF; Pulm. Edema; HTNsive Emergency; Cocaine abuse; Poss. Pneumonia; AMS Interval history: The patient is comfortable, no new cardiac events reported. His blood pressure is now well controlled with Procardia XL. Objective Vital Signs Temp Pulse Resp BP BP Pulse Ox 10/22/21 08:16 99 10/22/21 07:44 98.1 F 18 144/87 10/22/21 04:42 89 137/70 99 10/22/21 04:38 98.2 F 18 10/22/21 01:00 98 10/21/21 23:50 98.2 F 110 H 17 127/71 95 10/21/21 22:10 98 10/21/21 19:48 98.9 F 100 H 17 101/56 96 10/21/21 15:50 98.1 F 16 131/60 10/21/21 13:22 100 10/21/21 13:00 98 10/21/21 11:54 99.2 F 88 18 129/61 99 - Physical Examination General: No Apparent Distress HEENT: Positive: PERRL Neck: Positive: neck supple Cardiac: Positive: Reg Rate and Rhythm Lungs: Positive: Decreased Breath Sounds Neuro: Positive: Grossly Intact Abdomen: Positive: Soft Skin: Positive: Clear Extremities: Absent: edema - Allied health notes Allied health notes reviewed: nursing
[2021-10-22] MEDS: CHLORTHALIDONE 25 MG TAB PO SCH (10:40)
[2021-10-22] MEDS: oxyCODONE /ACETAMINOPHEN 5-325MG TAB PO PRN ×2 (10:41→21:05)
[2021-10-22] MEDS: VALSARTAN 160MG TAB PO SCH (10:41)
[2021-10-22] MEDS: QUEtiapine 100 MG TAB PO SCH ×2 (10:41→21:07)
[2021-10-22] MEDS: hydrALAZINE 100 MG TAB PO SCH ×3 (10:41→21:07)
[2021-10-22] MEDS: NIFEdipine XL 60 MG TAB PO SCH (10:41)
[2021-10-22] MEDS: HEPARIN 5,000 UNIT/1 ML VIAL SUB-Q SCH ×2 (10:41→21:07)
[2021-10-22] MEDS: FAMOTIDINE 20 MG TAB PO SCH (10:41)
[2021-10-22] MEDS: SENNOSIDES/DOCUSATE SODIUM 8.6/50 MG TAB PO SCH ×2 (11:22→21:06)
--- NOTE | 2021-10-22 12:47 | Progress Note ---
Assessment and Plan 71 YO Male with Vascular Dementia, Cerebral Atherosclerosis, Cocaine Dependence presents to ED for evaluation. Patient is intubated and on ventilatory support . Patient history obtained EMS staff, ED staff reports. The patient was found to have shortness of breath shortly after cocaine ingestion at 0500 hrs. morning of the admission day.. EMS was notified and upon arrival the patient was found to be in distress and subsequent transported to [facility] for further care and evaluation of the aforementioned symptoms. Patient found to have a O2 saturation running in the 70s which is consistent with acute hypoxemic respiratory failure. The patient was found to be unable to protect his airway and was intubated in the emergency department. The patient was also found to have a blood pressure of 218/128 mmHg which is consistent with hypertensive emergency. Patient initiated on Cardene drip. Chest x-ray revealed bilateral pneumonia. Patient admitted to ICU and initiated on pneumonia protocol. Patient has history of smoking 1 pack x 60 years. Geni told has history of alcohol abuse. He has history of cocaine abuse for long time. 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 Patient not . Has two children. No known drug allergies. Patient weaned from the ventilator and extubated him and transferred him to telemetry. Patient weak , Suppose to be on 2 litres O2. Not using his O2 regularly.O2 saturation running 97%. Still Complaining some shortness of breath, denies chest pain or cough. Complaining back pain. ABG on room air. ABG pH 7.475 pH Units (7.350-7.450) H 10/21/21 10:38 ABG pCO2 34.3 mm Hg 10/21/21 10:38 ABG pO2 67.7 mm Hg (80.0-90.0) L 10/21/21 10:38 ABG O2 Saturation 95.1 % (95.0-99.0) 10/21/21 10:38 Patient afebrile. No Leukocytosis, Blood pressure 149/69, Pulse 90, respirations 16. Chest xray done 10/17/21 reported Bilateral lung opacities demonstrate no significant interval change. Displaced fracture left humeral diaphysis unchanged. Left rib deformities unchanged. Patient presently on S/C Heparin, Famotidine. Recommend albuterol/atrovent aerosol treatments q 6 hours. Patient was treated with cefepime and Azithromycin for her pneumonia. - Patient Problems (1) Acute hypoxemic respiratory failure Current Visit: Yes Status: Acute Plan to address problem: Patient intubated and extubated. O2 2 litres via nasal canula. Continue S/C Heparin Continue Famotidine Recommend albuterol/atrovent aerosol treatments q 6 hours. (2) Cocaine dependence Current Visit: Yes Status: Acute Qualifiers: Complication of substance-induced condition: with unspecified complication Plan to address problem: Management as per primary care. Recommend psychiatry consultation. (3) Community acquired bilateral lower lobe pneumonia Current Visit: Yes Status: Acute Plan to address problem: Patient was treated with cefepime and Zithromax. Patient afebrile. No leukocytosis. (4) Hypertensive emergency Current Visit: Yes Status: Acute Plan to address problem: Patient is on Nifedipine, Labetelol and Hydralagine. Management as per primary care. (5) Chest pain Current Visit: Yes Status: Acute Plan to address problem: Management as per cardiology. Subjective Date of service: 10/22/21 Principal diagnosis: AHRF; Pulm. Edema; HTNsive Emergency; Cocaine abuse; Poss. Pneumonia; AMS Interval history: 71 YO Male with Vascular Dementia, Cerebral Atherosclerosis, Cocaine Dependence presents to ED for evaluation. Patient is intubated and on ventilatory support . Patient history obtained EMS staff, ED staff reports. The patient was found to have shortness of breath shortly after cocaine ingestion at 0500 hrs. morning of the admission day.. EMS was notified and upon arrival the patient was found to be in distress and subsequent transported to [facility] for further care and evaluation of the aforementioned symptoms. Patient found to have a O2 saturation running in the 70s which is consistent with acute hypoxemic respiratory failure. The patient was found to be unable to protect his airway and was intubated in the emergency department. The patient was also found to have a blood pressure of 218/128 mmHg which is consistent with hypertensive emergency. Patient initiated on Cardene drip. Chest x-ray revealed bilateral pneumonia. Patient admitted to ICU and initiated on pneumonia protocol. Patient has history of smoking 1 pack x 60 years. Healso told has history of alcohol abuse. He has history of cocaine abuse for long time. 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 Patient not . Has two children. No known drug allergies. Patient weaned from the ventilator and extubated him and transferred him to telemetry. Patient weak , Suppose to be on 2 litres O2. Not using his O2 regularly.O2 saturation running 97%. Still Complaining some shortness of breath, denies chest pain or cough. Complaining back pain. ABG on room air. ABG pH 7.475 pH Units (7.350-7.450) H 10/21/21 10:38 ABG pCO2 34.3 mm Hg 10/21/21 10:38 ABG pO2 67.7 mm Hg (80.0-90.0) L 10/21/21 10:38 ABG O2 Saturation 95.1 % (95.0-99.0) 10/21/21 10:38 Patient afebrile. No Leukocytosis, Blood pressure 149/69, Pulse 90, respirations 16. Chest xray done 10/17/21 reported Bilateral lung opacities demonstrate no significant interval change. Displaced fracture left humeral diaphysis unchanged. Left rib deformities unchanged. Patient presently on S/C Heparin, Famotidine. Recommend albuterol/atrovent aerosol treatments q 6 hours. Patient was treated with cefepime and Azithromycin for her pneumonia. Objective Vital Signs - 12hr 10/22/21 10/22/21 10/22/21 01:00 04:38 04:42 Temperature 98.2 F Pulse Rate 89 Respiratory 18 Rate Blood Pressure Blood Pressure 137/70 [Left] O2 Sat by Pulse 98 99 Oximetry 10/22/21 10/22/21 10/22/21 07:44 08:16 11:22 Temperature 98.1 F 98.2 F Pulse Rate 90 Respiratory 18 16 Rate Blood Pressure 144/87 149/69 Blood Pressure [Left] O2 Sat by Pulse 99 97 Oximetry Constitutional: no acute distress, alert Eyes: non-icteric ENT: oropharynx moist Neck: supple, no lymphadenopathy, no JVD Effort: normal Ascultation: Bilateral: diminished breath sounds, other (barrel chest) Percussion: Bilateral: not dull Cardiovascular: regular rate and rhythm Gastrointestinal: normoactive bowel sounds, soft, non-tender, non-distended Integumentary: normal Extremities: no cyanosis, no edema, pulses normal, no ischemia or petechiae Neurologic: normal mental status, non-focal exam (grossly), pupils equal and round, motor strength normal and Psychiatric: anxious CBC and BMP: 10/19/21 04:41 10/19/21 04:41 ABG, PT/INR, D-dimer: ABG ABG pH 7.475 pH Units (7.350-7.450) H 10/21/21 10:38 ABG pCO2 34.3 mm Hg 10/21/21 10:38 ABG pO2 67.7 mm Hg (80.0-90.0) L 10/21/21 10:38 ABG O2 Saturation 95.1 % (95.0-99.0) 10/21/21 10:38 PT/INR, D-dimer PT 14.2 Sec. (12.2-14.9) 10/14/21 07:26 INR 0.99 (0.87-1.13) 10/14/21 07:26 D-Dimer 1033.11 ng/mlDDU (0-234) H 10/14/21 07:06 Abnormal lab findings: Abnormal Labs 10/14/21 10/14/21 10/14/21 07:06 07:26 07:26 RBC 3.46 L Hgb 11.7 L Hct 34.8 L MCV 101 H MCH 34 H Plt Count Lymph % (Auto) 13.1 L Lymph # (Auto) 0.8 L Seg Neutrophils % 78.8 H D-Dimer 1033.11 H ABG pH ABG pO2 ABG HCO3 ABG O2 Saturation ABG Base Excess ABG Hemoglobin Oxyhemoglobin Sodium 136 L Potassium Chloride Creatinine 0.6 L Glucose POC Glucose CK-MB (CK-2) Rel Index 6.7 H Total Protein Albumin 3.7 L 10/14/21 10/14/21 10/15/21 11:06 18:25 04:00 RBC 3.31 L Hgb 11.0 L Hct 34.0 L MCV 103 H MCH 33 H Plt Count Lymph % (Auto) Lymph # (Auto) 0.9 L Seg Neutrophils % 78.4 H D-Dimer ABG pH 7.227 L ABG pO2 71.3 L ABG HCO3 26.2 H ABG O2 Saturation 91.0 L ABG Base Excess -2.7 L ABG Hemoglobin 13.3 L 12.1 L Oxyhemoglobin 88.8 L Sodium Potassium Chloride Creatinine Glucose POC Glucose CK-MB (CK-2) Rel Index Total Protein Albumin 10/15/21 10/15/21 10/15/21 04:00 12:03 12:04 RBC Hgb Hct MCV MCH Plt Count Lymph % (Auto) Lymph # (Auto) Seg Neutrophils % D-Dimer ABG pH ABG pO2 ABG HCO3 ABG O2 Saturation ABG Base Excess ABG Hemoglobin Oxyhemoglobin Sodium 134 L Potassium Chloride Creatinine Glucose POC Glucose 45 L 42 L CK-MB (CK-2) Rel Index Total Protein Albumin 10/15/21 10/15/21 10/15/21 12:20 12:43 23:54 RBC Hgb Hct MCV MCH Plt Count Lymph % (Auto) Lymph # (Auto) Seg Neutrophils % D-Dimer ABG pH 7.311 L ABG pO2 91.2 H ABG HCO3 27.7 H ABG O2 Saturation ABG Base Excess ABG Hemoglobin 10.5 L Oxyhemoglobin Sodium Potassium Chloride Creatinine Glucose POC Glucose 161 H 122 H CK-MB (CK-2) Rel Index Total Protein Albumin 10/16/21 10/16/21 10/16/21 04:00 04:55 05:03 RBC 3.08 L Hgb 10.3 L Hct 31.6 L MCV 103 H MCH 33 H Plt Count 136 L Lymph % (Auto) Lymph # (Auto) Seg Neutrophils % D-Dimer ABG pH 7.338 L ABG pO2 117.1 H ABG HCO3 28.3 H ABG O2 Saturation ABG Base Excess ABG Hemoglobin 10.2 L Oxyhemoglobin Sodium Potassium Chloride Creatinine Glucose 121 H POC Glucose CK-MB (CK-2) Rel Index Total Protein Albumin 10/16/21 10/16/21 10/16/21 05:05 11:45 23:30 RBC Hgb Hct MCV MCH Plt Count Lymph % (Auto) Lymph # (Auto) Seg Neutrophils % D-Dimer ABG pH ABG pO2 ABG HCO3 ABG O2 Saturation ABG Base Excess ABG Hemoglobin Oxyhemoglobin Sodium Potassium Chloride Creatinine Glucose POC Glucose 116 H 110 H 154 H CK-MB (CK-2) Rel Index Total Protein Albumin 10/17/21 10/17/21 10/17/21 04:35 04:35 05:30 RBC 2.97 L Hgb 9.9 L Hct 30.3 L MCV 102 H MCH 33 H Plt Count Lymph % (Auto) Lymph # (Auto) Seg Neutrophils % D-Dimer ABG pH ABG pO2 65.5 L ABG HCO3 28.0 H ABG O2 Saturation 94.0 L ABG Base Excess ABG Hemoglobin 9.7 L Oxyhemoglobin 92.1 L Sodium 135 L Potassium Chloride 97.3 L Creatinine Glucose 146 H POC Glucose CK-MB (CK-2) Rel Index Total Protein Albumin 10/17/21 10/17/21 10/18/21 05:43 11:18 04:08 RBC 3.05 L Hgb 10.1 L Hct 31.1 L MCV 102 H MCH 33 H Plt Count Lymph % (Auto) Lymph # (Auto) Seg Neutrophils % D-Dimer ABG pH ABG pO2 ABG HCO3 ABG O2 Saturation ABG Base Excess ABG Hemoglobin Oxyhemoglobin Sodium Potassium Chloride Creatinine Glucose POC Glucose 166 H 111 H CK-MB (CK-2) Rel Index Total Protein Albumin 10/18/21 10/18/21 10/18/21 04:08 11:34 16:16 RBC Hgb Hct MCV MCH Plt Count Lymph % (Auto) Lymph # (Auto) Seg Neutrophils % D-Dimer ABG pH ABG pO2 ABG HCO3 ABG O2 Saturation ABG Base Excess ABG Hemoglobin Oxyhemoglobin Sodium Potassium 3.2 L Chloride Creatinine 0.7 L Glucose 112 H POC Glucose 161 H 139 H CK-MB (CK-2) Rel Index Total Protein 5.9 L Albumin 2.8 L 10/19/21 10/19/21 10/20/21 04:41 04:41 21:10 RBC 3.64 L Hgb Hct MCV 104 H MCH 33 H Plt Count Lymph % (Auto) Lymph # (Auto) Seg Neutrophils % D-Dimer ABG pH ABG pO2 ABG HCO3 ABG O2 Saturation ABG Base Excess ABG Hemoglobin Oxyhemoglobin Sodium Potassium Chloride Creatinine 0.7 L Glucose POC Glucose 146 H CK-MB (CK-2) Rel Index Total Protein Albumin 10/21/21 10/21/21 10/21/21 10:38 16:18 21:25 RBC Hgb Hct MCV MCH Plt Count Lymph % (Auto) Lymph # (Auto) Seg Neutrophils % D-Dimer ABG pH 7.475 H ABG pO2 67.7 L ABG HCO3 ABG O2 Saturation ABG Base Excess ABG Hemoglobin 10.2 L Oxyhemoglobin 93.2 L Sodium Potassium Chloride Creatinine Glucose POC Glucose 160 H 115 H CK-MB (CK-2) Rel Index Total Protein Albumin Allied health notes reviewed: nursing
--- NOTE | 2021-10-22 13:06 | Progress Note ---
Assessment and Plan Assessment and plan: Interval history: This is a 71-year-old male with vascular dementia, cerebral atherosclerosis, cocaine dependence who presented to emergency department on 10/14 via EMS. On EMS arrival patient was found to have shortness of breath shortly after cocaine ingestion at 0500 on 10/14 and patient was transported to [facility] for further evaluation. In the emergency department patient was found to have SPO2 of 70%, and unable to protect his airway and he was intubated. Patient's blood pressure is also 218/128 and he was started on a Cardene drip, CXR reviewed bilateral pneumonia. Patient was admitted to the hospitalist service to the ICU with hypertensive emergency, pneumonia with consults to cardiology and CCM. Hospital Course to Date: 10/15: Intubated and sedated, follows commands intermittently. Off cardene gtt this am, VSS. This am ABG pending. Wean vent setting and sedation as tolerated, possible SAT/SBT in the am per CCM. Labs with elevated D-Dimer, COVID PCR pending. Given hypoxia will get a CTA chest and BLE doppler to r/o DVT/PE. VTE proph initiated. Will also get 2D echo to eval pulmonary pressors. Patient is hypoglycemic this am treated per hypoglycemic protocol, most likely due to NPO status. NGT initiated but not yet at goal, continue BG check Q6hrs and hypoglycemic protocol. LUE humerus fracture noted, LUE XR pending. Will also consult Ortho for further eval and treat. 10/16: Remains stable on the vent, on low dose sedation. Tolerating PSV trial this am. Per CCM, plan is to wean to extubate. Patient spike a Temp today, patient is hemodynamicaly stable, with no leukocytosis. Orders placed for blood cultures, will hold off on IV abx for now. 2D echo reviewed, LVEF 45% and c/f Takotsubo syndrome, cardiology consulted. CTA chest pending, unable to get in contact with patient's NOK. Case management is following for further assistance in locating patient's family. 10/17: Stable on the vent, off sedations. Tolerating PSV trial for possible extubation today. This am ABG reviewed, patient with some hypoxia but comp ensating. Still can't get in contact with patient's NOK at this time, will order V/Q scan to r/o PE. Continue VTE proph. Hypertensive overnight and required cardene gtt. Cardene is off this am, still mildly hypertensive. PO antihypertensive adjusted. Still with low grade fevers, but no leukocytosis, Blood cultures pending. continue current IV Abx for now. 10/18: Patient was extubated yesterday and is currently on nasal cannula to room air. Patient antihypertensive regimen increased and started on as needed labetalol for hypertension which is better controlled now. Patient will be transferred to the telemetry floor. 10/19: Antihypertensive medicine adjusted. Awaiting tele bed. No acute events overnight. This is a 71-year-old female with vascular dementia, cerebral sclerosis, cocaine abuse admitted with acute hypoxic respiratory failure and hypertensive emergency 10/20: Can be discharge home on chlorthalidone, procardia xl, hydralazine, valsartan. Advised to check blood pressure regularly. Advised to avoid cocaine ingestion. Patient will be discharge with instructions to follow up with OP cardiology and OP primary care physician. 10/21: Awaiting placement to [facility]. Medically clear for discharge otherwise. 10/22: Awaiting placement to [facility]. Medically clear for discharge otherwise. Assessment and Plan Neuro: Acute metabolic encephalopathy POA (resolved) , cocaine abuse, h/o cerebral atherosclerosis, vascular dementia -Reorientation as needed -Maintain sleep-wake cycle -As needed analgesia -Seroquel twice daily -UDS positive for cocaine -Substance abuse cessation strongly encouraged Cardiac: s/p hypertensive emergency, Takotsubo (ruled out), cardiomyopathy , h/o chronic systolic heart failure -Cardiology consulted, appreciate recommendations -Presented with blood pressure of 218/128 -S/p Cardene drip -Antihypertensive regimen: Valsartan, hydralazine, amlodipine -Blood pressure monitoring per protocol -Echocardiogram showed LVEF 45%, findings consistent with Takotsubo syndrome -Per cards: Echocardiogram reviewed, no appreciated evidence of reverse Takotsubo finding, moderate concentric LVH, mild left ventricular hypokinesis -No further work-up needed Respiratory: Acute hypoxemic respiratory failure, flash pulmonary edema -[facility] consulted, appreciate recommendations -Intubated on 10/14 in the ED and extubated on 10/17 -Pulmonary hygiene -SPO2 monitor per protocol -Supplemental oxygen as needed GI: Moderate protein calorie malnutrition -24 hours -365 mL -PPI -Cardiac diet -BR: Senokot S : NAD -Monitor intake and output -Renally dose medications -Avoid nephrotoxic medications -Repeat potassium -Trend BMP ID: Bilateral pneumonia -Infectious disease consulted, appreciate recommendation -Antibiotic therapy with azithromycin and Rocephin -f/u blood culture -Monitor WBC and temperature curve Endo: NAD -Avoid hypoglycemia Heme: Elevated D-dimer -D-dimer 1033 -V/Q scan with low probability of PE -Bilateral lower extremity Doppler negative for DVT -Trend CBC -Transfuse hemoglobin less than 7 -SCDs to BLE while in bed MS: Chronic left humerus fracture -Chronic left humerus fracture noted on left upper extremity x-ray -Ortho consulted, appreciate recommendations -Sling -PT/OT consulted, appreciate recommendations History Interval history: No acute complaints this AM. Hospitalist Physical - Physical exam Narrative exam: Physical Exam: VITAL SIGNS: Reviewed. GENERAL: The patient appears normally developed, Vital signs as documented. HEAD: No signs of head trauma. EYES: Pupils are equal. Extraocular motions intact. EARS: Hearing grossly intact. MOUTH: Oropharynx is normal. NECK: No adenopathy, no JVD. CHEST: Chest with clear breath sounds bilaterally. No wheezes, rales, or rhonchi. CARDIAC: Regular rate and rhythm. S1 and S2, without murmurs, gallops, or rubs. VASCULAR: No Edema. Peripheral pulses normal and equal in all extremities. ABDOMEN: Soft, non tender and non distended. No rebound or guarding, and no masses palpated. Bowel Sounds normal. MUSCULOSKELETAL: Good range of motion of all major joints. Extremities without clubbing, cyanosis or edema. NEUROLOGIC EXAM: Alert and oriented x 4. no focal sensory or strength deficits. PSYCHIATRIC: Mood normal. SKIN: detail exam as documented in skin assessment - Constitutional Vitals: Temp Pulse Resp BP Pulse Ox 98.2 F 90 16 149/69 97 10/22/21 11:22 10/22/21 11:22 10/22/21 11:22 10/22/21 11:22 10/22/21 11:22 General appearance: Present: no acute distress HEART Score - HEART Score Troponin: Troponin T < 0.010 ng/mL (0.00-0.029) 10/14/21 07:26 Results - Labs CBC & Chem 7: 10/19/21 04:41 10/19/21 04:41 Labs: Laboratory Last Values WBC 4.6 K/mm3 (4.5-11.0) 10/19/21 04:41 RBC 3.64 M/mm3 (3.65-5.03) L 10/19/21 04:41 Hgb 12.1 gm/dl (11.8-15.2) 10/19/21 04:41 Hct 37.7 % (35.5-45.6) D 10/19/21 04:41 MCV 104 fl (84-94) H 10/19/21 04:41 MCH 33 pg (28-32) H 10/19/21 04:41 MCHC 32 % (32-34) 10/19/21 04:41 RDW 14.7 % (13.2-15.2) 10/19/21 04:41 Plt Count 194 K/mm3 (140-440) 10/19/21 04:41 Lymph % (Auto) 13.5 % (13.4-35.0) 10/15/21 04:00 Howell % (Auto) 7.3 % (0.0-7.3) 10/15/21 04:00 Eos % (Auto) 0.4 % (0.0-4.3) 10/15/21 04:00 Baso % (Auto) 0.4 % (0.0-1.8) 10/15/21 04:00 Lymph # (Auto) 0.9 K/mm3 (1.2-5.4) L 10/15/21 04:00 Howell # (Auto) 0.5 K/mm3 (0.0-0.8) 10/15/21 04:00 Eos # (Auto) 0.0 K/mm3 (0.0-0.4) 10/15/21 04:00 Baso # (Auto) 0.0 K/mm3 (0.0-0.1) 10/15/21 04:00 Seg Neutrophils % 78.4 % (40.0-70.0) H 10/15/21 04:00 Seg Neutrophils # 5.2 K/mm3 (1.8-7.7) 10/15/21 04:00 PT 14.2 Sec. (12.2-14.9) 10/14/21 07:26 INR 0.99 (0.87-1.13) 10/14/21 07:26 APTT 29.0 Sec. (24.2-36.6) 10/14/21 07:26 D-Dimer 1033.11 ng/mlDDU (0-234) H 10/14/21 07:06 ABG pH 7.475 pH Units (7.350-7.450) H 10/21/21 10:38 ABG pCO2 34.3 mm Hg 10/21/21 10:38 ABG pO2 67.7 mm Hg (80.0-90.0) L 10/21/21 10:38 ABG HCO3 24.7 mmol/L (20.0-26.0) 10/21/21 10:38 ABG O2 Saturation 95.1 % (95.0-99.0) 10/21/21 10:38 ABG O2 Content 13.4 (0.0-44) 10/21/21 10:38 ABG Base Excess 1.4 mmol/L (-2.0-3.0) 10/21/21 10:38 ABG Hemoglobin 10.2 gm/dl (14.0-18.0) L 10/21/21 10:38 ABG Carboxyhemoglobin 1.6 % (0.0-5.0) 10/21/21 10:38 ABG Methemoglobin 0.4 % (0.0-1.5) 10/21/21 10:38 Oxyhemoglobin 93.2 % (95.0-99.0) L 10/21/21 10:38 FiO2 21 % 10/21/21 10:38 Sodium 139 mmol/L (137-145) 10/19/21 04:41 Potassium 3.8 mmol/L (3.6-5.0) 10/19/21 04:41 Chloride 103.9 mmol/L (98-107) 10/19/21 04:41 Carbon Dioxide 23 mmol/L (22-30) 10/19/21 04:41 Anion Gap 16 mmol/L 10/19/21 04:41 BUN 17 mg/dL (9-20) 10/19/21 04:41 Creatinine 0.7 mg/dL (0.8-1.3) L 10/19/21 04:41 Estimated GFR > 60 ml/min 10/19/21 04:41 BUN/Creatinine Ratio 24 % 10/19/21 04:41 Glucose 94 mg/dL (75-100) 10/19/21 04:41 POC Glucose 115 mg/dL (70-105) H 10/21/21 21:25 Lactic Acid 1.50 mmol/L (0.7-2.0) 10/14/21 07:26 Calcium 8.9 mg/dL (8.4-10.2) 10/19/21 04:41 Phosphorus 3.50 mg/dL (2.5-4.5) 10/18/21 04:08 Magnesium 1.70 mg/dL (1.7-2.3) 10/18/21 04:08 Total Bilirubin 0.40 mg/dL (0.1-1.2) 10/18/21 04:08 AST 31 units/L (5-40) 10/18/21 04:08 ALT 22 units/L (7-56) 10/18/21 04:08 Alkaline Phosphatase 48 units/L (35-129) 10/18/21 04:08 Total Creatine Kinase 58 units/L (55-170) 10/14/21 07:26 CK-MB (CK-2) 3.9 ng/mL (0.0-4.0) 10/14/21 07:26 CK-MB (CK-2) Rel Index 6.7 (0-4) H 10/14/21 07:26 Troponin T < 0.010 ng/mL (0.00-0.029) 10/14/21 07:26 C-Reactive Protein 1.20 mg/dL (0.00-1.30) 10/14/21 00:00 Total Protein 5.9 g/dL (6.3-8.2) L 10/18/21 04:08 Albumin 2.8 g/dL (3.9-5) L 10/18/21 04:08 Albumin/Globulin Ratio 0.9 % 10/18/21 04:08 Procalcitonin 0.21 ng/mL (<0.15) 10/14/21 00:00 Urine Color Straw (Yellow) 10/14/21 07:03 Urine Turbidity Clear (Clear) 10/14/21 07:03 Specific Homer (Man) 1.015 (1.003-1.030) 10/14/21 07:03 Ur Protein (Man) 1+ mg/dL (Negative) 10/14/21 07:03 Ur Ketones (Man) Negative (Negative) 10/14/21 07:03 Urine Bilirubin (Man) Negative (Negative) 10/14/21 07:03 Urine WBC (Auto) < 1.0 /HPF (0.0-6.0) 10/14/21 07:03 Urine RBC (Auto) 4.0 /HPF (0.0-6.0) 10/14/21 07:03 U Epithel Cells (Auto) 1.0 /HPF (0-13.0) 10/14/21 07:03 Urine RBC (Manual) Negative (Negative) 10/14/21 07:03 Urine Opiates Screen Negative 10/14/21 07:03 Urine Methadone Screen Negative 10/14/21 07:03 Ur Barbiturates Screen Negative 10/14/21 07:03 Ur Phencyclidine Scrn Negative 10/14/21 07:03 Ur Amphetamines Screen Negative 10/14/21 07:03 U Benzodiazepines Scrn Negative 10/14/21 07:03 Urine Cocaine Screen Positive 10/14/21 07:03 U Marijuana (THC) Screen Negative 10/14/21 07:03 Drugs of Abuse Note Disclamer 10/14/21 07:03 Coronavirus (PCR) Negative (Negative) 10/14/21 16:01 Microbiology: Microbiology 10/16/21 16:43 Peripheral/Venous Blood Culture - Final NO GROWTH AFTER 5 DAYS 10/16/21 16:43 Peripheral/Venous Blood Culture - Final NO GROWTH AFTER 5 DAYS Marquez/IV: Voiding Method Urinal Active Medications - Current Medications Current Medications: Generic Name Dose Route Start Last Admin Trade Name Freq PRN Reason Stop Dose Admin Acetaminophen 650 mg 10/14/21 13:00 10/18/21 22:34 Acetaminophen 325 Mg Tab PO 650 mg Q6H PRN Administration Pain MILD(1-3)/Fever >100.5/[place] Albuterol 2.5 mg 10/14/21 14:00 Albuterol 2.5 Mg/3 Ml Nebu IH Q3HRT PRN Shortness Of Breath Chlorthalidone 25 mg 10/20/21 10:00 10/22/21 10:40 Chlorthalidone 25 Mg Tab PO 25 mg QDAY KATHY Administration Clonidine HCl 0.2 mg 10/20/21 09:00 10/20/21 14:20 Clonidine 0.2 Mg Tab PO 0.2 mg Q4H PRN Administration sbp> 160 Diphenhydramine HCl 25 mg 10/15/21 10:00 10/15/21 16:26 Diphenhydramine 50 Mg/Ml Vial IV 25 mg Q6H PRN Administration Itching Famotidine 20 mg 10/19/21 10:00 10/22/21 10:41 Famotidine 20 Mg Tab PO 20 mg DAILY KATHY Administration Heparin Sodium (Porcine) 5,000 unit 10/15/21 10:00 10/22/21 10:41 Heparin 5,000 Unit/1 Ml Vial SUB-Q 5,000 unit Q12HR KATHY Administration Hydralazine HCl 10 mg 10/16/21 15:43 10/20/21 06:33 Hydralazine 20 Mg/1 Ml Inj IV 10 mg Q4HR PRN Administration Hypertension Hydralazine HCl 100 mg 10/19/21 14:00 10/22/21 10:41 Hydralazine 100 Mg Tab PO 100 mg TID KATHY Administration Hydrophilic Ointment 1 applic 10/14/21 15:47 Lip Therapy Vaseline TP Q2HR PRN Dry Lips Labetalol HCl 10 mg 10/18/21 08:11 10/19/21 07:10 Labetalol 20 Mg/4 Ml Inj IV 10 mg Q4HR PRN Administration Hypertension Morphine Sulfate 2 mg 10/14/21 12:01 10/16/21 09:34 Morphine 2 Mg/1 Ml Inj IV 2 mg Q4H PRN Administration Pain, Moderate (4-6) Multi-Ingred Cream/Lotion/Oil/Oint 1 applic 10/14/21 15:47 Mineral Oil/Petrolatum, White Ophth Oint 3.5 Gm OU Q4HR PRN Dry Eye(s) Nifedipine 60 mg 10/20/21 10:00 10/22/21 10:41 Nifedipine Xl 60 Mg Tab PO 60 mg QDAY KATHY Administration Oxycodone/Acetaminophen 1 tab 10/14/21 13:00 10/22/21 10:41 Oxycodone /Acetaminophen 5-325mg Tab PO 1 tab Q16H PRN Administration Pain, Moderate (4-6) Quetiapine Fumarate 100 mg 10/15/21 14:30 10/22/21 10:41 Quetiapine 100 Mg Tab PO 100 mg BID KATHY Administration Senna/Docusate Sodium 1 tab 10/18/21 22:00 10/22/21 11:22 Sennosides/Docusate Sodium 8.6/50 Mg Tab PO Not Given BID KATHY Sodium Chloride 10 ml 10/14/21 22:00 10/21/21 21:59 Sodium Chloride 0.9% 10 Ml Flush Syringe IV 10 ml BID KATHY Administration Sodium Chloride 10 ml 10/14/21 13:00 Sodium Chloride 0.9% 10 Ml Flush Syringe IV PRN PRN LINE FLUSH Valsartan 160 mg 10/19/21 15:00 10/22/21 10:41 Valsartan 160mg Tab PO 160 mg QDAY KATHY Administration Nutrition/Malnutrition Assess - Dietary Evaluation Nutrition/Malnutrition Findings: Nutrition Notes Start: 10/15/21 09:41 Freq: Status: Active Protocol: Document 10/18/21 10:09 ITA (Rec: 10/18/21 10:49 ITA [id number]) Nutrition Notes Initial or Follow up Reassessment Current Diagnosis Hypertension Other Pertinent Diagnosis Substance Abuse, Metabolic Encephalopathy, CAP, HFrEF, L- UE Fracture, ... Current Diet TF-Osmolite 1.5 Johnathan @ 50 ml/hr (since L 10/15). Labs/Tests 10/18: K 3.2, Crea 0.7, Glu 112. Pertinent Medications 10/18: Nutritionally unremarkable. 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 No body weight change reported in 3 days. Weight Status Appropriate Subjective/Other Information RD consult for TF tolerance/ continuation assessment. TF continues as prescribed, no further information available at the time. I recommend discontinue TF today and advance to PO Diet. Pt is on Room Air, O2 saturation @ 100%, according to Physical Assessment History notes. Pt continues presenting diarrhea, according to Physical Assessment History notes. Pt has missing teeth, according to Physical Assessment History notes. Pt passed bedside swallow assessment for medications on 10/17, according to RN notes. Pt extubated on 10/17, well tolerated, according to RN notes. Percent of energy/protein needs met: Prescribed TF-Osmolite 1.5 Johnathan @ 50 ml/hr provides for energy/protein needs (1,800 Kcal/75 g) during LOS, 110% Kcal; 107% AA. Prescribed Cardiac Diet provides for energy/protein needs (2,230 Kcal/85 g) during LOS. Burn Absent Trauma Absent GI Symptoms Diarrhea Food Allergy No Skin Integrity/Comment Assessment WNL. 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 Pt extubated on 10/17, well tolerated, according to RN notes. Diagnosis Progress(for reassessment Improved documentation) Is patient on ventilator? No Is Patient Ambulatory and/or Out of Bed No REE-([facility]-confined to bed) 1531.212 Kcal/Kg value to use for calculation 28 Approximate Energy Requirements Using 1632 kcal/Kg Calculation Used for Recommendations Kcal/kg Additional Notes Protein: 1-1.2 g/Kg ABW; 58-70 g/day. Fluids: 1 ml/Kcal, or as per MD. Nutrition Intervention Change Diet Order: I recommend discontinue TF today and advance to PO Cardiac Diet. Nutrition Support: Continue TF-Osmolite 1.5 Johnathan @ 50 ml/hr. Flush: 150 ml water Q 4 hr, or as per MD. Kcal 1,800 Protein (gm) 75 Carbohydrates (gm) 244 Fat (gm) 59 Fluid (mL) 914 Fiber (gm) 0 % RDI: 110% Kcal; 107% AA. Goal #1 Provide at least 75% of energy /protein needs through Enteral Feeding during LOS. Goal #2 Adjust the dietary intervention to better serve Pt's needs and clinical conditions during LOS. Follow-Up By: 10/25/21 Additional Comments Continue monitoring TF tolerance and BM. When pertinent, start monitoring food tolerance, %PO intake of meals, and BM.
--- NOTE | 2021-10-22 15:28 | Consultation ---
History of Present Illness - HPI Consult date: 10/22/21 Consult reason: fracture History of present illness: 71 y/o male with c/o left arm pain and weakness, states he originally fractured arm about 2 yrs ago and never had surgery done to it...states he would like to h ave his arm stabilized at some point, no orthopedic problems note... Past History Past Medical History: other (See HPI) Past Surgical History: No surgical history, Other (Reviewed) Social history: single, other (Cocaine dependence). denies: smoking, alcohol abuse Family history: no significant family history, other (Reviewed) Medications and Allergies Allergies Allergy/AdvReac Type Severity Reaction Status Date / Time No Known Allergies Allergy Verified 07/24/21 16:08 Home Medications Medication Instructions Recorded Confirmed Last Taken Type Chlorthalidone [Thalitone] 25 mg PO QDAY 90 Days #90 tablet 10/20/21 Unknown Rx NIFEdipine XL [Procardia Xl] 60 mg PO QDAY 90 Days #90 tablet 10/20/21 Unknown Rx Valsartan [Diovan] 160 mg PO QDAY 90 Days #90 tablet 10/20/21 Unknown Rx hydrALAZINE [Apresoline TAB] 100 mg PO TID 90 Days #270 tab 10/20/21 Unknown Rx Active Meds: Active Medications Acetaminophen (Acetaminophen 325 Mg Tab) 650 mg PO Q6H PRN PRN Reason: Pain MILD(1-3)/Fever >100.5/[place] Last Admin: 10/18/21 22:34 Dose: 650 mg Albuterol (Albuterol 2.5 Mg/3 Ml Nebu) 2.5 mg IH Q3HRT PRN PRN Reason: Shortness Of Breath Chlorthalidone (Chlorthalidone 25 Mg Tab) 25 mg PO QDAY [facility] Last Admin: 10/22/21 10:40 Dose: 25 mg Clonidine HCl (Clonidine 0.2 Mg Tab) 0.2 mg PO Q4H PRN PRN Reason: sbp> 160 Last Admin: 10/20/21 14:20 Dose: 0.2 mg Diphenhydramine HCl (Diphenhydramine 50 Mg/Ml Vial) 25 mg IV Q6H PRN PRN Reason: Itching Last Admin: 10/15/21 16:26 Dose: 25 mg Famotidine (Famotidine 20 Mg Tab) 20 mg PO DAILY [facility] Last Admin: 10/22/21 10:41 Dose: 20 mg Heparin Sodium (Porcine) (Heparin 5,000 Unit/1 Ml Vial) 5,000 unit SUB-Q Q12HR [facility] Last Admin: 10/22/21 10:41 Dose: 5,000 unit Hydralazine HCl (Hydralazine 20 Mg/1 Ml Inj) 10 mg IV Q4HR PRN PRN Reason: Hypertension Last Admin: 10/20/21 06:33 Dose: 10 mg Hydralazine HCl (Hydralazine 100 Mg Tab) 100 mg PO TID [facility] Last Admin: 10/22/21 10:41 Dose: 100 mg Hydrophilic Ointment (Lip Therapy Vaseline) 1 applic TP Q2HR PRN PRN Reason: Dry Lips Labetalol HCl (Labetalol 20 Mg/4 Ml Inj) 10 mg IV Q4HR PRN PRN Reason: Hypertension Last Admin: 10/19/21 07:10 Dose: 10 mg Morphine Sulfate (Morphine 2 Mg/1 Ml Inj) 2 mg IV Q4H PRN PRN Reason: Pain, Moderate (4-6) Last Admin: 10/16/21 09:34 Dose: 2 mg Multi-Ingred Cream/Lotion/Oil/Oint (Mineral Oil/Petrolatum, White Ophth Oint 3.5 Gm) 1 applic OU Q4HR PRN PRN Reason: Dry Eye(s) Nifedipine (Nifedipine Xl 60 Mg Tab) 60 mg PO QDAY [facility] Last Admin: 10/22/21 10:41 Dose: 60 mg Oxycodone/Acetaminophen (Oxycodone /Acetaminophen 5-325mg Tab) 1 tab PO Q16H PRN PRN Reason: Pain, Moderate (4-6) Last Admin: 10/22/21 10:41 Dose: 1 tab Quetiapine Fumarate (Quetiapine 100 Mg Tab) 100 mg PO BID [facility] Last Admin: 10/22/21 10:41 Dose: 100 mg Senna/Docusate Sodium (Sennosides/Docusate Sodium 8.6/50 Mg Tab) 1 tab PO BID [facility] Last Admin: 10/22/21 11:22 Dose: Not Given Sodium Chloride (Sodium Chloride 0.9% 10 Ml Flush Syringe) 10 ml IV BID [facility] Last Admin: 10/21/21 21:59 Dose: 10 ml Sodium Chloride (Sodium Chloride 0.9% 10 Ml Flush Syringe) 10 ml IV PRN PRN PRN Reason: LINE FLUSH Valsartan (Valsartan 160mg Tab) 160 mg PO QDAY KATHY Last Admin: 10/22/21 10:41 Dose: 160 mg Physical Examination - Physical exam Narrative exam: At the left arm, noted to obvious deformity at midshaft region, gross motion noted, distal n/v intact plain xrays reviewed by me and show old fx/nonunion left humerus Assessment and Plan Assessment - Non-union left humeral shaft Plan - recommend ORIF at some point after dc from hospital, will schedule as outpatient....
--- NOTE | 2021-10-23 08:22 | Progress Note ---
Assessment and Plan 71 YO Male with Vascular Dementia, Cerebral Atherosclerosis, Cocaine Dependence presents to ED for evaluation. Patient is intubated and on ventilatory support . Patient history obtained EMS staff, ED staff reports. The patient was found to have shortness of breath shortly after cocaine ingestion at 0500 hrs. morning of the admission day.. EMS was notified and upon arrival the patient was found to be in distress and subsequent transported to [facility] for further care and evaluation of the aforementioned symptoms. Patient found to have a O2 saturation running in the 70s which is consistent with acute hypoxemic respiratory failure. The patient was found to be unable to protect his airway and was intubated in the emergency department. The patient was also found to have a blood pressure of 218/128 mmHg which is consistent with hypertensive emergency. Patient initiated on Cardene drip. Chest x-ray revealed bilateral pneumonia. Patient admitted to ICU and initiated on pneumonia protocol. Patient has history of smoking 1 pack x 60 years. Geni told has history of alcohol abuse. He has history of cocaine abuse for long time. 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 Patient not . Has two children. No known drug allergies. Patient weaned from the ventilator and extubated him and transferred him to telemetry. atient awake, Suppose to be on 2 litres O2. Not using his O2 regularly.O2 saturation running 97%. Still Complaining some shortness of breath, denies chest pain or cough. Complaining back pain. ABG on room air. ABG pH 7.475 pH Units (7.350-7.450) H 10/21/21 10:38 ABG pCO2 34.3 mm Hg 10/21/21 10:38 ABG pO2 67.7 mm Hg (80.0-90.0) L 10/21/21 10:38 ABG O2 Saturation 95.1 % (95.0-99.0) 10/21/21 10:38 Patient afebrile. No Leukocytosis, Blood pressure 154/73, Pulse 91, respir Chest xray done 10/17/21 reported Bilateral lung opacities demonstrate no significant interval change. Displaced fracture left humeral diaphysis unchanged. Left rib deformities unchanged. Patient presently on S/C Heparin, Famotidine. Recommend albuterol/atrovent aerosol treatments q 6 hours. Patient was treated with cefepime and Azithromycin for her pneumonia. - Patient Problems (1) Acute hypoxemic respiratory failure Current Visit: Yes Status: Acute Plan to address problem: Patient intubated and extubated. O2 2 litres via nasal canula. Continue S/C Heparin Continue Famotidine Recommend albuterol/atrovent aerosol treatments q 6 hours. (2) Cocaine dependence Current Visit: Yes Status: Acute Qualifiers: Complication of substance-induced condition: with unspecified complication Plan to address problem: Management as per primary care. Recommend psychiatry consultation. (3) Community acquired bilateral lower lobe pneumonia Current Visit: Yes Status: Acute Plan to address problem: Patient was treated with cefepime and Zithromax. Patient afebrile. No leukocytosis. (4) Hypertensive emergency Current Visit: Yes Status: Acute Plan to address problem: Patient is on Nifedipine, Labetelol and Hydralagine and Clonidine. Management as per primary care. (5) Chest pain Current Visit: Yes Status: Acute Plan to address problem: Management as per cardiology. Subjective Date of service: 10/23/21 Principal diagnosis: AHRF; Pulm. Edema; HTNsive Emergency; Cocaine abuse; Poss. Pneumonia; AMS Interval history: 71 YO Male with Vascular Dementia, Cerebral Atherosclerosis, Cocaine Dependence presents to ED for evaluation. Patient is intubated and on ventilatory support . Patient history obtained EMS staff, ED staff reports. The patient was found to have shortness of breath shortly after cocaine ingestion at 0500 hrs. morning of the admission day.. EMS was notified and upon arrival the patient was found to be in distress and subsequent transported to [facility] for further care and evaluation of the aforementioned symptoms. Patient found to have a O2 saturation running in the 70s which is consistent with acute hypoxemic respiratory failure. The patient was found to be unable to protect his airway and was intubated in the emergency department. The patient was also found to have a blood pressure of 218/128 mmHg which is consistent with hypertensive emergency. Patient initiated on Cardene drip. Chest x-ray revealed bilateral pneumonia. Patient admitted to ICU and initiated on pneumonia protocol. Patient has history of smoking 1 pack x 60 years. Healso told has history of alcohol abuse. He has history of cocaine abuse for long time. 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 Patient not . Has two children. No known drug allergies. Patient weaned from the ventilator and extubated him and transferred him to telemetry. Patient awake, Suppose to be on 2 litres O2. Not using his O2 regularly.O2 saturation running 97%. Still Complaining some shortness of breath, denies chest pain or cough. Complaining back pain. ABG on room air. ABG pH 7.475 pH Units (7.350-7.450) H 10/21/21 10:38 ABG pCO2 34.3 mm Hg 10/21/21 10:38 ABG pO2 67.7 mm Hg (80.0-90.0) L 10/21/21 10:38 ABG O2 Saturation 95.1 % (95.0-99.0) 10/21/21 10:38 Patient afebrile. No Leukocytosis, Blood pressure 154/73, Pulse 91, respirations 18. Chest xray done 10/17/21 reported Bilateral lung opacities demonstrate no significant interval change. Displaced fracture left humeral diaphysis unch anged. Left rib deformities unchanged. Patient presently on S/C Heparin, Famotidine. Recommend albuterol/atrovent aerosol treatments q 6 hours. Patient was treated with cefepime and Azithromycin for her pneumonia. Objective Vital Signs - 12hr 10/23/21 10/23/21 10/23/21 00:40 01:22 04:41 Temperature 98.1 F 98.0 F Pulse Rate 101 H 93 H Respiratory 18 20 Rate Blood Pressure 139/60 138/66 Blood Pressure [Left] O2 Sat by Pulse 95 97 97 Oximetry 10/23/21 07:39 Temperature 97.5 F L Pulse Rate 91 H Respiratory 16 Rate Blood Pressure Blood Pressure 154/73 [Left] O2 Sat by Pulse 97 Oximetry Constitutional: no acute distress, alert Eyes: non-icteric ENT: oropharynx moist Neck: supple, no lymphadenopathy, no JVD Effort: normal Ascultation: Bilateral: diminished breath sounds, other (barrel chest) Percussion: Bilateral: not dull Cardiovascular: regular rate and rhythm Gastrointestinal: normoactive bowel sounds, soft, non-tender, non-distended Integumentary: normal Extremities: no cyanosis, no edema, pulses normal, no ischemia or petechiae Neurologic: normal mental status, non-focal exam (grossly), pupils equal and round, motor strength normal and Psychiatric: anxious CBC and BMP: 10/19/21 04:41 10/19/21 04:41 ABG, PT/INR, D-dimer: ABG ABG pH 7.475 pH Units (7.350-7.450) H 10/21/21 10:38 ABG pCO2 34.3 mm Hg 10/21/21 10:38 ABG pO2 67.7 mm Hg (80.0-90.0) L 10/21/21 10:38 ABG O2 Saturation 95.1 % (95.0-99.0) 10/21/21 10:38 PT/INR, D-dimer PT 14.2 Sec. (12.2-14.9) 10/14/21 07:26 INR 0.99 (0.87-1.13) 10/14/21 07:26 D-Dimer 1033.11 ng/mlDDU (0-234) H 10/14/21 07:06 Abnormal lab findings: Abnormal Labs 10/14/21 10/14/21 10/14/21 07:06 07:26 07:26 RBC 3.46 L Hgb 11.7 L Hct 34.8 L MCV 101 H MCH 34 H Plt Count Lymph % (Auto) 13.1 L Lymph # (Auto) 0.8 L Seg Neutrophils % 78.8 H D-Dimer 1033.11 H ABG pH ABG pO2 ABG HCO3 ABG O2 Saturation ABG Base Excess ABG Hemoglobin Oxyhemoglobin Sodium 136 L Potassium Chloride Creatinine 0.6 L Glucose POC Glucose CK-MB (CK-2) Rel Index 6.7 H Total Protein Albumin 3.7 L 10/14/21 10/14/21 10/15/21 11:06 18:25 04:00 RBC 3.31 L Hgb 11.0 L Hct 34.0 L MCV 103 H MCH 33 H Plt Count Lymph % (Auto) Lymph # (Auto) 0.9 L Seg Neutrophils % 78.4 H D-Dimer ABG pH 7.227 L ABG pO2 71.3 L ABG HCO3 26.2 H ABG O2 Saturation 91.0 L ABG Base Excess -2.7 L ABG Hemoglobin 13.3 L 12.1 L Oxyhemoglobin 88.8 L Sodium Potassium Chloride Creatinine Glucose POC Glucose CK-MB (CK-2) Rel Index Total Protein Albumin 10/15/21 10/15/21 10/15/21 04:00 12:03 12:04 RBC Hgb Hct MCV MCH Plt Count Lymph % (Auto) Lymph # (Auto) Seg Neutrophils % D-Dimer ABG pH ABG pO2 ABG HCO3 ABG O2 Saturation ABG Base Excess ABG Hemoglobin Oxyhemoglobin Sodium 134 L Potassium Chloride Creatinine Glucose POC Glucose 45 L 42 L CK-MB (CK-2) Rel Index Total Protein Albumin 10/15/21 10/15/21 10/15/21 12:20 12:43 23:54 RBC Hgb Hct MCV MCH Plt Count Lymph % (Auto) Lymph # (Auto) Seg Neutrophils % D-Dimer ABG pH 7.311 L ABG pO2 91.2 H ABG HCO3 27.7 H ABG O2 Saturation ABG Base Excess ABG Hemoglobin 10.5 L Oxyhemoglobin Sodium Potassium Chloride Creatinine Glucose POC Glucose 161 H 122 H CK-MB (CK-2) Rel Index Total Protein Albumin 10/16/21 10/16/21 10/16/21 04:00 04:55 05:03 RBC 3.08 L Hgb 10.3 L Hct 31.6 L MCV 103 H MCH 33 H Plt Count 136 L Lymph % (Auto) Lymph # (Auto) Seg Neutrophils % D-Dimer ABG pH 7.338 L ABG pO2 117.1 H ABG HCO3 28.3 H ABG O2 Saturation ABG Base Excess ABG Hemoglobin 10.2 L Oxyhemoglobin Sodium Potassium Chloride Creatinine Glucose 121 H POC Glucose CK-MB (CK-2) Rel Index Total Protein Albumin 10/16/21 10/16/21 10/16/21 05:05 11:45 23:30 RBC Hgb Hct MCV MCH Plt Count Lymph % (Auto) Lymph # (Auto) Seg Neutrophils % D-Dimer ABG pH ABG pO2 ABG HCO3 ABG O2 Saturation ABG Base Excess ABG Hemoglobin Oxyhemoglobin Sodium Potassium Chloride Creatinine Glucose POC Glucose 116 H 110 H 154 H CK-MB (CK-2) Rel Index Total Protein Albumin 10/17/21 10/17/21 10/17/21 04:35 04:35 05:30 RBC 2.97 L Hgb 9.9 L Hct 30.3 L MCV 102 H MCH 33 H Plt Count Lymph % (Auto) Lymph # (Auto) Seg Neutrophils % D-Dimer ABG pH ABG pO2 65.5 L ABG HCO3 28.0 H ABG O2 Saturation 94.0 L ABG Base Excess ABG Hemoglobin 9.7 L Oxyhemoglobin 92.1 L Sodium 135 L Potassium Chloride 97.3 L Creatinine Glucose 146 H POC Glucose CK-MB (CK-2) Rel Index Total Protein Albumin 10/17/21 10/17/21 10/18/21 05:43 11:18 04:08 RBC 3.05 L Hgb 10.1 L Hct 31.1 L MCV 102 H MCH 33 H Plt Count Lymph % (Auto) Lymph # (Auto) Seg Neutrophils % D-Dimer ABG pH ABG pO2 ABG HCO3 ABG O2 Saturation ABG Base Excess ABG Hemoglobin Oxyhemoglobin Sodium Potassium Chloride Creatinine Glucose POC Glucose 166 H 111 H CK-MB (CK-2) Rel Index Total Protein Albumin 10/18/21 10/18/21 10/18/21 04:08 11:34 16:16 RBC Hgb Hct MCV MCH Plt Count Lymph % (Auto) Lymph # (Auto) Seg Neutrophils % D-Dimer ABG pH ABG pO2 ABG HCO3 ABG O2 Saturation ABG Base Excess ABG Hemoglobin Oxyhemoglobin Sodium Potassium 3.2 L Chloride Creatinine 0.7 L Glucose 112 H POC Glucose 161 H 139 H CK-MB (CK-2) Rel Index Total Protein 5.9 L Albumin 2.8 L 10/19/21 10/19/21 10/20/21 04:41 04:41 21:10 RBC 3.64 L Hgb Hct MCV 104 H MCH 33 H Plt Count Lymph % (Auto) Lymph # (Auto) Seg Neutrophils % D-Dimer ABG pH ABG pO2 ABG HCO3 ABG O2 Saturation ABG Base Excess ABG Hemoglobin Oxyhemoglobin Sodium Potassium Chloride Creatinine 0.7 L Glucose POC Glucose 146 H CK-MB (CK-2) Rel Index Total Protein Albumin 10/21/21 10/21/21 10/21/21 10:38 16:18 21:25 RBC Hgb Hct MCV MCH Plt Count Lymph % (Auto) Lymph # (Auto) Seg Neutrophils % D-Dimer ABG pH 7.475 H ABG pO2 67.7 L ABG HCO3 ABG O2 Saturation ABG Base Excess ABG Hemoglobin 10.2 L Oxyhemoglobin 93.2 L Sodium Potassium Chloride Creatinine Glucose POC Glucose 160 H 115 H CK-MB (CK-2) Rel Index Total Protein Albumin Allied health notes reviewed: nursing
[2021-10-23] MEDS: VALSARTAN 160MG TAB PO SCH (09:09)
[2021-10-23] MEDS: HEPARIN 5,000 UNIT/1 ML VIAL SUB-Q SCH ×2 (09:09→21:21)
[2021-10-23] MEDS: FAMOTIDINE 20 MG TAB PO SCH (09:09)
[2021-10-23] MEDS: hydrALAZINE 100 MG TAB PO SCH ×3 (09:09→21:21)
[2021-10-23] MEDS: NIFEdipine XL 60 MG TAB PO SCH (09:09)
[2021-10-23] MEDS: SENNOSIDES/DOCUSATE SODIUM 8.6/50 MG TAB PO SCH ×2 (09:09→21:21)
[2021-10-23] MEDS: oxyCODONE /ACETAMINOPHEN 5-325MG TAB PO PRN ×2 (09:16→21:21)
[2021-10-23] MEDS: CHLORTHALIDONE 25 MG TAB PO SCH (09:16)
--- NOTE | 2021-10-23 09:25 | Progress Note ---
Assessment and Plan Assessment and plan: Interval history: This is a 71-year-old male with vascular dementia, cerebral atherosclerosis, cocaine dependence who presented to emergency department on 10/14 via EMS. On EMS arrival patient was found to have shortness of breath shortly after cocaine ingestion at 0500 on 10/14 and patient was transported to [facility] for further evaluation. In the emergency department patient was found to have SPO2 of 70%, and unable to protect his airway and he was intubated. Patient's blood pressure is also 218/128 and he was started on a Cardene drip, CXR reviewed bilateral pneumonia. Patient was admitted to the hospitalist service to the ICU with hypertensive emergency, pneumonia with consults to cardiology and CCM. Hospital Course to Date: 10/15: Intubated and sedated, follows commands intermittently. Off cardene gtt this am, VSS. This am ABG pending. Wean vent setting and sedation as tolerated, possible SAT/SBT in the am per CCM. Labs with elevated D-Dimer, COVID PCR pending. Given hypoxia will get a CTA chest and BLE doppler to r/o DVT/PE. VTE proph initiated. Will also get 2D echo to eval pulmonary pressors. Patient is hypoglycemic this am treated per hypoglycemic protocol, most likely due to NPO status. NGT initiated but not yet at goal, continue BG check Q6hrs and hypoglycemic protocol. LUE humerus fracture noted, LUE XR pending. Will also consult Ortho for further eval and treat. 10/16: Remains stable on the vent, on low dose sedation. Tolerating PSV trial this am. Per CCM, plan is to wean to extubate. Patient spike a Temp today, patient is hemodynamicaly stable, with no leukocytosis. Orders placed for blood cultures, will hold off on IV abx for now. 2D echo reviewed, LVEF 45% and c/f Takotsubo syndrome, cardiology consulted. CTA chest pending, unable to get in contact with patient's NOK. Case management is following for further assistance in locating patient's family. 10/17: Stable on the vent, off sedations. Tolerating PSV trial for possible extubation today. This am ABG reviewed, patient with some hypoxia but comp ensating. Still can't get in contact with patient's NOK at this time, will order V/Q scan to r/o PE. Continue VTE proph. Hypertensive overnight and required cardene gtt. Cardene is off this am, still mildly hypertensive. PO antihypertensive adjusted. Still with low grade fevers, but no leukocytosis, Blood cultures pending. continue current IV Abx for now. 10/18: Patient was extubated yesterday and is currently on nasal cannula to room air. Patient antihypertensive regimen increased and started on as needed labetalol for hypertension which is better controlled now. Patient will be transferred to the telemetry floor. 10/19: Antihypertensive medicine adjusted. Awaiting tele bed. No acute events overnight. This is a 71-year-old female with vascular dementia, cerebral sclerosis, cocaine abuse admitted with acute hypoxic respiratory failure and hypertensive emergency 10/20: Can be discharge home on chlorthalidone, procardia xl, hydralazine, valsartan. Advised to check blood pressure regularly. Advised to avoid cocaine ingestion. Patient will be discharge with instructions to follow up with OP cardiology and OP primary care physician. 10/21: Awaiting placement to [facility]. Medically clear for discharge otherwise. 10/22: Awaiting placement to [facility]. Medically clear for discharge otherwise. 10/22: Ortho assessed patient for left humeral fracture...will schedule OP. Awaiting placement to [facility]. Medically clear for discharge otherwise. Assessment and Plan Neuro: Acute metabolic encephalopathy POA (resolved) , cocaine abuse, h/o cerebral atherosclerosis, vascular dementia -Reorientation as needed -Maintain sleep-wake cycle -As needed analgesia -Seroquel twice daily -UDS positive for cocaine -Substance abuse cessation strongly encouraged Cardiac: s/p hypertensive emergency (resolved), Takotsubo (ruled out), cardiomyopathy , h/o chronic systolic heart failure -Cardiology consulted, appreciate recommendations -Presented with blood pressure of 218/128 -S/p Cardene drip -Antihypertensive regimen: Valsartan, hydralazine, amlodipine -Blood pressure monitoring per protocol -Echocardiogram showed LVEF 45%, findings consistent with Takotsubo syndrome -Per cards: Echocardiogram reviewed, no appreciated evidence of reverse Takotsubo finding, moderate concentric LVH, mild left ventricular hypokinesis -No further work-up needed Respiratory: Acute hypoxemic respiratory failure (resolved), flash pulmonary e dustin (resolved) -CCM consulted, appreciate recommendations -Intubated on 10/14 in the ED and extubated on 10/17 -Pulmonary hygiene -SPO2 monitor per protocol -Supplemental oxygen as needed GI: Moderate protein calorie malnutrition -24 hours -365 mL -PPI -Cardiac diet -BR: Senokot S : NAD -Monitor intake and output -Renally dose medications -Avoid nephrotoxic medications -Repeat potassium -Trend BMP ID: Bilateral pneumonia -Infectious disease consulted, appreciate recommendation -Antibiotic therapy with azithromycin and Rocephin -f/u blood culture -Monitor WBC and temperature curve Endo: NAD -Avoid hypoglycemia Heme: Elevated D-dimer -D-dimer 1033 -V/Q scan with low probability of PE -Bilateral lower extremity Doppler negative for DVT -Trend CBC -Transfuse hemoglobin less than 7 -SCDs to BLE while in bed MSK: Chronic left humerus fracture -Chronic left humerus fracture noted on left upper extremity x-ray -Ortho consulted, will stage OP procedure. -Sling -PT/OT consulted, appreciate recommendations History Interval history: NO acute complaints on encounter today. Hospitalist Physical - Physical exam Narrative exam: Physical Exam: VITAL SIGNS: Reviewed. GENERAL: The patient appears normally developed, Vital signs as documented. HEAD: No signs of head trauma. EYES: Pupils are equal. Extraocular motions intact. EARS: Hearing grossly intact. MOUTH: Oropharynx is normal. NECK: No adenopathy, no JVD. CHEST: Chest with clear breath sounds bilaterally. No wheezes, rales, or rhonchi. CARDIAC: Regular rate and rhythm. S1 and S2, without murmurs, gallops, or rubs. VASCULAR: No Edema. Peripheral pulses normal and equal in all extremities. ABDOMEN: Soft, non tender and non distended. No rebound or guarding, and no masses palpated. Bowel Sounds normal. MUSCULOSKELETAL: Good range of motion of all major joints. Extremities without clubbing, cyanosis or edema. NEUROLOGIC EXAM: Alert and oriented x 4. no focal sensory or strength deficits. PSYCHIATRIC: Mood normal. SKIN: detail exam as documented in skin assessment - Constitutional Vitals: Temp Pulse Resp BP Pulse Ox 97.5 F L 91 H 16 154/73 100 10/23/21 07:39 10/23/21 07:39 10/23/21 07:39 10/23/21 07:39 10/23/21 08:48 General appearance: Present: no acute distress HEART Score - HEART Score Troponin: Troponin T < 0.010 ng/mL (0.00-0.029) 10/14/21 07:26 Results - Labs CBC & Chem 7: 10/19/21 04:41 10/19/21 04:41 Labs: Laboratory Last Values WBC 4.6 K/mm3 (4.5-11.0) 10/19/21 04:41 RBC 3.64 M/mm3 (3.65-5.03) L 10/19/21 04:41 Hgb 12.1 gm/dl (11.8-15.2) 10/19/21 04:41 Hct 37.7 % (35.5-45.6) D 10/19/21 04:41 MCV 104 fl (84-94) H 10/19/21 04:41 MCH 33 pg (28-32) H 10/19/21 04:41 MCHC 32 % (32-34) 10/19/21 04:41 RDW 14.7 % (13.2-15.2) 10/19/21 04:41 Plt Count 194 K/mm3 (140-440) 10/19/21 04:41 Lymph % (Auto) 13.5 % (13.4-35.0) 10/15/21 04:00 Morgan % (Auto) 7.3 % (0.0-7.3) 10/15/21 04:00 Eos % (Auto) 0.4 % (0.0-4.3) 10/15/21 04:00 Baso % (Auto) 0.4 % (0.0-1.8) 10/15/21 04:00 Lymph # (Auto) 0.9 K/mm3 (1.2-5.4) L 10/15/21 04:00 Morgan # (Auto) 0.5 K/mm3 (0.0-0.8) 10/15/21 04:00 Eos # (Auto) 0.0 K/mm3 (0.0-0.4) 10/15/21 04:00 Baso # (Auto) 0.0 K/mm3 (0.0-0.1) 10/15/21 04:00 Seg Neutrophils % 78.4 % (40.0-70.0) H 10/15/21 04:00 Seg Neutrophils # 5.2 K/mm3 (1.8-7.7) 10/15/21 04:00 PT 14.2 Sec. (12.2-14.9) 10/14/21 07: INR 0.99 (0.87-1.13) 10/14/21 07:26 APTT 29.0 Sec. (24.2-36.6) 10/14/21 07:26 D-Dimer 1033.11 ng/mlDDU (0-234) H 10/14/21 07:06 ABG pH 7.475 pH Units (7.350-7.450) H 10/21/21 10:38 ABG pCO2 34.3 mm Hg 10/21/21 10:38 ABG pO2 67.7 mm Hg (80.0-90.0) L 10/21/21 10:38 ABG HCO3 24.7 mmol/L (20.0-26.0) 10/21/21 10:38 ABG O2 Saturation 95.1 % (95.0-99.0) 10/21/21 10:38 ABG O2 Content 13.4 (0.0-44) 10/21/21 10:38 ABG Base Excess 1.4 mmol/L (-2.0-3.0) 10/21/21 10:38 ABG Hemoglobin 10.2 gm/dl (14.0-18.0) L 10/21/21 10:38 ABG Carboxyhemoglobin 1.6 % (0.0-5.0) 10/21/21 10:38 ABG Methemoglobin 0.4 % (0.0-1.5) 10/21/21 10:38 Oxyhemoglobin 93.2 % (95.0-99.0) L 10/21/21 10:38 FiO2 21 % 10/21/21 10:38 Sodium 139 mmol/L (137-145) 10/19/21 04:41 Potassium 3.8 mmol/L (3.6-5.0) 10/19/21 04:41 Chloride 103.9 mmol/L (98-107) 10/19/21 04:41 Carbon Dioxide 23 mmol/L (22-30) 10/19/21 04:41 Anion Gap 16 mmol/L 10/19/21 04:41 BUN 17 mg/dL (9-20) 10/19/21 04:41 Creatinine 0.7 mg/dL (0.8-1.3) L 10/19/21 04:41 Estimated GFR > 60 ml/min 10/19/21 04:41 BUN/Creatinine Ratio 24 % 10/19/21 04:41 Glucose 94 mg/dL (75-100) 10/19/21 04:41 POC Glucose 115 mg/dL (70-105) H 10/21/21 21:25 Lactic Acid 1.50 mmol/L (0.7-2.0) 10/14/21 07:26 Calcium 8.9 mg/dL (8.4-10.2) 10/19/21 04:41 Phosphorus 3.50 mg/dL (2.5-4.5) 10/18/21 04:08 Magnesium 1.70 mg/dL (1.7-2.3) 10/18/21 04:08 Total Bilirubin 0.40 mg/dL (0.1-1.2) 10/18/21 04:08 AST 31 units/L (5-40) 10/18/21 04:08 ALT 22 units/L (7-56) 10/18/21 04:08 Alkaline Phosphatase 48 units/L (35-129) 10/18/21 04:08 Total Creatine Kinase 58 units/L (55-170) 10/14/21 07:26 CK-MB (CK-2) 3.9 ng/mL (0.0-4.0) 10/14/21 07:26 CK-MB (CK-2) Rel Index 6.7 (0-4) H 10/14/21 07:26 Troponin T < 0.010 ng/mL (0.00-0.029) 10/14/21 07:26 C-Reactive Protein 1.20 mg/dL (0.00-1.30) 10/14/21 00:00 Total Protein 5.9 g/dL (6.3-8.2) L 10/18/21 04:08 Albumin 2.8 g/dL (3.9-5) L 10/18/21 04:08 Albumin/Globulin Ratio 0.9 % 10/18/21 04:08 Procalcitonin 0.21 ng/mL (<0.15) 10/14/21 00:00 Urine Color Straw (Yellow) 10/14/21 07:03 Urine Turbidity Clear (Clear) 10/14/21 07:03 Specific [place] (Man) 1.015 (1.003-1.030) 10/14/21 07:03 Ur Protein (Man) 1+ mg/dL (Negative) 10/14/21 07:03 Ur Ketones (Man) Negative (Negative) 10/14/21 07:03 Urine Bilirubin (Man) Negative (Negative) 10/14/21 07:03 Urine WBC (Auto) < 1.0 /HPF (0.0-6.0) 10/14/21 07:03 Urine RBC (Auto) 4.0 /HPF (0.0-6.0) 10/14/21 07:03 U Epithel Cells (Auto) 1.0 /HPF (0-13.0) 10/14/21 07:03 Urine RBC (Manual) Negative (Negative) 10/14/21 07:03 Urine Opiates Screen Negative 10/14/21 07:03 Urine Methadone Screen Negative 10/14/21 07:03 Ur Barbiturates Screen Negative 10/14/21 07:03 Ur Phencyclidine Scrn Negative 10/14/21 07:03 Ur Amphetamines Screen Negative 10/14/21 07:03 U Benzodiazepines Scrn Negative 10/14/21 07:03 Urine Cocaine Screen Positive 10/14/21 07:03 U Marijuana (THC) Screen Negative 10/14/21 07:03 Drugs of Abuse Note Disclamer 10/14/21 07:03 Coronavirus (PCR) Negative (Negative) 10/14/21 16:01 Marquez/IV: Voiding Method Urinal Active Medications - Current Medications Current Medications: Generic Name Dose Route Start Last Admin Trade Name Freq PRN Reason Stop Dose Admin Acetaminophen 650 mg 10/14/21 13:00 10/18/21 22:34 Acetaminophen 325 Mg Tab PO 650 mg Q6H PRN Administration Pain MILD(1-3)/Fever >100.5/[place] Albuterol 2.5 mg 10/14/21 14:00 Albuterol 2.5 Mg/3 Ml Nebu IH Q3HRT PRN Shortness Of Breath Chlorthalidone 25 mg 10/20/21 10:00 10/23/21 09:16 Chlorthalidone 25 Mg Tab PO 25 mg QDAY KATHY Administration Clonidine HCl 0.2 mg 10/20/21 09:00 10/20/21 14:20 Clonidine 0.2 Mg Tab PO 0.2 mg Q4H PRN Administration sbp> 160 Diphenhydramine HCl 25 mg 10/15/21 10:00 10/15/21 16:26 Diphenhydramine 50 Mg/Ml Vial IV 25 mg Q6H PRN Administration Itching Famotidine 20 mg 10/19/21 10:00 10/23/21 09:09 Famotidine 20 Mg Tab PO 20 mg DAILY KATHY Administration Heparin Sodium (Porcine) 5,000 unit 10/15/21 10:00 10/23/21 09:09 Heparin 5,000 Unit/1 Ml Vial SUB-Q 5,000 unit Q12HR KATHY Administration Hydralazine HCl 10 mg 10/16/21 15:43 10/20/21 06:33 Hydralazine 20 Mg/1 Ml Inj IV 10 mg Q4HR PRN Administration Hypertension Hydralazine HCl 100 mg 10/19/21 14:00 10/23/21 09:09 Hydralazine 100 Mg Tab PO 100 mg TID KATHY Administration Hydrophilic Ointment 1 applic 10/14/21 15:47 Lip Therapy Vaseline TP Q2HR PRN Dry Lips Labetalol HCl 10 mg 10/18/21 08:11 10/19/21 07:10 Labetalol 20 Mg/4 Ml Inj IV 10 mg Q4HR PRN Administration Hypertension Morphine Sulfate 2 mg 10/14/21 12:01 10/16/21 09:34 Morphine 2 Mg/1 Ml Inj IV 2 mg Q4H PRN Administration Pain, Moderate (4-6) Multi-Ingred Cream/Lotion/Oil/Oint 1 applic 10/14/21 15:47 Mineral Oil/Petrolatum, White Ophth Oint 3.5 Gm OU Q4HR PRN Dry Eye(s) Nifedipine 60 mg 10/20/21 10:00 10/23/21 09:09 Nifedipine Xl 60 Mg Tab PO 60 mg QDAY KATHY Administration Oxycodone/Acetaminophen 1 tab 10/14/21 13:00 10/23/21 09:16 Oxycodone /Acetaminophen 5-325mg Tab PO 1 tab Q16H PRN Administration Pain, Moderate (4-6) Quetiapine Fumarate 100 mg 10/15/21 14:30 10/22/21 21:07 Quetiapine 100 Mg Tab PO 100 mg BID KATHY Administration Senna/Docusate Sodium 1 tab 10/18/21 22:00 10/23/21 09:09 Sennosides/Docusate Sodium 8.6/50 Mg Tab PO 1 tab BID KATHY Administration Sodium Chloride 10 ml 10/14/21 22:00 10/23/21 09:09 Sodium Chloride 0.9% 10 Ml Flush Syringe IV 10 ml BID KATHY Administration Sodium Chloride 10 ml 10/14/21 13:00 Sodium Chloride 0.9% 10 Ml Flush Syringe IV PRN PRN LINE FLUSH Valsartan 160 mg 10/19/21 15:00 10/23/21 09:09 Valsartan 160mg Tab PO 160 mg QDAY KATHY Administration Nutrition/Malnutrition Assess - Dietary Evaluation Nutrition/Malnutrition Findings: Nutrition Notes Start: 10/15/21 09:41 Freq: Status: Active Protocol: Document 10/18/21 10:09 ITA (Rec: 10/18/21 10:49 ITA [id number]) Nutrition Notes Initial or Follow up Reassessment Current Diagnosis Hypertension Other Pertinent Diagnosis Substance Abuse, Metabolic Encephalopathy, CAP, HFrEF, L- UE Fracture, ... Current Diet TF-Osmolite 1.5 Johnathan @ 50 ml/hr (since L 10/15). Labs/Tests 10/18: K 3.2, Crea 0.7, Glu 112. Pertinent Medications 10/18: Nutritionally unremarkable. 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 No body weight change reported in 3 days. Weight Status Appropriate Subjective/Other Information RD consult for TF tolerance/ continuation assessment. TF continues as prescribed, no further information available at the time. I recommend discontinue TF today and advance to PO Diet. Pt is on Room Air, O2 saturation @ 100%, according to Physical Assessment History notes. Pt continues presenting diarrhea, according to Physical Assessment History notes. Pt has missing teeth, according to Physical Assessment History notes. Pt passed bedside swallow assessment for medications on 10/17, according to RN notes. Pt extubated on 10/17, well tolerated, according to RN notes. Percent of energy/protein needs met: Prescribed TF-Osmolite 1.5 Johnathan @ 50 ml/hr provides for energy/protein needs (1,800 Kcal/75 g) during LOS, 110% Kcal; 107% AA. Prescribed Cardiac Diet provides for energy/protein needs (2,230 Kcal/85 g) during LOS. Burn Absent Trauma Absent GI Symptoms Diarrhea Food Allergy No Skin Integrity/Comment Assessment WNL. 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 Pt extubated on 10/17, well tolerated, according to RN notes. Diagnosis Progress(for reassessment Improved documentation) Is patient on ventilator? No Is Patient Ambulatory and/or Out of Bed No REE-([place]-confined to bed) 1531.212 Kcal/Kg value to use for calculation 28 Approximate Energy Requirements Using 1632 kcal/Kg Calculation Used for Recommendations Kcal/kg Additional Notes Protein: 1-1.2 g/Kg ABW; 58-70 g/day. Fluids: 1 ml/Kcal, or as per MD. Nutrition Intervention Change Diet Order: I recommend discontinue TF today and advance to PO Cardiac Diet. Nutrition Support: Continue TF-Osmolite 1.5 Johnathan @ 50 ml/hr. Flush: 150 ml water Q 4 hr, or as per MD. Kcal 1,800 Protein (gm) 75 Carbohydrates (gm) 244 Fat (gm) 59 Fluid (mL) 914 Fiber (gm) 0 % RDI: 110% Kcal; 107% AA. Goal #1 Provide at least 75% of energy /protein needs through Enteral Feeding during LOS. Goal #2 Adjust the dietary intervention to better serve Pt's needs and clinical conditions during LOS. Follow-Up By: 10/25/21 Additional Comments Continue monitoring TF tolerance and BM. When pertinent, start monitoring food tolerance, %PO intake of meals, and BM.
[2021-10-23] MEDS: QUEtiapine 100 MG TAB PO SCH ×2 (11:04→21:21)
--- NOTE | 2021-10-23 16:26 | Progress Note ---
Assessment and Plan - Patient Problems (1) Uncontrolled hypertension Current Visit: Yes Status: Deleted Plan to address problem: The patient was admitted with shortness of breath, uncontrolled hypertension, and bilateral interstitial pulmonary opacities with a working diagnosis of bilateral pneumonia. His symptoms and chest x-ray findings have improved since admission. Cardiology consultation was requested for a questionable, nonspecific finding on echocardiogram described as inverse Takotsubo. The echo on further review shows left ventricular systolic ejection fraction at the lower limits of normal, with mild to moderate concentric left ventricle hypertrophy. No further cardiac intervention is warranted. Subjective Date of service: 10/23/21 Principal diagnosis: AHRF; Pulm. Edema; HTNsive Emergency; Cocaine abuse; Poss. Pneumonia; AMS Interval history: Patient is comfortable no acute distress, looks and feels better. No new cardiac events reported. Objective Vital Signs Temp Pulse Resp BP BP Pulse Ox 10/23/21 15:54 98.4 F 93 H 15 123/56 99 10/23/21 12:03 98.0 F 96 H 18 150/66 99 10/23/21 10:00 18 97 10/23/21 08:48 100 10/23/21 07:39 97.5 F L 91 H 16 154/73 97 10/23/21 04:41 98.0 F 93 H 20 138/66 97 10/23/21 01:22 98.1 F 101 H 18 139/60 97 10/23/21 00:40 95 10/22/21 19:18 98.3 F 109 H 16 152/77 95 - Physical Examination General: No Apparent Distress HEENT: Positive: PERRL Neck: Positive: neck supple Cardiac: Positive: Reg Rate and Rhythm Lungs: Positive: Decreased Breath Sounds Neuro: Positive: Grossly Intact Abdomen: Positive: Soft Skin: Positive: Clear Extremities: Absent: edema - Allied health notes Allied health notes reviewed: nursing
--- NOTE | 2021-10-24 08:37 | Progress Note ---
Assessment and Plan Assessment and plan: Interval history: This is a 71-year-old male with vascular dementia, cerebral atherosclerosis, cocaine dependence who presented to emergency department on 10/14 via EMS. On EMS arrival patient was found to have shortness of breath shortly after cocaine ingestion at 0500 on 10/14 and patient was transported to [facility] for further evaluation. In the emergency department patient was found to have SPO2 of 70%, and unable to protect his airway and he was intubated. Patient's blood pressure is also 218/128 and he was started on a Cardene drip, CXR reviewed bilateral pneumonia. Patient was admitted to the hospitalist service to the ICU with hypertensive emergency, pneumonia with consults to cardiology and CCM. Hospital Course to Date: 10/15: Intubated and sedated, follows commands intermittently. Off cardene gtt this am, VSS. This am ABG pending. Wean vent setting and sedation as tolerated, possible SAT/SBT in the am per CCM. Labs with elevated D-Dimer, COVID PCR pending. Given hypoxia will get a CTA chest and BLE doppler to r/o DVT/PE. VTE proph initiated. Will also get 2D echo to eval pulmonary pressors. Patient is hypoglycemic this am treated per hypoglycemic protocol, most likely due to NPO status. NGT initiated but not yet at goal, continue BG check Q6hrs and hypoglycemic protocol. LUE humerus fracture noted, LUE XR pending. Will also consult Ortho for further eval and treat. 10/16: Remains stable on the vent, on low dose sedation. Tolerating PSV trial this am. Per CCM, plan is to wean to extubate. Patient spike a Temp today, patient is hemodynamicaly stable, with no leukocytosis. Orders placed for blood cultures, will hold off on IV abx for now. 2D echo reviewed, LVEF 45% and c/f Takotsubo syndrome, cardiology consulted. CTA chest pending, unable to get in contact with patient's NOK. Case management is following for further assistance in locating patient's family. 10/17: Stable on the vent, off sedations. Tolerating PSV trial for possible extubation today. This am ABG reviewed, patient with some hypoxia but comp ensating. Still can't get in contact with patient's NOK at this time, will order V/Q scan to r/o PE. Continue VTE proph. Hypertensive overnight and required cardene gtt. Cardene is off this am, still mildly hypertensive. PO antihypertensive adjusted. Still with low grade fevers, but no leukocytosis, Blood cultures pending. continue current IV Abx for now. 10/18: Patient was extubated yesterday and is currently on nasal cannula to room air. Patient antihypertensive regimen increased and started on as needed labetalol for hypertension which is better controlled now. Patient will be transferred to the telemetry floor. 10/19: Antihypertensive medicine adjusted. Awaiting tele bed. No acute events overnight. This is a 71-year-old female with vascular dementia, cerebral sclerosis, cocaine abuse admitted with acute hypoxic respiratory failure and hypertensive emergency 10/20: Can be discharge home on chlorthalidone, procardia xl, hydralazine, valsartan. Advised to check blood pressure regularly. Advised to avoid cocaine ingestion. Patient will be discharge with instructions to follow up with OP cardiology and OP primary care physician. 10/21: Awaiting placement to [facility]. Medically clear for discharge otherwise. 10/22: Awaiting placement to [facility]. Medically clear for discharge otherwise. 10/23: Ortho assessed patient for left humeral fracture...will schedule OP. Awaiting placement to [facility]. Medically clear for discharge otherwise. 10/24: Medically clear for d/c. awaiting placement. Assessment and Plan Neuro: Acute metabolic encephalopathy POA (resolved) , cocaine abuse, h/o cerebral atherosclerosis, vascular dementia -Reorientation as needed -Maintain sleep-wake cycle -As needed analgesia -Seroquel twice daily -UDS positive for cocaine -Substance abuse cessation strongly encouraged Cardiac: s/p hypertensive emergency (resolved), Takotsubo (ruled out), cardiomyopathy , h/o chronic systolic heart failure -Cardiology consulted, appreciate recommendations -Presented with blood pressure of 218/128 -S/p Cardene drip -Antihypertensive regimen: Valsartan, hydralazine, amlodipine -Blood pressure monitoring per protocol -Echocardiogram showed LVEF 45%, findings consistent with Takotsubo syndrome -Per cards: Echocardiogram reviewed, no appreciated evidence of reverse Takotsubo finding, moderate concentric LVH, mild left ventricular hypokinesis -No further work-up needed Respiratory: Acute hypoxemic respiratory failure (resolved), flash pulmonary edema (resolved) -[facility] consulted, appreciate recommendations -Intubated on 10/14 in the ED and extubated on 10/17 -Pulmonary hygiene -SPO2 monitor per protocol -Supplemental oxygen as needed GI: Moderate protein calorie malnutrition -24 hours -365 mL -PPI -Cardiac diet -BR: Senokot S : NAD -Monitor intake and output -Renally dose medications -Avoid nephrotoxic medications -Repeat potassium -Trend BMP ID: Bilateral pneumonia -Infectious disease consulted, appreciate recommendation -Antibiotic therapy with azithromycin and Rocephin -f/u blood culture -Monitor WBC and temperature curve Endo: NAD -Avoid hypoglycemia Heme: Elevated D-dimer -D-dimer 1033 -V/Q scan with low probability of PE -Bilateral lower extremity Doppler negative for DVT -Trend CBC -Transfuse hemoglobin less than 7 -SCDs to BLE while in bed MSK: Chronic left humerus fracture -Chronic left humerus fracture noted on left upper extremity x-ray -Ortho consulted, will stage OP procedure. -Sling -PT/OT consulted, appreciate recommendations History Interval history: No acute complaints this AM. Hospitalist Physical - Physical exam Narrative exam: Physical Exam: VITAL SIGNS: Reviewed. GENERAL: The patient appears normally developed, Vital signs as documented. HEAD: No signs of head trauma. EYES: Pupils are equal. Extraocular motions intact. EARS: Hearing grossly intact. MOUTH: Oropharynx is normal. NECK: No adenopathy, no JVD. CHEST: Chest with clear breath sounds bilaterally. No wheezes, rales, or rhonchi. CARDIAC: Regular rate and rhythm. S1 and S2, without murmurs, gallops, or rubs. VASCULAR: No Edema. Peripheral pulses normal and equal in all extremities. ABDOMEN: Soft, non tender and non distended. No rebound or guarding, and no masses palpated. Bowel Sounds normal. MUSCULOSKELETAL: Good range of motion of all major joints. Extremities without clubbing, cyanosis or edema. NEUROLOGIC EXAM: Alert and oriented x 4. no focal sensory or strength deficits. PSYCHIATRIC: Mood normal. SKIN: detail exam as documented in skin assessment - Constitutional Vitals: Temp Pulse Resp BP Pulse Ox 98.0 F 94 H 20 140/69 98 10/23/21 19:50 10/23/21 23:31 10/23/21 22:21 10/23/21 19:50 10/23/21 22:00 General appearance: Present: no acute distress HEART Score - HEART Score Troponin: Troponin T < 0.010 ng/mL (0.00-0.029) 10/14/21 07:26 Results - Labs CBC & Chem 7: 10/19/21 04:41 10/19/21 04:41 Labs: Laboratory Last Values WBC 4.6 K/mm3 (4.5-11.0) 10/19/21 04:41 RBC 3.64 M/mm3 (3.65-5.03) L 10/19/21 04:41 Hgb 12.1 gm/dl (11.8-15.2) 10/19/21 04:41 Hct 37.7 % (35.5-45.6) D 10/19/21 04:41 MCV 104 fl (84-94) H 10/19/21 04:41 MCH 33 pg (28-32) H 10/19/21 04:41 MCHC 32 % (32-34) 10/19/21 04:41 RDW 14.7 % (13.2-15.2) 10/19/21 04:41 Plt Count 194 K/mm3 (140-440) 10/19/21 04:41 Lymph % (Auto) 13.5 % (13.4-35.0) 10/15/21 04:00 [place] % (Auto) 7.3 % (0.0-7.3) 10/15/21 04:00 Eos % (Auto) 0.4 % (0.0-4.3) 10/15/21 04:00 Baso % (Auto) 0.4 % (0.0-1.8) 10/15/21 04:00 Lymph # (Auto) 0.9 K/mm3 (1.2-5.4) L 10/15/21 04:00 [place] # (Auto) 0.5 K/mm3 (0.0-0.8) 10/15/21 04:00 Eos # (Auto) 0.0 K/mm3 (0.0-0.4) 10/15/21 04:00 Baso # (Auto) 0.0 K/mm3 (0.0-0.1) 10/15/21 04:00 Seg Neutrophils % 78.4 % (40.0-70.0) H 10/15/21 04:00 Seg Neutrophils # 5.2 K/mm3 (1.8-7.7) 10/15/21 04:00 PT 14.2 Sec. (12.2-14.9) 10/14/21 07: INR 0.99 (0.87-1.13) 10/14/21 07:26 APTT 29.0 Sec. (24.2-36.6) 10/14/21 07:26 D-Dimer 1033.11 ng/mlDDU (0-234) H 10/14/21 07:06 ABG pH 7.475 pH Units (7.350-7.450) H 10/21/21 10:38 ABG pCO2 34.3 mm Hg 10/21/21 10:38 ABG pO2 67.7 mm Hg (80.0-90.0) L 10/21/21 10:38 ABG HCO3 24.7 mmol/L (20.0-26.0) 10/21/21 10:38 ABG O2 Saturation 95.1 % (95.0-99.0) 10/21/21 10:38 ABG O2 Content 13.4 (0.0-44) 10/21/21 10:38 ABG Base Excess 1.4 mmol/L (-2.0-3.0) 10/21/21 10:38 ABG Hemoglobin 10.2 gm/dl (14.0-18.0) L 10/21/21 10:38 ABG Carboxyhemoglobin 1.6 % (0.0-5.0) 10/21/21 10:38 ABG Methemoglobin 0.4 % (0.0-1.5) 10/21/21 10:38 Oxyhemoglobin 93.2 % (95.0-99.0) L 10/21/21 10:38 FiO2 21 % 10/21/21 10:38 Sodium 139 mmol/L (137-145) 10/19/21 04:41 Potassium 3.8 mmol/L (3.6-5.0) 10/19/21 04:41 Chloride 103.9 mmol/L (98-107) 10/19/21 04:41 Carbon Dioxide 23 mmol/L (22-30) 10/19/21 04:41 Anion Gap 16 mmol/L 10/19/21 04:41 BUN 17 mg/dL (9-20) 10/19/21 04:41 Creatinine 0.7 mg/dL (0.8-1.3) L 10/19/21 04:41 Estimated GFR > 60 ml/min 10/19/21 04:41 BUN/Creatinine Ratio 24 % 10/19/21 04:41 Glucose 94 mg/dL (75-100) 10/19/21 04:41 POC Glucose 106 mg/dL (70-105) H 10/23/21 19:59 Lactic Acid 1.50 mmol/L (0.7-2.0) 10/14/21 07:26 Calcium 8.9 mg/dL (8.4-10.2) 10/19/21 04:41 Phosphorus 3.50 mg/dL (2.5-4.5) 10/18/21 04:08 Magnesium 1.70 mg/dL (1.7-2.3) 10/18/21 04:08 Total Bilirubin 0.40 mg/dL (0.1-1.2) 10/18/21 04:08 AST 31 units/L (5-40) 10/18/21 04:08 ALT 22 units/L (7-56) 10/18/21 04:08 Alkaline Phosphatase 48 units/L (35-129) 10/18/21 04:08 Total Creatine Kinase 58 units/L (55-170) 10/14/21 07:26 CK-MB (CK-2) 3.9 ng/mL (0.0-4.0) 10/14/21 07:26 CK-MB (CK-2) Rel Index 6.7 (0-4) H 10/14/21 07:26 Troponin T < 0.010 ng/mL (0.00-0.029) 10/14/21 07:26 C-Reactive Protein 1.20 mg/dL (0.00-1.30) 10/14/21 00:00 Total Protein 5.9 g/dL (6.3-8.2) L 10/18/21 04:08 Albumin 2.8 g/dL (3.9-5) L 10/18/21 04:08 Albumin/Globulin Ratio 0.9 % 10/18/21 04:08 Procalcitonin 0.21 ng/mL (<0.15) 10/14/21 00:00 Urine Color Straw (Yellow) 10/14/21 07:03 Urine Turbidity Clear (Clear) 10/14/21 07:03 Specific [place] (Man) 1.015 (1.003-1.030) 10/14/21 07:03 Ur Protein (Man) 1+ mg/dL (Negative) 10/14/21 07:03 Ur Ketones (Man) Negative (Negative) 10/14/21 07:03 Urine Bilirubin (Man) Negative (Negative) 10/14/21 07:03 Urine WBC (Auto) < 1.0 /HPF (0.0-6.0) 10/14/21 07:03 Urine RBC (Auto) 4.0 /HPF (0.0-6.0) 10/14/21 07:03 U Epithel Cells (Auto) 1.0 /HPF (0-13.0) 10/14/21 07:03 Urine RBC (Manual) Negative (Negative) 10/14/21 07:03 Urine Opiates Screen Negative 10/14/21 07:03 Urine Methadone Screen Negative 10/14/21 07:03 Ur Barbiturates Screen Negative 10/14/21 07:03 Ur Phencyclidine Scrn Negative 10/14/21 07:03 Ur Amphetamines Screen Negative 10/14/21 07:03 U Benzodiazepines Scrn Negative 10/14/21 07:03 Urine Cocaine Screen Positive 10/14/21 07:03 U Marijuana (THC) Screen Negative 10/14/21 07:03 Drugs of Abuse Note Disclamer 10/14/21 07:03 Coronavirus (PCR) Negative (Negative) 10/14/21 16:01 Marquez/IV: Voiding Method Nephrostomy (Right) Active Medications - Current Medications Current Medications: Generic Name Dose Route Start Last Admin Trade Name Freq PRN Reason Stop Dose Admin Acetaminophen 650 mg 10/14/21 13:00 10/18/21 22:34 Acetaminophen 325 Mg Tab PO 650 mg Q6H PRN Administration Pain MILD(1-3)/Fever >100.5/[place] Albuterol 2.5 mg 10/14/21 14:00 Albuterol 2.5 Mg/3 Ml Nebu IH Q3HRT PRN Shortness Of Breath Chlorthalidone 25 mg 10/20/21 10:00 10/23/21 09:16 Chlorthalidone 25 Mg Tab PO 25 mg QDAY KATHY Administration Clonidine HCl 0.2 mg 10/20/21 09:00 10/20/21 14:20 Clonidine 0.2 Mg Tab PO 0.2 mg Q4H PRN Administration sbp> 160 Diphenhydramine HCl 25 mg 10/15/21 10:00 10/15/21 16:26 Diphenhydramine 50 Mg/Ml Vial IV 25 mg Q6H PRN Administration Itching Famotidine 20 mg 10/19/21 10:00 10/23/21 09:09 Famotidine 20 Mg Tab PO 20 mg DAILY KATHY Administration Heparin Sodium (Porcine) 5,000 unit 10/15/21 10:00 10/23/21 21:21 Heparin 5,000 Unit/1 Ml Vial SUB-Q 5,000 unit Q12HR KATHY Administration Hydralazine HCl 10 mg 10/16/21 15:43 10/20/21 06:33 Hydralazine 20 Mg/1 Ml Inj IV 10 mg Q4HR PRN Administration Hypertension Hydralazine HCl 100 mg 10/19/21 14:00 10/23/21 21:21 Hydralazine 100 Mg Tab PO 100 mg TID KATHY Administration Hydrophilic Ointment 1 applic 10/14/21 15:47 Lip Therapy Vaseline TP Q2HR PRN Dry Lips Labetalol HCl 10 mg 10/18/21 08:11 10/19/21 07:10 Labetalol 20 Mg/4 Ml Inj IV 10 mg Q4HR PRN Administration Hypertension Morphine Sulfate 2 mg 10/14/21 12:01 10/16/21 09:34 Morphine 2 Mg/1 Ml Inj IV 2 mg Q4H PRN Administration Pain, Moderate (4-6) Multi-Ingred Cream/Lotion/Oil/Oint 1 applic 10/14/21 15:47 Mineral Oil/Petrolatum, White Ophth Oint 3.5 Gm OU Q4HR PRN Dry Eye(s) Nifedipine 60 mg 10/20/21 10:00 10/23/21 09:09 Nifedipine Xl 60 Mg Tab PO 60 mg QDAY KATHY Administration Oxycodone/Acetaminophen 1 tab 10/14/21 13:00 10/23/21 21:21 Oxycodone /Acetaminophen 5-325mg Tab PO 1 tab Q16H PRN Administration Pain, Moderate (4-6) Quetiapine Fumarate 100 mg 10/15/21 14:30 10/23/21 21:21 Quetiapine 100 Mg Tab PO 100 mg BID KATHY Administration Senna/Docusate Sodium 1 tab 10/18/21 22:00 10/23/21 21:21 Sennosides/Docusate Sodium 8.6/50 Mg Tab PO 1 tab BID KATHY Administration Sodium Chloride 10 ml 10/14/21 22:00 10/23/21 21:22 Sodium Chloride 0.9% 10 Ml Flush Syringe IV 10 ml BID KATHY Administration Sodium Chloride 10 ml 10/14/21 13:00 Sodium Chloride 0.9% 10 Ml Flush Syringe IV PRN PRN LINE FLUSH Valsartan 160 mg 10/19/21 15:00 10/23/21 09:09 Valsartan 160mg Tab PO 160 mg QDAY KATHY Administration Nutrition/Malnutrition Assess - Dietary Evaluation Nutrition/Malnutrition Findings: Nutrition Notes Start: 10/15/21 09:41 Freq: Status: Active Protocol: Document 10/18/21 10:09 ITA (Rec: 10/18/21 10:49 ITA [id number]) Nutrition Notes Initial or Follow up Reassessment Current Diagnosis Hypertension Other Pertinent Diagnosis Substance Abuse, Metabolic Encephalopathy, CAP, HFrEF, L- UE Fracture, ... Current Diet TF-Osmolite 1.5 Johnathan @ 50 ml/hr (since L 10/15). Labs/Tests 10/18: K 3.2, Crea 0.7, Glu 112. Pertinent Medications 10/18: Nutritionally unremarkable. Height 5 ft 6 in Weight 58.3 kg [place] Body Weight (kg) 64.54 BMI 20.7 Intake Prior to Admission Good Weight change and time frame Pt states being unsure if loss body weight [employer]. No body weight change reported in 3 days. Weight Status Appropriate Subjective/Other Information RD consult for TF tolerance/ continuation assessment. TF continues as prescribed, no further information available at the time. I recommend discontinue TF today and advance to PO Diet. Pt is on Room Air, O2 saturation @ 100%, according to Physical Assessment History notes. Pt continues presenting diarrhea, according to Physical Assessment History notes. Pt has missing teeth, according to Physical Assessment History notes. Pt passed bedside swallow assessment for medications on 10/17, according to RN notes. Pt extubated on 10/17, well tolerated, according to RN notes. Percent of energy/protein needs met: Prescribed TF-Osmolite 1.5 Johnathan @ 50 ml/hr provides for energy/protein needs (1,800 Kcal/75 g) during LOS, 110% Kcal; 107% AA. Prescribed Cardiac Diet provides for energy/protein needs (2,230 Kcal/85 g) during LOS. Burn Absent Trauma Absent GI Symptoms Diarrhea Food Allergy No Skin Integrity/Comment Assessment WNL. Current % PO Other Minimum of two criteria No Fluid Accumulation N/A Reduced Soil Expert Strength N/A (non-severe) Protein-Calorie Malnutrition N\A #1 Nutrition Diagnosis Inadequate oral intake Comments: Pt passed bedside swallow assessment for medications on 10/17, according to RN notes. Pt extubated on 10/17, well tolerated, according to RN notes. Diagnosis Progress(for reassessment Improved documentation) Is patient on ventilator? No Is Patient Ambulatory and/or Out of Bed No REE-([facility]-confined to bed) 1531.212 Kcal/Kg value to use for calculation 28 Approximate Energy Requirements Using 1632 kcal/Kg Calculation Used for Recommendations Kcal/kg Additional Notes Protein: 1-1.2 g/Kg ABW; 58-70 g/day. Fluids: 1 ml/Kcal, or as per MD. Nutrition Intervention Change Diet Order: I recommend discontinue TF today and advance to PO Cardiac Diet. Nutrition Support: Continue TF-Osmolite 1.5 Johnathan @ 50 ml/hr. Flush: 150 ml water Q 4 hr, or as per MD. Kcal 1,800 Protein (gm) 75 Carbohydrates (gm) 244 Fat (gm) 59 Fluid (mL) 914 Fiber (gm) 0 % RDI: 110% Kcal; 107% AA. Goal #1 Provide at least 75% of energy /protein needs through Enteral Feeding during LOS. Goal #2 Adjust the dietary intervention to better serve Pt's needs and clinical conditions during LOS. Follow-Up By: 10/25/21 Additional Comments Continue monitoring TF tolerance and BM. When pertinent, start monitoring food tolerance, %PO intake of meals, and BM.
[2021-10-24] MEDS: NIFEdipine XL 60 MG TAB PO SCH (09:20)
[2021-10-24] MEDS: VALSARTAN 160MG TAB PO SCH (09:20)
[2021-10-24] MEDS: CHLORTHALIDONE 25 MG TAB PO SCH (09:20)
[2021-10-24] MEDS: QUEtiapine 100 MG TAB PO SCH ×2 (09:20→21:06)
[2021-10-24] MEDS: hydrALAZINE 100 MG TAB PO SCH ×3 (09:20→20:48)
[2021-10-24] MEDS: HEPARIN 5,000 UNIT/1 ML VIAL SUB-Q SCH ×2 (09:21→21:06)
[2021-10-24] MEDS: FAMOTIDINE 20 MG TAB PO SCH (09:21)
[2021-10-24] MEDS: SENNOSIDES/DOCUSATE SODIUM 8.6/50 MG TAB PO SCH ×2 (09:26→21:05)
[2021-10-24] MEDS: oxyCODONE /ACETAMINOPHEN 5-325MG TAB PO PRN ×2 (09:26→21:05)
--- NOTE | 2021-10-24 11:58 | Progress Note ---
Assessment and Plan 71 YO Male with Vascular Dementia, Cerebral Atherosclerosis, Cocaine Dependence presents to ED for evaluation. Patient is intubated and on ventilatory support . Patient history obtained EMS staff, ED staff reports. The patient was found to have shortness of breath shortly after cocaine ingestion at 0500 hrs. morning of the admission day.. EMS was notified and upon arrival the patient was found to be in distress and subsequent transported to [facility] for further care and evaluation of the aforementioned symptoms. Patient found to have a O2 saturation running in the 70s which is consistent with acute hypoxemic respiratory failure. The patient was found to be unable to protect his airway and was intubated in the emergency department. The patient was also found to have a blood pressure of 218/128 mmHg which is consistent with hypertensive emergency. Patient initiated on Cardene drip. Chest x-ray revealed bilateral pneumonia. Patient admitted to ICU and initiated on pneumonia protocol. Patient has history of smoking 1 pack x 60 years. Geni told has history of alcohol abuse. He has history of cocaine abuse for long time. 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 Patient not . Has two children. No known drug allergies. Patient weaned from the ventilator and extubated him and transferred him to telemetry. Patient awake, Suppose to be on 2 litres O2. Not using his O2 regularly.O2 saturation running 98%. Says breathing better to day. Denies chest pain or shortness of breath.Still Complaining back pain. ABG on room air. ABG pH 7.475 pH Units (7.350-7.450) H 10/21/21 10:38 ABG pCO2 34.3 mm Hg 10/21/21 10:38 ABG pO2 67.7 mm Hg (80.0-90.0) L 10/21/21 10:38 ABG O2 Saturation 95.1 % (95.0-99.0) 10/21/21 10:38 Patient afebrile. No Leukocytosis, Blood pressure 128/58, Pulse 96, respirations 18. Chest xray done 10/17/21 reported Bilateral lung opacities demonstrate no significant interval change. Displaced fracture left humeral diaphysis unchanged. Left rib deformities unchanged. Patient presently on S/C Heparin, Famotidine. Recommend albuterol/atrovent aerosol treatments q 6 hours. Patient was treated with cefepime and Azithromycin for her pneumonia. - Patient Problems (1) Acute hypoxemic respiratory failure Current Visit: Yes Status: Acute Plan to address problem: Patient intubated and extubated. O2 2 litres via nasal canula. Continue S/C Heparin Continue Famotidine Recommend albuterol/atrovent aerosol treatments q 6 hours. (2) Cocaine dependence Current Visit: Yes Status: Acute Qualifiers: Complication of substance-induced condition: with unspecified complication Plan to address problem: Management as per primary care. Recommend psychiatry consultation. (3) Community acquired bilateral lower lobe pneumonia Current Visit: Yes Status: Acute Plan to address problem: Patient was treated with cefepime and Zithromax. Patient afebrile. No leukocytosis. (4) Hypertensive emergency Current Visit: Yes Status: Acute Plan to address problem: Patient is on Nifedipine, Labetelol and Hydralagine and Clonidine. Management as per primary care. (5) Chest pain Current Visit: Yes Status: Acute Plan to address problem: Management as per cardiology. Subjective Date of service: 10/24/21 Principal diagnosis: AHRF; Pulm. Edema; HTNsive Emergency; Cocaine abuse; Poss. Pneumonia; AMS Interval history: 71 YO Male with Vascular Dementia, Cerebral Atherosclerosis, Cocaine Dependence presents to ED for evaluation. Patient is intubated and on ventilatory support . Patient history obtained EMS staff, ED staff reports. The patient was found to have shortness of breath shortly after cocaine ingestion at 0500 hrs. morning of the admission day.. EMS was notified and upon arrival the patient was found to be in distress and subsequent transported to [facility] for further care and evaluation of the aforementioned symptoms. Patient found to have a O2 saturation running in the 70s which is consistent with acute hypoxemic respiratory failure. The patient was found to be unable to protect his airway and was intubated in the emergency department. The patient was also found to have a blood pressure of 218/128 mmHg which is consistent with hypertensive emergency. Patient initiated on Cardene drip. Chest x-ray revealed bilateral pneumonia. Patient admitted to ICU and initiated on pneumonia protocol. Patient has history of smoking 1 pack x 60 years. Healso told has history of alcohol abuse. He has history of cocaine abuse for long time. 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 Patient not . Has two children. No known drug allergies. Patient weaned from the ventilator and extubated him and transferred him to telemetry. Patient awake, Suppose to be on 2 litres O2. Not using his O2 regularly.O2 saturation running 98%. Says breathing better to day. Denies chest pain or shortness of breath.Still Complaining back pain. ABG on room air. ABG pH 7.475 pH Units (7.350-7.450) H 10/21/21 10:38 ABG pCO2 34.3 mm Hg 10/21/21 10:38 ABG pO2 67.7 mm Hg (80.0-90.0) L 10/21/21 10:38 ABG O2 Saturation 95.1 % (95.0-99.0) 10/21/21 10:38 Patient afebrile. No Leukocytosis, Blood pressure 128/58, Pulse 96, respirations 18. Chest xray done 10/17/21 reported Bilateral lung opacities demonstrate no significant interval change. Displaced fracture left humeral diaphysis unchanged. Left rib deformities unchanged. Patient presently on S/C Heparin, Famotidine. Recommend albuterol/atrovent aerosol treatments q 6 hours. Patient was treated with cefepime and Azithromycin for her pneumonia. Objective Vital Signs - 12hr 10/24/21 10/24/21 10/24/21 01:20 05:01 08:19 Temperature 97.9 F 98.1 F 98.2 F Pulse Rate 92 H 95 H 97 H Respiratory 20 20 18 Rate Blood Pressure 123/51 129/70 141/74 O2 Sat by Pulse 98 99 100 Oximetry 10/24/21 10/24/21 09:20 10:00 Temperature Pulse Rate Respiratory 18 Rate Blood Pressure 141/74 O2 Sat by Pulse 97 Oximetry Constitutional: no acute distress, alert Eyes: non-icteric ENT: oropharynx moist Neck: supple, no lymphadenopathy, no JVD Effort: normal Ascultation: Bilateral: other (prolonged expiratory phase.) Percussion: Bilateral: not dull Cardiovascular: regular rate and rhythm Gastrointestinal: normoactive bowel sounds, soft, non-tender, non-distended Integumentary: normal Extremities: no cyanosis, no edema, pulses normal, no ischemia or petechiae Neurologic: normal mental status, non-focal exam (grossly), pupils equal and round, motor strength normal and Psychiatric: mood appropriate, affect normal CBC and BMP: 10/19/21 04:41 10/19/21 04:41 ABG, PT/INR, D-dimer: ABG ABG pH 7.475 pH Units (7.350-7.450) H 10/21/21 10:38 ABG pCO2 34.3 mm Hg 10/21/21 10:38 ABG pO2 67.7 mm Hg (80.0-90.0) L 10/21/21 10:38 ABG O2 Saturation 95.1 % (95.0-99.0) 10/21/21 10:38 PT/INR, D-dimer PT 14.2 Sec. (12.2-14.9) 10/14/21 07:26 INR 0.99 (0.87-1.13) 10/14/21 07:26 D-Dimer 1033.11 ng/mlDDU (0-234) H 10/14/21 07:06 Abnormal lab findings: Abnormal Labs 10/14/21 10/14/21 10/14/21 07:06 07:26 07:26 RBC 3.46 L Hgb 11.7 L Hct 34.8 L MCV 101 H MCH 34 H Plt Count Lymph % (Auto) 13.1 L Lymph # (Auto) 0.8 L Seg Neutrophils % 78.8 H D-Dimer 1033.11 H ABG pH ABG pO2 ABG HCO3 ABG O2 Saturation ABG Base Excess ABG Hemoglobin Oxyhemoglobin Sodium 136 L Potassium Chloride Creatinine 0.6 L Glucose POC Glucose CK-MB (CK-2) Rel Index 6.7 H Total Protein Albumin 3.7 L 10/14/21 10/14/21 10/15/21 11:06 18:25 04:00 RBC 3.31 L Hgb 11.0 L Hct 34.0 L MCV 103 H MCH 33 H Plt Count Lymph % (Auto) Lymph # (Auto) 0.9 L Seg Neutrophils % 78.4 H D-Dimer ABG pH 7.227 L ABG pO2 71.3 L ABG HCO3 26.2 H ABG O2 Saturation 91.0 L ABG Base Excess -2.7 L ABG Hemoglobin 13.3 L 12.1 L Oxyhemoglobin 88.8 L Sodium Potassium Chloride Creatinine Glucose POC Glucose CK-MB (CK-2) Rel Index Total Protein Albumin 10/15/21 10/15/21 10/15/21 04:00 12:03 12:04 RBC Hgb Hct MCV MCH Plt Count Lymph % (Auto) Lymph # (Auto) Seg Neutrophils % D-Dimer ABG pH ABG pO2 ABG HCO3 ABG O2 Saturation ABG Base Excess ABG Hemoglobin Oxyhemoglobin Sodium 134 L Potassium Chloride Creatinine Glucose POC Glucose 45 L 42 L CK-MB (CK-2) Rel Index Total Protein Albumin 10/15/21 10/15/21 10/15/21 12:20 12:43 23:54 RBC Hgb Hct MCV MCH Plt Count Lymph % (Auto) Lymph # (Auto) Seg Neutrophils % D-Dimer ABG pH 7.311 L ABG pO2 91.2 H ABG HCO3 27.7 H ABG O2 Saturation ABG Base Excess ABG Hemoglobin 10.5 L Oxyhemoglobin Sodium Potassium Chloride Creatinine Glucose POC Glucose 161 H 122 H CK-MB (CK-2) Rel Index Total Protein Albumin 10/16/21 10/16/21 10/16/21 04:00 04:55 05:03 RBC 3.08 L Hgb 10.3 L Hct 31.6 L MCV 103 H MCH 33 H Plt Count 136 L Lymph % (Auto) Lymph # (Auto) Seg Neutrophils % D-Dimer ABG pH 7.338 L ABG pO2 117.1 H ABG HCO3 28.3 H ABG O2 Saturation ABG Base Excess ABG Hemoglobin 10.2 L Oxyhemoglobin Sodium Potassium Chloride Creatinine Glucose 121 H POC Glucose CK-MB (CK-2) Rel Index Total Protein Albumin 10/16/21 10/16/21 10/16/21 05:05 11:45 23:30 RBC Hgb Hct MCV MCH Plt Count Lymph % (Auto) Lymph # (Auto) Seg Neutrophils % D-Dimer ABG pH ABG pO2 ABG HCO3 ABG O2 Saturation ABG Base Excess ABG Hemoglobin Oxyhemoglobin Sodium Potassium Chloride Creatinine Glucose POC Glucose 116 H 110 H 154 H CK-MB (CK-2) Rel Index Total Protein Albumin 10/17/21 10/17/21 10/17/21 04:35 04:35 05:30 RBC 2.97 L Hgb 9.9 L Hct 30.3 L MCV 102 H MCH 33 H Plt Count Lymph % (Auto) Lymph # (Auto) Seg Neutrophils % D-Dimer ABG pH ABG pO2 65.5 L ABG HCO3 28.0 H ABG O2 Saturation 94.0 L ABG Base Excess ABG Hemoglobin 9.7 L Oxyhemoglobin 92.1 L Sodium 135 L Potassium Chloride 97.3 L Creatinine Glucose 146 H POC Glucose CK-MB (CK-2) Rel Index Total Protein Albumin 10/17/21 10/17/21 10/18/21 05:43 11:18 04:08 RBC 3.05 L Hgb 10.1 L Hct 31.1 L MCV 102 H MCH 33 H Plt Count Lymph % (Auto) Lymph # (Auto) Seg Neutrophils % D-Dimer ABG pH ABG pO2 ABG HCO3 ABG O2 Saturation ABG Base Excess ABG Hemoglobin Oxyhemoglobin Sodium Potassium Chloride Creatinine Glucose POC Glucose 166 H 111 H CK-MB (CK-2) Rel Index Total Protein Albumin 10/18/21 10/18/21 10/18/21 04:08 11:34 16:16 RBC Hgb Hct MCV MCH Plt Count Lymph % (Auto) Lymph # (Auto) Seg Neutrophils % D-Dimer ABG pH ABG pO2 ABG HCO3 ABG O2 Saturation ABG Base Excess ABG Hemoglobin Oxyhemoglobin Sodium Potassium 3.2 L Chloride Creatinine 0.7 L Glucose 112 H POC Glucose 161 H 139 H CK-MB (CK-2) Rel Index Total Protein 5.9 L Albumin 2.8 L 10/19/21 10/19/21 10/20/21 04:41 04:41 21:10 RBC 3.64 L Hgb Hct MCV 104 H MCH 33 H Plt Count Lymph % (Auto) Lymph # (Auto) Seg Neutrophils % D-Dimer ABG pH ABG pO2 ABG HCO3 ABG O2 Saturation ABG Base Excess ABG Hemoglobin Oxyhemoglobin Sodium Potassium Chloride Creatinine 0.7 L Glucose POC Glucose 146 H CK-MB (CK-2) Rel Index Total Protein Albumin 10/21/21 10/21/21 10/21/21 10:38 16:18 21:25 RBC Hgb Hct MCV MCH Plt Count Lymph % (Auto) Lymph # (Auto) Seg Neutrophils % D-Dimer ABG pH 7.475 H ABG pO2 67.7 L ABG HCO3 ABG O2 Saturation ABG Base Excess ABG Hemoglobin 10.2 L Oxyhemoglobin 93.2 L Sodium Potassium Chloride Creatinine Glucose POC Glucose 160 H 115 H CK-MB (CK-2) Rel Index Total Protein Albumin 10/23/21 10/23/21 10/23/21 11:00 15:53 19:59 RBC Hgb Hct MCV MCH Plt Count Lymph % (Auto) Lymph # (Auto) Seg Neutrophils % D-Dimer ABG pH ABG pO2 ABG HCO3 ABG O2 Saturation ABG Base Excess ABG Hemoglobin Oxyhemoglobin Sodium Potassium Chloride Creatinine Glucose POC Glucose 109 H 114 H 106 H CK-MB (CK-2) Rel Index Total Protein Albumin 10/24/21 07:32 RBC Hgb Hct MCV MCH Plt Count Lymph % (Auto) Lymph # (Auto) Seg Neutrophils % D-Dimer ABG pH ABG pO2 ABG HCO3 ABG O2 Saturation ABG Base Excess ABG Hemoglobin Oxyhemoglobin Sodium Potassium Chloride Creatinine Glucose POC Glucose 59 L CK-MB (CK-2) Rel Index Total Protein Albumin Allied health notes reviewed: nursing
--- NOTE | 2021-10-24 15:25 | Progress Note ---
Assessment and Plan - Patient Problems (1) Uncontrolled hypertension Current Visit: Yes Status: Deleted Plan to address problem: The patient was admitted with shortness of breath, uncontrolled hypertension, and bilateral interstitial pulmonary opacities with a working diagnosis of bilateral pneumonia. His symptoms and chest x-ray findings have improved since admission. Cardiology consultation was requested for a nonspecific finding on echocardiogram. The echo shows left ventricular systolic ejection fraction at the lower limits of normal, with mild to moderate concentric left ventricle hypertrophy. No further cardiac intervention is warranted. Subjective Date of service: 10/24/21 Principal diagnosis: AHRF; Pulm. Edema; HTNsive Emergency; Cocaine abuse; Poss. Pneumonia; AMS Interval history: Patient is comfortable no acute distress, looks and feels better. No new cardiac events reported. Blood pressure is stable on current management. Objective Vital Signs Temp Pulse Resp BP BP Pulse Ox 10/24/21 13:37 128/58 10/24/21 13:00 96 H 10/24/21 10:00 18 98 10/24/21 09:20 141/74 10/24/21 08:19 98.2 F 97 H 18 141/74 100 10/24/21 05:01 98.1 F 95 H 20 129/70 99 10/24/21 01:20 97.9 F 92 H 20 123/51 98 10/23/21 23:31 94 H 10/23/21 22:21 20 10/23/21 22:00 98 10/23/21 21:21 20 10/23/21 19:50 98.0 F 103 H 20 140/69 98 10/23/21 15:54 98.4 F 93 H 15 123/56 99 - Physical Examination General: No Apparent Distress HEENT: Positive: PERRL Neck: Positive: neck supple Cardiac: Positive: Reg Rate and Rhythm Lungs: Positive: Decreased Breath Sounds Neuro: Positive: Grossly Intact Abdomen: Positive: Soft Skin: Positive: Clear Extremities: Absent: edema - Allied health notes Allied health notes reviewed: nursing
[2021-10-25] MEDS: CHLORTHALIDONE 25 MG TAB PO SCH (10:44)
[2021-10-25] MEDS: FAMOTIDINE 20 MG TAB PO SCH (10:44)
[2021-10-25] MEDS: NIFEdipine XL 60 MG TAB PO SCH (10:44)
[2021-10-25] MEDS: hydrALAZINE 100 MG TAB PO SCH (10:44)
[2021-10-25] MEDS: HEPARIN 5,000 UNIT/1 ML VIAL SUB-Q SCH (10:44)
[2021-10-25] MEDS: QUEtiapine 100 MG TAB PO SCH (10:44)
[2021-10-25] MEDS: oxyCODONE /ACETAMINOPHEN 5-325MG TAB PO PRN (10:44)
[2021-10-25] MEDS: VALSARTAN 160MG TAB PO SCH (10:44)
[2021-10-25] MEDS: SENNOSIDES/DOCUSATE SODIUM 8.6/50 MG TAB PO SCH (10:44)
[2021-10-25 13:25] VITALS: BP 148/72
--- NOTE | 2021-10-25 13:44 | Progress Note ---
Assessment and Plan 71 YO Male with Vascular Dementia, Cerebral Atherosclerosis, Cocaine Dependence presents to ED for evaluation. Patient is intubated and on ventilatory support . Patient history obtained EMS staff, ED staff reports. The patient was found to have shortness of breath shortly after cocaine ingestion at 0500 hrs. morning of the admission day.. EMS was notified and upon arrival the patient was found to be in distress and subsequent transported to [facility] for further care and evaluation of the aforementioned symptoms. Patient found to have a O2 saturation running in the 70s which is consistent with acute hypoxemic respiratory failure. The patient was found to be unable to protect his airway and was intubated in the emergency department. The patient was also found to have a blood pressure of 218/128 mmHg which is consistent with hypertensive emergency. Patient initiated on Cardene drip. Chest x-ray revealed bilateral pneumonia. Patient admitted to ICU and initiated on pneumonia protocol. Patient has history of smoking 1 pack x 60 years. Geni told has history of alcohol abuse. He has history of cocaine abuse for long time. 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 Patient not . Has two children. No known drug allergies. Patient weaned from the ventilator and extubated him and transferred him to telemetry. PPatient sleeping., Suppose to be on 2 litres O2. Not using his O2 regularly.O2 saturation running 97%. No acute respiratory distress. ABG on room air. ABG pH 7.475 pH Units (7.350-7.450) H 10/21/21 10:38 ABG pCO2 34.3 mm Hg 10/21/21 10:38 ABG pO2 67.7 mm Hg (80.0-90.0) L 10/21/21 10:38 ABG O2 Saturation 95.1 % (95.0-99.0) 10/21/21 10:38 Patient afebrile. No Leukocytosis, Blood pressure 148/72 , Pulse 71, respirations 19. Chest xray done 10/17/21 reported Bilateral lung opacities demonstrate no significant interval change. Displaced fracture left humeral diaphysis unchanged. Left rib deformities unchanged. Patient presently on S/C Heparin, Famotidine. Recommend albuterol/atrovent aerosol treatments q 6 hours. Patient was treated with cefepime and Azithromycin for her pneumonia. - Patient Problems (1) Acute hypoxemic respiratory failure Status: Acute Plan to address problem: Patient intubated and extubated. O2 2 litres via nasal canula. Continue S/C Heparin Continue Famotidine Recommend albuterol/atrovent aerosol treatments q 6 hours. (2) Cocaine dependence Status: Acute Qualifiers: Complication of substance-induced condition: with unspecified complication Plan to address problem: Management as per primary care. Recommend psychiatry consultation. (3) Community acquired bilateral lower lobe pneumonia Status: Acute Plan to address problem: Patient was treated with cefepime and Zithromax. Patient afebrile. No leukocytosis. (4) Hypertensive emergency Status: Acute Plan to address problem: Patient is on Nifedipine, Labetelol and Hydralagine and Clonidine. Management as per primary care. (5) Chest pain Status: Acute Plan to address problem: Management as per cardiology. Subjective Date of service: 10/25/21 Principal diagnosis: AHRF; Pulm. Edema; HTNsive Emergency; Cocaine abuse; Poss. Pneumonia; AMS Interval history: 71 YO Male with Vascular Dementia, Cerebral Atherosclerosis, Cocaine Dependence presents to ED for evaluation. Patient is intubated and on ventilatory support . Patient history obtained EMS staff, ED staff reports. The patient was found to have shortness of breath shortly after cocaine ingestion at 0500 hrs. morning of the admission day.. EMS was notified and upon arrival the patient was found to be in distress and subsequent transported to [facility] for further care and evaluation of the aforementioned symptoms. Patient found to have a O2 saturation running in the 70s which is consistent with acute hypoxemic respiratory failure. The patient was found to be unable to protect his airway and was intubated in the emergency department. The patient was also found to have a blood pressure of 218/128 mmHg which is consistent with hypertensive emergency. Patient initiated on Cardene drip. Chest x-ray revealed bilateral pneumonia. Patient admitted to ICU and initiated on pneumonia protocol. Patient has history of smoking 1 pack x 60 years. Healso told has history of alcohol abuse. He has history of cocaine abuse for long time. 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 Patient not . Has two children. No known drug allergies. Patient weaned from the ventilator and extubated him and transferred him to telemetry. Patient sleeping., Suppose to be on 2 litres O2. Not using his O2 regularly.O2 saturation running 97%. No acute respiratory distress. ABG on room air. ABG pH 7.475 pH Units (7.350-7.450) H 10/21/21 10:38 ABG pCO2 34.3 mm Hg 10/21/21 10:38 ABG pO2 67.7 mm Hg (80.0-90.0) L 10/21/21 10:38 ABG O2 Saturation 95.1 % (95.0-99.0) 10/21/21 10:38 Patient afebrile. No Leukocytosis, Blood pressure 148/72 , Pulse 71, respir ations 19. Chest xray done 10/17/21 reported Bilateral lung opacities demonstrate no significant interval change. Displaced fracture left humeral diaphysis unchanged. Left rib deformities unchanged. Patient presently on S/C Heparin, Famotidine. Recommend albuterol/atrovent aerosol treatments q 6 hours. Patient was treated with cefepime and Azithromycin for her pneumonia. Objective Vital Signs - 12hr 10/25/21 10/25/21 10/25/21 04:51 10:31 12:52 Temperature 97.7 F Pulse Rate 88 71 Respiratory 18 19 Rate Blood Pressure 132/79 148/72 [Left] O2 Sat by Pulse 98 97 97 Oximetry Constitutional: no acute distress, asleep Eyes: non-icteric ENT: oropharynx moist Neck: supple, no lymphadenopathy, no JVD Effort: normal Ascultation: Bilateral: diminished breath sounds, other (prolonged expiratory phase.) Percussion: Bilateral: not dull Cardiovascular: regular rate and rhythm Gastrointestinal: normoactive bowel sounds, soft, non-tender, non-distended Integumentary: normal Extremities: no cyanosis, no edema, pulses normal, no ischemia or petechiae Neurologic: non-focal exam (grossly), pupils equal and round, other (Patient is in deep sleep.) Psychiatric: other (Patient is in deep slep.) CBC and BMP: 10/19/21 04:41 10/19/21 04:41 ABG, PT/INR, D-dimer: ABG ABG pH 7.475 pH Units (7.350-7.450) H 10/21/21 10:38 ABG pCO2 34.3 mm Hg 10/21/21 10:38 ABG pO2 67.7 mm Hg (80.0-90.0) L 10/21/21 10:38 ABG O2 Saturation 95.1 % (95.0-99.0) 10/21/21 10:38 PT/INR, D-dimer PT 14.2 Sec. (12.2-14.9) 10/14/21 07:26 INR 0.99 (0.87-1.13) 10/14/21 07:26 D-Dimer 1033.11 ng/mlDDU (0-234) H 10/14/21 07:06 Abnormal lab findings: Abnormal Labs 10/14/21 10/14/21 10/14/21 07:06 07:26 07:26 RBC 3.46 L Hgb 11.7 L Hct 34.8 L MCV 101 H MCH 34 H Plt Count Lymph % (Auto) 13.1 L Lymph # (Auto) 0.8 L Seg Neutrophils % 78.8 H D-Dimer 1033.11 H ABG pH ABG pO2 ABG HCO3 ABG O2 Saturation ABG Base Excess ABG Hemoglobin Oxyhemoglobin Sodium 136 L Potassium Chloride Creatinine 0.6 L Glucose POC Glucose CK-MB (CK-2) Rel Index 6.7 H Total Protein Albumin 3.7 L 10/14/21 10/14/21 10/15/21 11:06 18:25 04:00 RBC 3.31 L Hgb 11.0 L Hct 34.0 L MCV 103 H MCH 33 H Plt Count Lymph % (Auto) Lymph # (Auto) 0.9 L Seg Neutrophils % 78.4 H D-Dimer ABG pH 7.227 L ABG pO2 71.3 L ABG HCO3 26.2 H ABG O2 Saturation 91.0 L ABG Base Excess -2.7 L ABG Hemoglobin 13.3 L 12.1 L Oxyhemoglobin 88.8 L Sodium Potassium Chloride Creatinine Glucose POC Glucose CK-MB (CK-2) Rel Index Total Protein Albumin 10/15/21 10/15/21 10/15/21 04:00 12:03 12:04 RBC Hgb Hct MCV MCH Plt Count Lymph % (Auto) Lymph # (Auto) Seg Neutrophils % D-Dimer ABG pH ABG pO2 ABG HCO3 ABG O2 Saturation ABG Base Excess ABG Hemoglobin Oxyhemoglobin Sodium 134 L Potassium Chloride Creatinine Glucose POC Glucose 45 L 42 L CK-MB (CK-2) Rel Index Total Protein Albumin 10/15/21 10/15/21 10/15/21 12:20 12:43 23:54 RBC Hgb Hct MCV MCH Plt Count Lymph % (Auto) Lymph # (Auto) Seg Neutrophils % D-Dimer ABG pH 7.311 L ABG pO2 91.2 H ABG HCO3 27.7 H ABG O2 Saturation ABG Base Excess ABG Hemoglobin 10.5 L Oxyhemoglobin Sodium Potassium Chloride Creatinine Glucose POC Glucose 161 H 122 H CK-MB (CK-2) Rel Index Total Protein Albumin 10/16/21 10/16/21 10/16/21 04:00 04:55 05:03 RBC 3.08 L Hgb 10.3 L Hct 31.6 L MCV 103 H MCH 33 H Plt Count 136 L Lymph % (Auto) Lymph # (Auto) Seg Neutrophils % D-Dimer ABG pH 7.338 L ABG pO2 117.1 H ABG HCO3 28.3 H ABG O2 Saturation ABG Base Excess ABG Hemoglobin 10.2 L Oxyhemoglobin Sodium Potassium Chloride Creatinine Glucose 121 H POC Glucose CK-MB (CK-2) Rel Index Total Protein Albumin 10/16/21 10/16/21 10/16/21 05:05 11:45 23:30 RBC Hgb Hct MCV MCH Plt Count Lymph % (Auto) Lymph # (Auto) Seg Neutrophils % D-Dimer ABG pH ABG pO2 ABG HCO3 ABG O2 Saturation ABG Base Excess ABG Hemoglobin Oxyhemoglobin Sodium Potassium Chloride Creatinine Glucose POC Glucose 116 H 110 H 154 H CK-MB (CK-2) Rel Index Total Protein Albumin 10/17/21 10/17/21 10/17/21 04:35 04:35 05:30 RBC 2.97 L Hgb 9.9 L Hct 30.3 L MCV 102 H MCH 33 H Plt Count Lymph % (Auto) Lymph # (Auto) Seg Neutrophils % D-Dimer ABG pH ABG pO2 65.5 L ABG HCO3 28.0 H ABG O2 Saturation 94.0 L ABG Base Excess ABG Hemoglobin 9.7 L Oxyhemoglobin 92.1 L Sodium 135 L Potassium Chloride 97.3 L Creatinine Glucose 146 H POC Glucose CK-MB (CK-2) Rel Index Total Protein Albumin 10/17/21 10/17/21 10/18/21 05:43 11:18 04:08 RBC 3.05 L Hgb 10.1 L Hct 31.1 L MCV 102 H MCH 33 H Plt Count Lymph % (Auto) Lymph # (Auto) Seg Neutrophils % D-Dimer ABG pH ABG pO2 ABG HCO3 ABG O2 Saturation ABG Base Excess ABG Hemoglobin Oxyhemoglobin Sodium Potassium Chloride Creatinine Glucose POC Glucose 166 H 111 H CK-MB (CK-2) Rel Index Total Protein Albumin 10/18/21 10/18/21 10/18/21 04:08 11:34 16:16 RBC Hgb Hct MCV MCH Plt Count Lymph % (Auto) Lymph # (Auto) Seg Neutrophils % D-Dimer ABG pH ABG pO2 ABG HCO3 ABG O2 Saturation ABG Base Excess ABG Hemoglobin Oxyhemoglobin Sodium Potassium 3.2 L Chloride Creatinine 0.7 L Glucose 112 H POC Glucose 161 H 139 H CK-MB (CK-2) Rel Index Total Protein 5.9 L Albumin 2.8 L 10/19/21 10/19/21 10/20/21 04:41 04:41 21:10 RBC 3.64 L Hgb Hct MCV 104 H MCH 33 H Plt Count Lymph % (Auto) Lymph # (Auto) Seg Neutrophils % D-Dimer ABG pH ABG pO2 ABG HCO3 ABG O2 Saturation ABG Base Excess ABG Hemoglobin Oxyhemoglobin Sodium Potassium Chloride Creatinine 0.7 L Glucose POC Glucose 146 H CK-MB (CK-2) Rel Index Total Protein Albumin 10/21/21 10/21/21 10/21/21 10:38 16:18 21:25 RBC Hgb Hct MCV MCH Plt Count Lymph % (Auto) Lymph # (Auto) Seg Neutrophils % D-Dimer ABG pH 7.475 H ABG pO2 67.7 L ABG HCO3 ABG O2 Saturation ABG Base Excess ABG Hemoglobin 10.2 L Oxyhemoglobin 93.2 L Sodium Potassium Chloride Creatinine Glucose POC Glucose 160 H 115 H CK-MB (CK-2) Rel Index Total Protein Albumin 10/23/21 10/23/21 10/23/21 11:00 15:53 19:59 RBC Hgb Hct MCV MCH Plt Count Lymph % (Auto) Lymph # (Auto) Seg Neutrophils % D-Dimer ABG pH ABG pO2 ABG HCO3 ABG O2 Saturation ABG Base Excess ABG Hemoglobin Oxyhemoglobin Sodium Potassium Chloride Creatinine Glucose POC Glucose 109 H 114 H 106 H CK-MB (CK-2) Rel Index Total Protein Albumin 10/24/21 10/24/21 10/24/21 07:32 11:45 21:16 RBC Hgb Hct MCV MCH Plt Count Lymph % (Auto) Lymph # (Auto) Seg Neutrophils % D-Dimer ABG pH ABG pO2 ABG HCO3 ABG O2 Saturation ABG Base Excess ABG Hemoglobin Oxyhemoglobin Sodium Potassium Chloride Creatinine Glucose POC Glucose 59 L 114 H 129 H CK-MB (CK-2) Rel Index Total Protein Albumin Allied health notes reviewed: nursing
--- NOTE | 2021-10-25 14:14 | Progress Note ---
Assessment and Plan - Patient Problems (1) Uncontrolled hypertension Current Visit: Yes Status: Deleted Plan to address problem: The patient was admitted with shortness of breath, uncontrolled hypertension, and bilateral interstitial pulmonary opacities with a working diagnosis of bilateral pneumonia. His symptoms and chest x-ray findings have improved since admission. Cardiology consultation was requested for a nonspecific finding on echocardiogram. The echo shows left ventricular systolic ejection fraction at the lower limits of normal, with mild to moderate concentric left ventricle hypertrophy. No further cardiac intervention is warranted. Subjective Date of service: 10/25/21 Principal diagnosis: AHRF; Pulm. Edema; HTNsive Emergency; Cocaine abuse; Poss. Pneumonia; AMS Interval history: Patient is comfortable, no acute distress. No new cardiac events reported. Blood pressure control is stable. Objective Vital Signs Temp Pulse Resp BP BP Pulse Ox 10/25/21 12:52 71 19 148/72 97 10/25/21 10:31 97 10/25/21 04:51 97.7 F 88 18 132/79 98 10/25/21 01:00 88 10/25/21 00:12 97.9 F 76 20 188/86 99 10/24/21 22:00 98 10/24/21 20:02 99.1 F 102 H 20 114/51 97 10/24/21 17:54 98.8 F 10/24/21 17:26 104 H 18 136/64 99 - Physical Examination General: No Apparent Distress HEENT: Positive: PERRL Neck: Positive: neck supple Cardiac: Positive: Reg Rate and Rhythm Lungs: Positive: Decreased Breath Sounds Neuro: Positive: Grossly Intact Abdomen: Positive: Soft Skin: Positive: Clear Extremities: Absent: edema - Allied health notes Allied health notes reviewed: nursing
== END 2021-10-25 18:47 | disposition home health service (06) | DRG 208 ==
LOC: ED 06:46 → CC1 12:02 → 4A 10-20 00:57
PROVIDERS: ADMIT Internal Medicine; ATTEND Internal Medicine
PROC: 5A1945Z Respiratory Ventilation, 24-96 Consecutive Hours (ICD-10-PCS; principal; 2021-10-14)
PROC: 0BH17EZ Insertion of Endotracheal Airway into Trachea, Via Natural or Artificial Opening (ICD-10-PCS; 2021-10-14)
PROC: 4A033R1 Measurement of Arterial Saturation, Peripheral, Percutaneous Approach (ICD-10-PCS; 2021-10-14)
PROC: 02HV33Z Insertion of Infusion Device into Superior Vena Cava, Percutaneous Approach (ICD-10-PCS; 2021-10-14)
PROC: B548ZZA Ultrasonography of Superior Vena Cava, Guidance (ICD-10-PCS; 2021-10-14)
DX: J96.01 Acute respiratory failure with hypoxia (principal); G92.8 Other toxic encephalopathy; J18.9 Pneumonia, unspecified organism; I16.1 Hypertensive emergency; I50.22 Chronic systolic (congestive) heart failure; M84.422A Pathological fracture, left humerus, initial encounter for fracture; F14.229 Cocaine dependence with intoxication, unspecified; E44.0 Moderate protein-calorie malnutrition; I42.9 Cardiomyopathy, unspecified; Z68.1 Body mass index [BMI] 19.9 or less, adult; J96.02 Acute respiratory failure with hypercapnia; Z20.822 Contact with and (suspected) exposure to COVID-19; F01.50 Vascular dementia, unspecified severity, without behavioral disturbance, psychotic disturbance, mood disturbance, and anxiety; D53.9 Nutritional anemia, unspecified; I67.2 Cerebral atherosclerosis; E16.2 Hypoglycemia, unspecified; E87.6 Hypokalemia; I27.20 Pulmonary hypertension, unspecified; I11.0 Hypertensive heart disease with heart failure
CPT/HCPCS: 36415; 36600; 71045; 74018; 78580; 80048; 80053; 80307; 81001; 82140; 82550; 82553; 82803; 82962; 83735; 84100; 84145; 84484; 85025; 85027; 85379; 85610; 85730; 86140; 87040; 87070; 87205; 93005; 93306; 93970; 94002; 94003; 94760; 99291; 99292; G0378; J3490; A9540; C8929; J0360; J0456; J0692; J0696; J1200; J1644; J2250; J2270; J2704; J3010; J7030; J7050; U0003